=== PATIENT | male | born 1990 | race Caucasian/White ===

== ENCOUNTER 2021-06-17 01:51 | Emergency (ER) | payer MEDICAID, SELFPAY ==
[2021-06-17 02:00] VITALS: BP 152/95; PULSE 81; RESP 16; TEMP 37; O2SAT 95; BMI 45.6
[2021-06-17 02:44] LABS: MANUAL DIFF FLAG NO
[2021-06-17 02:45] LABS: Basophils Percent Auto 0.6 % (0-2); Eosinophils Absolute Auto 0.1 X10*3/uL (0.0-0.4); Eosinophils Percent Auto 1.5 % (0-4); Hematocrit 44.2 % (42-52); Hemoglobin 14.4 g/dl (14.0-18.0); Imm Gran Abs Auto 0.03 X10*3/uL (0.00-0.03); Imm Gran Pct Auto 0.5 % (0.0-0.4); Lymphocytes Absolute Auto 1.9 X10*3/uL (1.2-4.9); Lymphocytes Percent Auto 29.1 % (20-40); Mean Corpuscular HGB Conc 32.6 g/dl (31.0-36.0); Mean Corpuscular Hemoglobin 30.1 pg (27.0-33.0); Mean Corpuscular Volume 92.3 fL (80-98); Mean Platelet Volume 11.5 fL (9.4-12.4); Monocytes Absolute Auto 0.5 X10*3/uL (0.1-1.2); Monocytes Percent Auto 8.3 % (2-11); Neutrophils Absolute Auto 3.9 X10*3/uL (2.0-8.3); Platelet Count 210 X10*3/uL (160-400); Red Blood Count 4.79 X10*6/uL (4.60-5.80); Red Cell Distribution Width 14.1 % (11.0-16.0); White Blood Count 6.5 X10*3/uL (4.8-10.8)
--- NOTE | 2021-06-17 02:45 | PC.NURSE ---
IV established, labs and Covid obtained. Pt provided with bedside urinal when able to void. Awaiting primary MD swartz.
[2021-06-17 03:01] LABS: COVID-19 Test Negative (Negative); IDNOW Serial# 9DD0AD1C
[2021-06-17 03:22] LABS: Alanine Aminotransferase 110 U/L (0-40); Albumin Level 3.9 g/dL (3.5-5.0); Alkaline Phosphatase 105 U/L (39-117); Anion Gap 15 (12-20); Aspartate Amino Transferase 99 U/L (5-37); Bilirubin Total 0.3 mg/dL (0.0-1.0); Blood Urea Nitrogen 8 mg/dL (9-16); Calcium 8.9 mg/dL (8.4-10.2); Carbon Dioxide 24 mmol/L (22-29); Chloride 104 mmol/L (96-108); Creatinine Clr Calc Pharmacy 155.6; Estimated Glomerular Filt Rate > 60; Glucose Random 217 mg/dL (60-115); Potassium 4.8 mmol/L (3.3-5.1); Sodium 138 mmol/L (135-145); Total Protein 7.6 g/dL (6.5-8.0)
--- NOTE | 2021-06-17 03:24 | ED.HA ---
HPI - Headache General Chief Complaint: Headache Stated Complaint: migraines increasing in intensity Time Seen by Provider: 06/17/21 03:24 Source: patient Mode of arrival: ambulatory History of Present Illness HPI Narrative: 30-year-old male with history of migraines presents onset of migraine that he has had difficulty managing for the past week and states he has not been seen by his primary care provider or discuss as migraines in approximately 3 months. He denies any associated fever, chills, sore throat, cough, neck pain and states that he is up-to-date vaccines. He does have associated dizziness and nausea but denies any shortness of breath. Related Data Allergies Allergy/AdvReac Type Severity Reaction Status Date / Time No Known Allergies Allergy Verified 06/17/21 01:59 Review of Systems Review of Systems: Pertinent positives and negatives as stated in the HPI 10 point systems is otherwise negative. [facility] Past Medical History Source: nursing notes reviewed Medical History Hypertension Migraine Social History Social History Advance Directives: No Advance Directives Information Provided: Yes Physical Exam Vital Signs: Vital Signs: Last Vital Signs Temp 98.6 F 06/17/21 02:00 Pulse 67 06/17/21 03:47 Resp 16 06/17/21 03:47 BP 166/101 H 06/17/21 03:47 Pulse Ox 98 06/17/21 04:32 Body Mass Index 45.6 VITAL SIGNS: Reviewed. GENERAL: Well developed, well nourished, in no acute distress. HEAD: Normocephalic/atraumatic EYES: PERRLA, EOMI OROPHARYNX: no oral lesions noted, posterior pharynx clear LUNGS: Normal breath sounds. No adventitious sounds or accessory muscle use. SpO2<98> CARDIOVASCULAR: Regular rate and rhythm without noted murmurs, no JVD or lower extremity edema. ABDOMEN: Obese, Soft, non-tender, non-distended with bowel sounds. SKIN: Inspection of the skin reveals no rashes NEUROLOGIC: Alert and oriented x 4. Strength and sensation to light touch were grossly intact x 4. Course Course Course Narrative: 30-year-old male with history and clinical presentation consistent with migraine, patient received combination migraine cocktail. On review of all investigations there are no acute findings the noted elevation AST/ALT is likely secondary to fatty liver and on re-evaluation patient has had complete resolution of his symptoms will be discharged home in stable condition with instructions to follow-up with his primary care provider. MDM - Headache Lab Data Result diagrams: 06/17/21 02:38 06/17/21 02:38 Labs: Lab Results 06/17/21 06/17/21 06/17/21 Range/Units 02:38 02:38 02:40 WBC 6.5 (4.8-10.8) X10*3/uL RBC 4.79 (4.60-5.80) X10*6/uL Hgb 14.4 (14.0-18.0) g/dl Hct 44.2 (42-52) % MCV 92.3 (80-98) fL MCH 30.1 (27.0-33.0) pg MCHC 32.6 (31.0-36.0) g/dl RDW 14.1 (11.0-16.0) % Plt Count 210 (160-400) X10*3/uL MPV 11.5 (9.4-12.4) fL Immature Gran % (Auto) 0.5 H (0.0-0.4) % Neut % (Auto) 60.0 (45-73) % Lymph % (Auto) 29.1 (20-40) % [place] % (Auto) 8.3 (2-11) % Eos % (Auto) 1.5 (0-4) % Baso % (Auto) 0.6 (0-2) % Lymph # (Auto) 1.9 (1.2-4.9) X10*3/uL [place] # (Auto) 0.5 (0.1-1.2) X10*3/uL Eos # (Auto) 0.1 (0.0-0.4) X10*3/uL Baso # (Auto) 0.0 (0.0-0.2) X10*3/uL Abs Immat Gran (auto) 0.03 (0.00-0.03) X10*3/uL Absolute Neuts (auto) 3.9 (2.0-8.3) X10*3/uL Absolute Nucleated RBC 0.000 (0.0-0.012) X10*3/uL Nucleated RBC % (auto) 0.0 (0.0-0.2) /100WBC Sodium 138 (135-145) mmol/L Potassium 4.8 (3.3-5.1) mmol/L Chloride 104 (96-108) mmol/L Carbon Dioxide 24 (22-29) mmol/L Anion Gap 15 (12-20) BUN 8 L (9-16) mg/dL Creatinine 0.92 (0.5-1.4) mg/dL Estim Creat Clear Calc 155.6 Estimated GFR > 60 Random Glucose 217 H (60-115) mg/dL Calcium 8.9 (8.4-10.2) mg/dL Total Bilirubin 0.3 (0.0-1.0) mg/dL AST 99 H (5-37) U/L ALT 110 H (0-40) U/L Alkaline Phosphatase 105 (39-117) U/L Total Protein 7.6 (6.5-8.0) g/dL Albumin 3.9 (3.5-5.0) g/dL COVID-19 ([facility]) Negative (Negative) COVID-19 Clin Com See Note Discharge Plan Discharge Clinical Impression: Migraine Patient Disposition: Home, Self-Care Instructions: Migraine Headache (ED) Additional Instructions: 1. Resume all home medications as prescribed. 2. Tylenol 1000 mg, orally, every 6 hours as needed for headache. Do not exceed 4000 mg within 24 hours. 3. Ibuprofen 400 mg, orally with milk or food, every 6 hours as needed for headache. You may take both ibuprofen and Tylenol together as this will increase headache relief. 4. Follow-up with your primary care provider next 2-3 days for re-evaluation and further outpatient management. Return to the ER for acute worsening of symptoms. Referrals: Emerita Mejía MD [Primary Care Provider] - 2 days (Patient with acute on chronic migraine, may consider additional prescription treatment.)
[2021-06-17] MEDS: 0.9 % Sodium Chloride 1,000 ML 999 ML IV (03:41)
[2021-06-17] MEDS: diphenhydrAMINE HCL 50 MG/ML VIAL 25 MG IVPUSH (03:42)
[2021-06-17] MEDS: Metoclopramide HCl 10 MG/2 ML VIAL IVPUSH (03:42)
[2021-06-17] MEDS: Ketorolac Tromethamine 15 MG/ML VIAL IVPUSH (03:42)
[2021-06-17] MEDS: Acetaminophen 325 MG TABLET 975 MG PO (03:42)
[2021-06-17 03:47] VITALS: BP 166/101; PULSE 67; RESP 16; O2SAT 98
--- NOTE | 2021-06-17 03:50 | PC.NURSE ---
Pt medicated per DEC. VSS. Resting in bed with lights dim for comfort.
[2021-06-17 04:32] VITALS: O2SAT 87; O2SAT 98
--- NOTE | 2021-06-17 04:32 | PC.NURSE ---
Pt heard snoring loudly in room. Pt previously reported a hx of sleep apnea, states he sleeps with bipap. O2 sat while sleeping noted to be 87%, pt wakes easily, O2 sat increasing to 98%. Pt -> O2 via NC @ 2 lpm to ensure adequate oxygenation while sleeping. Continue to monitor.
== END 2021-06-17 05:10 | disposition home or self-care (01) ==
PROVIDERS: Emergency Provider Student in an Organized Health Care Education/Training Program; PCP Pediatrics
DX: G43.909 Migraine, unspecified, not intractable, without status migrainosus (principal); Z20.822 Contact with and (suspected) exposure to COVID-19; Z79.899 Other long term (current) drug therapy
CPT/HCPCS: 36415; 80053; 85025; 87635; 96361; 96374; 96375; 99284; J1200; J1885; J2765

== ENCOUNTER 2021-08-21 17:39 | Emergency (ER) | payer MEDICAID, SELFPAY ==
[2021-08-21 17:50] VITALS: BP 154/100; PULSE 116; RESP 18; TEMP 36.3; O2SAT 100; BMI 41.8
[2021-08-21 23:00] VITALS: BP 149/66; PULSE 92; RESP 16; TEMP 36.9; O2SAT 94
[2021-08-21 23:30] LABS: Appearance Urine CLEAR; Color Urine YELLOW; Glucose Urine UA >=1000 MG/DL (NEG); Leukocyte Esterase Urine NEG (NEG); Nitrite Urine NEG (NEG); Specific Gravity - Urine 1.015 (1.005-1.025); UACC Culture Trigger NO; Urine Blood 1+ (NEG); Urine Ketones NEG (NEG); Urine Protein NEG (NEG-TRACE)
[2021-08-21 23:40] LABS: Bacteria Urine 1+ /LPF; Squamous Epithelial Cell Urine 1+ /LPF
[2021-08-21 23:41] LABS: UACC CULT YES
--- NOTE | 2021-08-22 00:06 | ED.MALEGU ---
HPI - Male Genitourinary General Chief complaint: Urogenital-Male Stated complaint: Genital issues Time Seen by Provider: 08/21/21 23:44 Source: patient Mode of arrival: ambulatory Limitations: no limitations History of Present Illness HPI Narrative: Patient was shaving the shaft of his penis with razor up to prepuce and then for the past 4 days and has swelling at glans and prepuce of penis with some discharge and slight erythema penis. Penis shaft has excoriations. Patient is not circumsided. patient states he has not sexully active for over a year. Patient states able to urinate. Related Data Previous Rx's Medication Instructions Recorded cephalexin 500 mg capsule 500 mg PO QID 7 Days #28 cap 08/22/21 hydrocortisone 1 % topical cream 1 appl TOPICAL BID 7 Days #28.4 g 08/22/21 metronidazole 500 mg tablet 500 mg PO Q12H 7 Days #14 tab 08/22/21 Allergies Allergy/AdvReac Type Severity Reaction Status Date / Time No Known Allergies Allergy Verified 06/17/21 01:59 Review of Systems Review of Systems: Yes all other systems are reviewed and are negative Constitutional: Constitutional: Reports as per HPI and Reports no additional constitutional complaints Eyes: Eyes: Reports as per HPI and Reports no additional eye complaints ENT: Reports system reviewed and no additional complaints, except as documented and Reports as per HPI Cardiovascular: Cardiovascular: Reports as per HPI and Reports no additional cardiovascular complaints Respiratory: Respiratory: Reports as per HPI and Reports no additional respiratory complaints Gastrointestinal: Gastrointestinal: Reports as per HPI and Reports no additional gastrointestinal complaints Genitourinary: Genitourinary: Reports no additional male genitourinary complaints and Reports as per HPI Comments: penile irritations Musculoskeletal: Musculoskeletal: Reports no additional musculoskeletal complaints and Reports as per HPI Neurologic: Reports system reviewed and no additional complaints, except as documented and Reports as per HPI Psychiatric: Psychiatric: Reports no additional psychiatric complaints and Reports as per HPI Endocrine: Endocrine: Reports no additional endocrine complaints and Reports as per HPI [facility] Past Medical History Medical History Hypertension Migraine Physical Exam Vital Signs: Vital Signs: Last Vital Signs Temp 98.4 F 08/21/21 23:00 Pulse 92 08/21/21 23:00 Resp 16 08/21/21 23:00 BP 149/66 H 08/21/21 23:00 Pulse Ox 94 08/21/21 23:00 Body Mass Index 41.8 Const: General: cooperative, healthy appearing, comfortable, no acute distress, well developed, alert and awake Orientation/consciousness: patient oriented x3 HENMT: Head: Yes normal to inspection, Yes No palpable skull fracture present, Yes normocephalic, Yes atraumatic and No abrasion Eyes: General: appearance normal, both eyes and all related structures Neck: Neck: Yes normal visual inspection, Yes full ROM, Yes no lymphadenopathy, Yes no meningeal signs, Yes trachea midline, Yes supple and No tender Chest: Chest palpation & inspection: normal inspection of the chest and normal palpation of entire chest wall Resp: Effort & Inspection: normal respiratory effort and able to speak in complete sentences Auscultation: clear to auscultation bilaterally Cardio: Jugular venous distension: no JVD Heart sounds: S1 normal heart sound present and S2 normal heart sound present GI: Inspection: Yes normal to inspection and No abdominal wall ecchymosis Palpation (GI): Soft to palpation, not firm, nontender, no guarding and not rigid : Other: General: No CVA tenderness and Yes no CVA tenderness Back/Spine/Pelvis: Back: no CVA tenderness, No CVA tenderness and No back tenderness Neuro: General: patient oriented x3, gait normal, no meningeal signs and CN's II-XI intact bilaterally Cranial nerves: Yes CN's II-XII intact bilaterally Extrem: General: Yes normal to inspection and Yes full ROM Psych: Appearance: grossly normal, well kempt and not disheveled Course Course Course Narrative: Urine, wound culture, and chlamydia gonorrhea sent. Reevaluation(s) Reevaluation #1: Patient does not want empiric treatment for STI. Patient states he has not be simply active for over 1 year and recent STD test for gonorrhea chlamydia and others were negative. Will give antibiotics to cover anaerobes and strep/staff. Patient given steroid cream. Patient informed to follow-up with urology. patient presently not having urinary obstruction. patient educted on worsenin balanitis leading to worsening phimosis/paraphimosis leading to urinary obstruction. patient informed to return to the ED if he has them. MDM - Male Genitourinary Lab Data Labs: Lab Results 08/21/21 08/21/21 Range/Units 23:17 23:17 Urine Color YELLOW Urine Appearance CLEAR Urine pH 6.0 (5.0-8.0) Ur Specific [place] 1.015 (1.005-1.025) Urine Protein NEG (NEG-TRACE) MG/DL Urine Glucose (UA) >=1000 H (NEG) MG/DL Urine Ketones NEG (NEG) MG/DL Urine Blood 1+ H (NEG) Urine Nitrite NEG (NEG) Ur Leukocyte Esterase NEG (NEG) Urine RBC 1-4 (0) /HPF Urine WBC 5-9 H (0-4) /HPF Ur Squamous Epith Cells 1+ /LPF Urine Bacteria 1+ /LPF Urine Yeast 1+ /HPF Chlam trachomat DNA PCR NOT DETECTED (Not Detect.) N.gonorrhoeae DNA (PCR) NOT DETECTED (Not Detect.) Discharge Plan Discharge Clinical Impression: Balanitis, Balanoposthitis Patient Disposition: Home, Self-Care Instructions: Sangeeta (ED) Additional Instructions: Return to the ED for any swelling of penis, redness, profuse discharge, inability to urinate, inability to completely retract forskin, testicular pain, testicular swelling, or any other concerning symptoms. Prescriptions: New hydrocortisone 1 % cream 1 appl topical BID 7 Days Qty: 28.4 RF: 0 metronidazole 500 mg tablet 500 mg PO Q12H 7 Days Qty: 14 RF: 0 cephalexin 500 mg capsule 500 mg PO QID 7 Days Qty: 28 RF: 0 Referrals: Shola Parker MD [Physician] - 2 days (Balanoposthitis after shaving penis. patient states he has not been sexually active for one year) Stand Alone Forms: Work/School Release Interventions: ED Discharge Assessment Last Done: 08/22/21 00:32 Discharge Date/Time: 08/22/21 00:36 Print Language: Guatemalan
[2021-08-22 05:47] LABS: CT PCR NOT DETECTED (Not Detect.); NG PCR NOT DETECTED (Not Detect.)
== END 2021-08-22 00:36 | disposition home or self-care (01) ==
PROVIDERS: Physician Assistant; Emergency Provider Internal Medicine; PCP Pediatrics
DX: N48.1 Balanitis (principal); N47.6 Balanoposthitis
CPT/HCPCS: 81001; 87071; 87086; 87147; 87205; 87491; 87591; 99283; 99284

== ENCOUNTER 2021-08-24 21:06 | Emergency (ER) | payer MEDICAID, SELFPAY ==
[2021-08-24 21:28] VITALS: BP 149/93; PULSE 105; RESP 18; TEMP 36.6; O2SAT 98; BMI 41.8
--- NOTE | 2021-08-24 21:40 | ED_ITS ---
HPI - Male Genitourinary General Chief complaint: Urogenital-Male Stated complaint: Unable to void Time Seen by Provider: 08/24/21 21:40 Source: patient Mode of arrival: ambulatory Limitations: no limitations History of Present Illness HPI Narrative: Patient will be is nondiabetic was seen here on 08/22 a bend 80s 1 week duration treated with Keflex and Flagyl culture showed strep agalactiae. Comes back as is not getting better patient is borderline diabetic not on any medications Related Data Previous Rx's Medication Instructions Recorded cephalexin 500 mg capsule 500 mg PO QID 7 Days #28 cap 08/22/21 hydrocortisone 1 % topical cream 1 appl TOPICAL BID 7 Days #28.4 g 08/22/21 metronidazole 500 mg tablet 500 mg PO Q12H 7 Days #14 tab 08/22/21 miconazole nitrate 2 % topical 1 spray TOPICAL BID #150 g 08/24/21 spray (Athlete's Foot) mupirocin calcium 2 % topical cream 1 appl TOPICAL TID #30 g 08/24/21 Allergies Allergy/AdvReac Type Severity Reaction Status Date / Time No Known Allergies Allergy Verified 06/17/21 01:59 Review of Systems Review of Systems: Yes all other systems are reviewed and are negative [facility] Past Medical History Medical History (Reviewed 08/25/21 @ 01:35 EDT by Teja Feliciano MD) Hypertension Migraine Social History Social History (Reviewed 08/25/21 @ 01:35 EDT by Teja Feliciano MD) Advance Directives: No Advance Directives Information Provided: Yes Physical Exam Vital Signs: Vital Signs: Last Vital Signs Temp 97.8 F 08/24/21 21:28 Pulse 105 H 08/24/21 21:28 Resp 18 08/24/21 21:28 BP 149/93 H 08/24/21 21:28 Pulse Ox 98 08/24/21 21:28 Body Mass Index 41.8 : Other: Inflamed glans uncircumcised penis with pus discharge intertrigo and candidal infection of the scrotum and under the penis Penis: uncircumcised, Localized penile swelling present and ulceration Scrotum: scrotum normal MDM - Male Genitourinary MDM Narrative Medical decision making narrative: Patient borderline diabetic with balanitis continue Keflex and Flagyl add Bactroban ointment locally advised for local hygiene and will give him Lotrimin powder advised to follow-up with urologist Discharge Plan Discharge Clinical Impression: Balanitis Patient Disposition: Home, Self-Care Instructions: [place] (ED) Additional Instructions: Continue antibiotics Apply Bactroban ointment 3 times a day Lotrimin AF powder to spray twice daily See urologist next week Clean with peroxide 2- 3 times a day Prescriptions: New mupirocin calcium 2 % cream 1 appl topical TID Qty: 30 RF: 0 Athlete's Foot 2 % aerosol,spray 1 spray topical BID Qty: 150 RF: 0 No Action hydrocortisone 1 % cream 1 appl topical BID 7 Days Qty: 28.4 RF: 0 metronidazole 500 mg tablet 500 mg PO Q12H 7 Days Qty: 14 RF: 0 cephalexin 500 mg capsule 500 mg PO QID 7 Days Qty: 28 RF: 0 Interventions: ED Discharge Assessment Last Done: 08/24/21 22:05 Discharge Date/Time: 08/24/21 22:05
[2021-08-24] MEDS: Fluconazole 150 MG TABLET PO (21:58)
== END 2021-08-24 22:05 | disposition home or self-care (01) ==
PROVIDERS: Emergency Provider Internal Medicine
DX: N48.1 Balanitis (principal); R33.9 Retention of urine, unspecified; Z79.899 Other long term (current) drug therapy
CPT/HCPCS: 99283; 99284

== ENCOUNTER 2023-11-27 16:38 | Emergency (ER) | payer OTHER, SELFPAY ==
[2023-11-27 16:54] VITALS: BP 150/98; PULSE 95; RESP 20; TEMP 37.1; O2SAT 98; BMI 36.8
--- NOTE | 2023-11-27 16:58 | ED.GENADULT ---
HPI - General Adult General Chief complaint: General Medical Stated complaint: type 2 diabetic, fingers swollen, high glucose Time Seen by Provider: 11/27/23 18:14 Source: patient Mode of arrival: ambulatory Limitations: no limitations History of Present Illness HPI narrative: Patient comes to the emergency room complaining of high blood sugar. Patient states that he has been out of medications for 3 months. Patient states that he used to live in [place], he had but health insurance, did not cover his insulin or any of his medications. Patient decided to move to [place] because he gets everything for free per patient. Patient denies any nausea vomiting or diarrhea, no abdominal pain Related Data Previous Rx's Medication Instructions Recorded cephalexin 500 mg capsule 500 mg PO QID 7 days #28 caps 08/22/21 hydrocortisone 1 % topical cream 1 appl topical BID 7 days #28.4 08/22/21 grams metronidazole 500 mg tablet 500 mg PO Q12H 7 days #14 tabs 08/22/21 miconazole nitrate 2 % topical 1 spray topical BID #150 grams 08/24/21 spray (Athlete's Foot) mupirocin calcium 2 % topical cream 1 appl topical TID #30 grams 08/24/21 blood sugar diagnostic (Accu-Chek #50 ea 11/27/23 Guide test strips) blood-glucose meter (Accu-Chek #1 ea 11/27/23 Guide Glucose Meter) glucagon HCl 1 mg solution for 1 mg subcut Q20M PRN hypoglycemia 11/27/23 injection (Glucagon (HCl) #1 ea Emergency Kit) insulin glargine 100 unit/mL (3 10 unit (0.1 mL) subcut QPM #3 mL 11/27/23 mL) subcutaneous pen (Lantus Solostar U-100 Insulin) lancets (Accu-Chek Fastclix Lancet #100 ea 11/27/23 Drum) lisinopril 10 mg tablet 10 mg PO DAILY #30 tabs 11/27/23 metformin 1,000 mg tablet 1,000 mg PO DAILY #60 tabs 11/27/23 Allergies Allergy/AdvReac Type Severity Reaction Status Date / Time No Known Allergies Allergy Verified 11/27/23 16:59 Review of Systems Review of Systems: Constitutional : No Weight loss, No Fever, No Chills, No Night Sweats, No Fatigue, No Malaise ENT/Mouth : No Hearing loss, No Ear Pain, No Nasal Congestion, No Sinus Pain, No Hoarseness, No sore throat, No Rhinorrhea, No Swallowing Difficulty Eyes: No Eye Pain, No Swelling, No Redness, No Foreign Body, No Discharge, No Vision Changes Cardiovascular : No Chest Pain, No SOB, No Dyspnea on Exertion, No Orthopnea, No Edema, No Palpitations Respiratory : No Cough, No Sputum, No Wheezing, No Smoke Exposure, No Dyspnea Gastrointestinal : No Nausea, No Vomiting, No Diarrhea, No Constipation, No abdominal Pain, No Hematochezia, No Melena Genitourinary : no irregular bleeding, No Dysuria, No Urinary Frequency, No Hematuria, No Urinary Incontinence, No Urgency, No Flank Pain, No Urinary Flow Changes, No Hesitancy Musculoskeletal : No joint pain, No Myalgias, No Joint Swelling Skin : No Skin Lesions, No rash Neuro : No Weakness, No Numbness, No Paresthesias, No Loss of Consciousness, No Dizziness, No Headache Psych : No Anxiety/Panic, No Depression, No SI/HI/AH/VH, No Social Issues, Heme/Lymph: No Bruising, No Bleeding,No Lymphadenopathy Endocrine : No Polyuria, No Polydipsia, No Temperature Intolerance, complaining of high blood sugar [facility] Past Medical History Medical History (Updated 11/27/23 @ 22:14 by Bonnie Montoya MD) Type 2 diabetes mellitus Hypertension Migraine Social History Social History (Reviewed 08/25/21 @ 01:35 EDT by Teja Feliciano MD) Advance Directives: No Advance Directives Information Provided: No Physical Exam ED Vital Signs: Vital Signs - 24 hr 11/27/23 16:54 11/27/23 19:20 11/27/23 21:36 Temperature 98.8 F 98.1 F 98.5 F Pulse Rate 95 79 83 Respiratory Rate 20 16 14 Blood Pressure 150/98 H 144/92 H 146/91 H Pulse Oximetry 98 97 97 Oxygen Delivery Method Room Air Room Air Room Air BMI result Body Mass Index 36.8 Const Other: Appearance: Alert. Oriented X3. No acute distress. Well-appearing Eyes: Pupils equal, round and reactive to light. ENT: Pharynx normal. Neck: Normal inspection. Neck supple. No lymph nodes noted. No crepitus CVS: Normal heart rate and rhythm. Pulses normal. Normal S1 and S2 Respiratory: No respiratory distress. Breath sounds normal. No Wheezing. No rales Abdomen: Soft and nontender. No rigidity. No distention. Skin: Skin warm and dry. Normal skin color. Normal skin turgor. Extremities: No lower extremity edema. No Lacerations. No Rash Neuro: Oriented X 3. No motor deficit. No sensory deficit. Moving all extremities. No slurred speech. CN 2 through 12 grossly intact Psych: calm, cooperative, normal affect Course Course Course Narrative: This is an RME: Additional HPI, ROS, PE not included below will be deferred to primary provider. Patient is a 33-year-old male who presents emergency department for evaluation. He reports approximately 1 year ago he was newly diagnosed as a type 2 diabetic, was started on metformin and insulin. He reports previously his blood sugars not being well controlled. However, over the past few months he has not been taking any medications as he ran out of them and has moved multiple times to different states. Reports recently at home his blood sugars have been over 400, he is having swelling to his fingers and toes, intermittent nausea/stomach discomfort. Plan: Labs, urinalysis Medications Administered Discontinued Medications Generic Name Dose Route Start Last Admin Trade Name Freq PRN Reason Stop Dose Admin Sodium Chloride 2,000 mls @ 999 mls/hr 11/27/23 18:30 11/27/23 19:11 Ns IVCONT 11/27/23 20:30 999 mls/hr .Q2H1M ONE Administration Insulin Human Regular 10 unit 11/27/23 18:30 11/27/23 19:17 Insulin Regular, Human 100 Unit/Ml 3 Ml Vial IVPUSH 11/27/23 18:31 10 unit ONCE ONE Administration Medical Decision Making Medical Decision Making [facility] Narrative: My interpretation of labs, normal hematology, chemistry shows a glucose of 621, mildly elevated LFTs, normal lipase, negative beta hydroxybutyrate, anion gap close -patient received IV fluids, 10 units of insulin, glucose 307 after treatment. Patient asymptomatic -patient willing to restart taking medications -from his [place] records, patient used to take NPH insulin 10 units b.i.d., lisinopril 10 mg, metformin 1000 mg b.i.d. Differential Diagnosis Differential Diagnoses: The differential diagnosis associated with the presentation includes (Hyperglycemia, DKA, uncontrolled diabetes) Admission/Observation Consideration of admission/observation: Escalation of care including admission/observation considered (Given patient's labs, patient considered) Lab Data MDM Lab Attestation statement: I reviewed the patient's lab results. 11/27/23 17:13 11/27/23 17:13 Labs: Lab Results 11/27/23 11/27/23 11/27/23 Range/Units 17:13 17:17 20:06 WBC 6.2 (4.8-10.8) X10*3/uL RBC 5.16 (4.60-5.80) X10*6/uL Hgb 14.4 (14.0-18.0) g/dl Hct 42.1 (42.0-52.0) % MCV 81.6 (80.0-98.0) fL MCH 27.9 (27.0-33.0) pg MCHC 34.2 (31.0-36.0) g/dl RDW 12.6 (11.0-16.0) % Plt Count 254 (160-400) X10*3/uL MPV 11.4 (9.4-12.4) fL Immature Gran % (Auto) 0.5 H (0.0-0.4) % Neut % (Auto) 63.0 (45-73) % Lymph % (Auto) 27.7 (20-40) % [place] % (Auto) 7.0 (2-11) % Eos % (Auto) 1.0 (0-4) % Baso % (Auto) 0.8 (0-2) % Lymph # (Auto) 1.7 (1.2-4.9) X10*3/uL Archer # (Auto) 0.4 (0.1-1.2) X10*3/uL Eos # (Auto) 0.1 (0.0-0.4) X10*3/uL Baso # (Auto) 0.1 (0.0-0.2) X10*3/uL Abs Immat Gran (auto) 0.03 (0.00-0.03) X10*3/uL Absolute Neuts (auto) 3.9 (2.0-8.3) x10*3/uL Absolute Nucleated RBC 0.000 (0.0-0.012) X10*3/uL Nucleated RBC % (auto) 0.0 (0.0-0.2) /100WBC VBG pH 7.43 (7.32-7.43) VBG pCO2 40 mmHg VBG pO2 79 mmHg VBG HCO3 27 H (22-26) mmol/L VBG O2 Saturation 97.0 % VBG Base Excess 3.0 mmol/L Sodium 131 L (135-145) mmol/L Potassium 4.4 (3.3-5.1) mmol/L Chloride 95 L (96-108) mmol/L Carbon Dioxide 27 (22-29) mmol/L Anion Gap 13 (12-20) BUN 12 (9-16) mg/dL Creatinine 0.95 (0.5-1.4) mg/dL Estim Creat Clear Calc 130.3 Estimated GFR > 60 POC Glucose (60-115) mg/dL Random Glucose 621 H* (60-115) mg/dL Calcium 9.8 D (8.4-10.2) mg/dL Total Bilirubin 0.4 (0.0-1.0) mg/dL AST 34 (5-37) U/L ALT 66 H (0-40) U/L Alkaline Phosphatase 164 H (39-117) U/L Total Protein 8.7 H (6.5-8.0) g/dL Albumin 4.1 (3.5-5.0) g/dL Lipase 40 (8-78) U/L Beta-Hydroxybutyrate 0.15 (0.02-0.27) mmol/L Urine Color Yellow Urine Appearance Clear Urine pH 5.5 (5.0-9.0) Ur Specific [place] >= 1.030 H (1.005-1.025) Urine Protein Negative (Neg-Trace) mg/dL Urine Glucose (UA) >=1000 H (Negative) mg/dL Urine Ketones Negative (Negative) mg/dL Urine Blood Negative (Negative) Urine Nitrite Negative (Negative) Ur Leukocyte Esterase Negative (Negative) Urine RBC 0-2 (0-2) /HPF Urine WBC 0-5 (0-5) /HPF Ur Squamous Epith Cells 0-2 (0-2) /HPF Urine Bacteria None Seen (None Seen) Hyaline Casts 0-2 (0-2) /LPF 11/27/23 Range/Units 20:40 WBC (4.8-10.8) X10*3/uL RBC (4.60-5.80) X10*6/uL Hgb (14.0-18.0) g/dl Hct (42.0-52.0) % MCV (80.0-98.0) fL MCH (27.0-33.0) pg MCHC (31.0-36.0) g/dl RDW (11.0-16.0) % Plt Count (160-400) X10*3/uL MPV (9.4-12.4) fL Immature Gran % (Auto) (0.0-0.4) % Neut % (Auto) (45-73) % Lymph % (Auto) (20-40) % Archer % (Auto) (2-11) % Eos % (Auto) (0-4) % Baso % (Auto) (0-2) % Lymph # (Auto) (1.2-4.9) X10*3/uL Archer # (Auto) (0.1-1.2) X10*3/uL Eos # (Auto) (0.0-0.4) X10*3/uL Baso # (Auto) (0.0-0.2) X10*3/uL Abs Immat Gran (auto) (0.00-0.03) X10*3/uL Absolute Neuts (auto) (2.0-8.3) x10*3/uL Absolute Nucleated RBC (0.0-0.012) X10*3/uL Nucleated RBC % (auto) (0.0-0.2) /100WBC VBG pH (7.32-7.43) VBG pCO2 mmHg VBG pO2 mmHg VBG HCO3 (22-26) mmol/L VBG O2 Saturation % VBG Base Excess mmol/L Sodium (135-145) mmol/L Potassium (3.3-5.1) mmol/L Chloride (96-108) mmol/L Carbon Dioxide (22-29) mmol/L Anion Gap (12-20) BUN (9-16) mg/dL Creatinine (0.5-1.4) mg/dL Estim Creat Clear Calc Estimated GFR POC Glucose 307 H (60-115) mg/dL Random Glucose (60-115) mg/dL Calcium (8.4-10.2) mg/dL Total Bilirubin (0.0-1.0) mg/dL AST (5-37) U/L ALT (0-40) U/L Alkaline Phosphatase (39-117) U/L Total Protein (6.5-8.0) g/dL Albumin (3.5-5.0) g/dL Lipase (8-78) U/L Beta-Hydroxybutyrate (0.02-0.27) mmol/L Urine Color Urine Appearance Urine pH (5.0-9.0) Ur Specific [place] (1.005-1.025) Urine Protein (Neg-Trace) mg/dL Urine Glucose (UA) (Negative) mg/dL Urine Ketones (Negative) mg/dL Urine Blood (Negative) Urine Nitrite (Negative) Ur Leukocyte Esterase (Negative) Urine RBC (0-2) /HPF Urine WBC (0-5) /HPF Ur Squamous Epith Cells (0-2) /HPF Urine Bacteria (None Seen) Hyaline Casts (0-2) /LPF Critical Care Time Critical Care Time Critical Care Time: Yes Total Critical Care Time: 60 Attestation: I have personally provided critical care time. Time includes review of lab data, radiology results, discussion with consultants, and monitoring for potential decompensation. Intervention performed as documented. Discharge Plan Discharge Clinical Impression: Uncontrolled diabetes mellitus with hyperglycemia Patient Disposition: Home, Self-Care Instructions: Diabetic Hyperglycemia (ED) Additional Instructions: Please follow-up with your primary care physician tomorrow. If you have any worsening or new symptoms, please return to the emergency room or call 911 Prescriptions: New metformin 1,000 mg tablet 1,000 mg PO DAILY Qty: 60 1RF lisinopril 10 mg tablet 10 mg PO DAILY Qty: 30 1RF insulin glargine [Lantus Solostar U-100 Insulin] 100 unit/mL (3 mL) insulin pen 10 unit subcut QPM Qty: 3 1RF (DME) blood-glucose meter [Accu-Chek Guide Glucose Meter] Misc See Rx Instructions .Route Qty: 1 0RF Rx Instructions: As directed (DME) Accu-Chek Guide test strips Strip See Rx Instructions .Route Qty: 50 0RF Rx Instructions: As directed (DME) lancets [Accu-Chek Fastclix Lancet Drum] Misc See Rx Instructions .Route Qty: 100 0RF Rx Instructions: As directed glucagon HCl [Glucagon (HCl) Emergency Kit] 1 mg recon soln 1 mg subcut Q20M PRN (Reason: hypoglycemia) Qty: 1 0RF Rx Instructions: until target blood sugar attained No Action mupirocin calcium 2 % cream 1 appl topical TID Qty: 30 0RF Athlete's Foot 2 % aerosol,spray 1 spray topical BID Qty: 150 0RF hydrocortisone 1 % cream 1 appl topical BID 7 Days Qty: 28.4 0RF Rx Instructions: place on area metronidazole 500 mg tablet 500 mg PO Q12H 7 Days Qty: 14 0RF cephalexin 500 mg capsule 500 mg PO QID 7 Days Qty: 28 0RF
[2023-11-27 17:17] LABS: MANUAL DIFF FLAG NO
[2023-11-27 17:20] LABS: Basophils Absolute Auto 0.1 X10*3/uL (0.0-0.2); Basophils Percent Auto 0.8 % (0-2); Eosinophils Absolute Auto 0.1 X10*3/uL (0.0-0.4); Hematocrit 42.1 % (42.0-52.0); Hemoglobin 14.4 g/dl (14.0-18.0); Imm Gran Abs Auto 0.03 X10*3/uL (0.00-0.03); Imm Gran Pct Auto 0.5 % (0.0-0.4); Lymphocytes Absolute Auto 1.7 X10*3/uL (1.2-4.9); Lymphocytes Percent Auto 27.7 % (20-40); Mean Corpuscular HGB Conc 34.2 g/dl (31.0-36.0); Mean Corpuscular Hemoglobin 27.9 pg (27.0-33.0); Mean Corpuscular Volume 81.6 fL (80.0-98.0); Mean Platelet Volume 11.4 fL (9.4-12.4); Monocytes Absolute Auto 0.4 X10*3/uL (0.1-1.2); Neutrophils Absolute Auto 3.9 x10*3/uL (2.0-8.3); Platelet Count 254 X10*3/uL (160-400); Red Blood Count 5.16 X10*6/uL (4.60-5.80); Red Cell Distribution Width 12.6 % (11.0-16.0); White Blood Count 6.2 X10*3/uL (4.8-10.8)
[2023-11-27 17:31] LABS: VBG HCO3 27 mmol/L (22-26); VBG pCO2 40 mmHg; VBG pH 7.43 (7.32-7.43); VBG pO2 79 mmHg
[2023-11-27 17:40] LABS: Beta-Hydroxybutyrate 0.15 mmol/L (0.02-0.27)
[2023-11-27 17:40] LABS: Venous Blood Gas Refer to POC result
[2023-11-27 17:43] LABS: Alanine Aminotransferase 66 U/L (0-40); Albumin Level 4.1 g/dL (3.5-5.0); Alkaline Phosphatase 164 U/L (39-117); Anion Gap 13 (12-20); Aspartate Amino Transferase 34 U/L (5-37); Bilirubin Total 0.4 mg/dL (0.0-1.0); Blood Urea Nitrogen 12 mg/dL (9-16); Calcium 9.8 mg/dL (8.4-10.2); Carbon Dioxide 27 mmol/L (22-29); Chloride 95 mmol/L (96-108); Creatinine Clr Calc Pharmacy 130.3; Estimated Glomerular Filt Rate > 60; Glucose Random 621 mg/dL (60-115); Lipase 40 U/L (8-78); Potassium 4.4 mmol/L (3.3-5.1); Sodium 131 mmol/L (135-145); Total Protein 8.7 g/dL (6.5-8.0)
[2023-11-27] MEDS: 0.9 % Sodium Chloride 2,000 ML 999 ML IVCONT (19:11)
[2023-11-27] MEDS: Insulin Regular, Human 100 UNIT/ML 3 ML VIAL 10 UNIT IVPUSH (19:17)
[2023-11-27 19:20] VITALS: BP 144/92; PULSE 79; RESP 16; TEMP 36.7; O2SAT 97
--- NOTE | 2023-11-27 20:41 | PC.NURSE ---
POC:307
[2023-11-27 20:43] LABS: Appearance Urine Clear; Color Urine Yellow; Glucose Urine UA >=1000 mg/dL (Negative); Leukocyte Esterase Urine Negative (Negative); Nitrite Urine Negative (Negative); PH 5.5 (5.0-9.0); Specific Gravity - Urine >= 1.030 (1.005-1.025); UMIC TRIGGER UACC YES; Urine Blood Negative (Negative); Urine Ketones Negative (Negative); Urine Protein Negative (Neg-Trace)
[2023-11-27 20:46] LABS: Glucose, Whole Blood 307 mg/dL (60-115)
[2023-11-27 20:48] LABS: Bacteria Urine None Seen (None Seen); Hyaline Casts Urine 0-2 /LPF (0-2); RBC Urine 0-2 /HPF (0-2); Squamous Epithelial Cell Urine 0-2 /HPF (0-2); WBC Urine 0-5 /HPF (0-5)
[2023-11-27 21:36] VITALS: BP 146/91; PULSE 83; RESP 14; TEMP 36.9; O2SAT 97
== END 2023-11-27 22:35 | disposition home or self-care (01) ==
PROVIDERS: Nurse Practitioner Family; Emergency Provider Emergency Medicine
DX: E11.65 Type 2 diabetes mellitus with hyperglycemia (principal)
CPT/HCPCS: 36415; 80053; 81001; 82010; 82803; 82947; 83690; 85025; 96361; 96374; 99284

== ENCOUNTER 2023-12-09 11:49 | Outpatient (AMB) | payer OTHER, SELFPAY ==
--- NOTE | 2023-12-09 11:51 | MHC.PC.OV ---
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 Patient reports having high blood sugars. Patient reports he has psoriasis. Patient reports he has been experiencing chest pains with heart fluttering. Patient states he has been experiencing headaches as well. 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 Accompanied by: Self / Same As Patient Allergies No Known Allergies Allergy (Verified 12/09/23 12:24) Medication List - Last Reconciled 12/09/23 by MIKE Lee blood sugar diagnostic (Accu-Chek Guide test strips) As directed blood-glucose meter (Accu-Chek Guide Glucose Meter) As directed glucagon HCl (Glucagon (HCl) Emergency Kit) 1 mg subcut Q20M PRN insulin glargine (Lantus Solostar U-100 Insulin) 10 units (0.1 mL) subcut QPM lancets (Accu-Chek Fastclix Lancet Drum) As directed lisinopril 10 mg PO DAILY metformin 1,000 mg PO DAILY Tobacco use date assessed: 12/09/23 Dental Screening Dental Screen Date: 12/09/23 Did you have a dental visit in the last 12 months?: No Did you have a dental problem in the last 6 months where you did not have access to dental care?: No Was dental information given to patient?: Patient declined HPI HPI Comments History of Present Illness Details 33-year-old male with migraines, hypertension, fatty liver, obesity, balanitis, psoriasis diabetes type 2 uncontrolled, MDD Presents today with his mom for uncontrolled diabetes. He was seen in the emergency room about a week ago. His blood sugar was over 600 at the time. Reports he has been without his medication for several years. He was prescribed insulin Lantus 10 units at the emergency room and has been taking as directed in the evening. He has also been taking metformin a 1000 mg once per day. He is testing his blood glucose. Home log reviewed today. All readings accept to greater than 400, there were 2 readings that were above 270. Generally he feels unwell. He reports racing heart at times, feeling tired, blurred vision. Hemoglobin A1c done today 14% [facility] Medical History (Updated 12/09/23 @ 14:35 by MIKE Lee) Joint swelling Acid reflux Psoriasis Bipolar 1 disorder Depression Anxiety Type 2 diabetes mellitus Hypertension Migraine Surgical History (Updated 12/09/23 @ 12:22 by Fide Anderson CMA) No pertinent past surgical history Family History (Updated 12/09/23 @ 12:21 by Fide Anderson CMA) Mother Hypertension Diabetes Thyroid condition Psychiatric diagnosis Father Diabetes Social History (Updated 12/09/23 @ 12:19 by Fide Anderson CMA) Household Members: Other Housing: Other Are you a primary palliative care physician to a significant other at home: No Do you presently have visiting nurse or other home services: No Alcohol intake: current Alcohol intake frequency: holidays/special occasions only Patient Tobacco Use Status: Former Tobacco user e-Cigarette/Vaping Use: Never Used service: No Current occupational status: unemployed Current occupational exposures/hazards: No Sexual orientation: Unable to collect Gender identity: Unable to collect Cognitive needs: No Hearing needs: No Vision needs: No Questionnaire PHQ-9 Over the last 2 weeks, how often have you been bothered by any of the following problems? 1. Little interest or pleasure in doing things: more than half the days 2. Feeling down, depressed, or hopeless: more than half the days 3. Trouble falling or staying asleep, or sleeping too much: more than half the days 4. Feeling tired or having little energy: more than half the days 5. Poor appetite or overeating: more than half the days 6. Feeling bad about yourself - or that you are a failure or have let yourself or your family down: nearly every day 7. Trouble concentrating on things, such as reading the newspaper or watching television: not at all 8. Moving or speaking so slowly that other people could have noticed. Or the opposite - being so fidgety or restless that you have been moving around a lot more than usual: not at all 9. Thoughts that you would be better off or of hurting yourself in some way: not at all Total score: 13 Depression Screening Interpretation: Positive Depression Screening Follow-up: Existing condition Depression Screening Done: Yes 45100 - PHQ-9 Billing: Yes Source: Developed by Drs. Wilfredo Antunez, Ninfa Velázquez, Jose Carlos Worley and colleagues, with an educational jenny from [employer]. Thrive Questionnaire Date Thrive assessed: 12/09/23 I am a: Patient What is your living situation today?: I do not have a steady places to live Within the past 12 months, did the food you bought not last and you didn't have the money to get more?: Sometimes True Within the past 12 months, did you worry whether your food would run out before you got money to buy more?: Sometimes True Do you have trouble paying for medicines?: Yes Do you have trouble getting transportation to medical appointments?: Yes Do you have trouble paying your heating and electricity bill?: I choose not to answer this question Do you have trouble taking care of your child, family member or friend?: I choose not to answer this question Do you have trouble with day-to-day activities such as bathing, preparing meals, shopping, managing finances, etc.?: Yes Are you currently unemployed and looking for a job?: I choose not to answer this question Are you interested in more education?: No Please select the resources that you would like help with: Housing/Custodial, Food, Paying for medicine, Transportation, Utilities, Childcare, Care for elder or disabled, Daily support, Job search/training, Education and None Currently or been in a relationship where the following occur: no concerns reported THRIVE Score: 4 AUDIT C Alcohol Use Questionnaire (AUDIT-C) 1. How often do you have a drink containing alcohol?: Never 2. How many drinks containing alcohol do you have on a typical day when you are drinking?: 1 or 2 3. How often do you have six or more drinks on one occasion?: Never Total Score: 0 Score Reviewed/Action Taken: Yes GARY-7 AMB Questionnaire GARY-7 Date GARY - 7 assessed: 12/09/23 Feeling nervous, anxious, or on edge: 3 = Nearly every day Not being able to stop or control worryin = More than half the days Worrying too much about different things: 2 = More than half the days Trouble relaxin = Several days Being so restless that it is hard to sit still: 2 = More than half the days Becoming easily annoyed or irritable: 2 = More than half the days Feeling afraid as if something awful might happen: 2 = More than half the days Total GARY-7 score (0-4 normal; 5-9 mild; 10-14 moderate; 15-21 severe): 14 Source: Developed by Drs. Wilfredo Antunez, Ninfa Velázquez, Jose Carlos Worley and colleagues, with an educational jenny from [employer]. GARY-7 Assessment Billing GARY-7 Assessment Tool: GARY-7 Assessment 03621 Review of Systems Const All systems reviewed & are unremarkable except as noted in HPI and below Physical exam (Primary Care) BMI Assessment/Plan discussion: High BMI High, discussed plan: lifestyle Tobacco/Smoking Status: Tobacco use Status Tobacco use date assessed 12/09/23 12/09/23 12:15 Patient Tobacco Use Status Former Tobacco user 12/09/23 12:19 e-Cigarette/Vaping Use Never Used 12/09/23 12:19 PHQ-9: PHQ-9 Score PHQ-9: Total score 13 12/09/23 14:35 Depression Screening Interpretation: Positive Depression Screening Follow-up: Existing condition Thrive Assessment: Date of Thrive Assessment Date Thrive assessed 12/09/23 12/09/23 12:17 Currently or been in a relationship where the following occur: no concerns reported Const Other: Awake alert oriented accompanied by mom Mucous membranes moist Tachycardic regular rhythm Lung sounds clear To auscultation mentation within normal limits Psoriatic rash on scalp behind ears on abdomen Results AMB Hemoglobin A1c AMB Hemoglobin A1c 14.0 % Last Edit by Fide Anderson CMA on 12/09/23 12:34 Results Reviewed Results Reviewed: Laboratory Last Values Hgb A1c (Clinic) 14.0 % (4.0-6.0) H 12/09/23 12:33 Assessment and Plan Assessment & Plan (1) Type 2 diabetes with complication: Comment: Currently on insulin Lantus 10 units daily. Blood glucose levels remain above 400. Hemoglobin A1c done today 14%. His weight today is 109.5 kg. The plan will be to increase his Lantus to 30 units daily based on the calculation below: basal insulin, such as 0.15 to 0.25 units/kg/day The goal will be to titrate to effect with a total daily dose of 0.5 units/kg (55 units)basal insulin. At this time could, consider adding rapid acting prandial insulin (e.g., aspart, lispro) 0.1 unit/kg with meals before further basal insulin titrations Increase the metformin from a 1000 mg daily to a 1000 mg twice per day I have referred him for diabetic eye exam given his visual complaints today I have also referred him to the nurse navigation team to help him with the cause of his diabetic supplies and to provide some diabetic education. Code(s): E11.8 - Type 2 diabetes mellitus with unspecified complications (2) Type 2 diabetes mellitus with obesity: Comment: Reports rare than 20 lb weight loss in the last couple of months in the setting of uncontrolled diabetes. His BMI remains high. We will need to continue to encourage weight loss once his disease is stable Code(s): E11.69 - Type 2 diabetes mellitus with other specified complication; E66.9 - Obesity, unspecified (3) Fatty liver: Comment: We will check a hepatitis profile today. Further workup will be needed. Code(s): K76.0 - Fatty (change of) liver, not elsewhere classified (4) Hypertension complicating diabetes: Comment: He is on lisinopril 10 mg daily. Taking as directed. His blood pressure remains above goal. Check labs today before adjusting any medications. Code(s): E11.59 - Type 2 diabetes mellitus with other circulatory complications; I15.2 - Hypertension secondary to endocrine disorders (5) MDD (major depressive disorder): Comment: Not currently on any medications. Reports a history of bipolar disorder. We will need to address this at future visits however the priority at this time is controlling his diabetes Code(s): F32.9 - Major depressive disorder, single episode, unspecified Qualifiers: Active/Remission status: currently active Major depression episode severity: moderate Major depression recurrence: recurrent Qualified Code(s): F33.1 - Major depressive disorder, recurrent, moderate (6) GARY (generalized anxiety disorder): Comment: Not currently on any medications. Reports a history of bipolar disorder. We will need to address this at future visits however the priority at this time is controlling his diabetes Code(s): F41.1 - Generalized anxiety disorder Plan This note is constructed using voice recognition software. 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 Total time spent caring for the patient today was 60 minutes. This includes time spent before the visit reviewing the chart, time spent during the visit, and time spent after the visit on documentation Orders: Orders Comprehensive [place]. Panel Fast Today E11.59 - Type 2 diabetes mellitus with other circulatory complications, E11.69 - Type 2 diabetes mellitus with other specified complication, E11.8 - Type 2 diabetes mellitus with unspecified complications, E66.9 - Obesity, unspecified, G43.009 - Migraine without aura, not intractable, without status migrainosus, I15.2 - Hypertension secondary to endocrine disorders, K76.0 - Fatty (change of) liver, not elsewhere classified Lipid Panel Today E11.59 - Type 2 diabetes mellitus with other circulatory complications, E11.69 - Type 2 diabetes mellitus with other specified complication, E11.8 - Type 2 diabetes mellitus with unspecified complications, E66.9 - Obesity, unspecified, G43.009 - Migraine without aura, not intractable, without status migrainosus, I15.2 - Hypertension secondary to endocrine disorders, K76.0 - Fatty (change of) liver, not elsewhere classified Microalbumin, Random (w Creat) Today E11.59 - Type 2 diabetes mellitus with other circulatory complications, E11.69 - Type 2 diabetes mellitus with other specified complication, E11.8 - Type 2 diabetes mellitus with unspecified complications, E66.9 - Obesity, unspecified, G43.009 - Migraine without aura, not intractable, without status migrainosus, I15.2 - Hypertension secondary to endocrine disorders, K76.0 - Fatty (change of) liver, not elsewhere classified TSH reflex Free T4 Today E11.59 - Type 2 diabetes mellitus with other circulatory complications, E11.69 - Type 2 diabetes mellitus with other specified complication, E11.8 - Type 2 diabetes mellitus with unspecified complications, E66.9 - Obesity, unspecified, G43.009 - Migraine without aura, not intractable, without status migrainosus, I15.2 - Hypertension secondary to endocrine disorders, K76.0 - Fatty (change of) liver, not elsewhere classified AMB Hemoglobin A1c Today E11.9 - Type 2 diabetes mellitus without complications Hepatitis A,B,C Profile Today E11.59 - Type 2 diabetes mellitus with other circulatory complications, E11.69 - Type 2 diabetes mellitus with other specified complication, E11.8 - Type 2 diabetes mellitus with unspecified complications, E66.9 - Obesity, unspecified, G43.009 - Migraine without aura, not intractable, without status migrainosus, I15.2 - Hypertension secondary to endocrine disorders, K76.0 - Fatty (change of) liver, not elsewhere classified UA and rflx microscopic Today E11.59 - Type 2 diabetes mellitus with other circulatory complications, E11.69 - Type 2 diabetes mellitus with other specified complication, E11.8 - Type 2 diabetes mellitus with unspecified complications, E66.9 - Obesity, unspecified, G43.009 - Migraine without aura, not intractable, without status migrainosus, I15.2 - Hypertension secondary to endocrine disorders, K76.0 - Fatty (change of) liver, not elsewhere classified Referrals Nurse Navigator Referral E11.59 - Type 2 diabetes mellitus with other circulatory complications, E11.69 - Type 2 diabetes mellitus with other specified complication, E11.8 - Type 2 diabetes mellitus with unspecified complications, E66.9 - Obesity, unspecified, G43.009 - Migraine without aura, not intractable, without status migrainosus, I15.2 - Hypertension secondary to endocrine disorders, K76.0 - Fatty (change of) liver, not elsewhere classified Ophthalmology Referral E11.8 - Type 2 diabetes mellitus with unspecified complications Medications: New pen needle, diabetic As directed 100 ea 0RF E11.8 - Type 2 diabetes mellitus with unspecified complications Changed From insulin glargine (Lantus Solostar U-100 Insulin) 10 units (0.1 mL) subcut QPM 3 mL 1RF To insulin glargine (Lantus Solostar U-100 Insulin) 30 units (0.3 mL) subcut QPM 3 mL 3RF From metformin 1,000 mg PO DAILY 60 tabs 1RF To metformin 1,000 mg PO BID 60 tabs 1RF Refilled blood sugar diagnostic (Accu-Chek Guide test strips) As directed 50 ea 11RF E11.9 - Type 2 diabetes mellitus without complications insulin glargine (Lantus Solostar U-100 Insulin) 30 units (0.3 mL) subcut QPM 15 mL 1RF E11.8 - Type 2 diabetes mellitus with unspecified complications lancets (Accu-Chek Fastclix Lancet Drum) As directed 100 ea 0RF E11.9 - Type 2 diabetes mellitus without complications Patient Instructions: Increase Insulin Lantus to 30 units per night Increase metformin to 1000mg twice per day Return to office in 1 week for follow-up Coding Level of Care Code New Pt Level 5 (40716) Diagnoses Type 2 diabetes with complication E11.8 Type 2 diabetes mellitus with obesity E11.69; E66.9 Fatty liver K76.0 Hypertension complicating diabetes E11.59; I15.2 Moderate episode of recurrent major depressive disorder F33.1 Active/Remission status: currently active Major depression episode severity: moderate Major depression recurrence: recurrent GARY (generalized anxiety disorder) F41.1 Additional Codes GARY-7 Assessment Billing - GARY-7 Assessment Tool: GARY-7 Assessment [id number] ([id number])
== END 2023-12-09 14:02 | disposition home or self-care (01) ==
PROVIDERS: PCP Nurse Practitioner Family; Visit Provider Nurse Practitioner Family
DX: E11.8 Type 2 diabetes mellitus with unspecified complications (principal); E11.69 Type 2 diabetes mellitus with other specified complication; E11.59 Type 2 diabetes mellitus with other circulatory complications; F33.1 Major depressive disorder, recurrent, moderate; E66.9 Obesity, unspecified; K76.0 Fatty (change of) liver, not elsewhere classified; I15.2 Hypertension secondary to endocrine disorders; F41.1 Generalized anxiety disorder
CPT/HCPCS: 83036; 99205

== ENCOUNTER 2023-12-09 12:54 | Outpatient (REF) | payer OTHER, SELFPAY ==
[2023-12-09 15:20] LABS: Appearance Urine Clear; Color Urine Yellow; Glucose Urine UA >=1000 mg/dL (Negative); Leukocyte Esterase Urine Negative (Negative); Nitrite Urine Negative (Negative); PH 5.5 (5.0-9.0); Specific Gravity - Urine >= 1.030 (1.005-1.025); UMIC TRIGGER UA YES; Urine Blood Negative (Negative); Urine Ketones Negative (Negative); Urine Protein Negative (Neg-Trace)
[2023-12-09 15:55] LABS: Creatinine Urine 80.33 mg/dL; Microalbum/Creatinine Ratio Ur 32.3 ug/mg cr (<30)
[2023-12-09 16:02] LABS: TSH reflex Free T4 4.21 uIU/mL (0.32-4.0)
[2023-12-09 16:08] LABS: Alanine Aminotransferase 89 U/L (0-40); Albumin Level 4.1 g/dL (3.5-5.0); Alkaline Phosphatase 126 U/L (39-117); Anion Gap 13 (12-20); Aspartate Amino Transferase 51 U/L (5-37); Bilirubin Total 0.4 mg/dL (0.0-1.0); Blood Urea Nitrogen 9 mg/dL (9-16); Calcium 9.6 mg/dL (8.4-10.2); Carbon Dioxide 25 mmol/L (22-29); Chloride 101 mmol/L (96-108); Cholesterol 145 mg/dL (<200); Estimated Glomerular Filt Rate > 60; Glucose Fasting 375 mg/dL (60-99); HDL Cholesterol 29 mg/dL (>40); LDL Cholesterol Calculated 67 mg/dL (<100); Potassium 4.3 mmol/L (3.3-5.1); Sodium 135 mmol/L (135-145); Total Protein 8.7 g/dL (6.5-8.0); Triglycerides 247 mg/dL (<150)
[2023-12-09 16:15] LABS: Bacteria Urine None Seen (None Seen); Hyaline Casts Urine 0-2 /LPF (0-2); RBC Urine 0-2 /HPF (0-2); Squamous Epithelial Cell Urine 0-2 /HPF (0-2); WBC Urine 0-5 /HPF (0-5)
[2023-12-09 16:33] LABS: Free T4 (Free Thyroxine) 1.13 ng/dL (0.71-1.85)
[2023-12-10 08:22] LABS: HBS Num1 9.63 mIU/mL (0-7.99); HBc Num1 0.37 S/CO (0.00-0.79); HBsAGNum1 0.38 S/CO (0.00-0.99); Hepatitis A Antibody IgM 0.22 Index (0-0.79); Hepatitis B Core Antibody Nonreactive (Nonreactive); Hepatitis B Surface Antigen Negative (Negative); ~HepC Num1 0.21 S/CO (0.00-0.79); ~Hepatitis A Antibody IgM Nonreactive (Nonreactive); ~Hepatitis C Antibody Nonreactive (Nonreactive)
[2023-12-10 09:46] LABS: HBS Num2 8.69 mIU/mL (0-7.99); HBS Num3 8.69 mIU/mL (0-7.99); ~Hepatitis B Surface Antibody GRAYZONE (Nonreactive)
== END 2023-12-09 12:55 | disposition home or self-care (01) ==
LOC: HO.WFDLDS 12:54
PROVIDERS: Visit Provider Nurse Practitioner Family
DX: E11.69 Type 2 diabetes mellitus with other specified complication (principal); E66.9 Obesity, unspecified; K76.0 Fatty (change of) liver, not elsewhere classified; G43.009 Migraine without aura, not intractable, without status migrainosus; E11.59 Type 2 diabetes mellitus with other circulatory complications; I15.2 Hypertension secondary to endocrine disorders
CPT/HCPCS: 36415; 80053; 80061; 81001; 81003; 82043; 82570; 84439; 84443; 86704; 86706; 86709; 86803; 87340

== ENCOUNTER 2023-12-16 11:15 | Outpatient (AMB) | payer OTHER, SELFPAY ==
[2023-12-16 11:19] VITALS: BP 126/84; PULSE 91; RESP 13; TEMP 36.4; O2SAT 99; BMI 37.3
--- NOTE | 2023-12-16 11:19 | MHC.PC.OV ---
Vital Signs 12/16/23 11:19 Height 5 ft 8 in Weight 245 lb 8 oz BMI 37.3 BP 126/84 Blood Pressure Location Rt brachial Position Sitting Respiration 13 Pulse 91 Pulse Source Pulse Oximeter Temp 97.5 F Temp Source Temporal Artery Scan Pulse Oximetry (%) 99 Oxygen Delivery Method Room Air Intake Visit Reasons: 1 week follow up Intake Note: Patient states that pharmacy told him that the order for the Lantus needed to be rewritten in order to be filled. Frozen Yogurt Maker Required: No Electronic Gaming Device Supervisor: Offered and Declined Accompanied by: Self / Same As Patient Allergies No Known Allergies Allergy (Verified 12/16/23 11:45) Medication List - Last Reconciled 12/16/23 by Sonia Bass, SUPERVISOR [employer]- blood sugar diagnostic (Accu-Chek Guide test strips) As directed blood-glucose meter (Accu-Chek Guide Glucose Meter) As directed glucagon HCl (Glucagon (HCl) Emergency Kit) 1 mg subcut Q20M PRN insulin glargine (Lantus Solostar U-100 Insulin) 30 units (0.3 mL) subcut QPM lancets (Accu-Chek Fastclix Lancet Drum) As directed lisinopril 10 mg PO DAILY metformin 1,000 mg PO BID pen needle, diabetic As directed Tobacco use date assessed: 12/09/23 Dental Screening Dental Screen Date: 12/16/23 Did you have a dental visit in the last 12 months?: No Did you have a dental problem in the last 6 months where you did not have access to dental care?: No Was dental information given to patient?: Yes HPI HPI Comments History of Present Illness Details 33-year-old male with migraines, hypertension, fatty liver, obesity, balanitis, psoriasis, diabetes type 2 uncontrolled, MDD, GARY, bipolar 1 disorder, hyperlipidemia, microalbuminuria Health Maintenance: Hga1c 14% 12/09/23 DME - overdue, referred for exam 11/2023 Here today to f/u on complex medications conditions and labs. Labs done 12/09/2023 show an elevated fasting glucose of 375, elevated LFTs AST 51, ALT 89, alk phos 126, elevated total protein of 8.7, normal albumin, elevated triglycerides 247, total cholesterol normal at 145, LDL at goal 67, HDL low at 29, TSH mildly bumped at 4.21 within normal T4, urine shows elevated specific gravity of 1.03, urine glucose greater than a 1000, positive microalbuminuria 32.3, hepatitis panel shows ellison zone for hep B surface antibody otherwise nonreactive Since last visit, has been using lantus 30 units Blood sugar log reviewed. Improve since last time. 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 [facility] Medical History Joint swelling Acid reflux Psoriasis Bipolar 1 disorder Depression Anxiety Type 2 diabetes mellitus Hypertension Migraine Surgical History No pertinent past surgical history Family History Mother Hypertension Diabetes Thyroid condition Psychiatric diagnosis Father Diabetes Social History Household Members: Other Housing: Other Are you a primary neonatal intensive care unit nurse to a significant other at home: No Do you presently have visiting nurse or other home services: No 75 years or older and lives alone: No Alcohol intake: current Alcohol intake frequency: holidays/special occasions only Patient Tobacco Use Status: Never used Tobacco e-Cigarette/Vaping Use: Never Used service: No Current occupational status: unemployed Current occupational exposures/hazards: No Sexual orientation: Unable to collect Gender identity: Unable to collect Cognitive needs: No Hearing needs: No Vision needs: No Questionnaire Thrive Questionnaire Date Thrive assessed: 12/09/23 GARY-7 AMB Questionnaire GARY-7 Date GARY - 7 assessed: 12/09/23 Source: Developed by Drs. Wilfredo Antunez, Ninfa Velázquez, Jose Carlos Worley and colleagues, with an educational jenny from [employer]. Review of Systems Const All systems reviewed & are unremarkable except as noted in HPI and below Physical exam (Primary Care) Vital Signs: Last Vital Signs Temp 97.5 F 12/16/23 11:19 Pulse 91 12/16/23 11:19 Resp 13 12/16/23 11:19 BP 126/84 12/16/23 11:19 Pulse Ox 99 12/16/23 11:19 Oxygen Delivery Method Room Air 12/16/23 11:19 BMI result Body Mass Index 37.3 BMI Assessment/Plan discussion: High BMI High, discussed plan: lifestyle Tobacco/Smoking Status: Tobacco use Status Tobacco use date assessed 12/09/23 12/16/23 11:28 Patient Tobacco Use Status Never used Tobacco 12/16/23 11:28 e-Cigarette/Vaping Use Never Used 12/16/23 11:28 Thrive Assessment: Date of Thrive Assessment Date Thrive assessed 12/09/23 12/16/23 11:28 Const Other: Awake alert oriented Mucous membranes moist RRR Lung sounds clear To auscultation mentation within normal limits Psoriatic rash on scalp behind ears on abdomen Assessment and Plan Assessment & Plan (1) Type 2 diabetes mellitus with obesity: Comment: 20 lb weight loss in the last couple of months in the setting of uncontrolled diabetes. His BMI remains high. We will need to continue to encourage weight loss once his disease is stable Code(s): E11.69 - Type 2 diabetes mellitus with other specified complication; E66.9 - Obesity, unspecified (2) Type 2 diabetes with complication: Comment: Currently on insulin Lantus 30 units daily. Blood glucose levels remain above 400. Hemoglobin A1c 14%. His weight today is 109.5 kg. The plan will be to increase his Lantus to 40 units daily based on the calculation below: basal insulin, such as 0.15 to 0.25 units/kg/day The goal will be to titrate to effect with a total daily dose of 0.5 units/kg (55 units)basal insulin. At this time could, consider adding rapid acting prandial insulin (e.g., aspart, lispro) 0.1 unit/kg with meals before further basal insulin titrations Cont metformin 1000 mg twice per day I have referred him for diabetic eye exam scheduled February 14, 2024 I have also referred him to the nurse navigation team to help him with the cause of his diabetic supplies and to provide some diabetic education. New RX for CGM. Meet w NN for how to use Code(s): E11.8 - Type 2 diabetes mellitus with unspecified complications (3) Hypertension complicating diabetes: Comment: He is on lisinopril 10 mg daily. Taking as directed. Goal <130/80 At goal, cont Code(s): E11.59 - Type 2 diabetes mellitus with other circulatory complications; I15.2 - Hypertension secondary to endocrine disorders (4) Fatty liver: Comment: Hep profile 11/2023 negative; will need addl work up. Code(s): K76.0 - Fatty (change of) liver, not elsewhere classified (5) Hyperlipidemia associated with type 2 diabetes mellitus: Comment: LDL goal < 70 11/2023 lipid prof elevated triglycerides 247, total cholesterol normal at 145, LDL at goal 67, HDL low at 29 Start Atorvastatin 40mg QD Code(s): E11.69 - Type 2 diabetes mellitus with other specified complication; E78.5 - Hyperlipidemia, unspecified Plan This note is constructed using voice recognition software. While every effort has been made to ensure accuracy in surface mount technology operator, still errors may have been included Sometimes, these errors may affect the content or meaning of the given sentence . Total time spent caring for the patient today was 60 minutes. This includes time spent before the visit reviewing the chart, time spent during the visit, and time spent after the visit on documentation RTO in 1 week for f/u Medications: New atorvastatin 40 mg PO BEDTIME 90 tabs 0RF blood-glucose sensor (FreeStyle Ernie 3 Sensor device) As directed 2 ea 11RF E11.8 - Type 2 diabetes mellitus with unspecified complications blood-glucose meter,continuous (FreeStyle Ernie 3 [place]) As directed 1 ea 0RF E11.8 - Type 2 diabetes mellitus with unspecified complications Changed From insulin glargine (Lantus Solostar U-100 Insulin) 30 units (0.3 mL) subcut QPM 15 mL 1RF E11.8 - Type 2 diabetes mellitus with unspecified complications To insulin glargine (Lantus Solostar U-100 Insulin) 40 units (0.4 mL) subcut QPM 15 mL 1RF E11.8 - Type 2 diabetes mellitus with unspecified complications Coding Level of Care Code Est Pt Level 5 (42093) Diagnoses Type 2 diabetes mellitus with obesity E11.69; E66.9 Type 2 diabetes with complication E11.8 Hypertension complicating diabetes E11.59; I15.2 Fatty liver K76.0 Hyperlipidemia associated with type 2 diabetes mellitus E11.69; E78.5
== END 2023-12-16 12:07 | disposition home or self-care (01) ==
PROVIDERS: PCP Nurse Practitioner Family; Visit Provider Nurse Practitioner Family
DX: E11.69 Type 2 diabetes mellitus with other specified complication (principal); Z68.37 Body mass index [BMI] 37.0-37.9, adult; E11.59 Type 2 diabetes mellitus with other circulatory complications; E66.9 Obesity, unspecified; E78.5 Hyperlipidemia, unspecified; I15.2 Hypertension secondary to endocrine disorders; K76.0 Fatty (change of) liver, not elsewhere classified
CPT/HCPCS: 99215

== ENCOUNTER 2023-12-23 12:38 | Outpatient (AMB) | payer OTHER, SELFPAY ==
--- NOTE | 2023-12-23 12:45 | MHC.PC.OV ---
Vital Signs 12/23/23 12:46 Height 5 ft 8 in Weight 249 lb 2 oz BMI 37.9 BP 144/90 H Blood Pressure Location Rt brachial Position Sitting Respiration 13 Pulse 89 Pulse Source Pulse Oximeter Temp 97.2 F Temp Source Temporal Artery Scan Pulse Oximetry (%) 98 Oxygen Delivery Method Room Air Intake Visit Reasons: complex DM f/u Intake Note: Patient would like test strips refilled. Patient also needs an order for a CPAP machine. Business Banking Sales Assistant Required: No Accompanied by: Self / Same As Patient Allergies No Known Allergies Allergy (Verified 12/23/23 13:21) Medication List - Last Reconciled 12/23/23 by Sonia Bass, HAND BLOCKER-BC atorvastatin 40 mg PO BEDTIME blood sugar diagnostic (Accu-Chek Guide test strips) As directed blood-glucose meter (Accu-Chek Guide Glucose Meter) As directed blood-glucose meter,continuous (FreeStyle Ernie 3 [place]) As directed blood-glucose sensor (FreeStyle Ernie 3 Sensor device) As directed fluoxetine (Prozac) 20 mg PO DAILY glucagon HCl (Glucagon (HCl) Emergency Kit) 1 mg subcut Q20M PRN insulin glargine (Lantus Solostar U-100 Insulin) 40 units (0.4 mL) subcut QPM lancets (Accu-Chek Fastclix Lancet Drum) As directed lisinopril 10 mg PO DAILY metformin 1,000 mg PO BID pen needle, diabetic As directed Tobacco use date assessed: 12/09/23 Dental Screening Dental Screen Date: 12/23/23 Did you have a dental visit in the last 12 months?: No Did you have a dental problem in the last 6 months where you did not have access to dental care?: No Was dental information given to patient?: Yes HPI HPI Comments History of Present Illness Details 33-year-old male with migraines, hypertension, fatty liver, obesity, balanitis, psoriasis, diabetes type 2 uncontrolled, MDD, GARY, bipolar 1 disorder, hyperlipidemia, microalbuminuria, MATEUSZ not on CPAP Health Maintenance: Hga1c 14% 12/09/23 DME - overdue, referred for exam 11/2023, scheduled January 2024 Labs done 12/09/2023 show an elevated fasting glucose of 375, elevated LFTs AST 51, ALT 89, alk phos 126, elevated total protein of 8.7, normal albumin, elevated triglycerides 247, total cholesterol normal at 145, LDL at goal 67, HDL low at 29, TSH mildly bumped at 4.21 within normal T4, urine shows elevated specific gravity of 1.03, urine glucose greater than a 1000, positive microalbuminuria 32.3, hepatitis panel shows ellison zone for hep B surface antibody otherwise nonreactive Here today for one-week follow-up. At last visit he was advised to increase his Lantus to 40 units daily. He was able to meet with the nurse navigator. He was started on atorvastatin 40 mg daily Log reviewed with him today 7 day average is 259 mg/dL. Ranges 159-412 mg/dL. This is improved since last visit. Taking his Lantus in the afternoon. Admits to overall feeling better. Order in place for CGM. States that there is insurance approval issue. Needs more test strips. He only has 1 left. Current Rx is for only 50 per month. We will need to increase this. Admits depressive symptoms. Interested in counseling. Reports nurse navigator is working on this referral for him. Interested in medications. We will start him on fluoxetine today. He has a psoriatic like rash which may be seborrheic dermatitis. He was evaluated by Dermatology in [place]. Would like to establish care with a auto body mechanic apprentice here. Referral placed to Dermatology for further care and treatment. He reports headaches and a history of sleep apnea. Reports his sleep apnea is severe and he was on CPAP in the past. Lost his CPAP when he moved from [place]. Willing to update asleep study. Aware that untreated sleep apnea can cause and worsened headaches. We will start with this before initiating any other treatments. [facility] Medical History (Updated 12/23/23 @ 15:24 by Sonia Bass, [facility]) Severe sleep apnea Joint swelling Acid reflux Psoriasis Bipolar 1 disorder Depression Anxiety Type 2 diabetes mellitus Hypertension Migraine Surgical History No pertinent past surgical history Family History Mother Hypertension Diabetes Thyroid condition Psychiatric diagnosis Father Diabetes Social History Household Members: Other Housing: Homeless Are you a primary health care social worker to a significant other at home: No Do you presently have visiting nurse or other home services: No 75 years or older and lives alone: No Alcohol intake: current Alcohol intake frequency: holidays/special occasions only Patient Tobacco Use Status: Never used Tobacco e-Cigarette/Vaping Use: Never Used service: No Current occupational status: unemployed Current occupational exposures/hazards: No Sexual orientation: Unable to collect Gender identity: Unable to collect Cognitive needs: No Hearing needs: No Vision needs: No Questionnaire Thrive Questionnaire Date Thrive assessed: 12/09/23 GARY-7 AMB Questionnaire GARY-7 Date GARY - 7 assessed: 12/09/23 Source: Developed by Drs. Wilfredo Antunez, Ninfa Velázquez, Jose Carlos Worley and colleagues, with an educational jenny from [employer]. Review of Systems Const All systems reviewed & are unremarkable except as noted in HPI and below Physical exam (Primary Care) Vital Signs: Last Vital Signs Temp 97.2 F 12/23/23 12:46 Pulse 89 12/23/23 12:46 Resp 13 12/23/23 12:46 BP 144/90 H 12/23/23 12:46 Pulse Ox 98 12/23/23 12:46 Oxygen Delivery Method Room Air 12/23/23 12:46 BMI result Body Mass Index 37.9 BMI Assessment/Plan discussion: High BMI High, discussed plan: weight reduction Tobacco/Smoking Status: Tobacco use Status Tobacco use date assessed 12/09/23 12/23/23 12:53 Patient Tobacco Use Status Never used Tobacco 12/23/23 12:53 e-Cigarette/Vaping Use Never Used 12/23/23 12:53 Thrive Assessment: Date of Thrive Assessment Date Thrive assessed 12/09/23 12/23/23 12:53 Const Other: Awake alert oriented Mucous membranes moist RRR Lung sounds clear To auscultation mentation within normal limits Psoriatic rash on scalp behind ears on abdomen Assessment and Plan Assessment & Plan (1) Type 2 diabetes with complication: Comment: Currently on insulin Lantus 40 units daily. Blood glucose levels improving however remain above goal. Hemoglobin A1c 14%. His weight today is 109.5 kg. The plan will be to increase his Lantus to 45 units daily based on the calculation below: basal insulin, such as 0.15 to 0.25 units/kg/day The goal will be to titrate to effect with a total daily dose of 0.5 units/kg (55 units)basal insulin. At this time could, consider adding rapid acting prandial insulin (e.g., aspart, lispro) 0.1 unit/kg with meals before further basal insulin titrations Cont metformin 1000 mg twice per day I have referred him for diabetic eye exam scheduled February 14, 2024 Active with nurse navigation team to help him with the cause of his diabetic supplies and to provide some diabetic education. Message sent to her to evaluate what is going on with the CGM He does need more glucose test strips. He is aware that there is a prior authorization required to increase the quantity. He is able to afford buying this product [id number]. Will have staff work on prior Auth Code(s): E11.8 - Type 2 diabetes mellitus with unspecified complications (2) Type 2 diabetes mellitus with obesity: Comment: 20 lb weight loss in the last couple of months in the setting of uncontrolled diabetes. His BMI remains high. We will need to continue to encourage weight loss once his disease is stable Code(s): E11.69 - Type 2 diabetes mellitus with other specified complication; E66.9 - Obesity, unspecified (3) Hyperlipidemia associated with type 2 diabetes mellitus: Comment: LDL goal < 70 11/2023 lipid prof elevated triglycerides 247, total cholesterol normal at 145, LDL at goal 67, HDL low at 29 On Atorvastatin 40mg QD Code(s): E11.69 - Type 2 diabetes mellitus with other specified complication; E78.5 - Hyperlipidemia, unspecified (4) MDD (major depressive disorder): Comment: Not currently on any medications. Reports a history of bipolar disorder. Working with nurse navigator for a counseling referral. New order for fluoxetine 20 mg p.o. daily. We will titrate to effect. Code(s): F32.9 - Major depressive disorder, single episode, unspecified Qualifiers: Active/Remission status: currently active Major depression episode severity: moderate Major depression recurrence: recurrent Qualified Code(s): F33.1 - Major depressive disorder, recurrent, moderate (5) Hypertension complicating diabetes: Comment: He is on lisinopril 10 mg daily. Taking as directed. Goal <130/80 elevated at today's visit. Was not able to recheck. I am seeing him weekly so we will recheck this next week and increase the dose of lisinopril as needed Code(s): E11.59 - Type 2 diabetes mellitus with other circulatory complications; I15.2 - Hypertension secondary to endocrine disorders (6) MATEUSZ (obstructive sleep apnea): Comment: Referred for sleep study. Reports he was on CPAP in the past. Code(s): G47.33 - Obstructive sleep apnea (adult) (pediatric) (7) GARY (generalized anxiety disorder): Comment: See MDD care plan Code(s): F41.1 - Generalized anxiety disorder (8) Psoriasis: Comment: Refer to dermatology for evaluation and treatment Code(s): L40.9 - Psoriasis, unspecified Plan This note is constructed using voice recognition software. While every effort has been made to ensure accuracy in stamp pad finisher, still errors may have been included Sometimes, these errors may affect the content or meaning of the given sentence . Total time spent caring for the patient today was 50 minutes. This includes time spent before the visit reviewing the chart, time spent during the visit, and time spent after the visit on documentation Orders: Orders RT home sleep study Today E11.59 - Type 2 diabetes mellitus with other circulatory complications, G43.009 - Migraine without aura, not intractable, without status migrainosus, G47.33 - Obstructive sleep apnea (adult) (pediatric), I15.2 - Hypertension secondary to endocrine disorders Referrals Dermatology Referral L40.9 - Psoriasis, unspecified Medications: New fluoxetine (Prozac) 20 mg PO DAILY 30 caps 1RF Refilled blood sugar diagnostic (Accu-Chek Guide test strips) As directed 100 ea 11RF E11.9 - Type 2 diabetes mellitus without complications Patient Instructions: Increase Lantus to 45 units per day NN was asked to follow up on CGM New medication to help you mood was prescribed today Sleep study ordered and Derm referral placed today RTO 1 week Coding Level of Care Code Est Pt Level 5 (84750) Diagnoses Type 2 diabetes with complication E11.8 Type 2 diabetes mellitus with obesity E11.69; E66.9 Hyperlipidemia associated with type 2 diabetes mellitus E11.69; E78.5 Moderate episode of recurrent major depressive disorder F33.1 Active/Remission status: currently active Major depression episode severity: moderate Major depression recurrence: recurrent Hypertension complicating diabetes E11.59; I15.2 MATEUSZ (obstructive sleep apnea) G47.33 GARY (generalized anxiety disorder) F41.1 Psoriasis L40.9
[2023-12-23 12:46] VITALS: BP 144/90; PULSE 89; RESP 13; TEMP 36.2; O2SAT 98; BMI 37.9
== END 2023-12-23 13:40 | disposition home or self-care (01) ==
PROVIDERS: PCP Nurse Practitioner Family; Visit Provider Nurse Practitioner Family
DX: E11.69 Type 2 diabetes mellitus with other specified complication (principal); F33.1 Major depressive disorder, recurrent, moderate; E11.59 Type 2 diabetes mellitus with other circulatory complications; E66.9 Obesity, unspecified; Z68.37 Body mass index [BMI] 37.0-37.9, adult; E78.5 Hyperlipidemia, unspecified; I15.2 Hypertension secondary to endocrine disorders; G47.33 Obstructive sleep apnea (adult) (pediatric); F41.1 Generalized anxiety disorder; L40.9 Psoriasis, unspecified
CPT/HCPCS: 99215

== ENCOUNTER 2024-01-13 15:05 | Outpatient (AMB) | payer OTHER, SELFPAY ==
--- NOTE | 2024-01-13 15:21 | MHC.PC.OV ---
Vital Signs 01/13/24 15:24 Height 5 ft 8 in Weight 243 lb 2 oz BMI 37.0 BP 130/83 Blood Pressure Location Rt brachial Position Sitting Respiration 14 Pulse 91 Pulse Source Pulse Oximeter Temp 98 F Temp Source Temporal Artery Scan Pulse Oximetry (%) 98 Oxygen Delivery Method Room Air Intake Visit Reasons: complex DM f/u Intake Note: Follow up diabetes Calender Wind Up Helper Required: No Allergies No Known Allergies Allergy (Verified 01/13/24 15:22) Medication List - Last Reconciled 01/13/24 by Sonia Bass, TECHNICAL BUYER- atorvastatin 40 mg PO BEDTIME blood sugar diagnostic (FreeStyle Lite Strips) test 4 times a day blood-glucose meter (Accu-Chek Guide Glucose Meter) As directed blood-glucose meter,continuous (FreeStyle Ernie 3 Cocoa) As directed blood-glucose sensor (FreeStyle Ernie 3 Sensor device) As directed fluoxetine (Prozac) 20 mg PO DAILY glucagon HCl (Glucagon (HCl) Emergency Kit) 1 mg subcut Q20M PRN insulin glargine (Lantus Solostar U-100 Insulin) 40 units (0.4 mL) subcut QPM lancets (Accu-Chek Fastclix Lancet Drum) As directed lisinopril 10 mg PO DAILY metformin 1,000 mg PO BID pen needle, diabetic As directed Tobacco use date assessed: 01/13/24 Dental Screening Dental Screen Date: 01/13/24 Did you have a dental visit in the last 12 months?: No Did you have a dental problem in the last 6 months where you did not have access to dental care?: No Was dental information given to patient?: Patient has dentist HPI HPI Comments History of Present Illness Details 33-year-old male with migraines, hypertension, fatty liver, obesity, balanitis, psoriasis, diabetes type 2 uncontrolled, MDD, GARY, bipolar 1 disorder, hyperlipidemia, microalbuminuria, Dupuytren's contractures bilat Health Maintenance: Hga1c 14% 12/09/23 DME - overdue, referred for exam 11/2023 Labs done 12/09/2023 show an elevated fasting glucose of 375, elevated LFTs AST 51, ALT 89, alk phos 126, elevated total protein of 8.7, normal albumin, elevated triglycerides 247, total cholesterol normal at 145, LDL at goal 67, HDL low at 29, TSH mildly bumped at 4.21 within normal T4, urine shows elevated specific gravity of 1.03, urine glucose greater than a 1000, positive microalbuminuria 32.3, hepatitis panel shows ellison zone for hep B surface antibody otherwise nonreactive Here today to follow up. Since last office visit he has been using the increase dose of Lantus 45 units per day. Blood sugar log reviewed. Ranges 133 to 268 mg/dL since the last office visit which is much improved. Unfortunately he did run out of his metformin, this issue has been resolved. Today he complains diarrhea from the metformin. He is very excited that he got his [employer] CGM, Working with nurse navigator. Need to schedule appointment for education. He also reports issues with transportation. I have sent a message to the nurse navigator to help him with this. He complains of painful deformities of bilat hands. Present for months. Reports he was taking naproxen in the past for the pain with good effect. He is tolerating the Prozac without side effects. In regards to his other outstanding items, he has an appointment to diamond picker his home sleep study equipment in January, still waiting on a dermatology appointment [facility] Medical History (Updated 01/13/24 @ 16:30 by Sonia Bass, [facility]) Severe sleep apnea Joint swelling Acid reflux Psoriasis Bipolar 1 disorder Depression Anxiety Type 2 diabetes mellitus Hypertension Migraine Surgical History No pertinent past surgical history Family History Mother Hypertension Diabetes Thyroid condition Psychiatric diagnosis Father Diabetes Social History Household Members: Other Housing: Homeless Are you a primary healthcare project manager to a significant other at home: No Do you presently have visiting nurse or other home services: No 75 years or older and lives alone: No Alcohol intake: current Alcohol intake frequency: holidays/special occasions only Patient Tobacco Use Status: Never used Tobacco e-Cigarette/Vaping Use: Never Used service: No Current occupational status: unemployed Current occupational exposures/hazards: No Sexual orientation: Unable to collect Gender identity: Unable to collect Cognitive needs: No Hearing needs: No Vision needs: No Questionnaire Thrive Questionnaire Date Thrive assessed: 12/09/23 GARY-7 AMB Questionnaire GARY-7 Date GARY - 7 assessed: 12/09/23 Source: Developed by Drs. Wilfredo Atnunez, Ninfa Velázquez, Jose Carlos Worley and colleagues, with an educational jenny from [employer]. Physical exam (Primary Care) Vital Signs: Last Vital Signs Temp 98 F 01/13/24 15:24 Pulse 91 01/13/24 15:24 Resp 14 01/13/24 15:24 BP 130/83 01/13/24 15:24 Pulse Ox 98 01/13/24 15:24 Oxygen Delivery Method Room Air 01/13/24 15:24 BMI result Body Mass Index 37.0 BMI Assessment/Plan discussion: High BMI High, discussed plan: weight reduction Tobacco/Smoking Status: Tobacco use Status Tobacco use date assessed 01/13/24 01/13/24 15:27 Patient Tobacco Use Status Never used Tobacco 01/13/24 15:27 e-Cigarette/Vaping Use Never Used 01/13/24 15:27 Thrive Assessment: Date of Thrive Assessment Date Thrive assessed 12/09/23 01/13/24 15:27 Const Other: Awake alert oriented Mucous membranes moist RRR Lung sounds clear To auscultation mentation within normal limits Psoriatic rash on scalp behind ears on abdomen Dupuytren's contractures of bilat hands Assessment and Plan Assessment & Plan (1) Hypertension complicating diabetes: Comment: He is on lisinopril 10 mg daily. Taking as directed. Goal <130/80 Code(s): E11.59 - Type 2 diabetes mellitus with other circulatory complications; I15.2 - Hypertension secondary to endocrine disorders (2) Type 2 diabetes with complication: Comment: Currently on insulin Lantus 45 units daily. Blood glucose levels improving. Hemoglobin A1c 14% November 2023 Plan: Continue Lantus 45 units daily, stop metformin as this is causing diarrhea. Start Synjardy XR 5-a 1000 mg 2 tablets p.o. in the morning. I have referred him for diabetic eye exam scheduled February 14, 2024 Active with nurse navigation team. Code(s): E11.8 - Type 2 diabetes mellitus with unspecified complications (3) Hyperlipidemia associated with type 2 diabetes mellitus: Comment: LDL goal < 70 11/2023 lipid prof elevated triglycerides 247, total cholesterol normal at 145, LDL at goal 67, HDL low at 29 On Atorvastatin 40mg QD Code(s): E11.69 - Type 2 diabetes mellitus with other specified complication; E78.5 - Hyperlipidemia, unspecified (4) Fatty liver: Comment: Hep profile 11/2023 negative; will need addl work up if repeat labs cont to show elevation. Code(s): K76.0 - Fatty (change of) liver, not elsewhere classified (5) Dupuytren's contracture of both hands: Comment: edu on condition. i do not think OT referral is appropriate at this time given transportation issues. I think its too early for a Hand Specialist referral. Reports + pain relief in pain w/ Naproxen. I have sent this in & advised to take w/ food and sparingly. Code(s): M72.0 - Palmar fascial fibromatosis [Dupuytren] Plan This note is constructed using voice recognition software. While every effort has been made to ensure accuracy in quantitative equity head, still errors may have been included Sometimes, these errors may affect the content or meaning of the given sentence . Total time spent caring for the patient today was 50 minutes. This includes time spent before the visit reviewing the chart, time spent during the visit, and time spent after the visit on documentation Orders: Orders Lipid Panel 02/16/24 E11.59 - Type 2 diabetes mellitus with other circulatory complications, E11.69 - Type 2 diabetes mellitus with other specified complication, E11.8 - Type 2 diabetes mellitus with unspecified complications, E78.5 - Hyperlipidemia, unspecified, I15.2 - Hypertension secondary to endocrine disorders, K76.0 - Fatty (change of) liver, not elsewhere classified Microalbumin, Random (w Creat) 02/16/24 E11.59 - Type 2 diabetes mellitus with other circulatory complications, E11.69 - Type 2 diabetes mellitus with other specified complication, E11.8 - Type 2 diabetes mellitus with unspecified complications, E78.5 - Hyperlipidemia, unspecified, I15.2 - Hypertension secondary to endocrine disorders, K76.0 - Fatty (change of) liver, not elsewhere classified Comprehensive [place]. Panel Fast 02/16/24 E11.59 - Type 2 diabetes mellitus with other circulatory complications, E11.69 - Type 2 diabetes mellitus with other specified complication, E11.8 - Type 2 diabetes mellitus with unspecified complications, E78.5 - Hyperlipidemia, unspecified, I15.2 - Hypertension secondary to endocrine disorders, K76.0 - Fatty (change of) liver, not elsewhere classified Complete Blood Count no Diff 02/16/24 E11.59 - Type 2 diabetes mellitus with other circulatory complications, E11.69 - Type 2 diabetes mellitus with other specified complication, E11.8 - Type 2 diabetes mellitus with unspecified complications, E78.5 - Hyperlipidemia, unspecified, I15.2 - Hypertension secondary to endocrine disorders, K76.0 - Fatty (change of) liver, not elsewhere classified Hemoglobin A1c 02/16/24 E11.8 - Type 2 diabetes mellitus with unspecified complications Ferritin 02/16/24 E11.59 - Type 2 diabetes mellitus with other circulatory complications, E11.69 - Type 2 diabetes mellitus with other specified complication, E11.8 - Type 2 diabetes mellitus with unspecified complications, E78.5 - Hyperlipidemia, unspecified, I15.2 - Hypertension secondary to endocrine disorders, K76.0 - Fatty (change of) liver, not elsewhere classified Vitamin B12 and Folate 02/16/24 E11.59 - Type 2 diabetes mellitus with other circulatory complications, E11.69 - Type 2 diabetes mellitus with other specified complication, E11.8 - Type 2 diabetes mellitus with unspecified complications, E78.5 - Hyperlipidemia, unspecified, I15.2 - Hypertension secondary to endocrine disorders, K76.0 - Fatty (change of) liver, not elsewhere classified Medications: New naproxen 375 mg PO BID PRN 60 tabs 0RF pain 30 days empagliflozin-metformin 5-1,000 mg ER (Synjardy XR) 2 tabs (2 x 5-1,000 mg) PO QAM 180 ea 0RF Changed From insulin glargine (Lantus Solostar U-100 Insulin) 40 units (0.4 mL) subcut QPM 15 mL 1RF E11.8 - Type 2 diabetes mellitus with unspecified complications To insulin glargine (Lantus Solostar U-100 Insulin) 50 units (0.5 mL) subcut QPM 15 mL 1RF E11.8 - Type 2 diabetes mellitus with unspecified complications From insulin glargine (Lantus Solostar U-100 Insulin) 50 units (0.5 mL) subcut QPM 15 mL 1RF E11.8 - Type 2 diabetes mellitus with unspecified complications To insulin glargine (Lantus Solostar U-100 Insulin) 45 units (0.45 mL) subcut QPM 45 mL 1RF 3 months E11.8 - Type 2 diabetes mellitus with unspecified complications Discontinued metformin Discontinued Reason: Doctor's Order 1,000 mg PO BID 60 tabs 1RF Patient Instructions: RTO in February for a 30 min appt w/ me to f/u on labs and chronic conditions. Coding Level of Care Code Est Pt Level 5 (79245) Diagnoses Hypertension complicating diabetes E11.59; I15.2 Type 2 diabetes with complication E11.8 Hyperlipidemia associated with type 2 diabetes mellitus E11.69; E78.5 Fatty liver K76.0 Dupuytren's contracture of both hands M72.0
[2024-01-13 15:24] VITALS: BP 130/83; PULSE 91; RESP 14; TEMP 36.6; O2SAT 98; BMI 37.0
== END 2024-01-13 16:04 | disposition home or self-care (01) ==
PROVIDERS: PCP Nurse Practitioner Family; Visit Provider Nurse Practitioner Family
DX: E11.59 Type 2 diabetes mellitus with other circulatory complications (principal); I15.2 Hypertension secondary to endocrine disorders; E11.8 Type 2 diabetes mellitus with unspecified complications; E11.69 Type 2 diabetes mellitus with other specified complication; E78.5 Hyperlipidemia, unspecified; K76.0 Fatty (change of) liver, not elsewhere classified; M72.0 Palmar fascial fibromatosis [Dupuytren]
CPT/HCPCS: 99215

== ENCOUNTER → 2024-02-02 14:38 | Outpatient (REF) | payer OTHER, SELFPAY | LOC: HO.SL 14:38 | PROVIDERS: PCP Nurse Practitioner Family; Visit Provider Nurse Practitioner Family | DX: G47.33 Obstructive sleep apnea (adult) (pediatric) (principal); E11.59 Type 2 diabetes mellitus with other circulatory complications | CPT/HCPCS: 95806 ==

== ENCOUNTER → 2024-02-02 14:47 | Outpatient (BNV) | payer OTHER, SELFPAY | PROVIDERS: PCP Nurse Practitioner Family; Visit Provider Internal Medicine | DX: G47.33 Obstructive sleep apnea (adult) (pediatric) (principal) | CPT/HCPCS: 95806 ==

== ENCOUNTER 2024-02-21 13:48 | Emergency (ER) | payer OTHER, SELFPAY ==
[2024-02-21 14:04] VITALS: BP 129/85; PULSE 84; RESP 18; TEMP 36.6; O2SAT 97; BMI 36.5
--- NOTE | 2024-02-21 14:05 | ED.GENADULT ---
HPI - General Adult General Chief complaint: Headache Stated complaint: headaches,palpitations Time Seen by Provider: 02/21/24 16:49 Source: patient Mode of arrival: ambulatory Limitations: no limitations History of Present Illness HPI narrative: 33-year-old male with a history of diabetes mellitus, hypertension, hyperlipidemia, depression, anxiety, psoriasis, migraines who presents emergency department for evaluation of headache and chest pain. The patient states that he has had a headache which is been constant for 1 week. The headache starts in the back in his head radiates to the front that he has had in is localized behind his eyes. He describes the pain is a constant, pressure-like pain which is 10/10 at its worst. He does have photophobia, phonophobia, nausea and associated dizziness. He also states for the past week he has been having palpitations which he describes as a fast heart rate. He also states he has been having intermittent chest pain. He points to his anterior chest. He states that the pain is a dull ache which comes and goes in his [id number] intensity. Review of systems was negative for fever, chills, rhinorrhea, sore throat, cough, vomiting, diarrhea. He states that he does have shortness of breath and no dyspnea on exertion. Related Data Previous Rx's ?Medication ?Instructions ?Recorded blood-glucose meter (Accu-Chek #1 ea 11/27/23 Guide Glucose Meter) glucagon HCl 1 mg solution for 1 mg subcut Q20M PRN hypoglycemia 11/27/23 injection (Glucagon (HCl) #1 ea Emergency Kit) lancets (Accu-Chek Fastclix Lancet #100 ea 12/09/23 Drum) pen needle, diabetic 31 gauge x #100 ea 12/09/23/ atorvastatin 40 mg tablet 40 mg PO BEDTIME #90 tabs 12/16/23 blood-glucose meter,continuous #1 ea 12/16/23 (FreeStyle Ernie 3 [place]) blood-glucose sensor (FreeStyle #2 ea 12/16/23 Ernie 3 Sensor device) fluoxetine 20 mg capsule (Prozac) 20 mg PO DAILY #30 caps 12/23/23 blood sugar diagnostic (FreeStyle #100 ea 12/31/23 Lite Strips) empagliflozin 5 mg-metformin ER 2 tab (2 x 5-1,000 mg) PO QAM #180 01/13/24 1,000 mg tablet,extended release ea 24 hr (Synjardy XR) insulin glargine 100 unit/mL (3 45 unit (0.45 mL) subcut QPM 3 01/13/24 mL) subcutaneous pen (Lantus months #45 mL Solostar U-100 Insulin) naproxen 375 mg tablet,delayed 375 mg PO BID PRN pain 30 days #60 01/13/24 release tabs lisinopril 10 mg tablet 10 mg PO DAILY #90 tabs 02/12/24 [id number] 250 2 tab PO Q6H PRN headache #30 tabs 02/21/24 mg-250 mg-65 mg tablet (Excedrin Migraine) diphenhydramine HCl 25 mg capsule 50 mg (2 x 25 mg) PO Q6H PRN 02/21/24 headache, nausea, vomiting #20 caps metoclopramide HCl 10 mg tablet 10 mg PO Q6H PRN nausea and 02/21/24 (Reglan) vomiting #14 tabs Allergies Allergy/AdvReac Type Severity Reaction Status Date / Time No Known Allergies Allergy Verified 02/21/24 14:07 Review of Systems Review of Systems: Yes all other systems are reviewed and are negative [facility] Past Medical History [facility] Narrative: Social history: He denies tobacco, alcohol and drug use. Medical History (Updated 02/21/24 @ 18:11 by Collins Murillo MD) Severe sleep apnea Joint swelling Acid reflux Psoriasis Bipolar 1 disorder Depression Anxiety Type 2 diabetes mellitus Hypertension Migraine Surgical History No pertinent past surgical history Family History Family History Mother Hypertension Diabetes Thyroid condition Psychiatric diagnosis Father Diabetes Social History Social History Household Members: Other Housing: Homeless Are you a primary associate director career services to a significant other at home: No Do you presently have visiting nurse or other home services: No Alcohol intake: current Alcohol intake frequency: holidays/special occasions only Patient Tobacco Use Status: Never used Tobacco Smoked in Last 30 Days: No e-Cigarette/Vaping Use: Never Used Use of substances other than those prescribed or required for medical reasons: No Advance Directives: No Advance Directives Information Provided: Yes Do you have a plan to hurt others: No Plan service: No Current occupational status: unemployed Current occupational exposures/hazards: No Sexual orientation: Unable to collect Gender identity: Unable to collect Cognitive needs: No Hearing needs: No Vision needs: No Physical Exam ED Vital Signs: Vital Signs - 24 hr 02/21/24 14:04 02/21/24 16:06 02/21/24 16:49 Temperature 98 F 98.4 F Pulse Rate 84 79 Respiratory Rate 18 17 17 Blood Pressure 129/85 122/74 Pulse Oximetry 97 98 Oxygen Delivery Method Room Air Room Air 02/21/24 18:29 Temperature 98.4 F Pulse Rate 73 Respiratory Rate 20 Blood Pressure 120/68 Pulse Oximetry 99 Oxygen Delivery Method Room Air BMI result Body Mass Index 36.5 Vital signs were normal Exam: General: Awake, alert in no distress Head: Normocephalic, atraumatic EENT: PERRL, Lids normal, sclera normal, conjunctiva normal, nose normal , ears normal, throat without erythema or exudates Neck: Supple, no adenopathy Lung: breath sounds symmetric, no wheezing, rales or rhonchi Chest: symmetric movement, nontender Heart: regular rate and rhythm, normal S1, S2 no murmurs or rubs Abdomen: soft, non-tender, nondistended, normal bowel sounds Back: no vertebral tenderness, no CVAT Extremities: no deformities, moves all extremities symmetrically Neuro: Awake, alert, oriented, normal speech, cranial nerves intact, moves all extremities symmetrically Psych: Pleasant, cooperative Course Course Course Narrative: This is an RME performed by Manjit Santiago CNP: Additional HPI, ROS, PE not included below will be deferred to primary provider. Patient is a 33-year-old male medical history of MATEUSZ, type 2 diabetes, hypertension, migraines who presents emergency department for evaluation reports a posterior headache posterior neck pain constant for the past week unrelieved with ibuprofen or Tylenol. He has been feeling shaky, having body aches, chest pain, palpitations, cough, nausea. Denies fevers, chills, vomiting, diarrhea, constipation. Plan: Labs, EKG, viral panel Medications Administered Discontinued Medications Generic Name Dose Route Start Last Admin Trade Name Freq PRN Reason Stop Dose Admin Diphenhydramine HCl 50 mg 05/05/24 16:59 02/21/24 17:23 Diphenhydramine Hcl 50 Mg/Ml Vial IVPUSH 02/21/24 17:00 50 mg ONCE STA Administration Sodium Chloride 1,000 mls @ 999 mls/hr 02/21/24 16:59 02/21/24 17:23 Ns IV 02/21/24 17:59 999 mls/hr .Q1H1M STA Administration Ketorolac Tromethamine 15 mg 02/21/24 16:59 02/21/24 17:23 Ketorolac Tromethamine 15 Mg/Ml Vial IVPUSH 02/21/24 17:00 15 mg ONCE STA Administration Medical Decision Making Medical Decision Making [facility] Narrative: 33-year-old male with a history of diabetes mellitus, hypertension, hyperlipidemia, depression, anxiety, psoriasis, migraines who presents emergency department for evaluation of headache and chest pain x1 week, headache is different than his migraine. Headache is 10/10 associated with photophobia, phonophobia, dizziness and nausea. Chest pain is been intermittent. Vital signs were normal physical examination was unremarkable Differential diagnosis: ?Includes but is not limited to migraine headache, nonspecific headache, myocardial infarction, myocardial ischemia, musculoskeletal pain Following evaluation was ordered: CBC, CMP, lipase, magnesium, troponin, VBG, beta hydroxybutyrate, urinalysis Patient was initially treated with the following: Normal saline x1 L, Toradol 15 mg IV, Benadryl 50 mg IV Course: My interpretation patient's laboratory evaluation is as follows: CBC was normal. CMP was normal except for an elevated glucose of 136, elevated AST of 62 and elevated alk-phos of 118. Troponin was below detectable limits. Lipase was normal. VBG: PH was normal 7.40, pCO2 was normal at 42. Twelve EKG was unremarkable. Patient got significant improvement of his headache with the above treatment. Patient's headache is probably consistent with his migraine but is atypical for him. Patient's chest pain is most likely musculoskeletal pain I do not think it is related to coronary disease. Patient was discharged home with prescriptions for Reglan 10 mg, Benadryl 50 mg and Excedrin migraine 2 tablets every 6 hours as needed for headaches. He was given printed and verbal instructions discharged home. Admission/Observation Consideration of admission/observation: Escalation of care including admission/observation considered Lab Data [facility] Lab Attestation statement: I reviewed the patient's lab results. 02/21/24 14:26 02/21/24 14:26 Labs: Lab Results 02/21/24 02/21/24 02/21/24 Range/Units 14:26 14:30 16:08 WBC 6.2 (4.8-10.8) X10*3/uL RBC 5.08 (4.60-5.80) X10*6/uL Hgb 14.5 (14.0-18.0) g/dl Hct 43.7 (42.0-52.0) % MCV 86.0 (80.0-98.0) fL MCH 28.5 (27.0-33.0) pg MCHC 33.2 (31.0-36.0) g/dl RDW 14.1 (11.0-16.0) % Plt Count 306 (160-400) X10*3/uL MPV 10.6 (9.4-12.4) fL Immature Gran % (Auto) 0.3 (0.0-0.4) % Neut % (Auto) 66.1 (45-73) % Lymph % (Auto) 24.3 (20-40) % [place] % (Auto) 7.9 (2-11) % Eos % (Auto) 0.8 (0-4) % Baso % (Auto) 0.6 (0-2) % Lymph # (Auto) 1.5 (1.2-4.9) X10*3/uL [place] # (Auto) 0.5 (0.1-1.2) X10*3/uL Eos # (Auto) 0.1 (0.0-0.4) X10*3/uL Baso # (Auto) 0.0 (0.0-0.2) X10*3/uL Abs Immat Gran (auto) 0.02 (0.00-0.03) X10*3/uL Absolute Neuts (auto) 4.1 (2.0-8.3) x10*3/uL Absolute Nucleated RBC 0.000 (0.0-0.012) X10*3/uL Nucleated RBC % (auto) 0.0 (0.0-0.2) /100WBC VBG pH 7.40 (7.32-7.43) VBG pCO2 42 mmHg VBG pO2 51 mmHg VBG HCO3 26 (22-26) mmol/L VBG O2 Saturation 81.0 % VBG Base Excess 1.8 mmol/L Sodium 139 (135-145) mmol/L Potassium 4.0 (3.3-5.1) mmol/L Chloride 105 (96-108) mmol/L Carbon Dioxide 24 (22-29) mmol/L Anion Gap 14 (12-20) BUN 8 L (9-16) mg/dL Creatinine 0.84 (0.5-1.4) mg/dL Estim Creat Clear Calc 146.8 Estimated GFR > 60 POC Glucose 138 H 122 H (60-115) mg/dL Random Glucose 136 H (60-115) mg/dL Calcium 9.9 (8.4-10.2) mg/dL Magnesium 2.0 (1.6-2.6) mg/dL Total Bilirubin 0.4 (0.0-1.0) mg/dL AST 34 (5-37) U/L ALT 62 H (0-40) U/L Alkaline Phosphatase 118 H (39-117) U/L Troponin I High Sens < 2.7 (<3.5-35.0) ng/L Total Protein 8.8 H (6.5-8.0) g/dL Albumin 4.4 (3.5-5.0) g/dL Lipase 30 (8-78) U/L Beta-Hydroxybutyrate 0.08 (0.02-0.27) mmol/L Urine Color Yellow Urine Appearance Clear Urine pH 6.0 (5.0-9.0) Ur Specific [place] >= 1.030 H (1.005-1.025) Urine Protein Negative (Neg-Trace) mg/dL Urine Glucose (UA) >=1000 H (Negative) mg/dL Urine Ketones Negative (Negative) mg/dL Urine Blood Negative (Negative) Urine Nitrite Negative (Negative) Ur Leukocyte Esterase Negative (Negative) Urine RBC 0-2 (0-2) /HPF Urine WBC 0-5 (0-5) /HPF Ur Squamous Epith Cells 0-2 (0-2) /HPF Urine Bacteria None Seen (None Seen) Hyaline Casts 0-2 (0-2) /LPF Independent Interpretation I performed an independent interpretation of an: EKG Interpretation: My independent interpretation patient's 12 EKG done at 14:16 hours is as follows: Normal sinus rhythm rate of 79, normal [place] interval, QRS duration QTC interval, no ST segment elevation, no ST segment depression, no significant T-wave abnormalities, no PACs, no PVCs Prescription Management I considered prescription management with: Pain Medication Chronic Conditions Patient?s care impacted by: Diabetes and Hypertension Discharge Plan Discharge Clinical Impression: Chest pain Acute headache Qualifiers: Headache type: unspecified Patient Disposition: Home, Self-Care Additional Instructions: Your blood work was unremarkable. Your EKG was normal. At this time I do not think that your chest pain is caused by your heart is most likely caused by inflammation of the joints and muscles of your chest. Your symptoms are consistent a nonspecific headache which is different than your migraines. I want you to take the following 3 medications together every 6 hours as needed for headache, nausea or vomiting. ? Reglan (metoclopramide) in 10 mg, 1 pill Benadryl 25 mg, 2 pills Excedrin migraine, 2 pills. After you take these medications, lie down in a dark quiet room and try to fall asleep. ?These medications will make you sleepy, do not drive or work after taking these medications. Follow-up with your doctor in 2 days. Please return to the emergency department if your symptoms get worse or if you develop any symptoms that are concerning to you. Prescriptions: New diphenhydramine HCl 25 mg capsule 50 mg PO Q6H PRN (Reason: headache, nausea, vomiting) Qty: 20 0RF Excedrin Migraine 250-250-65 mg tablet 2 tab PO Q6H PRN (Reason: headache) Qty: 30 0RF metoclopramide HCl [Reglan] 10 mg tablet 10 mg PO Q6H PRN (Reason: nausea and vomiting) Qty: 14 0RF No Action lisinopril 10 mg tablet 10 mg PO DAILY Qty: 90 0RF (DME) blood-glucose meter [Accu-Chek Guide Glucose Meter] Misc See Rx Instructions .Route Qty: 1 0RF Rx Instructions: As directed glucagon HCl [Glucagon (HCl) Emergency Kit] 1 mg recon soln 1 mg subcut Q20M PRN (Reason: hypoglycemia) Qty: 1 0RF Rx Instructions: until target blood sugar attained (DME) lancets [Accu-Chek Fastclix Lancet Drum] Misc See Rx Instructions .Route Qty: 100 0RF Rx Instructions: As directed (DME) pen needle, diabetic 31 gauge x 3/16 needle See Rx Instructions .Route Qty: 100 0RF Rx Instructions: As directed (DME) FreeStyle Lite Strips Strip See Rx Instructions .Route Qty: 100 11RF Rx Instructions: test 4 times a day fluoxetine [Prozac] 20 mg capsule 20 mg PO DAILY Qty: 30 1RF naproxen 375 mg tablet,delayed release (DR/EC) 375 mg PO BID PRN (Reason: pain) 30 Days Qty: 60 0RF Synjardy XR 5-1,000 mg tablet, IR - ER, biphasic 24hr 2 tab PO QAM Qty: 180 0RF insulin glargine [Lantus Solostar U-100 Insulin] 100 unit/mL (3 mL) insulin pen 45 unit subcut QPM 90 Days Qty: 45 1RF atorvastatin 40 mg tablet 40 mg PO BEDTIME Qty: 90 0RF (DME) FreeStyle Ernie 3 Sensor Device See Rx Instructions .MEDSUPPLY Qty: 2 11RF Rx Instructions: As directed (DME) FreeStyle Ernie 3 [place] Misc See Rx Instructions .MEDSUPPLY Qty: 1 0RF Rx Instructions: As directed Discharge Date/Time: 02/21/24 18:30 Print Language: Urdu
--- NOTE | 2024-02-21 14:08 | ECG_ITS ---
Test Reason : CP Blood Pressure : / mmHG Vent. Rate : 079 BPM Atrial Rate : 079 BPM P-R Int : 128 ms QRS Dur : 088 ms QT Int : 352 ms P-R-T Axes : 010 008 -10 degrees QTc Int : 403 ms Normal sinus rhythm Nonspecific T wave abnormality Abnormal ECG When compared with ECG of 16-SEP-2017 22:16, No significant change was found Referred By: Bailey Santiago Electronically Signed By:Eladio Mcguire
[2024-02-21 14:31] LABS: MANUAL DIFF FLAG NO
[2024-02-21 14:33] LABS: Venous Blood Gas Refer to POC result
[2024-02-21 14:36] LABS: Glucose, Whole Blood 138 mg/dL (60-115); VBG Base Excess 1.8 mmol/L; VBG HCO3 26 mmol/L (22-26); VBG pCO2 42 mmHg; VBG pO2 51 mmHg
[2024-02-21 14:38] LABS: Basophils Percent Auto 0.6 % (0-2); Eosinophils Absolute Auto 0.1 X10*3/uL (0.0-0.4); Eosinophils Percent Auto 0.8 % (0-4); Hematocrit 43.7 % (42.0-52.0); Hemoglobin 14.5 g/dl (14.0-18.0); Imm Gran Abs Auto 0.02 X10*3/uL (0.00-0.03); Imm Gran Pct Auto 0.3 % (0.0-0.4); Lymphocytes Absolute Auto 1.5 X10*3/uL (1.2-4.9); Lymphocytes Percent Auto 24.3 % (20-40); Mean Corpuscular HGB Conc 33.2 g/dl (31.0-36.0); Mean Corpuscular Hemoglobin 28.5 pg (27.0-33.0); Mean Platelet Volume 10.6 fL (9.4-12.4); Monocytes Absolute Auto 0.5 X10*3/uL (0.1-1.2); Monocytes Percent Auto 7.9 % (2-11); Neutrophils Absolute Auto 4.1 x10*3/uL (2.0-8.3); Neutrophils Percent Auto 66.1 % (45-73); Platelet Count 306 X10*3/uL (160-400); Red Blood Count 5.08 X10*6/uL (4.60-5.80); Red Cell Distribution Width 14.1 % (11.0-16.0); White Blood Count 6.2 X10*3/uL (4.8-10.8)
[2024-02-21 14:40] LABS: Appearance Urine Clear; Color Urine Yellow; Glucose Urine UA >=1000 mg/dL (Negative); Leukocyte Esterase Urine Negative (Negative); Nitrite Urine Negative (Negative); Specific Gravity - Urine >= 1.030 (1.005-1.025); UMIC TRIGGER UACC YES; Urine Blood Negative (Negative); Urine Ketones Negative (Negative); Urine Protein Negative (Neg-Trace)
[2024-02-21 14:52] LABS: Bacteria Urine None Seen (None Seen); Hyaline Casts Urine 0-2 /LPF (0-2); RBC Urine 0-2 /HPF (0-2); Squamous Epithelial Cell Urine 0-2 /HPF (0-2); WBC Urine 0-5 /HPF (0-5)
[2024-02-21 15:05] LABS: Alanine Aminotransferase 62 U/L (0-40); Albumin Level 4.4 g/dL (3.5-5.0); Alkaline Phosphatase 118 U/L (39-117); Anion Gap 14 (12-20); Aspartate Amino Transferase 34 U/L (5-37); Beta-Hydroxybutyrate 0.08 mmol/L (0.02-0.27); Bilirubin Total 0.4 mg/dL (0.0-1.0); Blood Urea Nitrogen 8 mg/dL (9-16); Calcium 9.9 mg/dL (8.4-10.2); Carbon Dioxide 24 mmol/L (22-29); Chloride 105 mmol/L (96-108); Creatinine Clr Calc Pharmacy 146.8; Estimated Glomerular Filt Rate > 60; Glucose Random 136 mg/dL (60-115); Lipase 30 U/L (8-78); Sodium 139 mmol/L (135-145); Total Protein 8.8 g/dL (6.5-8.0); Troponin-I High Sensitivity < 2.7 ng/L (<3.5-35.0)
[2024-02-21 16:06] VITALS: BP 122/74; PULSE 79; RESP 17; TEMP 36.9; O2SAT 98
[2024-02-21 16:12] LABS: Glucose, Whole Blood 122 mg/dL (60-115)
[2024-02-21 16:49] VITALS: RESP 17
[2024-02-21] MEDS: Ketorolac Tromethamine 15 MG/ML VIAL IVPUSH (17:23)
[2024-02-21] MEDS: 0.9 % Sodium Chloride 1,000 ML 999 ML IV (17:23)
[2024-02-21] MEDS: diphenhydrAMINE HCL 50 MG/ML VIAL IVPUSH (17:23)
[2024-02-21 18:29] VITALS: BP 120/68; PULSE 73; RESP 20; TEMP 36.9; O2SAT 99
== END 2024-02-21 18:30 | disposition home or self-care (01) ==
PROVIDERS: Nurse Practitioner Family; Emergency Provider Emergency Medicine Emergency Medical Services; PCP Nurse Practitioner Family
DX: R51.9 Headache, unspecified (principal); R07.9 Chest pain, unspecified; E11.9 Type 2 diabetes mellitus without complications; I10 Essential (primary) hypertension
CPT/HCPCS: 36415; 80053; 81001; 82010; 82803; 82947; 83690; 83735; 84484; 85025; 93005; 96374; 96375; 99284; 99285; J1200; J1885

== ENCOUNTER → 2024-02-21 14:08 | Outpatient (BNV) | payer OTHER, SELFPAY | PROVIDERS: Emergency Provider Emergency Medicine Emergency Medical Services; PCP Nurse Practitioner Family; Visit Provider Internal Medicine Cardiovascular Disease | DX: R07.9 Chest pain, unspecified (principal) | CPT/HCPCS: 93010 ==

== ENCOUNTER 2024-03-09 12:02 | Outpatient (AMB) | payer OTHER, SELFPAY ==
[2024-03-09 12:08] VITALS: BP 102/78; PULSE 78; RESP 14; TEMP 36.6; O2SAT 98; BMI 36.2
--- NOTE | 2024-03-09 12:08 | MHC.PC.OV ---
Vital Signs 03/09/24 12:08 Height 5 ft 8 in Weight 238 lb 6 oz BMI 36.2 BP 102/78 Blood Pressure Location Lt radial Position Sitting Respiration 14 Pulse 78 Pulse Source Pulse Oximeter Temp 98 F Temp Source Oral Pulse Oximetry (%) 98 Oxygen Delivery Method Room Air Intake Visit Reasons: complex DM f/u Intake Note: Follow up diabetes. Was not able to get labs done due to transportation issue. Perioperative Assistant Required: No Allergies No Known Allergies Allergy (Verified 03/09/24 12:45) Medication List - Last Reconciled 03/09/24 by Sonia Bass, OFFENDER JOB RETENTION SPECIALIST- myspseg-gvjyzykqlpgqy-pzkhnkmv 250-250-65 mg (Excedrin Migraine) 2 tabs PO Q6H PRN atorvastatin 40 mg PO BEDTIME blood sugar diagnostic (FreeStyle Lite Strips) test 4 times a day blood-glucose meter (Accu-Chek Guide Glucose Meter) As directed blood-glucose meter,continuous (FreeStyle Ernie 3 [place]) As directed blood-glucose sensor (FreeStyle Ernie 3 Sensor device) As directed diphenhydramine HCl 50 mg (2 x 25 mg) PO Q6H PRN empagliflozin-metformin 5-1,000 mg ER (Synjardy XR) 2 tabs (2 x 5-1,000 mg) PO QAM fluoxetine (Prozac) 20 mg PO DAILY glucagon HCl (Glucagon (HCl) Emergency Kit) 1 mg subcut Q20M PRN insulin glargine (Lantus Solostar U-100 Insulin) 45 units (0.45 mL) subcut QPM 3 months lancets (Accu-Chek Fastclix Lancet Drum) As directed lisinopril 10 mg PO DAILY metoclopramide HCl (Reglan) 10 mg PO Q6H PRN naproxen 375 mg PO BID PRN 30 days pen needle, diabetic As directed Tobacco use date assessed: 01/13/24 Dental Screening Dental Screen Date: 01/13/24 HPI HPI Comments History of Present Illness Details 33-year-old male with migraines, hypertension, fatty liver, obesity, balanitis, psoriasis, diabetes type 2 uncontrolled, MDD, GARY, bipolar 1 disorder, hyperlipidemia, microalbuminuria, Dupuytren's contractures bilat, MATEUSZ Health Maintenance: Hga1c 14% 12/09/23, 7.7% today! DME - DME - 02/12/2024 no retinopathy bilat, [facility] Here today to f/u on chronic conditions. since last OV had 1 ED visit at [facility] for migraine headache. Labs reviewed and CBC and CMP along with UA completed and within normal limits. His A1c was done today and is now 7.7%. He continues to take all the medications as directed. He has using a CGM however he does not feel it is accurate. He tells me that the CGM alerted him that his blood sugar was greater than 350 however fingerstick was around 180. I have asked him to follow up with the nurse navigator to see if she can help him with this. His blood pressure is at goal with the current medications. He is due for lipid profile he will get this done soon. He is maintained on a statin. Overall he feels like his mood is down. He is feeling depressed. He is aches and pains all over. His hands bother him at night. Was taking p.r.n. naproxen to help but that does not seem to be helping anymore. He is upset about the disfigurement of his hands due to the Dupuytren's. Feels like he can not work due to this. He continues to have a disrupted sleep-wake cycle. Sleep study 01/2024 + MATEUSZ. He has a initial consult with sleep Medicine 06/16/2024. He is currently working with a counselor. Denies SI and HI. [facility] Medical History (Updated 03/09/24 @ 16:53 by Sonia Bass, [facility]) Severe sleep apnea Joint swelling Acid reflux Psoriasis Bipolar 1 disorder Depression Anxiety Type 2 diabetes mellitus Hypertension Migraine Surgical History No pertinent past surgical history Family History Mother Hypertension Diabetes Thyroid condition Psychiatric diagnosis Father Diabetes Social History Household Members: Other Housing: Homeless Are you a primary pharmacy care coordinator to a significant other at home: No Do you presently have visiting nurse or other home services: No 75 years or older and lives alone: No Alcohol intake: current Alcohol intake frequency: holidays/special occasions only Patient Tobacco Use Status: Never used Tobacco e-Cigarette/Vaping Use: Never Used service: No Current occupational status: unemployed Current occupational exposures/hazards: No Sexual orientation: Unable to collect Gender identity: Unable to collect Cognitive needs: No Hearing needs: No Vision needs: No Questionnaire Thrive Questionnaire Date Thrive assessed: 12/09/23 GARY-7 AMB Questionnaire GARY-7 Date GARY - 7 assessed: 12/09/23 Source: Developed by Drs. Wilfredo Antunez, Ninfa Velázquez, Jose Carlos Worley and colleagues, with an educational jenny from [employer]. Review of Systems Const All systems reviewed & are unremarkable except as noted in HPI and below Physical exam (Primary Care) Vital Signs: Last Vital Signs Temp 98 F 03/09/24 12:08 Pulse 78 03/09/24 12:08 Resp 14 03/09/24 12:08 BP 102/78 03/09/24 12:08 Pulse Ox 98 03/09/24 12:08 Oxygen Delivery Method Room Air 03/09/24 12:08 BMI result Body Mass Index 36.2 BMI Assessment/Plan discussion: High BMI High, discussed plan: lifestyle Tobacco/Smoking Status: Tobacco use Status Tobacco use date assessed 01/13/24 03/09/24 12:12 Patient Tobacco Use Status Never used Tobacco 03/09/24 12:12 e-Cigarette/Vaping Use Never Used 03/09/24 12:12 Thrive Assessment: Date of Thrive Assessment Date Thrive assessed 12/09/23 03/09/24 12:12 Const Other: Awake alert oriented Mucous membranes moist RRR Lung sounds clear To auscultation mentation within normal limits Psoriatic rash on scalp behind ears on abdomen Dupuytren's contractures of bilat hands Results AMB Hemoglobin A1c AMB Hemoglobin A1c 7.7 % Last Edit by Ramona Dang CMA on 03/09/24 12:22 Results Reviewed Results Reviewed: Laboratory Last Values Hgb A1c (Clinic) 7.7 % (4.0-6.0) H 03/09/24 12:12 Assessment and Plan Assessment & Plan (1) Hyperlipidemia associated with type 2 diabetes mellitus: Comment: LDL goal < 70 11/2023 lipid prof elevated triglycerides 247, total cholesterol normal at 145, LDL at goal 67, HDL low at 29 On Atorvastatin 40mg QD Code(s): E11.69 - Type 2 diabetes mellitus with other specified complication; E78.5 - Hyperlipidemia, unspecified (2) MATEUSZ (obstructive sleep apnea): Comment: Home sleep study results from 02/03/2024 show obstructive sleep apnea, moderately severe, total sleep time AHI 21.5, predominantly in supine position, but even in lateral position there is significant degree of sleep apnea. Nocturnal hypoxemia with average O2 sat 93, lowest O2 sat 64 and O2 sat below 88% for 49 minutes. The recommendation is to consider starting the patient on a CPAP therapy with auto PAP mode and pressure setting of 6-20 cm, follow up by close monitor for compliance and benefits. Once patient is using CPAP therapy regularly an overnight oximetry recording should be done to make sure hypoxemia is corrected. Sleep Med Referral placed. appointment in May 2024 Code(s): G47.33 - Obstructive sleep apnea (adult) (pediatric) (3) GARY (generalized anxiety disorder): Comment: See MDD care plan Code(s): F41.1 - Generalized anxiety disorder (4) MDD (major depressive disorder): Comment: Active and counseling, continue on fluoxetine 20 mg p.o. daily. Add Cymbalta 20 mg p.o. daily. Titrate to effect. Code(s): F32.9 - Major depressive disorder, single episode, unspecified Qualifiers: Major depression recurrence: recurrent Active/Remission status: currently active Major depression episode severity: moderate Qualified Code(s): F33.1 - Major depressive disorder, recurrent, moderate (5) Migraine without aura, not intractable, without status migrainosus: Comment: Continue to use naproxen as needed. Code(s): G43.009 - Migraine without aura, not intractable, without status migrainosus (6) Type 2 diabetes with complication: Comment: Currently on insulin Lantus 45 units daily. Blood glucose levels improving. Hemoglobin A1c 14% November 2023 and now 7.7%. Plan: Continue Lantus 45 units daily, Synjardy XR 5-a 1000 mg 2 tablets p.o. in the morning. diabetic eye exam scheduled February 14, 2024 negative for retinopathy Active with nurse navigation team. Code(s): E11.8 - Type 2 diabetes mellitus with unspecified complications Plan Total time spent caring for the patient today was 50 minutes. This includes time spent before the visit reviewing the chart, time spent during the visit, and time spent after the visit on documentation This note is constructed using voice recognition software. While every effort has been made to ensure accuracy in start up specialist, still errors may have been included Sometimes, these errors may affect the content or meaning of the given sentence . Orders: Orders AMB Hemoglobin A1c Today E11.69 - Type 2 diabetes mellitus with other specified complication, E66.9 - Obesity, unspecified Medications: New duloxetine 20 mg PO DAILY 30 caps 1RF Refilled fluoxetine (Prozac) 20 mg PO DAILY 30 caps 2RF naproxen 375 mg PO BID 30 days PRN 60 tabs 0RF pain Discontinued diphenhydramine HCl Discontinued Reason: Doctor's Order 50 mg (2 x 25 mg) PO Q6H PRN 20 caps 0RF headache, nausea, vomiting metoclopramide HCl (Reglan) Discontinued Reason: Doctor's Order 10 mg PO Q6H PRN 14 tabs 0RF nausea and vomiting Patient Instructions: Return to the office to 6 weeks to follow up on the effects of duloxetine which is being added to help her mood as well as her physical pain. We will titrate this medication to effect. You are due for some fasting labs. Be sure to get these done before the next office visit so that we can discuss and titrate her other medication which just for your cholesterol to the appropriate dose to keep your LDL at goal. Return to the office sooner should you need anything. Coding Level of Care Code Est Pt Level 5 (92851) Diagnoses Hyperlipidemia associated with type 2 diabetes mellitus E11.69; E78.5 MATEUSZ (obstructive sleep apnea) G47.33 GARY (generalized anxiety disorder) F41.1 Moderate episode of recurrent major depressive disorder F33.1 Major depression recurrence: recurrent Active/Remission status: currently active Major depression episode severity: moderate Migraine without aura, not intractable, without status migrainosus G43.009 Type 2 diabetes with complication E11.8
== END 2024-03-09 13:09 | disposition home or self-care (01) ==
PROVIDERS: PCP Nurse Practitioner Family; Visit Provider Nurse Practitioner Family
DX: E11.69 Type 2 diabetes mellitus with other specified complication (principal); F33.1 Major depressive disorder, recurrent, moderate; E11.8 Type 2 diabetes mellitus with unspecified complications; E78.5 Hyperlipidemia, unspecified; G47.33 Obstructive sleep apnea (adult) (pediatric); F41.1 Generalized anxiety disorder; G43.009 Migraine without aura, not intractable, without status migrainosus; E66.9 Obesity, unspecified
CPT/HCPCS: 83036; 99215

== ENCOUNTER → 2024-04-20 13:27 | Outpatient (AMB) | payer OTHER, SELFPAY ==
--- NOTE | 2024-04-20 13:30 | MHC.PC.OV ---
Vital Signs 04/20/24 13:33 Height 5 ft 8 in Weight 239 lb BMI 36.3 BP 122/84 Blood Pressure Location Rt brachial Position Sitting Pulse 88 Pulse Source Pulse Oximeter Pulse Oximetry (%) 97 Oxygen Delivery Method Room Air Intake Visit Reasons: 6 weeks with me 30 min fu cymbalta start and labs Intake Note: Follow up for medication. Needs refill on Synjardi, ran out today Plasma Center Technician Required: No Allergies No Known Allergies Allergy (Verified 04/20/24 13:31) Tobacco use date assessed: 01/13/24 Dental Screening Dental Screen Date: 01/13/24 [facility] Medical History (Updated 03/09/24 @ 16:53 by Sonia Bass, RADIOLOGY THERAPIST-) Severe sleep apnea Joint swelling Acid reflux Psoriasis Bipolar 1 disorder Depression Anxiety Type 2 diabetes mellitus Hypertension Migraine Surgical History No pertinent past surgical history Family History Mother Hypertension Diabetes Thyroid condition Psychiatric diagnosis Father Diabetes Social History Household Members: Other Housing: Homeless Are you a primary medical care evaluation specialist to a significant other at home: No Do you presently have visiting nurse or other home services: No 75 years or older and lives alone: No Alcohol intake: current Alcohol intake frequency: holidays/special occasions only Patient Tobacco Use Status: Never used Tobacco e-Cigarette/Vaping Use: Never Used service: No Current occupational status: unemployed Current occupational exposures/hazards: No Sexual orientation: Unable to collect Gender identity: Unable to collect Cognitive needs: No Hearing needs: No Vision needs: No Questionnaire PHQ-9 Over the last 2 weeks, how often have you been bothered by any of the following problems? 1. Little interest or pleasure in doing things: nearly every day 2. Feeling down, depressed, or hopeless: nearly every day 3. Trouble falling or staying asleep, or sleeping too much: nearly every day 4. Feeling tired or having little energy: nearly every day 5. Poor appetite or overeating: more than half the days 6. Feeling bad about yourself - or that you are a failure or have let yourself or your family down: nearly every day 7. Trouble concentrating on things, such as reading the newspaper or watching television: nearly every day 8. Moving or speaking so slowly that other people could have noticed. Or the opposite - being so fidgety or restless that you have been moving around a lot more than usual: nearly every day 9. Thoughts that you would be better off or of hurting yourself in some way: not at all Total score: 23 Depression Screening Interpretation: Positive Depression Screening Done: Yes 32759 - PHQ-9 Billing: Yes Source: Developed by Drs. Wilfredo Antunez, Jose Carlos Cordero and colleagues, with an educational jenny from [employer]. Thrive Questionnaire Date Thrive assessed: 12/09/23 GARY-7 AMB Questionnaire GARY-7 Date GARY - 7 assessed: 04/20/24 Feeling nervous, anxious, or on edge: 3 = Nearly every day Not being able to stop or control worryin = Nearly every day Worrying too much about different things: 3 = Nearly every day Trouble relaxin = Nearly every day Being so restless that it is hard to sit still: 3 = Nearly every day Becoming easily annoyed or irritable: 3 = Nearly every day Feeling afraid as if something awful might happen: 3 = Nearly every day Total GARY-7 score (0-4 normal; 5-9 mild; 10-14 moderate; 15-21 severe): 21 Source: Developed by Drs. Wilfredo Antunez, Ninfa Velázquez, Jose Carlos Worley and colleagues, with an educational jenny from [employer]. GARY-7 Assessment Billing GARY-7 Assessment Tool: GARY-7 Assessment 95081 Physical exam (Primary Care) Tobacco/Smoking Status: Tobacco use Status Tobacco use date assessed 01/13/24 03/09/24 12:12 Patient Tobacco Use Status Never used Tobacco 03/09/24 12:12 e-Cigarette/Vaping Use Never Used 03/09/24 12:12 Depression Screening Interpretation: Positive Thrive Assessment: Date of Thrive Assessment Date Thrive assessed 12/09/23 03/09/24 12:12 Coding Additional Codes GARY-7 Assessment Billing - GARY-7 Assessment Tool: GARY-7 Assessment 14238 ([id number])
[2024-04-20 13:33] VITALS: BP 122/84; PULSE 88; O2SAT 97; BMI 36.3
--- NOTE | 2024-04-20 14:10 | MHC.PC.OV ---
Vital Signs 04/20/24 13:33 Height 5 ft 8 in Weight 239 lb BMI 36.3 BP 122/84 Blood Pressure Location Rt brachial Position Sitting Pulse 88 Pulse Source Pulse Oximeter Pulse Oximetry (%) 97 Oxygen Delivery Method Room Air Intake Visit Reasons: 6 weeks with me 30 min fu cymbalta start and labs Allergies No Known Allergies Allergy (Verified 04/20/24 14:12) Medication List - Last Reconciled 04/20/24 by Sonia Bass, PRESS HAND SUPERVISOR- hzctdsw-htxzlukiiypmq-hfslrwoa 250-250-65 mg (Excedrin Migraine) 2 tabs PO Q6H PRN atorvastatin 40 mg PO BEDTIME blood sugar diagnostic (FreeStyle Lite Strips) test 4 times a day blood-glucose meter (Accu-Chek Guide Glucose Meter) As directed blood-glucose meter,continuous (FreeStyle Ernie 3 [place]) As directed blood-glucose sensor (FreeStyle Ernie 3 Sensor device) As directed duloxetine 20 mg PO DAILY empagliflozin-metformin 5-1,000 mg ER (Synjardy XR) 2 tabs (2 x 5-1,000 mg) PO QAM glucagon HCl (Glucagon (HCl) Emergency Kit) 1 mg subcut Q20M PRN insulin glargine (Lantus Solostar U-100 Insulin) 45 units (0.45 mL) subcut QPM 3 months lancets (Accu-Chek Fastclix Lancet Drum) As directed lisinopril 10 mg PO DAILY naproxen 375 mg PO BID PRN 30 days pen needle, diabetic As directed Tobacco use date assessed: 01/13/24 Dental Screening Dental Screen Date: 01/13/24 HPI HPI Comments History of Present Illness Details 33-year-old male with migraines, hypertension, fatty liver, obesity, balanitis, psoriasis, diabetes type 2 uncontrolled, MDD, GARY, bipolar 1 disorder, hyperlipidemia, microalbuminuria, Dupuytren's contractures bilat, MATEUSZ Health Maintenance: Hga1c 14% 12/09/23, 7.7% 02/2024 DME - DME - 02/12/2024 no retinopathy bilat, [facility] Here today to f/u on chronic conditions. No hospitalization since last office visit. In regards to his diabetes remains under better control with the current regimen. He was able to get the new freestyle Ernie 3. Feels these readings are more accurate than the previous 1 that he had. CGM reviewed GMI 7.4% for 90 days no lows very few highs around 300mg/dl. His blood pressure is at goal with the current medications. However he does tell me that he has episodes of headaches and hypertension at home. Reports systolic blood pressure can be in the 190s at times. Headaches are more often. Using Excedrin migraine for headache relief In regards to his mood he has felt no improvement with the duloxetine. He is also noticed any improvements in his overall aches and pains. He continues in counseling. He is due for lipid profile he will get this done today along with other labs.. He is maintained on a statin. He continues to He is currently working with a counselor. Denies SI and HI. Plan: Start propranolol er 60mg QHS to help with insomnia, headaches, anxiety and reported BP elevations Cont DM meds, refill sent on requested pen needles (BD sukhdev 2nd generation) Get labs done as ordered today Increase duloxetine from 20mg to 40mg QD Return to the office at the end of May for a follow up of complex conditions, sooner as needed. [facility] History (Updated 04/20/24 @ 15:59 by Sonia Bass, [facility]) Severe sleep apnea Joint swelling Acid reflux Psoriasis Bipolar 1 disorder Depression Anxiety Type 2 diabetes mellitus Hypertension Migraine Surgical History No pertinent past surgical history Family History Mother Hypertension Diabetes Thyroid condition Psychiatric diagnosis Father Diabetes Social History Household Members: Other Housing: Homeless Are you a primary child care attendant school to a significant other at home: No Do you presently have visiting nurse or other home services: No 75 years or older and lives alone: No Alcohol intake: current Alcohol intake frequency: holidays/special occasions only Patient Tobacco Use Status: Never used Tobacco e-Cigarette/Vaping Use: Never Used service: No Current occupational status: unemployed Current occupational exposures/hazards: No Sexual orientation: Unable to collect Gender identity: Unable to collect Cognitive needs: No Hearing needs: No Vision needs: No Questionnaire Thrive Questionnaire Date Thrive assessed: 12/09/23 GARY-7 AMB Questionnaire GARY-7 Date GARY - 7 assessed: 12/09/23 Source: Developed by Drs. Wilfredo Antunez, Ninfa Velázquez, Jose Carlos Worley and colleagues, with an educational jenny from [employer]. Physical exam (Primary Care) Vital Signs: Last Vital Signs Pulse 88 04/20/24 13:33 BP 122/84 04/20/24 13:33 Pulse Ox 97 04/20/24 13:33 Oxygen Delivery Method Room Air 04/20/24 13:33 BMI result Body Mass Index 36.3 Tobacco/Smoking Status: Tobacco use Status Tobacco use date assessed 01/13/24 04/20/24 14:10 Patient Tobacco Use Status Never used Tobacco 04/20/24 14:10 e-Cigarette/Vaping Use Never Used 04/20/24 14:10 PHQ-9: PHQ-9 Score PHQ-9: Total score 23 04/20/24 15:50 Thrive Assessment: Date of Thrive Assessment Date Thrive assessed 12/09/23 04/20/24 14:10 Const Other: Awake alert oriented Mucous membranes moist RRR Lung sounds clear To auscultation mentation within normal limits Psoriatic rash on scalp behind ears on abdomen Dupuytren's contractures of bilat hands Assessment and Plan Assessment & Plan (1) Type 2 diabetes mellitus with obesity: Comment: 20 lb weight loss in the last couple of months in the setting of uncontrolled diabetes. His BMI remains high. We will need to continue to encourage weight loss once his disease is stable Code(s): E11.69 - Type 2 diabetes mellitus with other specified complication; E66.9 - Obesity, unspecified (2) Hypertension complicating diabetes: Comment: He is on lisinopril 10 mg daily. Taking as directed. Goal <130/80 Code(s): E11.59 - Type 2 diabetes mellitus with other circulatory complications; I15.2 - Hypertension secondary to endocrine disorders (3) Psoriasis: Comment: Refer to dermatology for evaluation and treatment, info given to him today to schedule appt, referral in place since december 2023 Code(s): L40.9 - Psoriasis, unspecified (4) Hyperlipidemia associated with type 2 diabetes mellitus: Comment: LDL goal < 70 11/2023 lipid prof elevated triglycerides 247, total cholesterol normal at 145, LDL at goal 67, HDL low at 29 On Atorvastatin 40mg QD Code(s): E11.69 - Type 2 diabetes mellitus with other specified complication; E78.5 - Hyperlipidemia, unspecified (5) GARY (generalized anxiety disorder): Comment: See MDD care plan Code(s): F41.1 - Generalized anxiety disorder (6) MDD (major depressive disorder): Comment: Active and counseling, continue on fluoxetine 20 mg p.o. daily. Add Cymbalta 20 mg p.o. daily. Titrate to effect. Code(s): F32.9 - Major depressive disorder, single episode, unspecified Qualifiers: Active/Remission status: currently active Major depression episode severity: moderate Major depression recurrence: recurrent Qualified Code(s): F33.1 - Major depressive disorder, recurrent, moderate (7) Type 2 diabetes with complication: Comment: Currently on insulin Lantus 45 units daily. Blood glucose levels improving. Hemoglobin A1c 14% November 2023 and 02/2024 7.7%. Plan: Continue Lantus 45 units daily, Synjardy XR 5-a 1000 mg 2 tablets p.o. in the morning. diabetic eye exam scheduled February 14, 2024 negative for retinopathy Active with nurse navigation team. Code(s): E11.8 - Type 2 diabetes mellitus with unspecified complications Orders: Orders Comprehensive Met. Panel Today E11.59 - Type 2 diabetes mellitus with other circulatory complications, I15.2 - Hypertension secondary to endocrine disorders Medications: New pen needle, diabetic (BD Sukhdev 2nd Gen Pen Needle) As directed 100 ea 11RF E11.69 - Type 2 diabetes mellitus with other specified complication, E66.9 - Obesity, unspecified duloxetine 40 mg PO DAILY 30 caps 1RF propranolol ER for migraine prevention, to help sleep and anxiety TAKE DAILY 60 mg PO BEDTIME 30 caps 1RF Discontinued duloxetine Discontinued Reason: Doctor's Order 20 mg PO DAILY 30 caps 1RF Patient Instructions: [facility] [address] [place] [address]. [address] [place] [id number] Fax PLease call and schedule appt for your skin Coding Diagnoses Type 2 diabetes mellitus with obesity E11.69; E66.9 Hypertension complicating diabetes E11.59; I15.2 Psoriasis L40.9 Hyperlipidemia associated with type 2 diabetes mellitus E11.69; E78.5 GARY (generalized anxiety disorder) F41.1 Moderate episode of recurrent major depressive disorder F33.1 Active/Remission status: currently active Major depression episode severity: moderate Major depression recurrence: recurrent Type 2 diabetes with complication E11.8
--- NOTE | 2024-04-20 14:12 | MHC.PC.OV ---
Vital Signs 04/20/24 13:33 Height 5 ft 8 in Weight 239 lb BMI 36.3 BP 122/84 Blood Pressure Location Rt brachial Position Sitting Pulse 88 Pulse Source Pulse Oximeter Pulse Oximetry (%) 97 Oxygen Delivery Method Room Air Intake Visit Reasons: 6 weeks with me 30 min fu cymbalta start and labs Intake Note: Follow up, medication review. Needs refill on Synjardy took last dose yesterday. Co Founder And President Required: No Allergies No Known Allergies Allergy (Verified 04/20/24 14:12) Medication List - Last Reconciled 04/20/24 by MIKE Lee [id number] 250-250-65 mg (Excedrin Migraine) 2 tabs PO Q6H PRN atorvastatin 40 mg PO BEDTIME blood sugar diagnostic (FreeStyle Lite Strips) test 4 times a day blood-glucose meter (Accu-Chek Guide Glucose Meter) As directed blood-glucose meter,continuous (FreeStyle Ernie 3 [place]) As directed blood-glucose sensor (FreeStyle Ernie 3 Sensor device) As directed duloxetine 20 mg PO DAILY empagliflozin-metformin 5-1,000 mg ER (Synjardy XR) 2 tabs (2 x 5-1,000 mg) PO QAM glucagon HCl (Glucagon (HCl) Emergency Kit) 1 mg subcut Q20M PRN insulin glargine (Lantus Solostar U-100 Insulin) 45 units (0.45 mL) subcut QPM 3 months lancets (Accu-Chek Fastclix Lancet Drum) As directed lisinopril 10 mg PO DAILY naproxen 375 mg PO BID PRN 30 days pen needle, diabetic As directed Tobacco use date assessed: 01/13/24 Dental Screening Dental Screen Date: 01/13/24 [facility] Medical History (Updated 03/09/24 @ 16:53 by MIKE Lee) Severe sleep apnea Joint swelling Acid reflux Psoriasis Bipolar 1 disorder Depression Anxiety Type 2 diabetes mellitus Hypertension Migraine Surgical History No pertinent past surgical history Family History Mother Hypertension Diabetes Thyroid condition Psychiatric diagnosis Father Diabetes Social History Household Members: Other Housing: Homeless Are you a primary care team assistant to a significant other at home: No Do you presently have visiting nurse or other home services: No 75 years or older and lives alone: No Alcohol intake: current Alcohol intake frequency: holidays/special occasions only Patient Tobacco Use Status: Never used Tobacco e-Cigarette/Vaping Use: Never Used service: No Current occupational status: unemployed Current occupational exposures/hazards: No Sexual orientation: Unable to collect Gender identity: Unable to collect Cognitive needs: No Hearing needs: No Vision needs: No Questionnaire PHQ-9 Over the last 2 weeks, how often have you been bothered by any of the following problems? 1. Little interest or pleasure in doing things: nearly every day 2. Feeling down, depressed, or hopeless: nearly every day 3. Trouble falling or staying asleep, or sleeping too much: nearly every day 4. Feeling tired or having little energy: nearly every day 5. Poor appetite or overeating: more than half the days 6. Feeling bad about yourself - or that you are a failure or have let yourself or your family down: nearly every day 7. Trouble concentrating on things, such as reading the newspaper or watching television: nearly every day 8. Moving or speaking so slowly that other people could have noticed. Or the opposite - being so fidgety or restless that you have been moving around a lot more than usual: nearly every day 9. Thoughts that you would be better off or of hurting yourself in some way: not at all Total score: 23 Depression Screening Interpretation: Positive Depression Screening Done: Yes 40949 - PHQ-9 Billing: Yes Source: Developed by Drs. Wilfredo Antunez, Ninfa Velázquez, Jose Carlos Worley and colleagues, with an educational jenny from [employer]. Thrive Questionnaire Date Thrive assessed: 12/09/23 GARY-7 AMB Questionnaire GARY-7 Date GARY - 7 assessed: 04/20/24 Feeling nervous, anxious, or on edge: 3 = Nearly every day Not being able to stop or control worryin = Nearly every day Worrying too much about different things: 3 = Nearly every day Trouble relaxin = Nearly every day Being so restless that it is hard to sit still: 0 = Not at all Becoming easily annoyed or irritable: 3 = Nearly every day Feeling afraid as if something awful might happen: 3 = Nearly every day Total GARY-7 score (0-4 normal; 5-9 mild; 10-14 moderate; 15-21 severe): 18 Source: Developed by Drs. Wilfredo Antunez, Ninfa Velázquez, Jose Carlos Worley and colleagues, with an educational jenny from [employer]. GARY-7 Assessment Billing GARY-7 Assessment Tool: GARY-7 Assessment 77316 Physical exam (Primary Care) Vital Signs: Last Vital Signs Pulse 88 04/20/24 13:33 BP 122/84 04/20/24 13:33 Pulse Ox 97 04/20/24 13:33 Oxygen Delivery Method Room Air 04/20/24 13:33 BMI result Body Mass Index 36.3 Tobacco/Smoking Status: Tobacco use Status Tobacco use date assessed 01/13/24 04/20/24 14:14 Patient Tobacco Use Status Never used Tobacco 04/20/24 14:14 e-Cigarette/Vaping Use Never Used 04/20/24 14:14 PHQ-9: PHQ-9 Score PHQ-9: Total score 23 04/20/24 15:48 Depression Screening Interpretation: Positive Thrive Assessment: Date of Thrive Assessment Date Thrive assessed 12/09/23 04/20/24 14:14 Assessment and Plan Assessment & Plan (1) Type 2 diabetes mellitus with obesity: Comment: 20 lb weight loss in the last couple of months in the setting of uncontrolled diabetes. His BMI remains high. We will need to continue to encourage weight loss once his disease is stable Code(s): E11.69 - Type 2 diabetes mellitus with other specified complication; E66.9 - Obesity, unspecified (2) Hypertension complicating diabetes: Comment: He is on lisinopril 10 mg daily. Taking as directed. Goal <130/80 Code(s): E11.59 - Type 2 diabetes mellitus with other circulatory complications; I15.2 - Hypertension secondary to endocrine disorders Orders: Orders Comprehensive Met. Panel Today E11.59 - Type 2 diabetes mellitus with other circulatory complications, I15.2 - Hypertension secondary to endocrine disorders Medications: New pen needle, diabetic (BD Jennifer 2nd Gen Pen Needle) As directed 100 ea 11RF E11.69 - Type 2 diabetes mellitus with other specified complication, E66.9 - Obesity, unspecified duloxetine 40 mg PO DAILY 30 caps 1RF propranolol ER for migraine prevention, to help sleep and anxiety TAKE DAILY 60 mg PO BEDTIME 30 caps 1RF Discontinued duloxetine Discontinued Reason: Doctor's Order 20 mg PO DAILY 30 caps 1RF Coding Diagnoses Type 2 diabetes mellitus with obesity E11.69; E66.9 Hypertension complicating diabetes E11.59; I15.2 Additional Codes GARY-7 Assessment Billing - GARY-7 Assessment Tool: GARY-7 Assessment [id number] ([id number])
--- NOTE | 2024-04-28 13:26 | A.OFFPC_ITS ---
Vital Signs 04/20/24 13:33 Height 5 ft 8 in Weight 239 lb BMI 36.3 BP 122/84 Blood Pressure Location Rt brachial Position Sitting Pulse 88 Pulse Source Pulse Oximeter Pulse Oximetry (%) 97 Oxygen Delivery Method Room Air Intake Visit Reasons: 6 weeks with me 30 min fu marilin start and labs Director Of Event Sales Required: No Allergies No Known Allergies Allergy (Verified 04/20/24 14:12) Medication List - Last Reconciled 04/20/24 by Sonia Bass, ELECTROPHYSIOLOGY SCIENTIST- [id number]-[id number]-ifertwgo 250-250-65 mg (Excedrin Migraine) 2 tabs PO Q6H PRN atorvastatin 40 mg PO BEDTIME blood sugar diagnostic (FreeStyle Lite Strips) test 4 times a day blood-glucose meter (Accu-Chek Guide Glucose Meter) As directed blood-glucose meter,continuous (FreeStyle Ernie 3 [place]) As directed blood-glucose sensor (FreeStyle Ernie 3 Sensor device) As directed duloxetine 20 mg PO DAILY empagliflozin-metformin 5-1,000 mg ER (Synjardy XR) 2 tabs (2 x 5-1,000 mg) PO QAM glucagon HCl (Glucagon (HCl) Emergency Kit) 1 mg subcut Q20M PRN insulin glargine (Lantus Solostar U-100 Insulin) 45 units (0.45 mL) subcut QPM 3 months lancets (Accu-Chek Fastclix Lancet Drum) As directed lisinopril 10 mg PO DAILY naproxen 375 mg PO BID PRN 30 days pen needle, diabetic As directed Tobacco use date assessed: 01/13/24 Dental Screening Dental Screen Date: 01/13/24 HPI HPI Comments History of Present Illness Details Here today to follow up on chronic conditions. Since last office visit he continues to have disrupted sleep-wake cycle. Sleep study January of 2024 showed positive obstructive sleep apnea. He has a initial consult with sleep Medicine 06/16/2024. Reports that he has seen no improvement in his mood since starting the duloxetine. Reports stopping the Prozac as he thought that he was supposed to stop this when he started the duloxetine. He continues with a counselor. He denies SI or HI. He also denies any improvement in his generalized pain with the use of this medication. He is having more headaches. Using Excedrin migraine. Does not like the way that is abortive medications make him feel. He reports elevated blood pressure at the time of headaches. Reporting systolic greater than 180 at home. Now using the [employer] Ernie 3. CGM reviewed [place] 7.4% for 90 days, no lows, very few highs around 300 States that he needs a refill on pen needles, likes to use a Jennifer second- generation. He reports the other ones cause him pain. He is chronic skin condition which has not been evaluated by Dermatology at. Right looked into this it looks like they have contacted him to schedule the appointment but he has not called back. I did provide him the information today and encouraged him to call. No hospitalization since his last office visit. Labs from April 25 2024 are improved from the last lab draw. Normal electrolytes, normal renal function, random glucose 149, normal ferritin, improving LFTs, ALT 56, normal AST and alk phos, cholesterol at goal LDL 42, total cholesterol 99, triglycerides 121, HDL 33, B12 358, normal folate, normal urine microalbumin creatinine ratio Plan Start propranolol ER 16 mg q.h.s. to help with insomnia, headaches, anxiety and reported blood pressure elevations. Continue diabetic medications, refill sent on requested pen needles Labs to be done today Increase duloxetine from 20 mg to 40 mg daily. Restart the Prozac at the current dose as this should have never been stopped. Please call the home furnishings sales representative schedule your appointment. Return to the office at the end of May for routine follow up on chronic conditions, sooner as needed [facility] Medical History (Updated 04/28/24 @ 13:38 by Sonia Bass, [facility]) Severe sleep apnea Joint swelling Acid reflux Psoriasis Bipolar 1 disorder Depression Anxiety Type 2 diabetes mellitus Hypertension Migraine Surgical History No pertinent past surgical history Family History Mother Hypertension Diabetes Thyroid condition Psychiatric diagnosis Father Diabetes Social History Household Members: Other Housing: Homeless Are you a primary field care advocate to a significant other at home: No Do you presently have visiting nurse or other home services: No 75 years or older and lives alone: No Alcohol intake: current Alcohol intake frequency: holidays/special occasions only Patient Tobacco Use Status: Never used Tobacco e-Cigarette/Vaping Use: Never Used service: No Current occupational status: unemployed Current occupational exposures/hazards: No Sexual orientation: Unable to collect Gender identity: Unable to collect Cognitive needs: No Hearing needs: No Vision needs: No Questionnaire Thrive Questionnaire Date Thrive assessed: 12/09/23 GARY-7 AMB Questionnaire GARY-7 Date GARY - 7 assessed: 12/09/23 Source: Developed by Drs. Wilfredo Antunez, Ninfa Velázquez, Jose Carlos Worley and colleagues, with an educational jenny from [employer]. Physical exam (Primary Care) Vital Signs: Last Vital Signs Pulse 88 04/20/24 13:33 BP 122/84 04/20/24 13:33 Pulse Ox 97 04/20/24 13:33 Oxygen Delivery Method Room Air 04/20/24 13:33 BMI result Body Mass Index 36.3 BMI Assessment/Plan discussion: High BMI High, discussed plan: lifestyle Tobacco/Smoking Status: Tobacco use Status Tobacco use date assessed 01/13/24 03/09/24 12:12 Patient Tobacco Use Status Never used Tobacco 03/09/24 12:12 e-Cigarette/Vaping Use Never Used 03/09/24 12:12 Thrive Assessment: Date of Thrive Assessment Date Thrive assessed 12/09/23 03/09/24 12:12 Const Other: Awake alert oriented Mucous membranes moist RRR Lung sounds clear To auscultation mentation within normal limits Psoriatic rash on scalp behind ears on abdomen Dupuytren's contractures of bilat hands Assessment and Plan Assessment & Plan (1) Type 2 diabetes mellitus with obesity: Comment: 20 lb weight loss in the last couple of months in the setting of uncontrolled diabetes. His BMI remains high. We will need to continue to encourage weight loss once his disease is stable Code(s): E11.69 - Type 2 diabetes mellitus with other specified complication; E66.9 - Obesity, unspecified (2) Hypertension complicating diabetes: Comment: He is on lisinopril 10 mg daily. Taking as directed. Goal <130/80 Code(s): E11.59 - Type 2 diabetes mellitus with other circulatory complications; I15.2 - Hypertension secondary to endocrine disorders (3) Psoriasis: Comment: Refer to dermatology for evaluation and treatment, info given to him today to schedule appt, referral in place since december 2023 Code(s): L40.9 - Psoriasis, unspecified (4) Hyperlipidemia associated with type 2 diabetes mellitus: Comment: LDL goal < 70 On Atorvastatin 40mg QD Code(s): E11.69 - Type 2 diabetes mellitus with other specified complication; E78.5 - Hyperlipidemia, unspecified (5) GARY (generalized anxiety disorder): Comment: See MDD care plan Code(s): F41.1 - Generalized anxiety disorder (6) MDD (major depressive disorder): Comment: Active and counseling, continue on fluoxetine 20 mg p.o. daily. increase Cymbalta 40 mg p.o. daily. Titrate to effect. Code(s): F32.9 - Major depressive disorder, single episode, unspecified Qualifiers: Major depression recurrence: recurrent Active/Remission status: currently active Major depression episode severity: moderate Qualified Code(s): F33.1 - Major depressive disorder, recurrent, moderate (7) Type 2 diabetes with complication: Comment: Currently on insulin Lantus 45 units daily. Blood glucose levels improving. Hemoglobin A1c 14% November 2023 and 02/2024 7.7%. Plan: Continue Lantus 45 units daily, Synjardy XR 5-a 1000 mg 2 tablets p.o. in the morning. diabetic eye exam scheduled February 14, 2024 negative for retinopathy Active with nurse navigation team. Code(s): E11.8 - Type 2 diabetes mellitus with unspecified complications Plan This note is constructed using voice recognition software. While every effort has been made to ensure accuracy in transportation aide, still errors may have been included Sometimes, these errors may affect the content or meaning of the given sentence . Total time spent caring for the patient today was 50 minutes. This includes time spent before the visit reviewing the chart, time spent during the visit, and time spent after the visit on documentation Orders: Orders Comprehensive Met. Panel 04/20/24 E11.59 - Type 2 diabetes mellitus with other circulatory complications, I15.2 - Hypertension secondary to endocrine disorders Medications: New pen needle, diabetic (BD Jennifer 2nd Gen Pen Needle) As directed 100 ea 11RF E11.69 - Type 2 diabetes mellitus with other specified complication, E66.9 - Obesity, unspecified duloxetine 40 mg PO DAILY 30 caps 1RF propranolol ER for migraine prevention, to help sleep and anxiety TAKE DAILY 60 mg PO BEDTIME 30 caps 1RF Discontinued duloxetine Discontinued Reason: Doctor's Order 20 mg PO DAILY 30 caps 1RF Coding Level of Care Code Est Pt Level 5 (56671) Complex EM visit Add On G2211 Diagnoses Type 2 diabetes mellitus with obesity E11.69; E66.9 Hypertension complicating diabetes E11.59; I15.2 Psoriasis L40.9 Hyperlipidemia associated with type 2 diabetes mellitus E11.69; E78.5 GARY (generalized anxiety disorder) F41.1 Moderate episode of recurrent major depressive disorder F33.1 Major depression recurrence: recurrent Active/Remission status: currently active Major depression episode severity: moderate Type 2 diabetes with complication E11.8
== END ==
PROVIDERS: PCP Nurse Practitioner Family; Visit Provider Physician Assistant
DX: E11.69 Type 2 diabetes mellitus with other specified complication (principal); E66.9 Obesity, unspecified; E11.59 Type 2 diabetes mellitus with other circulatory complications; I15.2 Hypertension secondary to endocrine disorders; L40.9 Psoriasis, unspecified; E78.5 Hyperlipidemia, unspecified; F41.1 Generalized anxiety disorder; F33.1 Major depressive disorder, recurrent, moderate; E11.8 Type 2 diabetes mellitus with unspecified complications; Z68.36 Body mass index [BMI] 36.0-36.9, adult
CPT/HCPCS: 99215; G2211

== ENCOUNTER 2024-04-20 14:37 | Outpatient (REF) | payer OTHER, SELFPAY ==
[2024-04-20 17:49] LABS: Alanine Aminotransferase 56 U/L (0-40); Albumin Level 4.7 g/dL (3.5-5.0); Alkaline Phosphatase 105 U/L (39-117); Anion Gap 12 (12-20); Aspartate Amino Transferase 36 U/L (5-37); Bilirubin Total 0.5 mg/dL (0.0-1.0); Blood Urea Nitrogen 12 mg/dL (9-16); Calcium 10.1 mg/dL (8.4-10.2); Carbon Dioxide 25 mmol/L (22-29); Chloride 105 mmol/L (96-108); Cholesterol 99 mg/dL (<200); Estimated Glomerular Filt Rate > 60; Glucose Random 149 mg/dL (60-115); HDL Cholesterol 33 mg/dL (>40); LDL Cholesterol Calculated 42 mg/dL (<100); Potassium 4.2 mmol/L (3.3-5.1); Sodium 138 mmol/L (135-145); Total Protein 9.1 g/dL (6.5-8.0); Triglycerides 121 mg/dL (<150)
[2024-04-20 18:04] LABS: Ferritin 198 ng/mL (20-250)
[2024-04-20 18:18] LABS: Creatinine Urine 238.16 mg/dL; Microalbum/Creatinine Ratio Ur 23.5 ug/mg cr (<30)
[2024-04-20 18:23] LABS: Folate 4.9 ng/mL (> or = 4.0); Vitamin B12 358 pg/mL (200-900)
== END 2024-04-20 14:38 | disposition home or self-care (01) ==
LOC: HO.WFDLDS 14:37
PROVIDERS: Visit Provider Nurse Practitioner Family
DX: E11.69 Type 2 diabetes mellitus with other specified complication (principal); E78.5 Hyperlipidemia, unspecified; E11.59 Type 2 diabetes mellitus with other circulatory complications; I15.2 Hypertension secondary to endocrine disorders; K76.0 Fatty (change of) liver, not elsewhere classified
CPT/HCPCS: 36415; 80053; 80061; 82043; 82570; 82607; 82728; 82746

== ENCOUNTER 2024-05-09 20:36 | Emergency (ER) | payer OTHER, SELFPAY ==
--- NOTE | 2024-05-09 | ECG_ITS ---
Test Reason : CHEST PAIN Blood Pressure : / mmHG Vent. Rate : 081 BPM Atrial Rate : 081 BPM P-R Int : 118 ms QRS Dur : 088 ms QT Int : 358 ms P-R-T Axes : 014 011 -04 degrees QTc Int : 415 ms Normal sinus rhythm Nonspecific T wave abnormality Borderline ECG When compared with ECG of 21-FEB-2024 14:16, No significant change was found Referred By: Generic ED Physician Electronically Signed By:MAXIME YORK
--- NOTE | ~2024-05-09 | XR_ITS ---
EXAMINATION: PORTABLE CHEST 1 VIEW CLINICAL INFORMATION: sob. COMPARISON: 09/17/2017. TECHNIQUE: Portable frontal view of the chest was obtained. FINDINGS: The lungs are hypoexpanded. No focal infiltrate, effusion, edema, or pneumothorax. Cardiac and mediastinal silhouettes are within normal limits for technique. No acute bony abnormality seen. XR/XR chest 1V IMPRESSION: No evidence of acute disease.
[2024-05-09 20:37] VITALS: BP 135/84; BP 154/88; PULSE 80; PULSE 86; RESP 13; TEMP 36.8; O2SAT 95; O2SAT 98; BMI 36.7
--- NOTE | 2024-05-09 20:59 | PC.NURSE ---
pt biba from home, a&ox4, respirations even and unlabored. pt reporting x7 days of chest pain, shortness of breath, headache and dizziness; pt denies sick contacts at this time. pt denies n/v/d. pt normal sinus on tele 80/83bpm. labs obtained and sent to lab. vss.
[2024-05-09 21:35] LABS: Basophils Percent Auto 0.7 % (0-2); Eosinophils Absolute Auto 0.1 X10*3/uL (0.0-0.4); Hematocrit 42.9 % (42.0-52.0); Hemoglobin 14.5 g/dl (14.0-18.0); Imm Gran Abs Auto 0.01 X10*3/uL (0.00-0.03); Imm Gran Pct Auto 0.2 % (0.0-0.4); Lymphocytes Absolute Auto 1.7 X10*3/uL (1.2-4.9); Lymphocytes Percent Auto 30.1 % (20-40); Mean Corpuscular HGB Conc 33.8 g/dl (31.0-36.0); Mean Corpuscular Hemoglobin 28.6 pg (27.0-33.0); Mean Corpuscular Volume 84.6 fL (80.0-98.0); Monocytes Absolute Auto 0.4 X10*3/uL (0.1-1.2); Monocytes Percent Auto 6.7 % (2-11); Neutrophils Absolute Auto 3.6 x10*3/uL (2.0-8.3); Neutrophils Percent Auto 61.3 % (45-73); Platelet Count 248 X10*3/uL (160-400); Red Blood Count 5.07 X10*6/uL (4.60-5.80); Red Cell Distribution Width 13.5 % (11.0-16.0); White Blood Count 5.8 X10*3/uL (4.8-10.8)
[2024-05-09 21:36] LABS: Influenza A PCR NEGATIVE (Negative); Influenza B PCR NEGATIVE (Negative); Resp Syncy Virus RNA Qual PCR NEGATIVE (Negative); SARS COV2 PCR INHOUSE NEGATIVE (Negative)
[2024-05-09 21:38] LABS: MANUAL DIFF FLAG NO
[2024-05-09 21:48] LABS: Alanine Aminotransferase 71 U/L (0-40); Albumin Level 4.5 g/dL (3.5-5.0); Alkaline Phosphatase 100 U/L (39-117); Anion Gap 14 (12-20); Aspartate Amino Transferase 40 U/L (5-37); Bilirubin Total 0.3 mg/dL (0.0-1.0); Blood Urea Nitrogen 9 mg/dL (9-16); Calcium 9.7 mg/dL (8.4-10.2); Carbon Dioxide 24 mmol/L (22-29); Chloride 104 mmol/L (96-108); Creatinine Clr Calc Pharmacy 128.8; Estimated Glomerular Filt Rate > 60; Glucose Random 158 mg/dL (60-115); Potassium 4.1 mmol/L (3.3-5.1); Sodium 138 mmol/L (135-145); Total Protein 8.4 g/dL (6.5-8.0)
--- NOTE | 2024-05-09 21:56 | ED_ITS ---
HPI - Chest Pain General Chief Complaint: Chest Pain Stated Complaint: Chest pain x7 days, 6/10 pain Time Seen by Provider: 05/09/24 21:33 Source: patient Mode of arrival: ambulatory Limitations: no limitations History of Present Illness ED Provider: kiya MIDDLETON narrative: Patient is 33 years old history of depression diabetes hypertension anxiety disorder comes here for chest pain for last 2 weeks which is localized to the left side of the chest no relation with exertion no radiation of the pain no shortness a breath Related Data Previous Rx's ?Medication ?Instructions ?Recorded blood-glucose meter (Accu-Chek #1 ea 11/27/23 Guide Glucose Meter) glucagon HCl 1 mg solution for 1 mg subcut Q20M PRN hypoglycemia 11/27/23 injection (Glucagon (HCl) #1 ea Emergency Kit) lancets (Accu-Chek Fastclix Lancet #100 ea 12/09/23 Drum) pen needle, diabetic 31 gauge x #100 ea 12/09/23/ blood-glucose meter,continuous #1 ea 12/16/23 (FreeStyle Ernie 3 [place]) blood-glucose sensor (FreeStyle #2 ea 12/16/23 Ernie 3 Sensor device) blood sugar diagnostic (FreeStyle #100 ea 12/31/23 Lite Strips) insulin glargine 100 unit/mL (3 45 unit (0.45 mL) subcut QPM 3 01/13/24 mL) subcutaneous pen (Lantus months #45 mL Solostar U-100 Insulin) lisinopril 10 mg tablet 10 mg PO DAILY #90 tabs 02/12/24 [id number]-[id number]-[id number] 250 2 tab PO Q6H PRN headache #30 tabs 02/21/24 mg-250 mg-65 mg tablet (Excedrin Migraine) naproxen 375 mg tablet,delayed 375 mg PO BID PRN pain 30 days #60 03/09/24 release tabs atorvastatin 40 mg tablet 40 mg PO BEDTIME #90 tabs 04/18/24 empagliflozin 5 mg-metformin ER 2 tab (2 x 5-1,000 mg) PO QAM #180 04/18/24 1,000 mg tablet,extended release ea 24 hr (Synjardy XR) pen needle, diabetic 32 gauge x #100 ea 04/20/24 (BD Jennifer 2nd Gen Pen Needle) propranolol 60 mg capsule,24 60 mg PO BEDTIME #30 caps 04/20/24 hr,extended release duloxetine 20 mg capsule,delayed 40 mg (2 x 20 mg) PO DAILY #60 caps 04/29/24 release Allergies Allergy/AdvReac Type Severity Reaction Status Date / Time No Known Allergies Allergy Verified 05/09/24 20:44 Review of Systems 2 Review of Systems: Yes all other systems are reviewed and are negative PMFSH Past Medical History Medical History Severe sleep apnea Joint swelling Acid reflux Psoriasis Bipolar 1 disorder Depression Anxiety Type 2 diabetes mellitus Hypertension Migraine Surgical History No pertinent past surgical history Family History Family History Mother Hypertension Diabetes Thyroid condition Psychiatric diagnosis Father Diabetes Social History Social History Household Members: Other Housing: Homeless Are you a primary care information associate to a significant other at home: No Do you presently have visiting nurse or other home services: No Alcohol intake: never Patient Tobacco Use Status: Never used Tobacco Smoked in Last 30 Days: No e-Cigarette/Vaping Use: Never Used Use of substances other than those prescribed or required for medical reasons: No Advance Directives: No Advance Directives Information Provided: No Do you have a plan to hurt others: No Plan service: No Current occupational status: unemployed Current occupational exposures/hazards: No Sexual orientation: Unable to collect Gender identity: Unable to collect Cognitive needs: No Hearing needs: No Vision needs: No Physical Exam 2 Vital Signs: Vital Signs: Last Vital Signs Temp 98.6 F 05/09/24 22:54 Pulse 75 05/09/24 22:54 Resp 20 05/09/24 22:54 BP 123/78 05/09/24 22:54 Pulse Ox 97 05/09/24 22:54 O2 Del Method Room Air 05/09/24 22:54 BMI result Body Mass Index 36.7 Appearance: Alert. Oriented X3. No acute distress. Eyes: No pallor or icterus ENT: Pharynx normal. Oral Mucosa moist Neck: Normal inspection. Neck supple. CVS: Normal heart rate and rhythm. Pulses normal. Respiratory: No respiratory distress. Equal air entry bilateral, no wheezing/rales/rhonchi Abdomen: Soft and nontender. Bowel sounds are present, Skin: Skin warm and dry. Normal skin color. Normal skin turgor. Extremities: No lower extremity edema. No calf tenderness Neuro: Oriented X 3. No motor deficit. Medical Decision Making Medical Decision Making [facility] Narrative: Patient has atypical chest pain for more than 2 weeks cardiac enzymes negative EKG no acute ST-T changes likely musculoskeletal Differential Diagnosis Differential Diagnoses: The differential diagnosis associated with the presentation includes ACS/chest wall pain/musculoskeletal pain Lab Data [facility] Lab Attestation statement: I reviewed the patient's lab results. 05/09/24 21:26 05/09/24 21:26 Labs: Lab Results 05/09/24 05/09/24 Range/Units 20:55 21:26 WBC 5.8 (4.8-10.8) X10*3/uL RBC 5.07 (4.60-5.80) X10*6/uL Hgb 14.5 (14.0-18.0) g/dl Hct 42.9 (42.0-52.0) % MCV 84.6 (80.0-98.0) fL MCH 28.6 (27.0-33.0) pg MCHC 33.8 (31.0-36.0) g/dl RDW 13.5 (11.0-16.0) % Plt Count 248 (160-400) X10*3/uL MPV 11.0 (9.4-12.4) fL Immature Gran % (Auto) 0.2 (0.0-0.4) % Neut % (Auto) 61.3 (45-73) % Lymph % (Auto) 30.1 (20-40) % [place] % (Auto) 6.7 (2-11) % Eos % (Auto) 1.0 (0-4) % Baso % (Auto) 0.7 (0-2) % Lymph # (Auto) 1.7 (1.2-4.9) X10*3/uL [place] # (Auto) 0.4 (0.1-1.2) X10*3/uL Eos # (Auto) 0.1 (0.0-0.4) X10*3/uL Baso # (Auto) 0.0 (0.0-0.2) X10*3/uL Abs Immat Gran (auto) 0.01 (0.00-0.03) X10*3/uL Absolute Neuts (auto) 3.6 (2.0-8.3) x10*3/uL Absolute Nucleated RBC 0.000 (0.0-0.012) X10*3/uL Nucleated RBC % (auto) 0.0 (0.0-0.2) /100WBC Sodium 138 (135-145) mmol/L Potassium 4.1 (3.3-5.1) mmol/L Chloride 104 (96-108) mmol/L Carbon Dioxide 24 (22-29) mmol/L Anion Gap 14 (12-20) BUN 9 (9-16) mg/dL Creatinine 0.96 (0.5-1.4) mg/dL Estim Creat Clear Calc 128.8 Estimated GFR > 60 Random Glucose 158 H (60-115) mg/dL Calcium 9.7 (8.4-10.2) mg/dL Total Bilirubin 0.3 (0.0-1.0) mg/dL AST 40 H (5-37) U/L ALT 71 H (0-40) U/L Alkaline Phosphatase 100 (39-117) U/L Troponin I High Sens < 2.7 (<3.5-35.0) ng/L Total Protein 8.4 H (6.5-8.0) g/dL Albumin 4.5 (3.5-5.0) g/dL Influenza Type A (PCR) NEGATIVE (Negative) Influenza Type B (PCR) NEGATIVE (Negative) RSV RNA Qual (PCR) NEGATIVE (Negative) SARS-CoV-2 RNA (RT-PCR) NEGATIVE (Negative) Independent Interpretation I performed an independent interpretation of an: EKG Interpretation: Normal sinus rhythm heart rate 81 beats per minute normal axis no acute STT wave changes no acute ischemia Discharge Plan Discharge Clinical Impression: Atypical chest pain Patient Disposition: Home, Self-Care Instructions: Noncardiac Chest Pain (ED) Additional Instructions: Your chest pain is unlikely from the heart follow up with your PCP for further evaluation if pain continues Prescriptions: No Action lisinopril 10 mg tablet 10 mg PO DAILY Qty: 90 0RF Synjardy XR 5-1,000 mg tablet, IR - ER, biphasic 24hr 2 tab PO QAM Qty: 180 0RF atorvastatin 40 mg tablet 40 mg PO BEDTIME Qty: 90 0RF (DME) pen needle, diabetic [BD Jennifer 2nd Gen Pen Needle] 32 gauge x 5/32 needle See Rx Instructions .Route Qty: 100 11RF Rx Instructions: As directed DAILY duloxetine 20 mg capsule,delayed release(DR/EC) 40 mg PO DAILY Qty: 60 1RF (DME) blood-glucose meter [Accu-Chek Guide Glucose Meter] Misc See Rx Instructions .Route Qty: 1 0RF Rx Instructions: As directed glucagon HCl [Glucagon (HCl) Emergency Kit] 1 mg recon soln 1 mg subcut Q20M PRN (Reason: hypoglycemia) Qty: 1 0RF Rx Instructions: until target blood sugar attained Excedrin Migraine 250-250-65 mg tablet 2 tab PO Q6H PRN (Reason: headache) Qty: 30 0RF (DME) lancets [Accu-Chek Fastclix Lancet Drum] Misc See Rx Instructions .Route Qty: 100 0RF Rx Instructions: As directed (DME) pen needle, diabetic 31 gauge x 3/16 needle See Rx Instructions .Route Qty: 100 0RF Rx Instructions: As directed (DME) FreeStyle Lite Strips Strip See Rx Instructions .Route Qty: 100 11RF Rx Instructions: test 4 times a day insulin glargine [Lantus Solostar U-100 Insulin] 100 unit/mL (3 mL) insulin pen 45 unit subcut QPM 90 Days Qty: 45 1RF naproxen 375 mg tablet,delayed release (DR/EC) 375 mg PO BID PRN (Reason: pain) 30 Days Qty: 60 0RF propranolol 60 mg capsule,extended release 24 hr 60 mg PO BEDTIME Qty: 30 1RF Rx Instructions: for migraine prevention, to help sleep and anxiety TAKE DAILY (DME) FreeStyle Ernie 3 Sensor Device See Rx Instructions .MEDSUPPLY Qty: 2 11RF Rx Instructions: As directed (DME) FreeStyle Ernie 3 [place] Misc See Rx Instructions .MEDSUPPLY Qty: 1 0RF Rx Instructions: As directed Interventions: ED Discharge Assessment Last Done: 05/09/24 22:54 Discharge Date/Time: 05/09/24 22:55 Print Language: Thai
[2024-05-09 21:57] LABS: Troponin-I High Sensitivity < 2.7 ng/L (<3.5-35.0)
[2024-05-09 22:17] VITALS: BP 123/78; PULSE 75; RESP 20; TEMP 37; O2SAT 97
[2024-05-09 22:54] VITALS: BP 123/78; PULSE 75; RESP 20; TEMP 37; O2SAT 97
== END 2024-05-09 22:55 | disposition home or self-care (01) ==
PROVIDERS: Emergency Provider Internal Medicine; PCP Internal Medicine
DX: R07.89 Other chest pain (principal); Z03.818 Encounter for observation for suspected exposure to other biological agents ruled out; Z79.899 Other long term (current) drug therapy
CPT/HCPCS: 0241U; 36415; 71045; 80053; 84484; 85025; 93005; 99283; 99285

== ENCOUNTER → 2024-05-09 20:44 | Outpatient (BNV) | payer OTHER, SELFPAY | PROVIDERS: Emergency Provider Internal Medicine; PCP Internal Medicine; Visit Provider Internal Medicine | DX: R07.9 Chest pain, unspecified (principal); R94.31 Abnormal electrocardiogram [ECG] [EKG] | CPT/HCPCS: 93010 ==

== ENCOUNTER 2024-06-16 08:31 | Outpatient (AMB) | payer OTHER, SELFPAY ==
--- NOTE | 2024-06-16 08:40 | A.OFFVIS_ITS ---
Vital Signs 06/16/24 08:41 Height 5 ft 8 in Weight 238 lb 4 oz BMI 36.2 BP 126/82 Blood Pressure Location Rt brachial Position Sitting Respiration 16 Pulse 78 Pulse Source Pulse Oximeter Pulse Oximetry (%) 100 Oxygen Delivery Method Room Air Intake Visit Reasons: INP-MATEUSZ Intake Note: Pt presents to the office for a new pt consultation for MATEUSZ. 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 His recent Home sleep test was c/w severe sleep apnea AHI 22/hr and oxygen bob 64%. He was diagnsoed with Sleep Apnea in 2018 -had CPAP but lost it when he moved here from [place] in 2019. His main symptoms are snoring, witnessed apneas, gasping arousals, excessive daytime sleepiness, morning headaches. he denies Restless legs or leg movements in sleep. [facility] Medical History Severe sleep apnea Joint swelling Acid reflux Psoriasis Bipolar 1 disorder Depression Anxiety Type 2 diabetes mellitus Hypertension Migraine Surgical History No pertinent past surgical history Family History Mother Hypertension Diabetes Thyroid condition Psychiatric diagnosis Father Diabetes Social History Household Members: Other Housing: Homeless Are you a primary career professional to a significant other at home: No Do you presently have visiting nurse or other home services: No 75 years or older and lives alone: No Alcohol intake: never Patient Tobacco Use Status: Never used Tobacco e-Cigarette/Vaping Use: Never Used service: No Current occupational status: unemployed Current occupational exposures/hazards: No Sexual orientation: Unable to collect Gender identity: Unable to collect Cognitive needs: No Hearing needs: No Vision needs: No Physical Exam Vital Signs: Last Vital Signs Pulse 78 06/16/24 08:41 Resp 16 06/16/24 08:41 BP 126/82 06/16/24 08:41 Pulse Ox 100 06/16/24 08:41 Oxygen Delivery Method Room Air 06/16/24 08:41 BMI result Body Mass Index 36.2 Const General: cooperative and comfortable Nutritional Appearance: obese Orientation/consciousness: patient oriented x3 Eyes Pupils: Equal, round and reactive pupils present Neuro General: patient oriented x3, gait normal, tone normal, moves all extremities and no focal motor deficits Cranial nerves: Yes Facial sensation intact/muscles of mastication intact, Yes Equal, round and reactive pupils present, Yes Bilaterally intact EOM present, Yes Nystagmus not present, Yes Normal facial strength present, Yes Midline tongue present and Yes Symmetric palate elevation present Cognition (Neuro): normal cognition Gait exam (Neuro): Normal gait present Motor exam (neuro): 5/5 motor strength present throughout and Normal motor muscle tone present throughout Deep tendon reflexes (DTR's): Right triceps reflex intensity grade: 1+, Left triceps reflex intensity grade: 1+, Rt Biceps (C5, C6): 1+, Left biceps reflex intensity grade: 1+, Right brachioradialis reflex intensity grade: 1+, Left brachioradialis reflex intensity grade: 1+, Right patellar reflex intensity grade: 0 and Left patellar reflex intensity grade: 0 Coordination: [id number] test normal Assessment & Plan Assessment & Plan (1) MATEUSZ (obstructive sleep apnea): Comment: Home sleep study results from 02/03/2024 show obstructive sleep apnea, moderately severe, total sleep time AHI 21.5, predominantly in supine position, but even in lateral position there is significant degree of sleep apnea. Nocturnal hypoxemia with average O2 sat 93, lowest O2 sat 64 and O2 sat below 88% for 49 minutes. Code(s): G47.33 - Obstructive sleep apnea (adult) (pediatric) Category: Medical Plan I will start patient on AutoPAP 5-20 cm of water and monitor compliance Overnight oximetry when patient is on CPAP to assess for hypoxemia. Coding Level of Care Code New Pt Level 4 (30192) Diagnoses MATEUSZ (obstructive sleep apnea) G47.33
[2024-06-16 08:41] VITALS: BP 126/82; PULSE 78; RESP 16; O2SAT 100; BMI 36.2
== END 2024-06-16 09:14 | disposition home or self-care (01) ==
PROVIDERS: PCP Nurse Practitioner Family; Visit Provider Psychiatry & Neurology Neurology
DX: G47.33 Obstructive sleep apnea (adult) (pediatric) (principal)
CPT/HCPCS: 99204

== ENCOUNTER → 2024-06-16 08:31 | Outpatient (BNVA) | payer OTHER, SELFPAY | PROVIDERS: PCP Nurse Practitioner Family; Visit Provider Psychiatry & Neurology Neurology | DX: G47.33 Obstructive sleep apnea (adult) (pediatric) (principal) | CPT/HCPCS: 99202 ==

== ENCOUNTER 2024-06-17 10:13 | Outpatient (AMB) | payer OTHER, SELFPAY ==
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
[2024-06-17 10:17] VITALS: BP 125/72; PULSE 80; RESP 15; O2SAT 98; BMI 36.2
== END 2024-06-17 10:50 | disposition home or self-care (01) ==
PROVIDERS: PCP Nurse Practitioner Family; Visit Provider Nurse Practitioner Family
DX: E11.69 Type 2 diabetes mellitus with other specified complication (principal); F33.1 Major depressive disorder, recurrent, moderate; E11.59 Type 2 diabetes mellitus with other circulatory complications; Z68.36 Body mass index [BMI] 36.0-36.9, adult; F41.1 Generalized anxiety disorder; L40.9 Psoriasis, unspecified; I15.2 Hypertension secondary to endocrine disorders; K76.0 Fatty (change of) liver, not elsewhere classified; E66.9 Obesity, unspecified; E78.5 Hyperlipidemia, unspecified; M79.5 Residual foreign body in soft tissue; G47.33 Obstructive sleep apnea (adult) (pediatric)
CPT/HCPCS: 99215

== ENCOUNTER 2024-08-08 09:05 | Outpatient (AMB) | payer OTHER, SELFPAY ==
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
[2024-08-08 09:09] VITALS: BP 124/78; PULSE 70; RESP 14; O2SAT 99; BMI 36.7
== END 2024-08-08 09:46 | disposition home or self-care (01) ==
PROVIDERS: PCP Nurse Practitioner Family; Visit Provider Nurse Practitioner Family
DX: E11.59 Type 2 diabetes mellitus with other circulatory complications (principal); E11.69 Type 2 diabetes mellitus with other specified complication; F33.1 Major depressive disorder, recurrent, moderate; L40.9 Psoriasis, unspecified; I15.2 Hypertension secondary to endocrine disorders; K76.0 Fatty (change of) liver, not elsewhere classified; E66.9 Obesity, unspecified; E78.5 Hyperlipidemia, unspecified; F41.1 Generalized anxiety disorder; G47.33 Obstructive sleep apnea (adult) (pediatric)

== ENCOUNTER → 2024-08-08 09:05 | Outpatient (BNVA) | payer OTHER, SELFPAY | PROVIDERS: PCP Nurse Practitioner Family; Visit Provider Nurse Practitioner Family | DX: E11.8 Type 2 diabetes mellitus with unspecified complications (principal); L40.9 Psoriasis, unspecified; E11.59 Type 2 diabetes mellitus with other circulatory complications; I15.2 Hypertension secondary to endocrine disorders; K76.0 Fatty (change of) liver, not elsewhere classified; E11.69 Type 2 diabetes mellitus with other specified complication; E66.9 Obesity, unspecified; E78.5 Hyperlipidemia, unspecified; F41.1 Generalized anxiety disorder; F33.1 Major depressive disorder, recurrent, moderate; G47.33 Obstructive sleep apnea (adult) (pediatric); Z79.4 Long term (current) use of insulin; Z79.899 Other long term (current) drug therapy | CPT/HCPCS: 96127; 99212 ==

== ENCOUNTER 2024-08-08 09:50 | Outpatient (REF) | payer OTHER, SELFPAY ==
[2024-08-08 12:25] LABS: Alanine Aminotransferase 143 U/L (0-40); Albumin Level 4.6 g/dL (3.5-5.0); Alkaline Phosphatase 101 U/L (39-117); Anion Gap 12 (12-20); Aspartate Amino Transferase 69 U/L (5-37); Bilirubin Total 0.6 mg/dL (0.0-1.0); Blood Urea Nitrogen 9 mg/dL (9-16); Calcium 10.3 mg/dL (8.4-10.2); Carbon Dioxide 29 mmol/L (22-29); Chloride 101 mmol/L (96-108); Cholesterol 162 mg/dL (<200); Estimated Glomerular Filt Rate > 60; Glucose Fasting 243 mg/dL (60-99); HDL Cholesterol 33 mg/dL (>40); LDL Cholesterol Calculated 76 mg/dL (<100); Potassium 3.9 mmol/L (3.3-5.1); Sodium 138 mmol/L (135-145); Total Protein 8.4 g/dL (6.5-8.0); Triglycerides 269 mg/dL (<150)
[2024-08-08 12:28] LABS: Estimated Average Glucose 203 mg/dL; Hemoglobin A1C 281.5575 umol/L; Hemoglobin A1c % 8.7 % (<6.0); Total Hemoglobin (HGBA1C) 3930.1336 umol/L
[2024-08-08 12:49] LABS: Creatinine Urine 136.37 mg/dL; Microalbum/Creatinine Ratio Ur 13.9 ug/mg cr (<30)
[2024-08-08 13:00] LABS: Folate 6.3 ng/mL (> or = 4.0); Vitamin B12 445 pg/mL (200-900)
== END 2024-08-08 09:51 | disposition home or self-care (01) ==
LOC: HO.WFDLDS 09:50
PROVIDERS: Visit Provider Nurse Practitioner Family
DX: E11.69 Type 2 diabetes mellitus with other specified complication (principal); E78.5 Hyperlipidemia, unspecified; E66.9 Obesity, unspecified; K76.0 Fatty (change of) liver, not elsewhere classified; E11.59 Type 2 diabetes mellitus with other circulatory complications; I15.2 Hypertension secondary to endocrine disorders; E11.8 Type 2 diabetes mellitus with unspecified complications
CPT/HCPCS: 36415; 80053; 80061; 82043; 82570; 82607; 82746; 83036

== ENCOUNTER 2024-08-08 14:32 | Emergency (ER) | payer OTHER, SELFPAY ==
[2024-08-08 14:38] VITALS: BP 124/88; PULSE 80; O2SAT 96
[2024-08-08 15:09] VITALS: BP 131/78; PULSE 79; RESP 20; TEMP 36.9; O2SAT 98; BMI 34.7
[2024-08-08 15:39] LABS: MANUAL DIFF FLAG NO
[2024-08-08 15:44] LABS: Basophils Absolute Auto 0.1 X10*3/uL (0.0-0.2); Basophils Percent Auto 0.7 % (0-2); Eosinophils Percent Auto 0.3 % (0-4); Hemoglobin 15.2 g/dl (14.0-18.0); Imm Gran Abs Auto 0.03 X10*3/uL (0.00-0.03); Imm Gran Pct Auto 0.3 % (0.0-0.4); Lymphocytes Absolute Auto 1.3 X10*3/uL (1.2-4.9); Lymphocytes Percent Auto 14.7 % (20-40); Mean Corpuscular HGB Conc 33.8 g/dl (31.0-36.0); Mean Corpuscular Hemoglobin 28.7 pg (27.0-33.0); Mean Corpuscular Volume 84.9 fL (80.0-98.0); Mean Platelet Volume 11.3 fL (9.4-12.4); Monocytes Absolute Auto 0.6 X10*3/uL (0.1-1.2); Monocytes Percent Auto 6.4 % (2-11); Neutrophils Absolute Auto 6.9 x10*3/uL (2.0-8.3); Neutrophils Percent Auto 77.6 % (45-73); Platelet Count 217 X10*3/uL (160-400); Red Cell Distribution Width 13.2 % (11.0-16.0); White Blood Count 8.9 X10*3/uL (4.8-10.8)
[2024-08-08 16:00] LABS: Alanine Aminotransferase 128 U/L (0-40); Albumin Level 4.3 g/dL (3.5-5.0); Alkaline Phosphatase 93 U/L (39-117); Anion Gap 15 (12-20); Aspartate Amino Transferase 63 U/L (5-37); Bilirubin Total 0.4 mg/dL (0.0-1.0); Blood Urea Nitrogen 10 mg/dL (9-16); Calcium 9.8 mg/dL (8.4-10.2); Carbon Dioxide 26 mmol/L (22-29); Chloride 102 mmol/L (96-108); Creatinine Clr Calc Pharmacy 111.6; Estimated Glomerular Filt Rate > 60; Glucose Random 320 mg/dL (60-115); Lipase 26 U/L (8-78); Magnesium 1.8 mg/dL (1.6-2.6); Sodium 139 mmol/L (135-145); Total Protein 7.9 g/dL (6.5-8.0)
[2024-08-08 16:43] LABS: Glucose, Whole Blood 288 mg/dL (60-115)
--- NOTE | 2024-08-08 17:53 | ED_ITS ---
HPI - Abdominal Pain General Chief Complaint: Abdominal Pain Stated Complaint: ABD PAIN X30M,SOB 98% RA PER EMS Time Seen by Provider: 08/08/24 15:59 Source: patient Mode of arrival: EMS Limitations: no limitations History of Present Illness HPI narrative: Patient is a 34-year-old male with past medical history of hypertension, diabetes, migraines, hepatic steatosis, depression, anxiety, obstructive sleep apnea, psoriasis who presents emergency department for evaluation of abdominal pain. He reported that approximately 30 minutes prior to arrival and began experiencing epigastric pain that caused him to feel anxious and slightly short of breath in addition to nausea and a small episode of biliary emesis. States that the pain began approximately 1 hour after eating toast with butter, eggs, and malik. He felt the urge to have a bowel movement but could not. He called EMS for transport. She was able to have a small bowel movement just before EMS arrived and he had some slight improvement in his pain my evaluation he reports his pain has resolved he is no longer feeling nauseous and would like to try something to eat. He was evaluated by his primary care doctor today, they discussed adjustments to his Lantus insulin as his blood sugars are typically in the 200s. He is only taking Lantus no sliding scale insulin. He reports otherwise feeling well recently, no fevers or chills, no recent chest pain shortness of breath nausea vomiting or cough. No lower abdominal pain. No symptoms. Related Data Previous Rx's ?Medication ?Instructions ?Recorded blood-glucose meter (Accu-Chek #1 ea 11/27/23 Guide Glucose Meter) glucagon HCl 1 mg solution for 1 mg subcut Q20M PRN hypoglycemia 11/27/23 injection (Glucagon (HCl) #1 ea Emergency Kit) lancets (Accu-Chek Fastclix Lancet #100 ea 12/09/23 Drum) pen needle, diabetic 31 gauge x #100 ea 12/09/23/16 blood-glucose meter,continuous #1 ea 12/16/23 (FreeStyle Ernie 3 [place]) blood-glucose sensor (FreeStyle #2 ea 12/16/23 Ernie 3 Sensor device) blood sugar diagnostic (FreeStyle #100 ea 12/31/23 Lite Strips) insulin glargine 100 unit/mL (3 45 unit (0.45 mL) subcut QPM 3 01/13/24 mL) subcutaneous pen (Lantus months #45 mL Solostar U-100 Insulin) biolqio-ztfjwmooxhesh-fwaqyinn 250 2 tab PO Q6H PRN headache #30 tabs 02/21/24 mg-250 mg-65 mg tablet (Excedrin Migraine) empagliflozin 5 mg-metformin ER 2 tab (2 x 5-1,000 mg) PO QAM #180 04/18/24 1,000 mg tablet,extended release ea 24 hr (Synjardy XR) pen needle, diabetic 32 gauge x #100 ea 04/20/24 (BD Jennifer 2nd Gen Pen Needle) atorvastatin 40 mg tablet 40 mg PO BEDTIME #90 tabs 06/17/24 duloxetine 20 mg capsule,delayed 40 mg (2 x 20 mg) PO DAILY 90 days 06/17/24 release #180 caps lisinopril 10 mg tablet 10 mg PO DAILY #90 tabs 06/17/24 propranolol 60 mg capsule,24 60 mg PO BEDTIME #90 caps 06/17/24 hr,extended release fluticasone propionate 50 1 spray intranasal BID #16 grams 08/08/24 mcg/actuation nasal spray,suspension naproxen 375 mg tablet,delayed 375 mg PO BID PRN pain 30 days #60 08/08/24 release tabs pioglitazone 15 mg tablet 15 mg PO DAILY #90 tabs 08/08/24 Allergies Allergy/AdvReac Type Severity Reaction Status Date / Time No Known Allergies Allergy Verified 08/08/24 15:11 Review of Systems Review of Systems Yes all other systems are reviewed and are negative PMFSH Past Medical History Attestation statement: The following information was validated with the patient. Source: old records reviewed Medical History Severe sleep apnea Joint swelling Acid reflux Psoriasis Bipolar 1 disorder Depression Anxiety Type 2 diabetes mellitus Hypertension Migraine Surgical History No pertinent past surgical history Family History Family History Mother Hypertension Diabetes Thyroid condition Psychiatric diagnosis Father Diabetes Social History Social History Household Members: Other Housing: Homeless Are you a primary care team coordinator scheduler to a significant other at home: No Do you presently have visiting nurse or other home services: No Alcohol intake: never Patient Tobacco Use Status: Never used Tobacco e-Cigarette/Vaping Use: Never Used Advance Directives: No Advance Directives Information Provided: Yes service: No Current occupational status: unemployed Current occupational exposures/hazards: No Sexual orientation: Unable to collect Gender identity: Unable to collect Cognitive needs: No Hearing needs: No Vision needs: No Physical Exam ED Vital Signs: Vital Signs - 24 hr 08/08/24 15:09 Temperature 98.5 F Pulse Rate 79 Respiratory Rate 20 Blood Pressure 131/78 Pulse Oximetry 98 Oxygen Delivery Method Room Air BMI result Body Mass Index 34.7 Appearance: Alert.?Oriented to person, place and time. No acute distress.?Normal affect. Eyes: Pupils equal, round and reactive to light.? ENT: Pharynx normal.?? Neck: Normal inspection.? Neck supple.?? CVS: Heart sounds normal. Normal heart rate and rhythm.? Pulses normal.?? Respiratory: No respiratory distress.? Lung sounds clear to auscultation bilaterally?? Abdomen: Soft and non-tender. Normoactive bowel sounds. No pulsatile mass.?? Skin: Skin warm and dry.? Normal skin color.? ? Extremities: No lower extremity edema.? No calf ttp? Neuro: Moves all extremities spontaneously. Sensation intact bilaterally. . No focal neuro deficits. Ambulates with normal steady gait. Medical Decision Making Medical Decision Making MDM Narrative: Patient is a 34-year-old male with past medical history of hypertension, diabetes, migraines, hepatic steatosis, depression, anxiety, obstructive sleep apnea, psoriasis who presents emergency department for evaluation of abdominal pain. He is well-appearing, nontoxic, afebrile. Symptoms have resolved since arrival to the emergency department. He requested something to eat and drink, tolerated drinking water and eating a turkey sandwich without any difficulty. No nausea no abdominal pain. His abdominal examination is benign, does not appear consistent with acute surgical abdomen. Suspect this was please gastritis, reviewed with patient possibility for biliary colic however his abdominal examination is benign. His LFTs are mildly elevated but this appears chronic when compared to levels in the past, lipase is within normal range. Do not suspect acute pancreatitis. Chemistries notable for non-anion gap hyperglycemia, chronically elevated working closely with his primary care doctor by his account, not consistent with DKA. No electrolyte derangement. No BRIANNA. No leukocytosis or anemia. At this time feel that he is stable for discharge home, discussed strict return precautions, bland diet over the next few days. Differential Diagnosis Differential Diagnoses: The differential diagnosis associated with the presentation includes (See narrative above) Admission/Observation Consideration of admission/observation: Escalation of care including admission/observation considered (See narrative above) Lab Data MDM Lab Attestation statement: I reviewed the patient's lab results. (See narrative above) 08/08/24 15:35 08/08/24 15:35 Labs: Lab Results 08/08/24 08/08/24 Range/Units 15:35 16:40 WBC 8.9 (4.8-10.8) X10*3/uL RBC 5.30 (4.60-5.80) X10*6/uL Hgb 15.2 (14.0-18.0) g/dl Hct 45.0 (42.0-52.0) % MCV 84.9 (80.0-98.0) fL MCH 28.7 (27.0-33.0) pg MCHC 33.8 (31.0-36.0) g/dl RDW 13.2 (11.0-16.0) % Plt Count 217 (160-400) X10*3/uL MPV 11.3 (9.4-12.4) fL Immature Gran % (Auto) 0.3 (0.0-0.4) % Neut % (Auto) 77.6 H (45-73) % Lymph % (Auto) 14.7 L (20-40) % [place] % (Auto) 6.4 (2-11) % Eos % (Auto) 0.3 (0-4) % Baso % (Auto) 0.7 (0-2) % Lymph # (Auto) 1.3 (1.2-4.9) X10*3/uL [place] # (Auto) 0.6 (0.1-1.2) X10*3/uL Eos # (Auto) 0.0 (0.0-0.4) X10*3/uL Baso # (Auto) 0.1 (0.0-0.2) X10*3/uL Abs Immat Gran (auto) 0.03 (0.00-0.03) X10*3/uL Absolute Neuts (auto) 6.9 (2.0-8.3) x10*3/uL Absolute Nucleated RBC 0.000 (0.0-0.012) X10*3/uL Nucleated RBC % (auto) 0.0 (0.0-0.2) /100WBC Sodium 139 (135-145) mmol/L Potassium 4.0 (3.3-5.1) mmol/L Chloride 102 (96-108) mmol/L Carbon Dioxide 26 (22-29) mmol/L Anion Gap 15 (12-20) BUN 10 (9-16) mg/dL Creatinine 1.10 (0.5-1.4) mg/dL Estim Creat Clear Calc 111.6 Estimated GFR > 60 POC Glucose 288 H (60-115) mg/dL Random Glucose 320 H (60-115) mg/dL Calcium 9.8 (8.4-10.2) mg/dL Magnesium 1.8 (1.6-2.6) mg/dL Total Bilirubin 0.4 (0.0-1.0) mg/dL AST 63 H (5-37) U/L ALT 128 H (0-40) U/L Alkaline Phosphatase 93 (39-117) U/L Total Protein 7.9 (6.5-8.0) g/dL Albumin 4.3 (3.5-5.0) g/dL Lipase 26 (8-78) U/L Independent Historian Clinical information obtained from an independent historian. History obtained from or confirmed by: EMS External Record Review External record reviewed: Outpatient record Chronic Conditions Patient?s care impacted by: Diabetes and Hypertension Discharge Plan Discharge Clinical Impression: Abdominal pain Patient Disposition: Home, Self-Care Instructions: Abdominal Pain (ED) Additional Instructions: You were seen in the emergency department for evaluation of the pain in your abdomen after eating today. Symptoms had improved. You were able to tolerate eating and drinking in the emergency department without difficulty. As discussed, your blood work today was very reassuring, your blood sugar level remains elevated, I recommend continuing to follow closely with your primary care doctor regarding management of this. You may return to emergency department any new or worsening symptoms or concerns. Follow a bland diet over the next couple of days, be sure that you are staying well hydrated. Prescriptions: No Action Synjardy XR 5-1,000 mg tablet, IR - ER, biphasic 24hr 2 tab PO QAM Qty: 180 0RF (DME) pen needle, diabetic [BD Jennifer 2nd Gen Pen Needle] 32 gauge x 5/32 needle See Rx Instructions .Route Qty: 100 11RF Rx Instructions: As directed DAILY (DME) blood-glucose meter [Accu-Chek Guide Glucose Meter] Misc See Rx Instructions .Route Qty: 1 0RF Rx Instructions: As directed glucagon HCl [Glucagon (HCl) Emergency Kit] 1 mg recon soln 1 mg subcut Q20M PRN (Reason: hypoglycemia) Qty: 1 0RF Rx Instructions: until target blood sugar attained Excedrin Migraine 250-250-65 mg tablet 2 tab PO Q6H PRN (Reason: headache) Qty: 30 0RF (DME) lancets [Accu-Chek Fastclix Lancet Drum] Misc See Rx Instructions .Route Qty: 100 0RF Rx Instructions: As directed (DME) pen needle, diabetic 31 gauge x 3/16 needle See Rx Instructions .Route Qty: 100 0RF Rx Instructions: As directed (DME) FreeStyle Lite Strips Strip See Rx Instructions .Route Qty: 100 11RF Rx Instructions: test 4 times a day insulin glargine [Lantus Solostar U-100 Insulin] 100 unit/mL (3 mL) insulin pen 45 unit subcut QPM 90 Days Qty: 45 1RF atorvastatin 40 mg tablet 40 mg PO BEDTIME Qty: 90 0RF lisinopril 10 mg tablet 10 mg PO DAILY Qty: 90 0RF propranolol 60 mg capsule,extended release 24 hr 60 mg PO BEDTIME Qty: 90 1RF Rx Instructions: for migraine prevention, to help sleep and anxiety TAKE DAILY duloxetine 20 mg capsule,delayed release(DR/EC) 40 mg PO DAILY 90 Days Qty: 180 1RF (DME) FreeStyle Ernie 3 Sensor Device See Rx Instructions .MEDSUPPLY Qty: 2 11RF Rx Instructions: As directed (DME) FreeStyle Ernie 3 [place] Misc See Rx Instructions .MEDSUPPLY Qty: 1 0RF Rx Instructions: As directed naproxen 375 mg tablet,delayed release (DR/EC) 375 mg PO BID PRN (Reason: pain) 30 Days Qty: 60 2RF Rx Instructions: use sparingly fluticasone propionate 50 mcg/actuation spray,suspension 1 spray intranasal BID Qty: 16 11RF Rx Instructions: administer into each nostril pioglitazone 15 mg tablet 15 mg PO DAILY Qty: 90 0RF Referrals: Sonia Bass, KIKE-BC [Primary Care Provider] - Print Language: Bulgarian
[2024-08-08 18:47] VITALS: BP 119/78; PULSE 85; RESP 14; TEMP 36.6; O2SAT 97
== END 2024-08-08 18:05 | disposition home or self-care (01) ==
PROVIDERS: Physician Assistant Medical; Emergency Provider Emergency Medicine; PCP Nurse Practitioner Family
DX: R10.9 Unspecified abdominal pain (principal); R10.13 Epigastric pain; I10 Essential (primary) hypertension; E11.9 Type 2 diabetes mellitus without complications; L40.9 Psoriasis, unspecified; F41.9 Anxiety disorder, unspecified; R06.02 Shortness of breath
CPT/HCPCS: 36415; 80053; 82947; 83690; 83735; 85025; 99282; 99283

== ENCOUNTER 2024-08-19 08:34 | Outpatient (REF) | payer OTHER, SELFPAY | END 2024-08-19 08:35 | disposition home or self-care (01) | LOC: HO.US 08:34 | PROVIDERS: PCP Nurse Practitioner Family; Visit Provider Nurse Practitioner Family | DX: K76.0 Fatty (change of) liver, not elsewhere classified (principal); E66.9 Obesity, unspecified; I15.2 Hypertension secondary to endocrine disorders; E11.69 Type 2 diabetes mellitus with other specified complication; M79.5 Residual foreign body in soft tissue | CPT/HCPCS: 70360; 76700 ==

== ENCOUNTER 2024-08-25 09:30 | Emergency (ER) | payer OTHER, SELFPAY ==
--- NOTE | 2024-08-25 | ECG_ITS ---
Test Reason : CHEST PAIN Blood Pressure : / mmHG Vent. Rate : 081 BPM Atrial Rate : 081 BPM P-R Int : 122 ms QRS Dur : 092 ms QT Int : 378 ms P-R-T Axes : 036 017 018 degrees QTc Int : 439 ms Normal sinus rhythm Normal ECG When compared with ECG of 09-MAY-2024 20:44, No significant change was found Referred By: Generic ED Physician Electronically Signed By:FANNY AG MD
--- NOTE | ~2024-08-25 | XR_ITS ---
EXAMINATION: XR CHEST CLINICAL INFORMATION: pain COMPARISON: May 09, 2024. TECHNIQUE: Frontal view of the chest was obtained. FINDINGS: No consolidation pleural effusion or pneumothorax. Cardiomediastinal silhouette is normal. Osseous structures are intact. 3 mm metallic structure overlapping the right lower neck. XR/XR chest 1V IMPRESSION: No acute airspace disease. Electronically signed by: Lorenzo Crawford MD 08/25/2024 12:18 PM [facility]
[2024-08-25 09:33] VITALS: BP 140/70; PULSE 88; O2SAT 98
[2024-08-25 09:38] VITALS: BP 120/66; PULSE 80; RESP 18; TEMP 36.7; O2SAT 96; BMI 37.1
--- NOTE | 2024-08-25 09:56 | PC.NURSE ---
Pt presents to ED via EMS from home, reports left lower chest pains, headaches, weakness and general malaise X3 days. CP is intermittent, sharp, worsens with coughing. Denies fevers, N/V/D, abd pain, recent illnesses. Alert and oriented, breathing even and unlabored, skin warm and dry. NSR on bedside athletic monitor.
--- NOTE | 2024-08-25 10:07 | ED.CHESTPAIN ---
HPI - Chest Pain General Chief Complaint: Chest Pain Stated Complaint: CP/WEAKNESS PER EMS Time Seen by Provider: 08/25/24 09:38 Source: patient, EMS and old records reviewed Mode of arrival: EMS Limitations: no limitations History of Present Illness ED Provider: PATTI HPI narrative: 34 yo male with PMH of anxiety/depression, HLD, DM2, MATEUSZ, HTN here with c/o L rib pain in setting of recent URI and cough. He denies travel/procedures. PCP did order US of LUQ 08/19 prelim no acute findings. He denies n/v/d fevers, productive sputum, urinary symptoms. He states he just doesn't feel good with malaise. MD complaint: chest pain Onset (ago): day(s) (3) Timing of current episode: constant Prior episodes: Yes Onset: during rest and during exertion Pain location: left chest Pain radiation: none Severity: moderate Quality: aching Relieving factors: nothing Exacerbating factors: movement and other (coughing) Associated symptoms: other (headaches, malaise) Treatment prior to arrival: other (PCP just ran some tests start of month for his LUQ pain) Related Data Previous Rx's ?Medication ?Instructions ?Recorded blood-glucose meter (Accu-Chek #1 ea 11/27/23 Guide Glucose Meter) glucagon HCl 1 mg solution for 1 mg subcut Q20M PRN hypoglycemia 11/27/23 injection (Glucagon (HCl) #1 ea Emergency Kit) lancets (Accu-Chek Fastclix Lancet #100 ea 12/09/23 Drum) pen needle, diabetic 31 gauge x #100 ea 12/09/2301/01 blood-glucose meter,continuous #1 ea 12/16/23 (FreeStyle Ernie 3 [place]) blood-glucose sensor (FreeStyle #2 ea 12/16/23 Ernie 3 Sensor device) blood sugar diagnostic (FreeStyle #100 ea 12/31/23 Lite Strips) insulin glargine 100 unit/mL (3 45 unit (0.45 mL) subcut QPM 3 01/13/24 mL) subcutaneous pen (Lantus months #45 mL Solostar U-100 Insulin) kqqoqpp-cqeufoqjaeaaj-upkeoyqp 250 2 tab PO Q6H PRN headache #30 tabs 02/21/24 mg-250 mg-65 mg tablet (Excedrin Migraine) pen needle, diabetic 32 gauge x #100 ea 04/20/2432 (BD Jennifer 2nd Gen Pen Needle) duloxetine 20 mg capsule,delayed 40 mg (2 x 20 mg) PO DAILY 90 days 06/17/24 release #180 caps propranolol 60 mg capsule,24 60 mg PO BEDTIME #90 caps 06/17/24 hr,extended release fluticasone propionate 50 1 spray intranasal BID #16 grams 08/08/24 mcg/actuation nasal spray,suspension naproxen 375 mg tablet,delayed 375 mg PO BID PRN pain 30 days #60 08/08/24 release tabs pioglitazone 15 mg tablet 15 mg PO DAILY #90 tabs 08/08/24 atorvastatin 40 mg tablet 40 mg PO BEDTIME #90 tabs 08/12/24 empagliflozin 5 mg-metformin ER 2 tab (2 x 5-1,000 mg) PO QAM #180 08/12/24 1,000 mg tablet,extended release ea 24 hr (Synjardy XR) lisinopril 10 mg tablet 10 mg PO DAILY #90 tabs 08/12/24 Allergies Allergy/AdvReac Type Severity Reaction Status Date / Time No Known Allergies Allergy Verified 08/25/24 09:39 Review of Systems Review of Systems: Constitutional : No Weight loss, No Fever, No Chills ENT/Mouth : No sore throat, No Rhinorrhea Eyes: No Eye Pain, No Swelling Cardiovascular : pos Chest Pain, no SOB, no Dyspnea on Exertion, No Orthopnea, No Edema, No Palpitations Respiratory : pos Cough, No Sputum Gastrointestinal : no Nausea, No Vomiting, No Diarrhea, pos abdominal Pain, No Hematochezia, No Melena Genitourinary : No Dysuria, No Urinary Frequency Musculoskeletal : No joint pain, No Myalgias, No Joint Swelling Skin : No Skin Lesions, No rash Neuro : No Weakness, No Numbness, No Dizziness, No Headache Psych : No Anxiety/Panic, No Depression All other systems reviewed and are negative [facility] Past Medical History Attestation statement: The following information was validated with the patient. Source: old records reviewed Medical History Severe sleep apnea Joint swelling Acid reflux Psoriasis Bipolar 1 disorder Depression Anxiety Type 2 diabetes mellitus Hypertension Migraine Surgical History No pertinent past surgical history Family History Family History Mother Hypertension Diabetes Thyroid condition Psychiatric diagnosis Father Diabetes Social History Social History Household Members: Other Housing: Homeless Are you a primary home care assistant to a significant other at home: No Do you presently have visiting nurse or other home services: No Alcohol intake: never Patient Tobacco Use Status: Never used Tobacco Smoked in Last 30 Days: No e-Cigarette/Vaping Use: Never Used Use of substances other than those prescribed or required for medical reasons: No Advance Directives: No Advance Directives Information Provided: Yes service: No Current occupational status: unemployed Current occupational exposures/hazards: No Sexual orientation: Unable to collect Gender identity: Unable to collect Cognitive needs: No Hearing needs: No Vision needs: No Physical Exam Vital Signs: Vital Signs: Last Vital Signs Temp 98.1 F 08/25/24 09:38 Pulse 80 08/25/24 09:38 Resp 18 08/25/24 09:38 BP 120/66 08/25/24 09:38 Pulse Ox 96 08/25/24 09:38 O2 Del Method Room Air 08/25/24 09:38 BMI result Body Mass Index 37.1 Appearance: Alert. Oriented X3. No acute distress. Eyes: Pupils equal, round and reactive to light. ENT: Pharynx normal. Neck: Normal inspection. Neck supple. CVS: Normal heart rate and rhythm. Pulses normal. Chest wall: ttp along anterior lateral left ribs no rash noted appears normal Respiratory: No respiratory distress. Breath sounds normal. Abdomen: Soft and mild LUQ pain but no palpable mass noted Skin: Skin warm and dry. Normal skin color. Normal skin turgor. Extremities: No lower extremity edema. No calf ttp Neuro: Oriented X 3. No motor deficit. No sensory deficit. Medical Decision Making Medical Decision Making MDM Narrative: 34 yo male with PMH of anxiety/depression, HLD, DM2, MATEUSZ, HTN here with c/o atypical L rib pain he is PERC negative doubt VTE, distal pulses intact doubt dissection, CXR for pneumonia/effusion ordered, trop x 1, EKG, US done recently for LUQ pain that prelim appears normal. Could be MSK strain it is reprorduceable in nature. Differential Diagnosis Differential Diagnoses: The differential diagnosis associated with the presentation includes chest wall pain, rib strain, effussion, pneumonia Admission/Observation Consideration of admission/observation: Escalation of care including admission/observation considered EKG and trop negative CXR no acute findings at this time can follow up with PCP for further workup Lab Data MDM Lab Attestation statement: I reviewed the patient's lab results. 08/25/24 10:20 Labs: Lab Results 08/25/24 Range/Units 10:20 WBC 6.7 (4.8-10.8) X10*3/uL RBC 4.84 (4.60-5.80) X10*6/uL Hgb 13.9 L (14.0-18.0) g/dl Hct 40.8 L (42.0-52.0) % MCV 84.3 (80.0-98.0) fL MCH 28.7 (27.0-33.0) pg MCHC 34.1 (31.0-36.0) g/dl RDW 13.3 (11.0-16.0) % Plt Count 212 (160-400) X10*3/uL MPV 11.1 (9.4-12.4) fL Immature Gran % (Auto) 0.3 (0.0-0.4) % Neut % (Auto) 53.3 (45-73) % Lymph % (Auto) 33.3 (20-40) % [place] % (Auto) 11.5 H (2-11) % Eos % (Auto) 1.0 (0-4) % Baso % (Auto) 0.6 (0-2) % Lymph # (Auto) 2.2 (1.2-4.9) X10*3/uL [place] # (Auto) 0.8 (0.1-1.2) X10*3/uL Eos # (Auto) 0.1 (0.0-0.4) X10*3/uL Baso # (Auto) 0.0 (0.0-0.2) X10*3/uL Abs Immat Gran (auto) 0.02 (0.00-0.03) X10*3/uL Absolute Neuts (auto) 3.6 (2.0-8.3) x10*3/uL Absolute Nucleated RBC 0.000 (0.0-0.012) X10*3/uL Nucleated RBC % (auto) 0.0 (0.0-0.2) /100WBC Troponin I High Sens < 2.7 (<3.5-35.0) ng/L Influenza Type A (PCR) NEGATIVE (Negative) Influenza Type B (PCR) NEGATIVE (Negative) RSV RNA Qual (PCR) NEGATIVE (Negative) SARS-CoV-2 RNA (RT-PCR) NEGATIVE (Negative) Independent Interpretation I performed an independent interpretation of an: EKG and Plain X-Ray (normal) Interpretation: Rate: 81 Rhythm: NSR Taylor: normal Normal P waves. Normal VERONICA. Normal QRS complex. ST T wave : no CANDICE, inverted t waves III qTC: 439 prior studies: no acute ishcemia The study has been interpreted contemporaneously by me. . Radiology Impression Discussion of test interpretation with radiology: I have reviewed the radiologist's reading. External Record Review External record reviewed: Outpatient record and Prior outpatient radiology Discharge Plan Discharge Clinical Impression: Pain in rib Patient Disposition: Home, Self-Care Instructions: Chest Pain (ED) Additional Instructions: viral panel negative - no flu, covid, rsv EKG and test in the blood for heart reassuring Chest xray no acute findings please follow up with your doctor return for any worsening symptoms or concerns. Prescriptions: No Action (DME) pen needle, diabetic [BD Jennifer 2nd Gen Pen Needle] 32 gauge x 5/32 needle See Rx Instructions .Route Qty: 100 11RF Rx Instructions: As directed DAILY lisinopril 10 mg tablet 10 mg PO DAILY Qty: 90 0RF atorvastatin 40 mg tablet 40 mg PO BEDTIME Qty: 90 0RF Synjardy XR 5-1,000 mg tablet, IR - ER, biphasic 24hr 2 tab PO QAM Qty: 180 0RF (DME) blood-glucose meter [Accu-Chek Guide Glucose Meter] Misc See Rx Instructions .Route Qty: 1 0RF Rx Instructions: As directed glucagon HCl [Glucagon (HCl) Emergency Kit] 1 mg recon soln 1 mg subcut Q20M PRN (Reason: hypoglycemia) Qty: 1 0RF Rx Instructions: until target blood sugar attained Excedrin Migraine 250-250-65 mg tablet 2 tab PO Q6H PRN (Reason: headache) Qty: 30 0RF (DME) lancets [Accu-Chek Fastclix Lancet Drum] Misc See Rx Instructions .Route Qty: 100 0RF Rx Instructions: As directed (DME) pen needle, diabetic 31 gauge x 3/16 needle See Rx Instructions .Route Qty: 100 0RF Rx Instructions: As directed (DME) FreeStyle Lite Strips Strip See Rx Instructions .Route Qty: 100 11RF Rx Instructions: test 4 times a day insulin glargine [Lantus Solostar U-100 Insulin] 100 unit/mL (3 mL) insulin pen 45 unit subcut QPM 90 Days Qty: 45 1RF propranolol 60 mg capsule,extended release 24 hr 60 mg PO BEDTIME Qty: 90 1RF Rx Instructions: for migraine prevention, to help sleep and anxiety TAKE DAILY duloxetine 20 mg capsule,delayed release(DR/EC) 40 mg PO DAILY 90 Days Qty: 180 1RF (DME) FreeStyle Ernie 3 Sensor Device See Rx Instructions .MEDSUPPLY Qty: 2 11RF Rx Instructions: As directed (DME) FreeStyle Ernie 3 [place] Misc See Rx Instructions .MEDSUPPLY Qty: 1 0RF Rx Instructions: As directed naproxen 375 mg tablet,delayed release (DR/EC) 375 mg PO BID PRN (Reason: pain) 30 Days Qty: 60 2RF Rx Instructions: use sparingly fluticasone propionate 50 mcg/actuation spray,suspension 1 spray intranasal BID Qty: 16 11RF Rx Instructions: administer into each nostril pioglitazone 15 mg tablet 15 mg PO DAILY Qty: 90 0RF Stand Alone Forms: Work/School Release Print Language: Burmese
[2024-08-25 10:27] LABS: MANUAL DIFF FLAG NO
[2024-08-25 10:31] LABS: Basophils Percent Auto 0.6 % (0-2); Eosinophils Absolute Auto 0.1 X10*3/uL (0.0-0.4); Hematocrit 40.8 % (42.0-52.0); Hemoglobin 13.9 g/dl (14.0-18.0); Imm Gran Abs Auto 0.02 X10*3/uL (0.00-0.03); Imm Gran Pct Auto 0.3 % (0.0-0.4); Lymphocytes Absolute Auto 2.2 X10*3/uL (1.2-4.9); Lymphocytes Percent Auto 33.3 % (20-40); Mean Corpuscular HGB Conc 34.1 g/dl (31.0-36.0); Mean Corpuscular Hemoglobin 28.7 pg (27.0-33.0); Mean Corpuscular Volume 84.3 fL (80.0-98.0); Mean Platelet Volume 11.1 fL (9.4-12.4); Monocytes Absolute Auto 0.8 X10*3/uL (0.1-1.2); Monocytes Percent Auto 11.5 % (2-11); Neutrophils Absolute Auto 3.6 x10*3/uL (2.0-8.3); Neutrophils Percent Auto 53.3 % (45-73); Platelet Count 212 X10*3/uL (160-400); Red Blood Count 4.84 X10*6/uL (4.60-5.80); Red Cell Distribution Width 13.3 % (11.0-16.0); White Blood Count 6.7 X10*3/uL (4.8-10.8)
[2024-08-25 10:54] LABS: Troponin-I High Sensitivity < 2.7 ng/L (<3.5-35.0)
[2024-08-25 11:28] LABS: Influenza A PCR NEGATIVE (Negative); Influenza B PCR NEGATIVE (Negative); Resp Syncy Virus RNA Qual PCR NEGATIVE (Negative); SARS COV2 PCR INHOUSE NEGATIVE (Negative)
[2024-08-25 12:28] VITALS: BP 120/66; PULSE 80; RESP 18; TEMP 36.7; O2SAT 96
== END 2024-08-25 12:28 | disposition home or self-care (01) ==
PROVIDERS: Emergency Provider Emergency Medicine; PCP Nurse Practitioner Family
DX: R07.89 Other chest pain (principal); E11.9 Type 2 diabetes mellitus without complications; G47.33 Obstructive sleep apnea (adult) (pediatric); I10 Essential (primary) hypertension; R07.81 Pleurodynia; R05.9 Cough, unspecified; R51.9 Headache, unspecified; Z79.4 Long term (current) use of insulin; Z03.818 Encounter for observation for suspected exposure to other biological agents ruled out; Z79.899 Other long term (current) drug therapy
CPT/HCPCS: 0241U; 36415; 71045; 84484; 85025; 93005; 99283; 99285

== ENCOUNTER → 2024-08-25 09:44 | Outpatient (BNV) | payer OTHER, SELFPAY | PROVIDERS: Emergency Provider Emergency Medicine; PCP Nurse Practitioner Family; Visit Provider Internal Medicine Cardiovascular Disease | DX: R07.9 Chest pain, unspecified (principal) | CPT/HCPCS: 93010 ==

== ENCOUNTER → 2024-08-25 10:06 | Outpatient (BNV) | payer OTHER, SELFPAY | PROVIDERS: Emergency Provider Emergency Medicine; PCP Nurse Practitioner Family; Visit Provider Radiology Diagnostic Radiology | DX: R07.89 Other chest pain (principal) | CPT/HCPCS: 71045 ==

== ENCOUNTER 2024-09-23 13:31 | Outpatient (AMB) | payer OTHER, SELFPAY ==
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
[2024-09-23 13:36] VITALS: BP 123/77; PULSE 88; RESP 13; TEMP 35.4; O2SAT 97; BMI 36.5
== END 2024-09-23 14:05 | disposition home or self-care (01) ==
PROVIDERS: PCP Nurse Practitioner Family; Visit Provider Nurse Practitioner Family
DX: E11.69 Type 2 diabetes mellitus with other specified complication (principal); F33.1 Major depressive disorder, recurrent, moderate; E11.8 Type 2 diabetes mellitus with unspecified complications; Z68.36 Body mass index [BMI] 36.0-36.9, adult; G47.33 Obstructive sleep apnea (adult) (pediatric); F41.1 Generalized anxiety disorder; E66.9 Obesity, unspecified; K76.0 Fatty (change of) liver, not elsewhere classified; M79.5 Residual foreign body in soft tissue

== ENCOUNTER → 2024-09-23 13:31 | Outpatient (BNVA) | payer OTHER, SELFPAY | PROVIDERS: PCP Nurse Practitioner Family; Visit Provider Nurse Practitioner Family | DX: G47.33 Obstructive sleep apnea (adult) (pediatric) (principal); F41.1 Generalized anxiety disorder; F33.1 Major depressive disorder, recurrent, moderate; E11.69 Type 2 diabetes mellitus with other specified complication; E66.9 Obesity, unspecified; K76.0 Fatty (change of) liver, not elsewhere classified; Z79.899 Other long term (current) drug therapy | CPT/HCPCS: 99212 ==

== ENCOUNTER 2024-10-17 12:50 | Outpatient (AMB) | payer OTHER, SELFPAY ==
--- NOTE | 2024-10-17 12:51 | A.OFFPC_ITS ---
Vital Signs 10/17/24 12:55 Height 5 ft 8 in Weight 235 lb BMI 35.7 BP 122/72 Blood Pressure Location Rt brachial Position Sitting Respiration 13 Pulse 62 Pulse Source Pulse Oximeter Pulse Oximetry (%) 96 Oxygen Delivery Method Room Air Intake Visit Reasons: review diabetes medications Intake Note: follow up on med Fertilizer Supervisor Required: No Allergies No Known Allergies Allergy (Verified 10/17/24 12:52) Medication List - Last Reconciled 10/17/24 by Sonia Bass, [employer]AP- yshbxhh-nqxzwlxyplvig-ejttibmn 250-250-65 mg (Excedrin Migraine) 2 tabs PO Q6H PRN atorvastatin 40 mg PO BEDTIME blood sugar diagnostic (FreeStyle Lite Strips) test 4 times a day blood-glucose meter (Accu-Chek Guide Glucose Meter) As directed blood-glucose meter,continuous (FreeStyle Ernie 3 [place]) As directed blood-glucose sensor (FreeStyle Ernie 3 Sensor device) As directed duloxetine 60 mg (3 x 20 mg) PO DAILY 90 days empagliflozin-metformin 5-1,000 mg ER (Synjardy XR) 2 tabs (2 x 5-1,000 mg) PO QAM fluticasone propionate 50 mcg/actuation 1 spray intranasal BID glimepiride 1 mg PO QAM glucagon HCl (Glucagon (HCl) Emergency Kit) 1 mg subcut Q20M PRN insulin glargine (Lantus Solostar U-100 Insulin) 45 units (0.45 mL) subcut QPM 3 months lancets (Accu-Chek Fastclix Lancet Drum) As directed lisinopril 10 mg PO DAILY naproxen 375 mg PO BID PRN 30 days pen needle, diabetic As directed pen needle, diabetic (BD Jennifer 2nd Gen Pen Needle) As directed DAILY propranolol ER 60 mg PO BEDTIME Tobacco use date assessed: 01/13/24 Dental Screening Dental Screen Date: 01/13/24 HPI HPI Comments History of Present Illness Details 34-year-old male with migraines, hyperte nsion, fatty liver, obesity, balanitis, psoriasis, diabetes type 2 uncontrolled, MDD, GARY, bipolar 1 disorder, hyperlipidemia, microalbuminuria, Dupuytren's contractures bilat, MATEUSZ on CPAP Social: Grandson born 07/2024, 2 sons (20 y/o and 15 y/o) Health Maintenance: DME - DME - 02/12/2024 no retinopathy bilat, [facility] Next appt 02/2025 already scheduled Tdap 2019 Flu declined Specialists: Derm Neuro next appt 12/2024 Counselor O Sherine Parkinson History of Present Illness The patient is a 34-year-old male presenting with a diabetes follow-up. He previously experienced side effects from pioglitazone, which led to its discontinuation. During his last visit, glipizide ER 2.5 mg daily was initiated. However, he took the medication only once because it caused significant hypoglycemia, with blood glucose levels dropping to the 60s despite concurrent food intake. The patient describes symptoms of weakness, tiredness, and dizziness during the hypoglycemic episode. Previously, he experienced hyperglycemia, with glucose readings reaching the 300s, particularly after meals. His continuous glucose monitoring (CGM) indicates an average glucose of 199 mg/dL over the past 30 days and GMI of 8%, indicating suboptimal glycemic control. Has appt to get his CPAP machine Had first appt w counselor Reinier this was a good experience. Results - Continuous Glucose Monitoring shows an average blood glucose of 199 mg/dL over 30 days. Exam: Awake alert oriented , NAD, pleasant and cooperative Mucous membranes moist RRR Lung sounds clear To auscultation, dim throughout Abd soft, nontender mentation within normal limits Psoriatic rash on scalp behind ears on abdomen Dupuytren's contractures of bilat hands No edema BLE, + PP, skin intact Plan - Discontinue glipizide due to hypoglyce keven episodes. - Start glimepiride at the lowest dose o f 1 mg, to be taken with breakfast or another meal if breakfast is skipped. - Continue current medications, Synjardy and insulin, as previously prescribed. - Monitor blood sugar levels carefully w ith CGM. - Discuss potential change of time for t aking glimepiride if hypoglycemia persists to coordinate with the patient's eating schedule. Patient was informed and verbally consented to the use of an ambient scribe for clinic note documentation during this visit. Discussion Notes We discussed the patient's current issues with hypoglycemia induced by glipizide, which has led to its discontinuation. I proposed starting glimepiride at a low dose due to its similar drug class but with potentially less risk of hypoglycemia. The importance of consuming the medication with food was emphasized, given the patient's usual pattern of not eating breakfast due to stomach upset. Continued use of CGM was advised to monitor glucose trends. I instructed on potential symptom management and emphasized contacting via the patient portal for adjustments if continued issues arise. Patient Instructions - Discontinue glipizide immediately. - Start taking glimepiride 1 mg daily wi th breakfast or your next meal if skipping breakfast. - Continue taking Synjardy and insulin a s directed. - Use CGM daily to track glucose levels. - Contact me through the patient portal if experiencing low blood sugars or other concerns. Total time spent caring for the patient today was 40 minutes. This includes time spent before the visit reviewing the chart, time spent during the visit, and time spent after the visit on documentation [facility] Medical History Severe sleep apnea Joint swelling Acid reflux Psoriasis Bipolar 1 disorder Depression Anxiety Type 2 diabetes mellitus Hypertension Migraine Surgical History No pertinent past surgical history Family History Mother Hypertension Diabetes Thyroid condition Psychiatric diagnosis Father Diabetes Social History Household Members: Other Housing: Homeless Are you a primary director of career services to a significant other at home: No Do you presently have visiting nurse or other home services: No 75 years or older and lives alone: No Alcohol intake: never Patient Tobacco Use Status: Never used Tobacco e-Cigarette/Vaping Use: Never Used service: No Current occupational status: unemployed Current occupational exposures/hazards: No Sexual orientation: Unable to collect Gender identity: Unable to collect Cognitive needs: No Hearing needs: No Vision needs: No Questionnaire PHQ-9 Over the last 2 weeks, how often have you been bothered by any of the following problems? 05470 - PHQ-9 Billing: Patient declined-do not bill Source: Developed by Drs. Wilfredo Antunez, Ninfa Velázquez, Jose Carlos Worley and colleagues, with an educational jenny from [employer]. Thrive Questionnaire Date Thrive assessed: 10/17/24 I am a: Patient What is your living situation today?: I do not have a steady places to live Within the past 12 months, did the food you bought not last and you didn't have the money to get more?: Never true Within the past 12 months, did you worry whether your food would run out before you got money to buy more?: Never true Do you have trouble paying for medicines?: No Do you have trouble getting transportation to medical appointments?: No Do you have trouble paying your heating and electricity bill?: No Do you have trouble taking care of your child, family member or friend?: No Do you have trouble with day-to-day activities such as bathing, preparing meals, shopping, managing finances, etc.?: No Are you currently unemployed and looking for a job?: No Are you interested in more education?: No THRIVE Score: 1 GARY-7 AMB Questionnaire GARY-7 Date GARY - 7 assessed: 08/08/24 Source: Developed by Drs. Wilfredo Antunez, Ninfa Velázquez, Jose Carlos Worley and colleagues, with an educational jenny from [employer]. Physical exam (Primary Care) Vital Signs: Last Vital Signs Pulse 62 10/17/24 12:55 Resp 13 10/17/24 12:55 BP 122/72 10/17/24 12:55 Pulse Ox 96 10/17/24 12:55 Oxygen Delivery Method Room Air 10/17/24 12:55 BMI result Body Mass Index 35.7 Tobacco/Smoking Status: Tobacco use Status Tobacco use date assessed 01/13/24 10/17/24 12:54 Patient Tobacco Use Status Never used Tobacco 10/17/24 12:54 e-Cigarette/Vaping Use Never Used 10/17/24 12:54 Thrive Assessment: Date of Thrive Assessment Date Thrive assessed 10/17/24 10/17/24 12:54 Office Procedures Glucose Monitoring Details Details: GMI 8% 90 DAYS 7.9% 14 DAYS 04476 - Glucose monitoring, continuous-physician I&R Procedure code (CPT) selection complete Coding Level of Care Code Est Pt Level 5 (64946) Complex EM visit Add On G2211 Diagnoses Type 2 diabetes with complication E11.8 MATEUSZ (obstructive sleep apnea) G47.33 Moderate episode of recurrent major depressive disorder F33.1 Major depression recurrence: recurrent Active/Remission status: currently active Major depression episode severity: moderate GARY (generalized anxiety disorder) F41.1 CPT Codes Details - CPT: 18509 - Glucose monitoring, continuous-physician I&R ([id number]) Assessment & Plan Assessment & Plan (1) Type 2 diabetes with complication: Comment: Currently on insulin Lantus 45 units daily. Blood glucose levels improving. Plan: Continue Lantus 45 units daily, Synjardy XR 5-1000 mg 2 tablets p.o. in the morning. diabetic eye exam February 14, 2024 negative for retinopathy Add pioglitazone 15mg - gave him side effects. Stopped 08/2024 Start Glipizide ER 2.5 mg po QD, titrate - took one time caused hypoglycemia Start glimperide 1mg, titrate Active with nurse navigation team. Code(s): E11.8 - Type 2 diabetes mellitus with unspecified complications Category: Medical (2) MATEUSZ (obstructive sleep apnea): Comment: Home sleep study results from 02/03/2024 show obstructive sleep apnea, moderately severe, total sleep time AHI 21.5, predominantly in supine position, but even in lateral position there is significant degree of sleep apnea. Nocturnal hypoxemia with average O2 sat 93, lowest O2 sat 64 and O2 sat below 88% for 49 minutes. Code(s): G47.33 - Obstructive sleep apnea (adult) (pediatric) Category: Medical (3) MDD (major depressive disorder): Code(s): F32.9 - Major depressive disorder, single episode, unspecified Category: Medical Qualifiers: Major depression recurrence: recurrent Active/Remission status: currently active Major depression episode severity: moderate Qualified Code(s): F33.1 - Major depressive disorder, recurrent, moderate (4) GARY (generalized anxiety disorder): Code(s): F41.1 - Generalized anxiety disorder Category: Medical Plan . Medications: New glimepiride administer with breakfast 1 mg PO QAM 30 tabs 1RF Discontinued glipizide ER Discontinued Reason: Doctor's Order 2.5 mg PO DAILY 30 tabs 1RF
[2024-10-17 12:55] VITALS: BP 122/72; PULSE 62; RESP 13; O2SAT 96; BMI 35.7
== END 2024-10-17 13:27 | disposition home or self-care (01) ==
PROVIDERS: PCP Nurse Practitioner Family; Visit Provider Nurse Practitioner Family
DX: E11.8 Type 2 diabetes mellitus with unspecified complications (principal); G47.33 Obstructive sleep apnea (adult) (pediatric); F33.1 Major depressive disorder, recurrent, moderate; F41.1 Generalized anxiety disorder

== ENCOUNTER → 2024-10-17 12:50 | Outpatient (BNVA) | payer OTHER, SELFPAY | PROVIDERS: PCP Nurse Practitioner Family; Visit Provider Nurse Practitioner Family | DX: E11.8 Type 2 diabetes mellitus with unspecified complications (principal); G47.33 Obstructive sleep apnea (adult) (pediatric); F33.1 Major depressive disorder, recurrent, moderate; F41.1 Generalized anxiety disorder | CPT/HCPCS: 99212 ==

== ENCOUNTER 2024-10-28 11:04 | Outpatient (REF) | payer OTHER, SELFPAY ==
--- NOTE | ~2024-10-28 | XR_ITS ---
EXAMINATION: Pre-MRI orbits. CLINICAL INDICATION: For MRI. Rule out foreign body in eyes. FINDINGS: 2 views of orbits reveal no radiopaque foreign body in the orbits. The soft tissues are normal. The paranasal sinuses are clear. XR/XR pre mri screening IMPRESSION: No radiopaque foreign body seen in the orbits or skull. Electronically signed by: Delbert Gilbert MD 10/28/2024 04:37 PM EST
== END 2024-10-28 11:05 | disposition home or self-care (01) ==
LOC: HO.XRAY 11:04
PROVIDERS: PCP Nurse Practitioner Family; Visit Provider Radiology Diagnostic Radiology
DX: Z13.89 Encounter for screening for other disorder (principal)

== ENCOUNTER 2024-11-11 15:38 | Outpatient (AMB) | payer OTHER, SELFPAY ==
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
--- OUTSIDE RECORDS SUMMARY | 2024-11-11 16:33 | XMS_ITS | Encounter Summary ---
Author Organization [facility] Address [address] [place] [phone] Phone Care Team Providers Care Coin Machine Operator Name Role Phone Unavailable Primary Care Provider Unavailabl e Encounter Details Date Type Department Care Team (Late st Contact Info) Description 06/04/2017 Conversion Encounter [facility] - [address] [address] Social History Tobacco Use Types Packs/Day Years Used Date Smoking Tobacco: Never Assessed Sex and Gender Information Value Date Recorded Sex Assigned at Not on file Legal Sex Male 4:11 PM EDT Gender Identity Not on file Sexual Orientation Not on file documented as of this encounter Plan of Treatment Not on file documented as of this encounter Visit Diagnoses Not on filedocumented in this encounter
--- OUTSIDE RECORDS SUMMARY | 2024-11-11 16:33 | XMS_ITS | Clinical Summary ---
Author Organization [facility] Address [address] [place] [address] Phone Care Team Providers Care Career Orientation Teacher Name Role Phone Unavailable Primary Care Provider Unavailabl e Immunizations Name Administration Dates Next Due DTP 07/04/1994, 0,01/25/1990,04/09/19 89,1988,1988 Hep B, ped/adol 05/20/2000,01/20/2000,12/17/1999 Hib (PRP-T) 09/03/1990 MMR 05/24/2002,11/23/1989 OPV 07/04/1994, 0,01/25/1990,11/25/18 89,1988 Td (adult) (MBL), 2 Lf tetan us toxoid, PF, adsorbed 12/17/1999 Social History Tobacco Use Types Packs/Day Years Used Date Smoking Tobacco: Never Assessed Sex and Gender Information Value Date Recorded Sex Assigned at Not on file Legal Sex Male 4:11 PM EDT Gender Identity Not on file Sexual Orientation Not on file Plan of Treatment Health Maintenance Due Date Last Done Comments DTaP,Tdap,and Td Vaccines (6 - Tdap) 12/18/1999 12/17/1999, 07/04/1994, 09/03/1990, Additional history exists Varicella Vaccines (1 of 2 - 13+ 2-dose series) 06/21/2002 Consider Men B Vaccine (1 of 2 - Bexsero 2-dose series) 2004 Influenza Vaccines (#1) 2024 COVID-19 Vaccine (1 - season) 2024 HIB Vaccines Completed 09/03/1990 IPV Vaccines Completed 07/04/1994, 08/19, 01/25/1990, Additional history exists Hepatitis B Vaccines Completed 05/20/2000, 01/20/2000, 12/17/1999 MMR Vaccines Completed 05/24/2002, 11/23/1989 HPV Vaccines Aged Out No longer eligi ble based on patient's age to complete this topic Hepatitis A Vaccines Aged Out No long er eligible based on patient's age to complete this topic Men B Vaccine Aged Out No longer elig ible based on patient's age to complete this topic Meningococcal Vaccine Aged Out No home dory eligible based on patient's age to complete this topic Pneumococcal Vaccine Aged Out No long er eligible based on patient's age to complete this topic
== END 2024-11-11 17:05 | disposition home or self-care (01) ==
LOC: HO.HMCFM 15:38
PROVIDERS: PCP Nurse Practitioner Family; Visit Provider Nurse Practitioner Family
DX: M54.2 Cervicalgia (principal); S13.100D Subluxation of unspecified cervical vertebrae, subsequent encounter; F33.1 Major depressive disorder, recurrent, moderate

== ENCOUNTER 2024-11-15 15:47 | Outpatient (REF) | payer OTHER, SELFPAY ==
--- NOTE | ~2024-11-15 | MR_ITS ---
EXAMINATION: MR CERVICAL SPINE WITHOUT CONTRAST CLINICAL INFORMATION: Subluxation of unspecified cervical vertebra. C2 and C3 and C3 on C4. Dizziness. Headache. COMPARISON: None available. TECHNIQUE: MRI of the cervical spine was obtained using routine sequences without contrast. FINDINGS: Craniocervical junction is intact. No bone marrow STIR signal abnormality. Normal alignment. Mild multilevel disc desiccation more conspicuous at C5-6 and C6-7. Cervical spinal cord signal is normal. C2-3: No disc herniation. No neuroforamina stenosis. C3-4: Broad-based disc osteophyte complex formation. No cord compression. Left neuroforamina narrowing on a degenerative basis. C4-5: Broad-based disc osteophyte complex formation. No cord compression. No neuroforamina stenosis. C5-6: Broad-based disc osteophyte complex formation. Ventral deformity of the thecal sac. No cord compression. No neuroforamina stenosis. C6-7: Broad-based disc osteophyte compresses formation. No cord compression. No neuroforamina stenosis. C7-T1: No disc herniation. No neuroforamina stenosis. No prevertebral compartment hematoma, mass or fluid collection. Flow-void signal within the main vessels is normal. Codominant vertebral arteries. Nonspecific mildly prominent cervical lymph nodes. MR/MR cervical spine wo con IMPRESSION: Mild multilevel cervical spondylosis C3 C6, more conspicuous at C5-6 without cord compression, cord edema and or myelopathy. No gross disc herniation. Electronically signed by: Lorenzo Crawford MD 11/16/2024 07:44 AM EST
--- OUTSIDE RECORDS SUMMARY | 2024-11-15 16:30 | XMS_ITS | Clinical Summary ---
Author Organization [facility] Address [address] [place] [address] Phone Care Team Providers Care Medical Doctor Name Role Phone Unavailable Primary Care Provider [...]
--- OUTSIDE RECORDS SUMMARY | 2024-11-15 16:30 | XMS_ITS | Encounter Summary ---
Author Organization [facility] Address [address] [place] [phone] Phone Care Team Providers Care Public Health Microbiologist Name Role Phone Unavailable Primary Care Provider Unavailabl e Encounter Details Date Type Department Care Team (Late st Contact Info) Description 06/04/2017 Conversion Encounter [facility] - [address] [address] Social History Tobacco Use Types Packs/Day Years [...]
[2024-11-15 17:16] LABS: Estimated Average Glucose 200 mg/dL; Hemoglobin A1C 294.5265 umol/L; Hemoglobin A1c % 8.6 % (<6.0); Total Hemoglobin (HGBA1C) 4167.0517 umol/L
[2024-11-15 17:45] LABS: Alanine Aminotransferase 124 U/L (0-40); Albumin Level 4.4 g/dL (3.5-5.0); Alkaline Phosphatase 91 U/L (39-117); Anion Gap 13 (12-20); Aspartate Amino Transferase 64 U/L (5-37); Bilirubin Total 0.5 mg/dL (0.0-1.0); Blood Urea Nitrogen 10 mg/dL (9-16); Calcium 9.7 mg/dL (8.4-10.2); Carbon Dioxide 30 mmol/L (22-29); Chloride 99 mmol/L (96-108); Estimated Glomerular Filt Rate > 60; Glucose Random 252 mg/dL (60-115); Potassium 3.8 mmol/L (3.3-5.1); Sodium 138 mmol/L (135-145); Total Protein 8.6 g/dL (6.5-8.0)
== END 2024-11-15 15:48 | disposition home or self-care (01) ==
LOC: HO.MRI 15:47
PROVIDERS: PCP Nurse Practitioner Family; Visit Provider Nurse Practitioner Family
DX: S13.100A Subluxation of unspecified cervical vertebrae, initial encounter (principal); I15.2 Hypertension secondary to endocrine disorders; E11.69 Type 2 diabetes mellitus with other specified complication; E11.59 Type 2 diabetes mellitus with other circulatory complications; E78.5 Hyperlipidemia, unspecified; E66.9 Obesity, unspecified; K76.0 Fatty (change of) liver, not elsewhere classified
CPT/HCPCS: 36415; 72141; 80053; 83036

== ENCOUNTER → 2024-11-15 16:26 | Outpatient (BNV) | payer OTHER, SELFPAY | PROVIDERS: PCP Nurse Practitioner Family; Visit Provider Radiology Diagnostic Radiology | DX: R42 Dizziness and giddiness (principal); R51.9 Headache, unspecified | CPT/HCPCS: 72141 ==

== ENCOUNTER 2024-11-18 13:35 | Outpatient (AMB) | payer OTHER, SELFPAY ==
--- OUTSIDE RECORDS SUMMARY | 2024-11-18 13:43 | XMS_ITS | Encounter Summary ---
Author Organization [facility] Address [address] [place] [phone] Phone Care Team Providers Care Communication Clerk Name Role Phone Unavailable Primary Care Provider Unavailabl e Encounter Details Date Type Department Care Team (Late st Contact Info) Description 06/04/2017 Conversion Encounter [facility] - [address] [phone] Social History Tobacco Use Types Packs/Day Years [...]
--- OUTSIDE RECORDS SUMMARY | 2024-11-18 13:43 | XMS_ITS | Clinical Summary ---
Author Organization [facility] Address [address] [place] [phone] Phone Care Team Providers Care Blending Machine Feeder Name Role Phone Unavailable Primary Care Provider [...] of 2 - 13+ 2-dose series) 06/21/2002 Influenza Vaccines (#1) 2024 COVID-19 Vaccine ( season) 2024 HIB Vaccines Completed 09/03/1990 IPV [...]
--- NOTE | 2024-11-18 15:54 | MHC.PC.OV ---
Intake Visit Reasons: Review Mri results Allergies No Known Allergies Allergy (Verified 11/18/24 16:19) Medication List - Last Reconciled 11/18/24 by Sonia Bass, [facility]- nerymbu-wqybimwypiozw-okufahgj 250-250-65 mg (Excedrin Migraine) 2 tabs PO Q6H PRN atorvastatin 40 mg PO BEDTIME blood sugar diagnostic (FreeStyle Lite Strips) test 4 times a day blood-glucose meter (Accu-Chek Guide Glucose Meter) As directed blood-glucose meter,continuous (FreeStyle Ernie 3 [place]) As directed blood-glucose sensor (FreeStyle Ernie 3 Sensor device) As directed duloxetine 60 mg (3 x 20 mg) PO DAILY 90 days empagliflozin-metformin 5-1,000 mg ER (Synjardy XR) 2 tabs PO QAM fluticasone propionate 50 mcg/actuation 1 spray intranasal BID glimepiride 1 mg PO QAM glucagon HCl (Glucagon (HCl) Emergency Kit) 1 mg subcut Q20M PRN insulin glargine (Lantus Solostar U-100 Insulin) 45 units (0.45 mL) subcut QPM 3 months lancets (Accu-Chek Fastclix Lancet Drum) As directed lisinopril 10 mg PO DAILY naproxen 375 mg PO BID PRN 30 days pen needle, diabetic As directed pen needle, diabetic (BD Jennifer 2nd Gen Pen Needle) As directed DAILY propranolol ER 60 mg PO BEDTIME ziprasidone HCl mg PO Tobacco use date assessed: 11/11/24 Dental Screening Dental Screen Date: 11/11/24 HPI HPI Comments History of Present Illness Details Telehealth visit for this 34-year-old male with type 2 diabetes and fatty liver disease. The reason for this visit today is to review his labs and to go over the cervical spine MRI which was done to evaluate an abnormal finding on a C-spine x-ray and complaints of pain in his neck. He reports that he has pain and stiffness in his neck day-to-day. Is associated with paresthesias in bilateral upper arms that come and go. He has a new complaint of lower back pain that started a few months ago. He also reports some paresthesia in bilateral lower extremities and also comes and goes. He denies any red flag signs or symptoms associated with his low back pain. The labs in the MRI report were reviewed with him in detail. [place] decision-making. Proceed with consult at [facility]'s pain management for his C-spine MRI and neck pain along with his low back pain and paresthesias. From there they can develop a further plan of care. In regards to his labs, no change at this time. Offered and discussed referral to Gastroenterology for his fatty liver. Reassured that we are tested other labs in the past to include hepatitis and other markers related to elevated LFTs and these have been normal. He does not wish to pursue Gastroenterology at this time. I did advise him that if he should change his mind at any time I would be happy to refer him there however I also do not think that he needs there consult at this time. Recommend follow up as scheduled in November sooner as needed Total time spent caring for the patient today was 20 minutes. This includes time spent before the visit reviewing the chart, time spent during the visit, and time spent after the visit on documentation, reviewing laboratory results, diagnostic imaging, medications, performing a medically necessary evaluation, counseling on diagnoses, care coordination, ordering appropriate tests, ordering appropriate medications, review of tests performed by other providers, reporting test results with the patient, communication with other healthcare providers. This note is constructed using voice recognition software. While every effort has been made to ensure accuracy in supervisor rubber covering, still errors may have been included Sometimes, these errors may affect the content or meaning of the given sentence . Last from 11/15/2024 show normal electrolytes, normal renal function, random glucose is 252 , hemoglobin A1c 8.6% this is mildly improved in the last draw which was 8.7 in July, elevated liver enzymes once again AST 64 ALT 124, normal alk-phos [address] [address] Magnetic Resonance Report Signed Patient: Arpit Loyd MR#: [id number] : 1990 Acct:[id number] Age/Sex: 34 / M ADM Date: 11/15/24 Loc: HO.MRI Attending Dr: Sonia MCKEON Ordering Physician: Sonia Bass Date of Service: 11/15/24 Procedure(s): MR cervical spine wo con Accession Number(s): [id number] cc: Sonia Bass-BC~ EXAMINATION: MR CERVICAL SPINE WITHOUT CONTRAST CLINICAL INFORMATION: Subluxation of unspecified cervical vertebra. C2 and C3 and C3 on C4. Dizziness. Headache. COMPARISON: None available. TECHNIQUE: MRI of the cervical spine was obtained using routine sequences without contrast. FINDINGS: Craniocervical junction is intact. No bone marrow STIR signal abnormality. Normal alignment. Mild multilevel disc desiccation more conspicuous at C5-6 and C6-7. Cervical spinal cord signal is normal. C2-3: No disc herniation. No neuroforamina stenosis. C3-4: Broad-based disc osteophyte complex formation. No cord compression. Left neuroforamina narrowing on a degenerative basis. C4-5: Broad-based disc osteophyte complex formation. No cord compression. No neuroforamina stenosis. C5-6: Broad-based disc osteophyte complex formation. Ventral deformity of the thecal sac. No cord compression. No neuroforamina stenosis. C6-7: Broad-based disc osteophyte compresses formation. No cord compression. No neuroforamina stenosis. C7-T1: No disc herniation. No neuroforamina stenosis. No prevertebral compartment hematoma, mass or fluid collection. Flow-void signal within the main vessels is normal. Codominant vertebral arteries. Nonspecific mildly prominent cervical lymph nodes. MR/MR cervical spine wo con IMPRESSION: Mild multilevel cervical spondylosis C3 C6, more conspicuous at C5-6 without cord compression, cord edema and or myelopathy. No gross disc herniation. Electronically signed by: Lorenzo Crawford MD 11/16/2024 07:44 AM [facility] Dictated By: Lorenzo Lezama MD Signed By: <Electronically signed by Lorenzo Acosta MD in OV> 11/16/24 0744 [facility] Medical History Severe sleep apnea Joint swelling Acid reflux Psoriasis Bipolar 1 disorder Depression Anxiety Type 2 diabetes mellitus Hypertension Migraine Surgical History No pertinent past surgical history Family History Mother Hypertension Diabetes Thyroid condition Psychiatric diagnosis Father Diabetes Social History Household Members: Other Housing: Homeless Are you a primary residential care facility manager to a significant other at home: No Do you presently have visiting nurse or other home services: No 75 years or older and lives alone: No Alcohol intake: never Patient Tobacco Use Status: Never used Tobacco e-Cigarette/Vaping Use: Never Used service: No Current occupational status: unemployed Current occupational exposures/hazards: No Sexual orientation: Unable to collect Gender identity: Unable to collect Cognitive needs: No Hearing needs: No Vision needs: No Questionnaire Thrive Questionnaire Date Thrive assessed: 10/17/24 GARY-7 AMB Questionnaire GARY-7 Date GARY - 7 assessed: 08/08/24 Source: Developed by Drs. Wilfredo Antunez, Ninfa Velázquez, Jose Carlos Worley and colleagues, with an educational jenny from [employer]. Physical exam (Primary Care) Tobacco/Smoking Status: Tobacco use Status Tobacco use date assessed 11/11/24 11/18/24 15:57 Patient Tobacco Use Status Never used Tobacco 11/18/24 15:57 e-Cigarette/Vaping Use Never Used 11/18/24 15:57 Thrive Assessment: Date of Thrive Assessment Date Thrive assessed 10/17/24 11/18/24 15:57 Telehealth Telehealth Telehealth Platform: [facility] Location of provider rendering services: practice address Location of patient: address on file Patient Identification confirmed using: Name, : Yes Telehealth method: voice only Patient verbally consented to treatment: Yes Patient verbally consented to billing insurance company: Yes Patient informed of any privacy concerns related to visit: Yes Minutes spent on Phone/Video with Pt.: 12 Coding Level of Care Code Tele Est Pt Level 3 (82783) Complex EM visit Add On G2211 Diagnoses Cervical spondylolysis M43.02 Chronic bilateral low back pain without sciatica M54.50; G89.29 Chronicity: chronic Back pain laterality: bilateral Sciatica presence: without sciatica Paresthesia of upper and lower extremities of both sides R20.2 Fatty liver K76.0 Assessment & Plan Assessment & Plan (1) Cervical spondylolysis: Comment: c spine MRI 11/15/24 C3-4: Broad-based disc osteophyte complex formation. No cord compression. Left neuroforamina narrowing on a degenerative basis. Code(s): M43.02 - Spondylolysis, cervical region Category: Medical (2) Low back pain: Code(s): M54.50 - Low back pain, unspecified Category: Medical Qualifiers: Chronicity: chronic Back pain laterality: bilateral Sciatica presence: without sciatica Qualified Code(s): M54.50 - Low back pain, unspecified; G89.29 - Other chronic pain (3) Paresthesia of upper and lower extremities of both sides: Code(s): R20.2 - Paresthesia of skin Category: Medical (4) Fatty liver: Comment: Hep profile 11/2023 negative; US 08/2024 WNL Code(s): K76.0 - Fatty (change of) liver, not elsewhere classified Category: Medical Plan . Orders: Referrals Pain Management Referral M43.02 - Spondylolysis, cervical region, M54.50 - Low back pain, unspecified, R20.2 - Paresthesia of skin
== END 2024-11-18 17:05 | disposition home or self-care (01) ==
PROVIDERS: PCP Nurse Practitioner Family; Visit Provider Nurse Practitioner Family
DX: M43.02 Spondylolysis, cervical region (principal); M54.50 Low back pain, unspecified; G89.29 Other chronic pain; R20.2 Paresthesia of skin; K76.0 Fatty (change of) liver, not elsewhere classified

== ENCOUNTER 2024-11-30 13:35 | Outpatient (AMB) | payer OTHER, SELFPAY ==
--- NOTE | 2024-11-30 13:39 | MHC.OFFVIS ---
Vital Signs 11/30/24 13:40 Height 5 ft 8 in Weight 234 lb BMI 35.6 BP 132/74 Blood Pressure Location Lt brachial Position Sitting Respiration 16 Pulse 79 Pulse Source Pulse Oximeter Pulse Oximetry (%) 99 Oxygen Delivery Method Room Air Intake Visit Reasons: Neck and Low back pain, unspecified Shoe Repair Supervisor Required: No Allergies No Known Allergies Allergy (Verified 11/30/24 13:41) Medication List - Last Reconciled 11/30/24 by Shiloh Nagy LPN atorvastatin 40 mg PO BEDTIME blood sugar diagnostic (FreeStyle Lite Strips) test 4 times a day blood-glucose meter (Accu-Chek Guide Glucose Meter) As directed blood-glucose meter,continuous (FreeStyle Ernie 3 [place]) As directed blood-glucose sensor (FreeStyle Ernie 3 Sensor device) As directed duloxetine 60 mg (3 x 20 mg) PO DAILY 90 days empagliflozin-metformin 5-1,000 mg ER (Synjardy XR) 2 tabs PO QAM fluticasone propionate 50 mcg/actuation 1 spray intranasal BID glimepiride 1 mg PO QAM glucagon HCl (Glucagon (HCl) Emergency Kit) 1 mg subcut Q20M PRN insulin glargine (Lantus Solostar U-100 Insulin) 45 units (0.45 mL) subcut QPM 3 months lancets (Accu-Chek Fastclix Lancet Drum) As directed lisinopril 10 mg PO DAILY naproxen 375 mg PO BID PRN 30 days pen needle, diabetic As directed pen needle, diabetic (BD Jennifer 2nd Gen Pen Needle) As directed DAILY propranolol ER 60 mg PO BEDTIME ziprasidone HCl mg PO HPI Comments Details: Arpit is very pleasant 34 years old gentleman who presents in my office with complains on to pain generators he reports severe pain in the neck 8/10 he reports less severe but also significant pain in the back 7/10. He reports that pain in neck started about 8 months ago. He relates this pain to the job occupation [employer] He reported that pain in the back started 2 years ago. He does not attribute this pain to any accidents or falls, he reports that he had an accident in the past but it was long before his pain started. He complains that hip frequently trip and lose balance. He reports on stiffness and swelling of fingers and hands. 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 He denies any car accident fall or trauma. He reports the pain in the neck does not radiate into bilateral upper extremities. He reports minimal radiation of the pain in the back into the left lower extremity to the level of the knee but not below that level. He tried NSAIDs to treat his pain, for unknown reason the NSAIDs were stopped. The kidney function is unknown to me. He had image of the cervical spine MRI results of which dictated as below. I do not have any results of the MRI of the lumbar spine. He never had physical therapy, he never had any injections. His past medical history significant for diabetes type 2 hypertension fatty liver disease he denies any surgical history. He denies smoking cigarettes, he admits that in the past he was drinking significant amounts of alcohol. However he stated that he stopped drinking 10 years ago. He denies recreational drugs. [facility] Medical History Severe sleep apnea Joint swelling Acid reflux Psoriasis Bipolar 1 disorder Depression Anxiety Type 2 diabetes mellitus Hypertension Migraine Surgical History No pertinent past surgical history Family History Mother Hypertension Diabetes Thyroid condition Psychiatric diagnosis Father Diabetes Social History Household Members: Other Housing: Homeless Are you a primary health care facilities inspector to a significant other at home: No Do you presently have visiting nurse or other home services: No 75 years or older and lives alone: No Alcohol intake: never Patient Tobacco Use Status: Never used Tobacco e-Cigarette/Vaping Use: Never Used service: No Current occupational status: unemployed Current occupational exposures/hazards: No Sexual orientation: Unable to collect Gender identity: Unable to collect Cognitive needs: No Hearing needs: No Vision needs: No Review of Systems Const All systems reviewed & are unremarkable except as noted in HPI and below ENT Reports Normal hearing present Neuro Reports Normal hearing present, Denies Abnormal speech present, Denies confusion and Denies Sensory deficit (Neuro) Psych Denies confusion Physical Exam Vital Signs: Last Vital Signs Pulse 79 11/30/24 13:40 Resp 16 11/30/24 13:40 BP 132/74 11/30/24 13:40 Pulse Ox 99 11/30/24 13:40 Oxygen Delivery Method Room Air 11/30/24 13:40 BMI result Body Mass Index 35.6 Const General: no acute distress; No confusion Nutritional Appearance: obese morbidly obese Orientation/consciousness: patient oriented x3 and No confusion Eyes General: appearance normal, both eyes and all related structures Pupils: Equal, round and reactive pupils present EOM: EOMs intact bilaterally Neck Other: Although patient exhibit significant range of motion of the cervical spine, he reports pain aggravation with both flexing forward and flexing backwards. However he denies pain on axial compression of the cervical spine. He reports Valsalva maneuver is positive for pain increase. Neck: Yes full ROM Chest Chest palpation & inspection: normal inspection of the chest Resp Effort & Inspection: normal respiratory effort, able to speak in complete sentences, normal respiratory pattern, no audible wheezes and no cough Cardio Jugular venous distension: no JVD GI Inspection: Yes normal to inspection Back/Spine/Pelvis Other: He is able to stand on bilateral tiptoes in bilateral heels without difficulty. He is able to flex himself forward and backwards he reports equally aggravate did pain with flexion forward and backwards. Tenderness on palpation in projection of the lower portion of the lumbar spine and sacral bone. There is minimal tenderness on palpation in projection of the right sacroiliac joint. Brayan test maybe positive on the right. Loading test is negative bilaterally. SLR is negative bilaterally. Lasegue test is negative bilaterally. Neuro General: patient oriented x3, gait normal and No confusion Cranial nerves: Yes CN's II-XII intact bilaterally, Yes Equal, round and reactive pupils present, Yes Normal hearing present and Yes Ability to bilaterally elevate shoulders present Speech: No Abnormal speech present Gait exam (Neuro): Normal gait present Motor exam (neuro): 5/5 motor strength present throughout Sensory Exam: No Sensory deficit (Neuro) Extrem General: No pedal edema Psych Speech and movement: Normal speech and movement present Affect: normal affect Attitude: cooperative Thought process: Normal thought process present Thought content: Normal thought content present Insight: Good insight present (Psych) Judgement: Good judgement present (Psych) Results Reviewed Results Reviewed: MR CERVICAL SPINE WITHOUT CONTRAST CLINICAL INFORMATION: Subluxation of unspecified cervical vertebra. C2 and C3 and C3 on C4. Dizziness. Headache. COMPARISON: None available. TECHNIQUE: MRI of the cervical spine was obtained using routine sequences without contrast. FINDINGS: Craniocervical junction is intact. No bone marrow STIR signal abnormality. Normal alignment. Mild multilevel disc desiccation more conspicuous at C5-6 and C6-7. Cervical spinal cord signal is normal. C2-3: No disc herniation. No neuroforamina stenosis. C3-4: Broad-based disc osteophyte complex formation. No cord compression. Left neuroforamina narrowing on a degenerative basis. C4-5: Broad-based disc osteophyte complex formation. No cord compression. No neuroforamina stenosis. C5-6: Broad-based disc osteophyte complex formation. Ventral deformity of the thecal sac. No cord compression. No neuroforamina stenosis. C6-7: Broad-based disc osteophyte compresses formation. No cord compression. No neuroforamina stenosis. C7-T1: No disc herniation. No neuroforamina stenosis. No prevertebral compartment hematoma, mass or fluid collection. Flow-void signal within the main vessels is normal. Codominant vertebral arteries. Nonspecific mildly prominent cervical lymph nodes. IMPRESSION: Mild multilevel cervical spondylosis C3 C6, more conspicuous at C5-6 without cord compression, cord edema and or myelopathy. No gross disc herniation. Assessment & Plan Assessment & Plan (1) Spondylosis of cervical region without myelopathy or radiculopathy: Code(s): M47.812 - Spondylosis without myelopathy or radiculopathy, cervical region Category: Medical (2) Spondylosis of lumbar region without myelopathy or radiculopathy: Code(s): M47.816 - Spondylosis without myelopathy or radiculopathy, lumbar region Category: Medical (3) Sacroiliitis: Code(s): M46.1 - Sacroiliitis, not elsewhere classified Category: Medical (4) Sacroiliac joint dysfunction of right side: Code(s): M53.3 - Sacrococcygeal disorders, not elsewhere classified Category: Medical (5) Chronic pain syndrome: Code(s): G89.4 - Chronic pain syndrome Category: Medical (6) Rheumatoid arthritis: Code(s): M06.9 - Rheumatoid arthritis, unspecified Category: Medical Plan It looks like that pain of the patient is are stemming out of the some systemic arthritic condition. I suspect rheumatoid arthritis. He reports stiffness of the hands and swelling of the hands which is lasting all day long, slightly alleviated the afternoon. He never had physical therapy for his cervical or lumbar spine. Because his cervical pain is more severe I will send him for the physical therapy of the cervical spine treating spondylosis of the cervical spine. Once he complete physical therapy we will discuss injections if his condition will not improve. As of his lumbar spine: The images needed would need to be obtained in the future we probably will start with x-ray of the lumbar spine. X-ray of the pelvis also will be performed to rule out sacroiliac joint involvement. Initially I wanted to prescribe tizanidine for this patient, however his condition of his liver requires propranolol administration in combination with propranolol he could have severe side effects. I decided to replace tizanidine with baclofen 10 mg t.i.d.. I also recommended him to purchase edwb-vch-aengcol lidocaine patches and applied to the area of his neck. I will see this patient in 6 weeks when he will complete his physical therapy. As of his generalized arthritis I would like him to go for a rheumatology consult. Orders: Orders PT Evaluation and Treatment Today M47.812 - Spondylosis without myelopathy or radiculopathy, cervical region Referrals Rheumatology Referral M06.9 - Rheumatoid arthritis, unspecified Medications: New baclofen 10 mg PO TID 30 days 90 tabs 6RF Patient Instructions: I here by testify that I spent 46 minutes in conversation with this patient as well as planning his care and organizing this note. Coding Level of Care Code New Pt Level 4 (79964) Diagnoses Spondylosis of cervical region without myelopathy or radiculopathy M47.812 Spondylosis of lumbar region without myelopathy or radiculopathy M47.816 Sacroiliitis M46.1 Sacroiliac joint dysfunction of right side M53.3 Chronic pain syndrome G89.4 Rheumatoid arthritis M06.9
[2024-11-30 13:40] VITALS: BP 132/74; PULSE 79; RESP 16; O2SAT 99; BMI 35.6
--- OUTSIDE RECORDS SUMMARY | 2024-11-30 14:56 | XMS_ITS | Clinical Summary ---
Author Organization [facility] Address [address] [place] [phone] Phone Care Team Providers Care Solar Sales Consultant Name Role Phone Unavailable Primary Care Provider Unavailabl e Immunizations Immunization Administration Dates Next Due DTP 07/04/1994, 0,01/25/1990,1988,1988,1988 Hep B, ped/adol 05/20/2000,01/20/2000,12/17/1999 Hib (PRP-T) 09/03/1990 MMR 05/24/2002,11/23/1989 OPV 07/04/1994, 0,01/25/1990,1988,1988 Td (adult) (MBL), 2 Lf tetan us [...]
--- OUTSIDE RECORDS SUMMARY | 2024-11-30 14:56 | XMS_ITS | Encounter Summary ---
Author Organization [facility] Address [address] [place] [phone] Phone Care Team Providers Care Fork Repairer Name Role Phone Unavailable Primary Care Provider Unavailabl e Encounter Details Date Type Department Care Team (Late st Contact Info) Description 06/04/2017 Conversion Encounter [facility] - [address] [address] Social History Tobacco Use Types Packs/Day Years [...]
== END 2024-11-30 14:07 | disposition home or self-care (01) ==
PROVIDERS: PCP Nurse Practitioner Family; Referring Provider Nurse Practitioner Family; Visit Provider Anesthesiology
DX: M47.812 Spondylosis without myelopathy or radiculopathy, cervical region (principal); M47.816 Spondylosis without myelopathy or radiculopathy, lumbar region; M46.1 Sacroiliitis, not elsewhere classified; M53.3 Sacrococcygeal disorders, not elsewhere classified; G89.4 Chronic pain syndrome; M06.9 Rheumatoid arthritis, unspecified
CPT/HCPCS: 99204

== ENCOUNTER → 2024-11-30 13:35 | Outpatient (BNVA) | payer OTHER, SELFPAY | PROVIDERS: PCP Nurse Practitioner Family; Referring Provider Nurse Practitioner Family; Visit Provider Anesthesiology | DX: M47.812 Spondylosis without myelopathy or radiculopathy, cervical region (principal); M47.816 Spondylosis without myelopathy or radiculopathy, lumbar region; M46.1 Sacroiliitis, not elsewhere classified; M53.3 Sacrococcygeal disorders, not elsewhere classified; M06.9 Rheumatoid arthritis, unspecified; G89.4 Chronic pain syndrome | CPT/HCPCS: 99202 ==

== ENCOUNTER 2024-12-13 00:24 | Emergency (ER) | payer OTHER, SELFPAY ==
--- NOTE | ~2024-12-13 | XR_ITS ---
CLINICAL HISTORY: Cough 1 view chest x-ray Comparison: CR/ND/SR - XR CHEST 1V - 08/25/24 10:22 EST Findings: The lungs are clear. Heart size is normal. No acute fracture. IMPRESSION: 1. No acute findings. This document has been electronically signed by: Cruz Craven MD on 12/13/2024 01:01:56
[2024-12-13 00:29] VITALS: BP 128/73; PULSE 102; RESP 16; TEMP 37.6; O2SAT 98; BMI 35.9
[2024-12-13 02:13] LABS: IDNOW Serial# 58CA691E; Strep A Nucleic Acid Negative (Negative)
--- NOTE | 2024-12-13 02:30 | ED_ITS ---
HPI - General Adult General Chief complaint: Fever Stated complaint: flu like Time Seen by Provider: 12/13/24 02:30 History of Present Illness ED Provider: Cuong MIDDLETON narrative: The patient is a 34-year-old male with a history of rheumatoid arthritis who says he has been feeling unwell for about 3 days with diffuse body aches, headache, sore throat, and eye irritation. He does not think he has had any sick contacts. Related Data Home Medications ?Medication ?Instructions ?Recorded ?Confirmed ziprasidone HCl 20 mg capsule mg PO 11/11/24 11/30/24 Previous Rx's ?Medication ?Instructions ?Recorded blood-glucose meter (Accu-Chek #1 ea 11/27/23 Guide Glucose Meter) glucagon HCl 1 mg solution for 1 mg subcut Q20M PRN hypoglycemia 11/27/23 injection (Glucagon (HCl) #1 ea Emergency Kit) lancets (Accu-Chek Fastclix Lancet #100 ea 12/09/23 Drum) pen needle, diabetic 31 gauge x #100 ea 12/09/2301/01 blood-glucose meter,continuous #1 ea 12/16/23 (FreeStyle Ernie 3 [place]) blood-glucose sensor (FreeStyle #2 ea 12/16/23 Ernie 3 Sensor device) blood sugar diagnostic (FreeStyle #100 ea 12/31/23 Lite Strips) pen needle, diabetic 32 gauge x #100 ea 04/20/24 (BD Jennifer 2nd Gen Pen Needle) fluticasone propionate 50 1 spray intranasal BID #16 grams 08/08/24 mcg/actuation nasal spray,suspension naproxen 375 mg tablet,delayed 375 mg PO BID PRN pain 30 days #60 08/08/24 release tabs atorvastatin 40 mg tablet 40 mg PO BEDTIME #90 tabs 08/12/24 lisinopril 10 mg tablet 10 mg PO DAILY #90 tabs 08/12/24 glimepiride 1 mg tablet 1 mg PO QAM #30 tabs 10/17/24 duloxetine 20 mg capsule,delayed 60 mg (3 x 20 mg) PO DAILY 90 days 10/24/24 release #270 caps empagliflozin 5 mg-metformin ER 2 tab PO QAM #180 tabs 10/24/24 1,000 mg tablet,extended release 24 hr (Synjardy XR) propranolol 60 mg capsule,24 60 mg PO BEDTIME #90 caps 10/24/24 hr,extended release insulin glargine 100 unit/mL (3 45 unit (0.45 mL) subcut QPM 3 10/28/24 mL) subcutaneous pen (Lantus months #45 mL Solostar U-100 Insulin) baclofen 10 mg tablet 10 mg PO TID 30 days #90 tabs 11/30/24 ibuprofen 600 mg tablet 600 mg PO Q6H PRN pain #14 tabs 12/13/24 oseltamivir 75 mg capsule 75 mg PO BID #9 caps 12/13/24 Allergies Allergy/AdvReac Type Severity Reaction Status Date / Time No Known Allergies Allergy Verified 12/13/24 00:30 Review of Systems Review of Systems: Yes all other systems are reviewed and are negative [facility] Past Medical History Medical History Severe sleep apnea Joint swelling Acid reflux Psoriasis Bipolar 1 disorder Depression Anxiety Type 2 diabetes mellitus Hypertension Migraine Surgical History No pertinent past surgical history Family History Family History Mother Hypertension Diabetes Thyroid condition Psychiatric diagnosis Father Diabetes Social History Social History Household Members: Other Housing: Homeless Are you a primary health care coordinator to a significant other at home: No Do you presently have visiting nurse or other home services: No Alcohol intake: never Patient Tobacco Use Status: Never used Tobacco e-Cigarette/Vaping Use: Never Used Advance Directives: No Advance Directives Information Provided: Yes Do you have a plan to hurt others: No Plan service: No Current occupational status: unemployed Current occupational exposures/hazards: No Sexual orientation: Unable to collect Gender identity: Unable to collect Cognitive needs: No Hearing needs: No Vision needs: No Physical Exam ED Vital Signs: Vital Signs - 24 hr 12/13/24 00:29 Temperature 99.6 F Pulse Rate 102 H Respiratory Rate 16 Blood Pressure 128/73 Pulse Oximetry 98 Oxygen Delivery Method Room Air BMI result Body Mass Index 35.9 Const Other: The patient was awake and alert with a normal mental status. He did not appear obvious discomfort or obviously ill. HENMT Other: Face is symmetrical. Mucous membranes moist. The posterior pharynx was unremarkable. Eyes Other: Pupils are round equal, conjunctivae are clear, extraocular movements intact. Neck Other: No cervical adenopathy. Resp Effort & Inspection: normal respiratory effort Auscultation: clear to auscultation bilaterally Cardio Rate: regular rate Rhythm: regular rhythm Heart sounds: S1 normal heart sound present and S2 normal heart sound present GI Other: Abdomen is soft and nontender Skin Other: The patient has a lot of patches of eczema that seem chronic. Otherwise the skin is dry and unremarkable. Neuro Other: The patient is awake and alert with a normal mental status. Demeanor is appropriate and nontoxic. Cranial nerves are grossly intact. He moves his extremities normally and appropriately. Extrem Other: No peripheral edema Medical Decision Making Medical Decision Making MDM Narrative: The patient is a 34-year-old male with a history of rheumatoid arthritis and eczema and diabetes who presents with flu-like symptoms. He is testing positive for the flu. I do not think he has any additional illness actively at work at the moment. Given his comorbidities he will be started on oseltamivir. He was given an injection of ketorolac in the emergency room. He will be given a prescription for ibuprofen. Lab Data Labs: Lab Results 12/13/24 Range/Units 01:45 Influenza Type A (PCR) POSITIVE A (Negative) Influenza Type B (PCR) NEGATIVE (Negative) RSV RNA Qual (PCR) NEGATIVE (Negative) SARS-CoV-2 RNA (RT-PCR) NEGATIVE (Negative) S. pyogenes GrpA ED Negative (Negative) Discharge Plan Discharge Clinical Impression: Influenza A Patient Disposition: Home, Self-Care Additional Instructions: You have tested positive for the flu today. You have tested negative for strep throat, COVID, and RSV. You has been started on a course of oseltamivir, a medication that can help reduce the symptoms of the flu. Please take this medication 2 times a day, approximately every 12 hours. Next dose later this morning. You may use the prescribed ibuprofen as needed for discomfort. You may also use [id number]-[id number] acetaminophen (Tylenol). You may take 2 extra-strength acetaminophen together up to 3 times a day. Drink lot of fluids. Please stay in touch with your regular doctor for additional advice as needed. Return to the emergency room if significantly worse. Prescriptions: New oseltamivir 75 mg capsule 75 mg PO BID Qty: 9 0RF ibuprofen 600 mg tablet 600 mg PO Q6H PRN (Reason: pain) Qty: 14 0RF No Action (DME) pen needle, diabetic [BD Jennifer 2nd Gen Pen Needle] 32 gauge x 5/32 needle See Rx Instructions .Route Qty: 100 11RF Rx Instructions: As directed DAILY lisinopril 10 mg tablet 10 mg PO DAILY Qty: 90 0RF atorvastatin 40 mg tablet 40 mg PO BEDTIME Qty: 90 0RF Synjardy XR 5-1,000 mg tablet, IR - ER, biphasic 24hr 2 tab PO QAM Qty: 180 1RF propranolol 60 mg capsule,extended release 24 hr 60 mg PO BEDTIME Qty: 90 1RF Rx Instructions: for migraine prevention, to help sleep and anxiety TAKE DAILY duloxetine 20 mg capsule,delayed release(DR/EC) 60 mg PO DAILY 90 Days Qty: 270 1RF insulin glargine [Lantus Solostar U-100 Insulin] 100 unit/mL (3 mL) insulin pen 45 unit subcut QPM 90 Days Qty: 45 1RF (DME) blood-glucose meter [Accu-Chek Guide Glucose Meter] Misc See Rx Instructions .Route Qty: 1 0RF Rx Instructions: As directed glucagon HCl [Glucagon (HCl) Emergency Kit] 1 mg recon soln 1 mg subcut Q20M PRN (Reason: hypoglycemia) Qty: 1 0RF Rx Instructions: until target blood sugar attained (DME) lancets [Accu-Chek Fastclix Lancet Drum] Misc See Rx Instructions .Route Qty: 100 0RF Rx Instructions: As directed (DME) pen needle, diabetic 31 gauge x 3/16 needle See Rx Instructions .Route Qty: 100 0RF Rx Instructions: As directed (DME) FreeStyle Lite Strips Strip See Rx Instructions .Route Qty: 100 11RF Rx Instructions: test 4 times a day (DME) FreeStyle Ernie 3 Sensor Device See Rx Instructions .MEDSUPPLY Qty: 2 11RF Rx Instructions: As directed (DME) FreeStyle Ernie 3 [place] Misc See Rx Instructions .MEDSUPPLY Qty: 1 0RF Rx Instructions: As directed naproxen 375 mg tablet,delayed release (DR/EC) 375 mg PO BID PRN (Reason: pain) 30 Days Qty: 60 2RF Rx Instructions: use sparingly fluticasone propionate 50 mcg/actuation spray,suspension 1 spray intranasal BID Qty: 16 11RF Rx Instructions: administer into each nostril glimepiride 1 mg tablet 1 mg PO QAM Qty: 30 1RF Rx Instructions: administer with breakfast ziprasidone HCl 20 mg capsule PO baclofen 10 mg tablet 10 mg PO TID 30 Days Qty: 90 6RF Referrals: Sonia Bass, RN [facility] [Nurse Practitioner] - (Influenza) Print Language: Amharic
[2024-12-13 02:33] LABS: Influenza A PCR POSITIVE (Negative); Influenza B PCR NEGATIVE (Negative); Resp Syncy Virus RNA Qual PCR NEGATIVE (Negative); SARS COV2 PCR INHOUSE NEGATIVE (Negative)
[2024-12-13] MEDS: Ketorolac Tromethamine 30 MG/ML VIAL IM (02:51)
[2024-12-13] MEDS: Acetaminophen 325 MG TABLET 975 MG PO (02:51)
[2024-12-13] MEDS: Oseltamivir Phosphate 75 MG CAPSULE PO (02:52)
[2024-12-13 02:56] VITALS: BP 128/73; PULSE 102; RESP 16; TEMP 37.6; O2SAT 98
== END 2024-12-13 02:56 | disposition home or self-care (01) ==
PROVIDERS: Emergency Provider Emergency Medicine
DX: J10.1 Influenza due to other identified influenza virus with other respiratory manifestations (principal); R50.9 Fever, unspecified; M79.10 Myalgia, unspecified site; R51.9 Headache, unspecified; Z03.818 Encounter for observation for suspected exposure to other biological agents ruled out
CPT/HCPCS: 0241U; 71045; 87651; 96372; 99283; 99284; J1885

== ENCOUNTER → 2024-12-13 00:33 | Outpatient (BNV) | payer OTHER, SELFPAY | PROVIDERS: Visit Provider Radiology Diagnostic Radiology | DX: R05.9 Cough, unspecified (principal) | CPT/HCPCS: 71045 ==

== ENCOUNTER 2024-12-22 11:28 | Outpatient (AMB) | payer OTHER, SELFPAY ==
--- NOTE | 2024-12-22 11:29 | A.OFFPC_ITS ---
Vital Signs 12/22/24 11:34 Height 5 ft 8 in Weight 240 lb 2 oz BMI 36.5 BP 122/70 Blood Pressure Location Rt brachial Position Sitting Respiration 12 Pulse 75 Pulse Source Pulse Oximeter Temp 97.1 F Temp Source Oral Pulse Oximetry (%) 98 Oxygen Delivery Method Room Air Intake Visit Reasons: 4 mo 30 min with repeat labs Intake Note: follow up Equipment Installation Professional Required: No Allergies No Known Allergies Allergy (Verified 12/22/24 12:01) Medication List - Last Reconciled 12/22/24 by NELLY LeeP-BC atorvastatin 40 mg PO BEDTIME blood sugar diagnostic (FreeStyle Lite Strips) test 4 times a day blood-glucose meter (Accu-Chek Guide Glucose Meter) As directed blood-glucose meter,continuous (FreeStyle Ernie 3 [place]) As directed blood-glucose sensor (FreeStyle Ernie 3 Sensor device) As directed duloxetine 60 mg (3 x 20 mg) PO DAILY 90 days empagliflozin-metformin 5-1,000 mg ER (Synjardy XR) 2 tabs PO QAM fluticasone propionate 50 mcg/actuation 1 spray intranasal BID glimepiride 1 mg PO QAM glucagon HCl (Glucagon (HCl) Emergency Kit) 1 mg subcut Q20M PRN insulin glargine (Lantus Solostar U-100 Insulin) 45 units (0.45 mL) subcut QPM 3 months lancets (Accu-Chek Fastclix Lancet Drum) As directed lisinopril 10 mg PO DAILY naproxen 375 mg PO BID PRN 30 days pen needle, diabetic As directed pen needle, diabetic (BD Jennifer 2nd Gen Pen Needle) As directed DAILY propranolol ER 60 mg PO BEDTIME ziprasidone HCl mg PO Tobacco use date assessed: 12/22/24 Dental Screening Dental Screen Date: 12/22/24 Did you have a dental visit in the last 12 months?: Yes Did you have a dental problem in the last 6 months where you did not have access to dental care?: No Was dental information given to patient?: Patient has dentist HPI HPI Comments History of Present Illness Details 34-year-old male with migraines, hyperte nsion, fatty liver, obesity, balanitis, psoriasis, diabetes type 2 uncontrolled, MDD, GARY, bipolar 1 disorder, hyperlipidemia, microalbuminuria, Dupuytren's contractures bilat, MATEUSZ on CPAP Social: Grandson born 07/2024, 2 sons (20 y/o and 15 y/o) Health Maintenance: DME - DME - 02/12/2024 no retinopathy bilat, [facility] Next appt 02/2025 already scheduled Tdap 2018 Flu declined Specialists: Derm Neuro next appt 12/2024 Counselor Reinier Rivera Mgmt one visit, note reviewed, next visit this month, in PT Rheum first appt 05/2025 History of Present Illness - The patient is a 34-year-old male pres enting with chronic disease management - Type 2 Diabetes Mellitus is currently managed with medications and monitoring, showing suboptimal control with an A1c of 8.6%. Not using CGM as he notes different readings than finger sticks. - Hypertension is treated using proprano lol and lisinopril. - The patient is also managing hyperlipi demia with atorvastatin. - Diagnosed with fatty liver disease, c/ o GERD sx. Has episodes of feeling like coughing things up, but not from lungs. - Reports obstructive sleep apnea manage d with CPAP therapy. - Mood: rehabilitation counsellor from external mental [facility] professionals, taking meds as prescribed. Mood was poor in the last week or two after being ill w the flu and managing his chronic pain. using naproxen, helpful but wears off.wonders if there is increased dose. - The patient administers propranolol fo r chronic daily headaches. - Reports arthritis with finger discomfo rt, described as aching and swelling. - pain mgmt consult reviewed, will start PT. Derm appt scheduled far in the future Exam: Awake alert oriented , NAD, pleasant and cooperative Mucous membranes moist RRR Lung sounds clear To auscultation, dim throughout Abd soft, nontender mentation within normal limits Psoriatic rash on scalp behind ears on abdomen Dupuytren's contractures of bilat hands No edema BLE, + PP, skin intact Mood and affect wnl Results: Last from 11/15/2024 show normal electrolytes, normal renal function, random glucose is 252 , hemoglobin A1c 8.6% this is mildly improved in the last draw which was 8.7 in July, elevated liver enzymes once again AST 64 ALT 124, normal alk-phos Discussion Notes During the visit, we discussed the management of Type 2 Diabetes Mellitus, including potential adjustment in medications to improve glucose control. I advised increasing glimepiride from 1 mg to 2 mg to help achieve better control, with the goal of potentially reducing insulin dependence. There was acknowledgment of effect discrepancies with CGM readings. I explained the importance of medication compliance, especially during depressive episodes, as well as addressing discontinued anti-inflammatory medications and switching to naproxen but adjusting the dosage. For GERD symptoms, I suggested starting pantoprazole while awaiting gastroenterology consultation. Pain management was discussed with respect to naproxen usage. Referral to specialist care (rheu matology and gastroenterology) was also recognized as planned given the multifactorial chronic conditions. Lastly, I emphasized the importance of follow-up and maintaining ongoing communication with diabetes educators and mental health professionals. Assessment and Plan 1. Type 2 Diabetes Mellitus: I increased the glimepiride from 1 mg to 2 mg due to suboptimal A1c levels, aiming to improve control and possibly reduce insulin dependency later. The CGM discrepancies prompted a referral to a early childhood special educator. cont all other meds. 2. Hypertension: Continues on propranolo l and lisinopril without change, acknowledging good control under current regimen. 3. Hyperlipidemia: Maintained atorvastat in therapy. Awaiting updated lab work to reassess status. 4. Fatty Liver Disease: A referral to de stroenterology was made to tackle metabolism-related liver concerns and to address associated GERD issues. 5. Obstructive Sleep Apnea: Patient adhe res to CPAP therapy well. 6. Mental Health Disorders: Counseling a nd duloxetine resumed as planned, addressing medication adherence issues that precipitated recent depressive signs. 7. Chronic Daily Headaches: Continued pr opranolol at bedtime due to effective management of symptoms. 8. Arthritis: Referring to rheumatology for further assessment following increased symptoms of arthritis. Chk labs today as there is a concern for more systemic arthritis 9. Gastroesophageal Reflux Disease (GERD ): Initiated pantoprazole and referred to gastroenterology. Factor in potential influences from naproxen on symptoms. Patient Instructions - Continue using CPAP as prescribed. - Take glimepiride increased to 2 mg nena ly as directed. - Meet with the early childhood special educator to rev iew the CGM readings. - Resume duloxetine as prescribed. - Use pantoprazole every morning before meals. - Follow-up with gastroenterology and eumatology as scheduled. - Monitor blood pressure and blood sugar levels as advised. - Avoid non-compliance with medications a cause for exacerbation of symptoms and conditions. - RTO 4 months routine fu sooner prn Consent I discussed verbally with the patient the benefits and potential risks of starting pantoprazole for GERD symptoms, increasing glimepiride dosage to improve diabetes control, and the changes in Naproxen dosage to manage pain relating to arthritis. The patient consented to these changes and referrals, understanding the importance of adherence to these modifications for the management of his chronic conditions. Patient was informed and verbally consented to the use of an ambient scribe for clinic note documentation during this visit. Total time spent caring for the patient today was 50 minutes. This includes time spent before the visit reviewing the chart, time spent during the visit, and time spent after the visit on documentation, reviewing laboratory results, diagnostic imaging, medications, performing a medically necessary evaluation, counseling on diagnoses, care coordination, ordering appropriate tests, ordering appropriate medications, review of tests performed by other providers, reporting test results with the patient, communication with other healthcare providers. [facility] Medical History Severe sleep apnea Joint swelling Acid reflux Psoriasis Bipolar 1 disorder Depression Anxiety Type 2 diabetes mellitus Hypertension Migraine Surgical History No pertinent past surgical history Family History Mother Hypertension Diabetes Thyroid condition Psychiatric diagnosis Father Diabetes Social History Household Members: Other Housing: Homeless Are you a primary daycare manager to a significant other at home: No Do you presently have visiting nurse or other home services: No 75 years or older and lives alone: No Alcohol intake: never Patient Tobacco Use Status: Never used Tobacco e-Cigarette/Vaping Use: Never Used service: No Current occupational status: unemployed Current occupational exposures/hazards: No Sexual orientation: Unable to collect Gender identity: Unable to collect Cognitive needs: No Hearing needs: No Vision needs: No Questionnaire PHQ-9 Over the last 2 weeks, how often have you been bothered by any of the following problems? 1. Little interest or pleasure in doing things: nearly every day 2. Feeling down, depressed, or hopeless: nearly every day 3. Trouble falling or staying asleep, or sleeping too much: nearly every day 4. Feeling tired or having little energy: nearly every day 5. Poor appetite or overeating: nearly every day 6. Feeling bad about yourself - or that you are a failure or have let yourself or your family down: nearly every day 7. Trouble concentrating on things, such as reading the newspaper or watching television: not at all 8. Moving or speaking so slowly that other people could have noticed. Or the opposite - being so fidgety or restless that you have been moving around a lot more than usual: nearly every day 9. Thoughts that you would be better off or of hurting yourself in some way: nearly every day Total score: 24 Depression Screening Interpretation: Positive Depression Screening Follow-up: Existing condition and In treatment Depression Screening Done: Yes 14209 - PHQ-9 Billing: Yes Source: Developed by Drs. Wilfredo Antunez, Ninfa Velázquez, Jose Carlos Worley and colleagues, with an educational jenny from [employer]. Thrive Questionnaire Date Thrive assessed: 12/22/24 I am a: Patient What is your living situation today?: I do not have a steady places to live I am temporarily staying with others Within the past 12 months, did the food you bought not last and you didn't have the money to get more?: Sometimes True Within the past 12 months, did you worry whether your food would run out before you got money to buy more?: Sometimes True Do you have trouble paying for medicines?: No Do you have trouble getting transportation to medical appointments?: Yes Do you have trouble paying your heating and electricity bill?: No Do you have trouble taking care of your child, family member or friend?: No Do you have trouble with day-to-day activities such as bathing, preparing meals, shopping, managing finances, etc.?: Yes Are you currently unemployed and looking for a job?: Yes Are you interested in more education?: No Please select the resources that you would like help with: Housing/Residential and Transportation Currently or been in a relationship where the following occur: No concerns reported THRIVE Score: 4 AUDIT C Alcohol Use Questionnaire (AUDIT-C) 1. How often do you have a drink containing alcohol?: Never 3. How often do you have six or more drinks on one occasion?: Never Total Score: 0 Score Reviewed/Action Taken: Yes GARY-7 AMB Questionnaire GARY-7 Date GARY - 7 assessed: 12/22/24 Feeling nervous, anxious, or on edge: 3 = Nearly every day Not being able to stop or control worryin = Nearly every day Worrying too much about different things: 3 = Nearly every day Trouble relaxin = Nearly every day Being so restless that it is hard to sit still: 3 = Nearly every day Becoming easily annoyed or irritable: 3 = Nearly every day Feeling afraid as if something awful might happen: 3 = Nearly every day Total GARY-7 score (0-4 normal; 5-9 mild; 10-14 moderate; 15-21 severe): 21 Source: Developed by Drs. Wilfredo Antunez, Ninfa Velázquez, Jose Carlos Worley and colleagues, with an educational jenny from [employer]. GARY-7 Assessment Billing GARY-7 Assessment Tool: GARY-7 Assessment 37959 Physical exam (Primary Care) Vital Signs: Last Vital Signs Temp 97.1 F 12/22/24 11:34 Pulse 75 12/22/24 11:34 Resp 12 12/22/24 11:34 BP 122/70 12/22/24 11:34 Pulse Ox 98 12/22/24 11:34 Oxygen Delivery Method Room Air 12/22/24 11:34 BMI result Body Mass Index 36.5 BMI Assessment/Plan discussion: High BMI High, discussed plan: lifestyle Tobacco/Smoking Status: Tobacco use Status Tobacco use date assessed 12/22/24 12/22/24 11:33 Patient Tobacco Use Status Never used Tobacco 12/22/24 11:30 e-Cigarette/Vaping Use Never Used 12/22/24 11:30 PHQ-9: PHQ-9 Score PHQ-9: Total score 24 12/22/24 12:01 Depression Screening Interpretation: Positive Depression Screening Follow-up: Existing condition and In treatment Thrive Assessment: Date of Thrive Assessment Date Thrive assessed 12/22/24 12/22/24 11:30 Currently or been in a relationship where the following occur: No concerns reported Coding Level of Care Code Est Pt Level 5 (15564) Complex EM visit Add On G2211 Diagnoses Fatty liver K76.0 GARY (generalized anxiety disorder) F41.1 Hyperlipidemia associated with type 2 diabetes mellitus E11.69; E78.5 Hypertension complicating diabetes E11.59; I15.2 Moderate episode of recurrent major depressive disorder F33.1 Active/Remission status: currently active Major depression episode severity: moderate Major depression recurrence: recurrent Migraine without aura, not intractable, without status migrainosus G43.009 MATEUSZ (obstructive sleep apnea) G47.33 Type 2 diabetes mellitus with obesity E11.69; E66.9 Type 2 diabetes with complication E11.8 BMI 36.0-36.9,adult Z68.36 Severe obesity with body mass index (BMI) of 36.0 to 36.9 with serious comorbidity E66.01; Z68.36 Gastroesophageal reflux disease with esophagitis without hemorrhage K21.00 Esophagitis bleeding: without hemorrhage Cervicalgia M54.2 Sacroiliitis M46.1 Chronic pain syndrome G89.4 Psoriasis L40.9 Additional Codes GARY-7 Assessment Billing - GARY-7 Assessment Tool: GARY-7 Assessment 96903 ([id number]) PHQ-9 - 92358 - PHQ-9 Billing: Yes ([id number]) Assessment & Plan Assessment & Plan (1) Fatty liver: Comment: Hep profile 11/2023 negative; US 08/2024 WNL Code(s): K76.0 - Fatty (change of) liver, not elsewhere classified Category: Medical (2) GARY (generalized anxiety disorder): Code(s): F41.1 - Generalized anxiety disorder Category: Medical (3) Hyperlipidemia associated with type 2 diabetes mellitus: Comment: LDL goal < 70 On Atorvastatin 40mg QD Code(s): E11.69 - Type 2 diabetes mellitus with other specified complication; E78.5 - Hyperlipidemia, unspecified Category: Medical (4) Hypertension complicating diabetes: Comment: He is on lisinopril 10 mg daily. Taking as directed. Goal <130/80 Code(s): E11.59 - Type 2 diabetes mellitus with other circulatory complications; I15.2 - Hypertension secondary to endocrine disorders Category: Medical (5) MDD (major depressive disorder): Code(s): F32.9 - Major depressive disorder, single episode, unspecified Category: Medical Qualifiers: Active/Remission status: currently active Major depression episode severity: moderate Major depression recurrence: recurrent Qualified Code(s): F33.1 - Major depressive disorder, recurrent, moderate (6) Migraine without aura, not intractable, without status migrainosus: Comment: Continue to use naproxen as needed. Code(s): G43.009 - Migraine without aura, not intractable, without status migrainosus Category: Medical (7) MATEUSZ (obstructive sleep apnea): Comment: Home sleep study results from 02/03/2024 show obstructive sleep apnea, moderately severe, total sleep time AHI 21.5, predominantly in supine position, but even in lateral position there is significant degree of sleep apnea. Nocturnal hypoxemia with average O2 sat 93, lowest O2 sat 64 and O2 sat below 88% for 49 minutes. Code(s): G47.33 - Obstructive sleep apnea (adult) (pediatric) Category: Medical (8) Type 2 diabetes mellitus with obesity: Comment: His BMI remains high. We will need to continue to encourage weight loss once his disease is stable Code(s): E11.69 - Type 2 diabetes mellitus with other specified complication; E66.9 - Obesity, unspecified Category: Medical (9) Type 2 diabetes with complication: Comment: Currently on insulin Lantus 45 units daily. Blood glucose levels improving. Plan: Continue Lantus 45 units daily, Synjardy XR 5-1000 mg 2 tablets p.o. in the morning. diabetic eye exam February 14, 2024 negative for retinopathy Add pioglitazone 15mg - gave him side effects. Stopped 08/2024 Start Glipizide ER 2.5 mg po QD, titrate - took one time caused hypoglycemia ^ glimperide 2mg, titrate Active with nurse navigation team. Code(s): E11.8 - Type 2 diabetes mellitus with unspecified complications Category: Medical (10) BMI 36.0-36.9,adult: Code(s): Z68.36 - Body mass index [BMI] 36.0-36.9, adult Category: Medical (11) Severe obesity with body mass index (BMI) of 36.0 to 36.9 with serious comorbidity: Comment: dm and htn Code(s): E66.01 - Morbid (severe) obesity due to excess calories; Z68.36 - Body mass index [BMI] 36.0-36.9, adult Category: Medical (12) GERD with esophagitis: Code(s): K21.00 - Gastro-esophageal reflux disease with esophagitis, without bleeding Category: Medical Qualifiers: Esophagitis bleeding: without hemorrhage Qualified Code(s): K21.00 - Gastro-esophageal reflux disease with esophagitis, without bleeding (13) Cervicalgia: Code(s): M54.2 - Cervicalgia Category: Medical (14) Sacroiliitis: Code(s): M46.1 - Sacroiliitis, not elsewhere classified Category: Medical (15) Chronic pain syndrome: Code(s): G89.4 - Chronic pain syndrome Category: Medical (16) Psoriasis: Code(s): L40.9 - Psoriasis, unspecified Category: Medical Plan . Orders: Orders Lipid Panel Today G89.4 - Chronic pain syndrome, M46.1 - Sacroiliitis, not elsewhere classified, M54.2 - Cervicalgia Rheumatoid Factor Today G89.4 - Chronic pain syndrome, M46.1 - Sacroiliitis, not elsewhere classified, M54.2 - Cervicalgia Erythrocyte Sedimentation Rate Today G89.4 - Chronic pain syndrome, M46.1 - Sacroiliitis, not elsewhere classified, M54.2 - Cervicalgia JIN Reflex Titer and Pattern Today G89.4 - Chronic pain syndrome, M46.1 - Sacroiliitis, not elsewhere classified, M54.2 - Cervicalgia Microalbumin, Random (w Creat) Today G89.4 - Chronic pain syndrome, M46.1 - Sacroiliitis, not elsewhere classified, M54.2 - Cervicalgia Lyme IgG/IgM w/reflex to WB Today G89.4 - Chronic pain syndrome, M46.1 - Sacroiliitis, not elsewhere classified, M54.2 - Cervicalgia C Reactive Protein Today G89.4 - Chronic pain syndrome, M46.1 - Sacroiliitis, not elsewhere classified, M54.2 - Cervicalgia Referrals Gastroenterology Referral K21.00 - Gastro-esophageal reflux disease with esophagitis, without bleeding, K76.0 - Fatty (change of) liver, not elsewhere classified Diabetes Education Referral E11.8 - Type 2 diabetes mellitus with unspecified complications Medications: New naproxen 500 mg PO BID PRN 180 tabs 2RF pain pantoprazole 40 mg PO DAILY 90 tabs 0RF glimepiride 2 mg PO DAILY 90 tabs 0RF Discontinued naproxen use sparingly Discontinued Reason: Doctor's Order 375 mg PO BID 30 days PRN 60 tabs 2RF pain glimepiride administer with breakfast Discontinued Reason: Doctor's Order 1 mg PO QAM 30 tabs 1RF
[2024-12-22 11:34] VITALS: BP 122/70; PULSE 75; RESP 12; TEMP 36.2; O2SAT 98; BMI 36.5
--- OUTSIDE RECORDS SUMMARY | 2024-12-22 14:07 | XMS_ITS | Clinical Summary ---
Author Organization [facility] Address [address] [place] [address] Phone Care Team Providers Care Die Press Operator Name Role Phone Unavailable Primary Care [...]
--- OUTSIDE RECORDS SUMMARY | 2024-12-22 14:07 | XMS_ITS | Encounter Summary ---
Author Organization [facility] Address [address] [place] [id number] Phone Care Team Providers Care Cafeteria Associate Name Role Phone Unavailable Primary Care Provider Unavailabl e Encounter Details Date Type Department Care Team (Late st Contact Info) Description 06/04/2017 Conversion Encounter [facility] - [address] [address] Social History Tobacco Use Types Packs/Day Years [...]
== END 2024-12-22 12:31 | disposition home or self-care (01) ==
PROVIDERS: PCP Nurse Practitioner Family; Visit Provider Nurse Practitioner Family
DX: K76.0 Fatty (change of) liver, not elsewhere classified (principal); F41.1 Generalized anxiety disorder; E11.69 Type 2 diabetes mellitus with other specified complication; E78.5 Hyperlipidemia, unspecified; E11.59 Type 2 diabetes mellitus with other circulatory complications; I15.2 Hypertension secondary to endocrine disorders; F33.1 Major depressive disorder, recurrent, moderate; G43.009 Migraine without aura, not intractable, without status migrainosus; E11.8 Type 2 diabetes mellitus with unspecified complications; M46.1 Sacroiliitis, not elsewhere classified; Z68.36 Body mass index [BMI] 36.0-36.9, adult; E66.01 Morbid (severe) obesity due to excess calories; G47.33 Obstructive sleep apnea (adult) (pediatric); E66.9 Obesity, unspecified; K21.00 Gastro-esophageal reflux disease with esophagitis, without bleeding; M54.2 Cervicalgia; G89.4 Chronic pain syndrome; L40.9 Psoriasis, unspecified

== ENCOUNTER → 2024-12-22 11:28 | Outpatient (BNVA) | payer OTHER, SELFPAY | PROVIDERS: PCP Nurse Practitioner Family; Visit Provider Nurse Practitioner Family | DX: K76.0 Fatty (change of) liver, not elsewhere classified (principal); F41.1 Generalized anxiety disorder; E11.69 Type 2 diabetes mellitus with other specified complication; E78.5 Hyperlipidemia, unspecified; I15.2 Hypertension secondary to endocrine disorders; E11.59 Type 2 diabetes mellitus with other circulatory complications; F33.1 Major depressive disorder, recurrent, moderate; G47.33 Obstructive sleep apnea (adult) (pediatric); E66.9 Obesity, unspecified; Z68.36 Body mass index [BMI] 36.0-36.9, adult; K21.00 Gastro-esophageal reflux disease with esophagitis, without bleeding; M54.2 Cervicalgia; M46.1 Sacroiliitis, not elsewhere classified; G89.4 Chronic pain syndrome; L40.9 Psoriasis, unspecified; Z71.3 Dietary counseling and surveillance | CPT/HCPCS: 96127; 99212 ==

== ENCOUNTER 2024-12-22 12:45 | Outpatient (REF) | payer OTHER, SELFPAY ==
[2024-12-22 15:07] LABS: Erythrocyte Sedimentation Rate 14 MM/HR (0-15)
[2024-12-22 15:22] LABS: Creatinine Urine 318.08 mg/dL; Microalbum/Creatinine Ratio Ur 8.4 ug/mg cr (<30)
--- OUTSIDE RECORDS SUMMARY | 2024-12-22 15:22 | XMS_ITS | Encounter Summary ---
Author Organization [facility] Address [address] [place] [id number] Phone Care Team Providers Care Yard Assistant Name Role Phone Unavailable Primary Care Provider Unavailabl e Encounter Details Date Type Department Care Team (Late st Contact Info) Description 06/04/2017 Conversion Encounter [facility] - [address] [id number] Social History Tobacco Use Types Packs/Day Years [...]
--- OUTSIDE RECORDS SUMMARY | 2024-12-22 15:22 | XMS_ITS | Clinical Summary ---
Author Organization [facility] Address [address] [place] [id number] Phone Care Team Providers Care Care Technician Name Role Phone Unavailable Primary Care Provider [...]
[2024-12-22 15:34] LABS: Cholesterol 101 mg/dL (<200); HDL Cholesterol 33 mg/dL (>40); LDL Cholesterol Calculated 43 mg/dL (<100); Triglycerides 129 mg/dL (<150)
[2024-12-23 09:48] LABS: Lyme Abs Screen <0.90 index
[2024-12-27 13:08] LABS: Anti Nuclear Antibody Screen NEGATIVE (NEGATIVE)
== END 2024-12-22 12:46 | disposition home or self-care (01) ==
LOC: HO.WFDLDS 12:45
PROVIDERS: Visit Provider Nurse Practitioner Family
DX: M46.1 Sacroiliitis, not elsewhere classified (principal); G89.4 Chronic pain syndrome; M54.2 Cervicalgia
CPT/HCPCS: 36415; 80061; 82043; 82570; 85652; 86038; 86140; 86617; 86618

== ENCOUNTER 2025-01-11 13:09 | Outpatient (AMB) | payer OTHER, SELFPAY ==
[2025-01-11 13:16] VITALS: BP 144/86; PULSE 74; O2SAT 95; BMI 35.6
--- NOTE | 2025-01-11 13:16 | A.OFFVIS_ITS ---
Vital Signs 01/11/25 13:16 Height 5 ft 8 in Weight 234 lb BMI 35.6 BP 144/86 H Blood Pressure Location Rt brachial Position Sitting Pulse 74 Pulse Source Pulse Oximeter Pulse Oximetry (%) 95 Oxygen Delivery Method Room Air Intake Visit Reasons: 6 Week Follow Up Audiovisual Librarian Required: No Allergies No Known Allergies Allergy (Verified 01/11/25 13:16) Medication List - Last Reconciled 01/11/25 by Smita Ohara, CAR RENTAL CLERK atorvastatin 40 mg PO BEDTIME blood sugar diagnostic (FreeStyle Lite Strips) test 4 times a day blood-glucose meter (Accu-Chek Guide Glucose Meter) As directed blood-glucose meter,continuous (FreeStyle Ernie 3 Bucklin) As directed blood-glucose sensor (FreeStyle Ernie 3 Sensor device) As directed duloxetine 60 mg (3 x 20 mg) PO DAILY 90 days empagliflozin-metformin 5-1,000 mg ER (Synjardy XR) 2 tabs PO QAM fluticasone propionate 50 mcg/actuation 1 spray intranasal BID glimepiride 2 mg PO DAILY glucagon HCl (Glucagon (HCl) Emergency Kit) 1 mg subcut Q20M PRN insulin glargine (Lantus Solostar U-100 Insulin) 45 units (0.45 mL) subcut QPM 3 months lancets (Accu-Chek Fastclix Lancet Drum) As directed lisinopril 10 mg PO DAILY naproxen 500 mg PO BID PRN pantoprazole 40 mg PO DAILY pen needle, diabetic As directed pen needle, diabetic (BD Jennifer 2nd Gen Pen Needle) As directed DAILY propranolol ER 60 mg PO BEDTIME ziprasidone HCl mg PO HPI Comments Details: Arpit is back in my office after completion of physical therapy. He had 2 sessions left of physical therapy and he continues home exercise program. He tries to be active and performs home exercises at least 3 times a day for 15 20 minutes at a time. He reports that his pain in the neck is slightly better. He reported last time that his pain is 8 to 9/10. He reports that immediately after physical therapy his pain becomes 7/10 however it returns back to pre exercise level within 1 hour after exercises. I am going to diagnose him with intractable cervical pain, I offered him sprint PNS today. I will schedule him for 2 procedures 2 weeks apart 1st on the right and after that on the left. I will be aiming at C5 possibly C4 lamina. His pain is predominantly axial and most likely facetogenic in nature. Last time to help his pain I will prescribe him baclofen. It was not helping his pain however he denies side effects. I will escalate the dose of the baclofen today. We agreed that we will returned to the issue of the lower back after we complete treatment for his neck. Prior: c/o 2 pain generators he reports severe pain in the neck 05/28 he reports less severe but also significant pain in the back 04/27. He reports that pain in neck started about 8 months ago. He relates this pain to the job occupation [employer]. He reported that pain in the back started 2 years ago. He does not attribute this pain to any accidents or falls, he reports that he had an accident in the past but it was long before his pain started. He complains that hip frequently trip and lose balance. He reports on stiffness and swelling of fingers and hands. 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 He denies any car accident fall or trauma. He reports the pain in the neck does not radiate into bilateral upper extremities. He reports minimal radiation of the pain in the back into the left lower extremity to the level of the knee but not below that level. He tried NSAIDs to treat his pain, for unknown reason the NSAIDs were stopped. The kidney function is unknown to me. He had image of the cervical spine MRI results of which dictated as below. I do not have any results of the MRI of the lumbar spine. [facility] Medical History Severe sleep apnea Joint swelling Acid reflux Psoriasis Bipolar 1 disorder Depression Anxiety Type 2 diabetes mellitus Hypertension Migraine Surgical History No pertinent past surgical history Family History Mother Hypertension Diabetes Thyroid condition Psychiatric diagnosis Father Diabetes Social History Household Members: Other Housing: Homeless Are you a primary personal care home administrator to a significant other at home: No Do you presently have visiting nurse or other home services: No 75 years or older and lives alone: No Alcohol intake: never Patient Tobacco Use Status: Never used Tobacco e-Cigarette/Vaping Use: Never Used service: No Current occupational status: unemployed Current occupational exposures/hazards: No Sexual orientation: Unable to collect Gender identity: Unable to collect Cognitive needs: No Hearing needs: No Vision needs: No Review of Systems Const All systems reviewed & are unremarkable except as noted in HPI and below ENT Reports Normal hearing present Neuro Reports Normal hearing present, Denies Abnormal speech present, Denies confusion and Denies Sensory deficit (Neuro) Psych Denies confusion Physical Exam Vital Signs: Last Vital Signs Pulse 74 01/11/25 13:16 BP 144/86 H 01/11/25 13:16 Pulse Ox 95 01/11/25 13:16 Oxygen Delivery Method Room Air 01/11/25 13:16 BMI result Body Mass Index 35.6 Const General: no acute distress; No confusion Nutritional Appearance: obese morbidly obese Orientation/consciousness: patient oriented x3 and No confusion Eyes General: appearance normal, both eyes and all related structures Pupils: Equal, round and reactive pupils present EOM: EOMs intact bilaterally Neck Other: Although patient exhibit significant range of motion of the cervical spine, he reports pain aggravation with both flexing forward and flexing backwards. However he denies pain on axial compression of the cervical spine. He reports Valsalva maneuver is positive for pain increase. Neck: Yes full ROM Chest Chest palpation & inspection: normal inspection of the chest Resp Effort & Inspection: normal respiratory effort, able to speak in complete sentences, normal respiratory pattern, no audible wheezes and no cough Cardio Jugular venous distension: no JVD GI Inspection: Yes normal to inspection Back/Spine/Pelvis Other: He is able to stand on bilateral tiptoes in bilateral heels without difficulty. He is able to flex himself forward and backwards he reports equally aggravate did pain with flexion forward and backwards. Tenderness on palpation in projection of the lower portion of the lumbar spine and sacral bone. There is minimal tenderness on palpation in projection of the right sacroiliac joint. Brayan test maybe positive on the right. Loading test is negative bilaterally. SLR is negative bilaterally. Lasegue test is negative bilaterally. Neuro General: patient oriented x3, gait normal and No confusion Cranial nerves: Yes CN's II-XII intact bilaterally, Yes Equal, round and reactive pupils present, Yes Normal hearing present and Yes Ability to bilaterally elevate shoulders present Speech: No Abnormal speech present Gait exam (Neuro): Normal gait present Motor exam (neuro): 5/5 motor strength present throughout Sensory Exam: No Sensory deficit (Neuro) Extrem General: No pedal edema Psych Speech and movement: Normal speech and movement present Affect: normal affect Attitude: cooperative Thought process: Normal thought process present Thought content: Normal thought content present Insight: Good insight present (Psych) Judgement: Good judgement present (Psych) Results Reviewed Results Reviewed: MR CERVICAL SPINE WITHOUT CONTRAST CLINICAL INFORMATION: Subluxation of unspecified cervical vertebra. C2 and C3 and C3 on C4. Dizziness. Headache. COMPARISON: None available. TECHNIQUE: MRI of the cervical spine was obtained using routine sequences without contrast. FINDINGS: Craniocervical junction is intact. No bone marrow STIR signal abnormality. Normal alignment. Mild multilevel disc desiccation more conspicuous at C5-6 and C6-7. Cervical spinal cord signal is normal. C2-3: No disc herniation. No neuroforamina stenosis. C3-4: Broad-based disc osteophyte complex formation. No cord compression. Left neuroforamina narrowing on a degenerative basis. C4-5: Broad-based disc osteophyte complex formation. No cord compression. No neuroforamina stenosis. C5-6: Broad-based disc osteophyte complex formation. Ventral deformity of the thecal sac. No cord compression. No neuroforamina stenosis. C6-7: Broad-based disc osteophyte compresses formation. No cord compression. No neuroforamina stenosis. C7-T1: No disc herniation. No neuroforamina stenosis. No prevertebral compartment hematoma, mass or fluid collection. Flow-void signal within the main vessels is normal. Codominant vertebral arteries. Nonspecific mildly prominent cervical lymph nodes. IMPRESSION: Mild multilevel cervical spondylosis C3 C6, more conspicuous at C5-6 without cord compression, cord edema and or myelopathy. No gross disc herniation. Assessment & Plan Assessment & Plan (1) Spondylosis of cervical region without myelopathy or radiculopathy: Code(s): M47.812 - Spondylosis without myelopathy or radiculopathy, cervical region Category: Medical (2) Spondylosis of lumbar region without myelopathy or radiculopathy: Code(s): M47.816 - Spondylosis without myelopathy or radiculopathy, lumbar region Category: Medical (3) Sacroiliitis: Code(s): M46.1 - Sacroiliitis, not elsewhere classified Category: Medical (4) Sacroiliac joint dysfunction of right side: Code(s): M53.3 - Sacrococcygeal disorders, not elsewhere classified Category: Medical (5) Chronic pain syndrome: Code(s): G89.4 - Chronic pain syndrome Category: Medical (6) Rheumatoid arthritis: Code(s): M06.9 - Rheumatoid arthritis, unspecified Category: Medical (7) Intractable cervical neuropathic pain: Code(s): M79.2 - Neuralgia and neuritis, unspecified Category: Medical Plan Patient is scheduled for appointment with high school hvac r instructor in May. He is suffering from intractable cervical pain. His pain is facetogenic in nature and mostly axial. Physical therapy failed to help his pain in significant extent. See my note above. NSAIDs do not help. Baclofen was ordered last time and he denies any help from baclofen. He also denies side effects from this medication. I will increase the dose of his baclofen to help his pain. I will schedule him for sprint PNS C5 possibly C4 possibly C6 bilateral 2 weeks apart bursa on the right and after that on the left. Brochure of sprint PNS was given to the patient for his information. In general he agreed to go for the procedure. We will address his lower back pain after we complete treatment for his cervicalgia neck pain. Medications: New baclofen 20 mg PO BID 30 days 60 tabs 8RF Patient Instructions: I here by testify that I spent 32 minutes in conversation with this patient as well as planning his care evaluating his prior diagnostic studies, organizing this note. Coding Level of Care Code Est Pt Level 4 (27157) Diagnoses Spondylosis of cervical region without myelopathy or radiculopathy M47.812 Spondylosis of lumbar region without myelopathy or radiculopathy M47.816 Sacroiliitis M46.1 Sacroiliac joint dysfunction of right side M53.3 Chronic pain syndrome G89.4 Rheumatoid arthritis M06.9 Intractable cervical neuropathic pain M79.2
== END 2025-01-11 13:26 | disposition home or self-care (01) ==
LOC: HO.PMC 13:10
PROVIDERS: PCP Nurse Practitioner Family; Visit Provider Anesthesiology
DX: M47.812 Spondylosis without myelopathy or radiculopathy, cervical region (principal); M47.816 Spondylosis without myelopathy or radiculopathy, lumbar region; M46.1 Sacroiliitis, not elsewhere classified; M53.3 Sacrococcygeal disorders, not elsewhere classified; G89.4 Chronic pain syndrome; M06.9 Rheumatoid arthritis, unspecified; M79.2 Neuralgia and neuritis, unspecified
CPT/HCPCS: 99214

== ENCOUNTER → 2025-01-11 13:09 | Outpatient (BNVA) | payer OTHER, SELFPAY | PROVIDERS: PCP Nurse Practitioner Family; Visit Provider Anesthesiology | DX: M47.812 Spondylosis without myelopathy or radiculopathy, cervical region (principal); M47.816 Spondylosis without myelopathy or radiculopathy, lumbar region; M46.1 Sacroiliitis, not elsewhere classified; M53.3 Sacrococcygeal disorders, not elsewhere classified; G89.4 Chronic pain syndrome; M06.9 Rheumatoid arthritis, unspecified; M79.2 Neuralgia and neuritis, unspecified | CPT/HCPCS: 99212 ==

== ENCOUNTER 2025-01-16 11:50 | Outpatient (RCR) | payer OTHER, SELFPAY ==
--- NOTE | 2024-12-23 15:03 | MHC.PT.EP ---
[facility] [place] Office [place] Office [place] Office [address] Jim Hamm [address] [phone] F: [phone] F: [phone] F: [phone] F: [phone] Physical Therapy Plan of Care Date of Evaluation: 12/23/24 Date of Surgery: N/A Diagnosis: spondylosis without myelopathy or radiculopathy, cervical region (RL) Assessment: pt is a 34 y/o male presenting to physical therapy w/ referring diagnosis of spondylosis without myelopathy or radiculopathy, cervical region. Impairments include pain, decreased range of motion, decreased strength, impaired functional mobility, impaired postural awareness, and altered ambulation mechanics. pt is a good candidate for skilled PT due to age, potential remediation of impairments, typical disease/condition progression and prognosis, comorbidities, and motivation. pt would benefit from skilled PT intervention to provide a tailored strengthening and stretching exercise program, functional training, gait training, postural re-training, neuromuscular re-education, modalities as needed for pain, equipment safety demonstration. Frequency and Duration: The patient will be seen 2x/wk for 4 wks Short Term Goals: pt will be I w/ HEP to promote self-management of condition. pt will demo proper sitting posture w/ lumbar roll to promote neutral spine w/ seated ADLs. Gold Reclaimer Goals: pt will report a statistically significant improvement in self-reported outcome measure, NDI, to promote return to PLOF. pt will improve cervical flexion by at least 10* to promote ease in ADLs. Treatment Plan: Modalities to reduce pain, spasms and effusion. Manual therapy to restore motion and function. Therapeutic exercise to improve strength and flexibility. Neuromuscular re-education for posture and balance. Therapeutic activities to return to functional activities of daily living. Electronically signed by: Aria Garcia PT, DPT Please sign and return to therapist. Thank you for your referral.
--- NOTE | 2025-02-24 15:05 | MHC.PT.DC ---
[facility] [place] [facility] [place] [facility] [place] [facility] [address] Jim Hamm 140 [facility] [phone] F: [phone] F: [phone] F: [phone] F: [phone] Physical Therapy Discharge Report Diagnosis: spondylosis without myelopathy or radiculopathy, cervical region (RL) Date of Surgery: N/A Date of Evaluation: 12/23/24 Date of Discharge: 02/24/25 Treatments to Date: 6 Cancellations to Date: 2 No Shows to Date: 1 Discharge Status: Improved Function Patient Elected to Stop Discharge Summary: The patient no showed his last scheduled appointment. He was reporting mild improvement of his neck pain with physical therapy intervention. He is discharged from this physical therapy plan of care. Electronically signed by: Aria Garcia PT, DPT Please sign and return to therapist. Thank you for your referral.
== END 2025-02-24 15:05 | disposition home or self-care (01) ==
LOC: HO.PT 11:50
PROVIDERS: PCP Nurse Practitioner Family; Visit Provider Anesthesiology
DX: M47.812 Spondylosis without myelopathy or radiculopathy, cervical region (principal)
CPT/HCPCS: 97012; 97110; 97112; 97140; 97162; 97530

== ENCOUNTER 2025-01-25 13:46 | Outpatient (AMB) | payer OTHER, SELFPAY ==
--- NOTE | 2025-01-25 14:44 | A.OFFVIS_ITS ---
Intake Intake Visit Reasons: T2DM Manager Of Security Required: No Accompanied by: Self / Same As Patient Allergies No Known Allergies Allergy (Verified 01/11/25 13:16) HPI Comprehensive Diabetes Asmnt Most Recent Diabetes Results: Microalb/Creat Ratio 8.4 ug/mg cr (<30) 12/22/24 Cholesterol 101 mg/dL (<200) 12/22/24 HDL Cholesterol 33 mg/dL (>40) L 12/22/24 Triglycerides 129 mg/dL (<150) 12/22/24 Creatinine 0.85 mg/dL (0.5-1.4) 11/15/24 Blood Urea Nitrogen 10 mg/dL (9-16) 11/15/24 Sodium 138 mmol/L (135-145) 11/15/24 Potassium 3.8 mmol/L (3.3-5.1) 11/15/24 Chloride 99 mmol/L (96-108) 11/15/24 Carbon Dioxide 30 mmol/L (22-29) H 11/15/24 Calcium 9.7 mg/dL (8.4-10.2) 11/15/24 AST 64 U/L (5-37) H 11/15/24 ALT 124 U/L (0-40) H 11/15/24 Total Protein 8.6 g/dL (6.5-8.0) H 11/15/24 Albumin 4.4 g/dL (3.5-5.0) 11/15/24 [facility] Medical History Severe sleep apnea Joint swelling Acid reflux Psoriasis Bipolar 1 disorder Depression Anxiety Type 2 diabetes mellitus Hypertension Migraine Surgical History No pertinent past surgical history Family History Mother Hypertension Diabetes Thyroid condition Psychiatric diagnosis Father Diabetes Social History Household Members: Other Housing: Homeless Are you a primary healthcare advisory services manager to a significant other at home: No Do you presently have visiting nurse or other home services: No 75 years or older and lives alone: No Alcohol intake: never Patient Tobacco Use Status: Never used Tobacco e-Cigarette/Vaping Use: Never Used service: No Current occupational status: unemployed Current occupational exposures/hazards: No Sexual orientation: Unable to collect Gender identity: Unable to collect Cognitive needs: No Hearing needs: No Vision needs: No Assessment & Plan Assessment & Plan (1) Type 2 diabetes with complication: Comment: Currently on insulin Lantus 45 units daily. Blood glucose levels improving. Plan: Continue Lantus 45 units daily, Synjardy XR 5-1000 mg 2 tablets p.o. in the morning. diabetic eye exam February 14, 2024 negative for retinopathy Add pioglitazone 15mg - gave him side effects. Stopped 08/2024 Start Glipizide ER 2.5 mg po QD, titrate - took one time caused hypoglycemia ^ glimperide 2mg, titrate Active with nurse navigation team. Code(s): E11.8 - Type 2 diabetes mellitus with unspecified complications Plan: Diabetes self-management education and support participation record Assessment/scale: 1= needs instructed? 2= needs review? 3= comprehend keep point? 4= demonstrates understanding/ competent? NC= Not Covered Topics Learning Objective: Initial visit Initial or post srvc Initial or post srvc Initial or post srvc Initial or post srvc Initial or post srvc Post srvc Comments Pre Edu-assessment/plan Outcome or reassess Outcome or reassess Outcome or reassess Outcome or reassess Outcome or reassess Outcome or reassess Diabetes pathophysiology 1 Healthy eating 1 Being active 1 Taking medication 1 Monitoring glucose 1 Acute complication 1 Chronic complicated 1 Lifestyle and healthy coping 1 Diabetes distress in support 1 ?Diabetes pathophysiology: ?Defined diabetes med identify own type of diabetes; list 3 options for treating diabetes Healthy eating: ?Described effect of type, amount and ?timing of food on blood glucose; list 3 methods for planning meal Being active: ?State effect of exercise on blood glucose level Taking medication: ?State effect of diabetes medications on diabetes; name diabetes medications taking, action and side effects Monitoring glucose: ?Identify recommended blood glucose targets and personal target Acute complication: ?List symptoms and treatment of hyper and hypoglycemia, DKA, sick day guidelines and guidelines for severe weather or situations of crisis and diabetes supply manage Chronic complication: ?To find the relationship of blood glucose levels to long- term complications of diabetes in screening and preventative measures Lifestyle and healthy coping: ?Described lifestyle and healthy coping strategies to rule out diabetes self-management Diabetes to stress and support: ?Recognize Diabetes to stress and be able to identified support options Learning objectives: The patient was provided with verbal and written education on the following topics as outlined below. The patient met all learning objectives and was able to verbalize understanding and provide teach back of education topics discussed . The patient was provided with the opportunity to ask questions and all questions were answered. Patient Assessment Assess patient education level/literacy/barriers, patient is currently not working due to health condition. Sees behavioral health specialist for depression. Last A1c 8.6% on 11/15/2024 Patient has stopped using CGM due to discrepancy between fingerstick and sensors. Instructed patient CGM is the reading of glucose in the interstitial fluid not actual blood glucose, finger sticks are still necessary when Pt's symptom?s do not match sensor reading and if sensors prompts Pt to do a fingerstick. There is a 5-15 minute delay between glucometer reading and CGM reading Reviewed delay of CGM from fingersticks Reminded pt that if symptoms do not match sensor still needs to check fingersticks. What is Diabetes? Pathophysiology How the body produces and uses insulin Identify type of DM Risk factors Signs of Diabetes Brief overview of Diabetes Management Monitoring blood sugar Following a meal plan Regular exercise Maintaining a healthy weight Taking medication as needed Members of the care team (PCP, RN, MA, RD, CDE, hide dyer) Blood glucose monitoring When/how often to test Target blood sugar ranges Introduction to Nutrition Importance of healthy diet in managing DM Diet is personalized to individual preference Review patient?s regular diet/food preferences Who prepares meals/does food shopping/ Dining out?/ Barriers? How diet effects glucose Eating 3 balanced meals a day with small, healthy snacks between meals Review food groups Carbohydrates: What is a carbohydrate/Which food/food groups are considered carbohydrates Effect of carbohydrates on blood glucose Portion sizes Reading food labels Basic carb counting (if applicable per nursing assessment) Plate method Meal planning Recommendations: Follow plate method, consistent carbs and read nutritional labels. Smart Goal:Pt will identify current foods in meal plan that contain carbohydrates before next visit Educational Materials: The patient was provided with the following written educational materials: Flyer for diabetes support group Planning Healthy Meals Handout Patient Response to instructions: Comprehension of Instructions: Fair Readiness to make changes: Contemplation How confident they feel about making changes: Fair Portions of this note were created using voice recognition software, please excuse any words or phrases that may have been misinterpreted. Patient Instructions: Include regular daily activity. ADA recommends 30 minutes of exercise 5 days a week. Weight loss talk to PCP or Unclaimed Property Officer before starting new plan. Test blood sugar as directed; Fasting and 2hpp largest meal. Watch trends in results. Utilize results and to assess how food, physical activity and medications affect blood sugar results. Bring glucometer or CGM to next visit. Be knowledgeable about diabetes medication, its action, side effects, efficacy, toxicity, prescribed dosage, appropriate timing and frequency of administration, effect of missed and delayed doses and instructions for storage, travel and safety. Problem solving techniques to monitor hypo/hyperglycemia episodes and treatments. Reduce risk reduction behaviors, smoking cessation, regular eye, foot and dental examinations. Coding Level of Care Code Est Pt Level 1 (10063) Diagnoses Type 2 diabetes with complication E11.8
--- OUTSIDE RECORDS SUMMARY | 2025-01-25 15:58 | XMS_ITS | Encounter Summary ---
Author Organization [facility] Address [address] [place] [id number] Phone Care Team Providers Care Weed Inspector Name Role Phone Unavailable Primary Care Provider Unavailabl e Encounter Details Date Type Department Care Team (Late st Contact Info) Description 06/04/2017 Conversion Encounter [facility] - [address] [address] Social History Tobacco Use Types Packs/Day Years [...]
--- OUTSIDE RECORDS SUMMARY | 2025-01-25 15:58 | XMS_ITS | Clinical Summary ---
Author Organization [facility] Address [address] [place] [id number] Phone Care Team Providers Care Sisal Picker Name Role Phone Unavailable Primary Care Provider [...]
== END 2025-01-25 14:47 | disposition home or self-care (01) ==
PROVIDERS: PCP Nurse Practitioner Family; Visit Provider Registered Nurse Diabetes Educator
DX: E11.8 Type 2 diabetes mellitus with unspecified complications (principal)

== ENCOUNTER → 2025-01-25 13:46 | Outpatient (BNVA) | payer OTHER, SELFPAY | PROVIDERS: PCP Nurse Practitioner Family; Visit Provider Registered Nurse Diabetes Educator | DX: E11.8 Type 2 diabetes mellitus with unspecified complications (principal); Z79.4 Long term (current) use of insulin | CPT/HCPCS: 99211 ==

== ENCOUNTER 2025-06-07 10:27 | Outpatient (AMB) | payer OTHER, SELFPAY ==
--- NOTE | 2025-06-07 10:29 | A.OFFPC_ITS ---
Vital Signs 06/07/25 10:34 Height 5 ft 8 in Weight 241 lb 2 oz BMI 36.7 BP 120/70 Blood Pressure Location Lt brachial Position Sitting Respiration 12 Pulse 62 Pulse Source Pulse Oximeter Temp 97.4 F Temp Source Oral Pulse Oximetry (%) 99 Oxygen Delivery Method Room Air Intake Visit Reasons: Follow up Intake Note: Follow up dm. Student Support Services Director Required: No Allergies No Known Allergies Allergy (Verified 06/07/25 10:56) Medication List - Last Reconciled 06/07/25 by NELLY LeeP- atorvastatin 40 mg PO BEDTIME baclofen 20 mg PO BID 30 days blood sugar diagnostic (FreeStyle Lite Strips) test 4 times a day blood-glucose meter (Accu-Chek Guide Glucose Meter) As directed blood-glucose sensor (FreeStyle Ernie 3 Sensor device) As directed blood-glucose,medical billing and coding specialist,cont (FreeStyle Ernie 3 [place]) As directed duloxetine 60 mg (3 x 20 mg) PO DAILY 90 days empagliflozin-metformin 5-1,000 mg ER (Synjardy XR) 2 tabs PO QAM fluticasone propionate 50 mcg/actuation 1 spray intranasal BID [Freestyle ernie 3 plus sensor As directed] glimepiride 2 mg PO DAILY glucagon HCl (Glucagon (HCl) Emergency Kit) 1 mg subcut Q20M PRN insulin glargine (Lantus Solostar U-100 Insulin) 45 units (0.45 mL) subcut QPM 3 months lancets (Accu-Chek Fastclix Lancet Drum) As directed lisinopril 10 mg PO DAILY naproxen 500 mg PO BID PRN pantoprazole 40 mg PO DAILY pen needle, diabetic As directed pen needle, diabetic As directed DAILY propranolol ER 60 mg PO BEDTIME ziprasidone HCl mg PO Tobacco use date assessed: 06/07/25 Dental Screening Dental Screen Date: 06/07/25 Did you have a dental visit in the last 12 months?: Yes Did you have a dental problem in the last 6 months where you did not have access to dental care?: No Was dental information given to patient?: Patient has dentist HPI HPI Comments History of Present Illness Details 34-year-old male with migraines, hyperte nsion, fatty liver, obesity, balanitis, psoriasis, diabetes type 2 uncontrolled, MDD, GARY, bipolar 1 disorder, hyperlipidemia, microalbuminuria, Dupuytren's contractures bilat, MATEUSZ on CPAP Social: Grandson born 07/2024, 2 sons (20 y/o and 15 y/o) Health Maintenance: DME -DME Exam 02/17/25 no retinopathy bilat, [facility] Tdap 2018 Flu declined Specialists: Derm Neuro Counselor Reinier [facility] Rheum History of Present Illness - The patient is a 34-year-old male pres enting with complex disease management - Type 2 Diabetes with hypertension, keven roalbuminuria, hyperlipidemia. - HbA1c increased to 8.6%. - Uses [employer] 3 Pro for glucose monitorin g. - Reports fasting glucose 75-100 mg/dL, postprandial spikes up to 300 mg/dL. - Prescribed Lantus, atorvastatin, Synja rdy, glimepiride, lisinopril - Feels better despite rising A1c. - Obstructive sleep apnea, on CPAP. - Reports tingling in lower extremities. - Recent diabetic eye exam - Mentioned disability paperwork/SSI. I advised i do not complete those and he needs to go to [facility]. Info provided. - HTN BP at goal - LDL at goal last check - Mood stable on current meds, active w/ outside prescriber - Due for labs Review of Systems - Endocrine: Reports elevated fasting an d postprandial blood sugar levels, increased HbA1c. - Cardiovascular: Denies chest pain or p alpitations. - Respiratory: Denies shortness of breat h; reports well-tolerated CPAP usage. - Genitourinary: Denies urinary frequenc y or dysuria; reports clear urine. - Neurology: Reports numbness and tingli ng in lower extremities. c/o ED. - Musculoskeletal: Denies joint pain or swelling. - Dermatological: Did not mention any sk in lesions or rashes. Derm consult coming up. - Psychiatric: Denies mood changes Exam: Awake alert oriented , NAD, pleasant and cooperative Mucous membranes moist RRR Lung sounds clear To auscultation, dim throughout Abd soft, nontender mentation within normal limits Psoriatic rash on scalp behind ears on abdomen Dupuytren's contractures of bilat hands No edema BLE, + PP, skin intact, normal monofilament and vibratory sensation bilat Mood and affect wnl Discussion Notes During the visit, I discussed with the patient the management of his Type 2 Diabetes Mellitus. He is currently experiencing meal-related glucose spikes, and his HbA1c has increased to 8.6%. Options for adjusting his medication regimen were explored, including reintroducing rapid-acting insulin to control postprandial blood glucose levels effectively. The use of insulin Lispro was discussed with the patient, emphasizing the importance of administering it prior to meals and avoiding use when blood glucose is low. We also reviewed the use of CPAP for obstructive sleep apnea and refilled prescriptions for atorvastatin and other medications. I informed him about the process of traveling with insulin and emphasized the need for regular testing of blood glucose to optimize control. Follow-up labs were ordered to monitor cholesterol levels and protein in the urine, vital for assessing complications related to diabetes. I addressed concerns about erectile function and introduced treatment options, acknowledging that these could result from his current metabolic state. Detailed follow-up instructions and medication refills were provided, and I ensured understanding and agreement with the discussed plan moving forward. The plan was to reassess in a few months post intervention to monitor progress, and he was encouraged to maintain engagement with his care team. Patient was given time to ask questions. All questions were answered to their satisfaction. Assessment and Plan 1. Type 2 Diabetes Mellitus with Complic ations - Start insulin Lispro TID 5units for me al-time spikes, continue Ernie 3 Pro & all other meds - Monitor glucose pre-meals, adhere to mj franco insulin protocols. 2. Essential Hypertension - Continue Lisinopril; monitor blood pre ssure. 3. Hyperlipidemia - Continue atorvastatin; complete future lipid panel. 4. Diabetic Microalbuminuria - Complete urine screening; monitor lory l function. on ACEI 5. Obstructive Sleep Apnea - Continue CPAP therapy. 6. Erectile Dysfunction - PRN Simona, edu provided 7. Mental health disorders cont meds and care w/ counselor/prescriber 8. Skin rash consult w/ derm 9. fatty liver/gerd fu with GI. reduce w t. RTO 4-6 MO W REPEAT LABS FOR CPE, SOONER PRN Patient Instructions - Take insulin Lispro 15 minutes before meals unless blood sugar is low. - Monitor blood sugar regularly and docu ment any significant changes. - Continue CPAP therapy every night for sleep apnea. - Make sure to use one needle per insuli n injection, never reuse. - Travel with insulin as a carry-on, sto re at room temperature, refrigerate upon destination. - market superintendent all prescribed medications fro [facility]. - Report any new symptoms or significant changes to blood sugar, blood pressure, or cholesterol levels. - Follow up as advised for lab tests and medications, reporting any side effects experienced. - Consider discussing coupons or assista nce programs with pharmacy for certain medication costs. Consent Patient was informed and verbally consented to the use of an ambient scribe for clinic note documentation during this visit. Total time spent caring for the patient today was 50 minutes. This includes time spent before the visit reviewing the chart, time spent during the visit, and time spent after the visit on documentation, reviewing laboratory results, diagnostic imaging, medications, performing a medically necessary evaluation, counseling on diagnoses, care coordination, ordering appropriate tests, ordering appropriate medications, review of tests performed by other providers, reporting test results with the patient, communication with other healthcare providers. [facility] Medical History Severe sleep apnea Joint swelling Acid reflux Psoriasis Bipolar 1 disorder Depression Anxiety Type 2 diabetes mellitus Hypertension Migraine Surgical History No pertinent past surgical history Family History Mother Hypertension Diabetes Thyroid condition Psychiatric diagnosis Father Diabetes Social History Household Members: Other Housing: Homeless Are you a primary child caregiver private home to a significant other at home: No Do you presently have visiting nurse or other home services: No 75 years or older and lives alone: No Alcohol intake: never Patient Tobacco Use Status: Never used Tobacco e-Cigarette/Vaping Use: Never Used service: No Current occupational status: unemployed Current occupational exposures/hazards: No Sexual orientation: Unable to collect Gender identity: Unable to collect Cognitive needs: No Hearing needs: No Vision needs: No Questionnaire PHQ-9 Over the last 2 weeks, how often have you been bothered by any of the following problems? 1. Little interest or pleasure in doing things: not at all 2. Feeling down, depressed, or hopeless: not at all 3. Trouble falling or staying asleep, or sleeping too much: not at all 4. Feeling tired or having little energy: not at all 5. Poor appetite or overeating: not at all 6. Feeling bad about yourself - or that you are a failure or have let yourself or your family down: not at all 7. Trouble concentrating on things, such as reading the newspaper or watching television: not at all 8. Moving or speaking so slowly that other people could have noticed. Or the opposite - being so fidgety or restless that you have been moving around a lot more than usual: not at all 9. Thoughts that you would be better off or of hurting yourself in some way: not at all Total score: 0 Depression Screening Interpretation: Negative Depression Screening Done: Yes 85665 - PHQ-9 Billing: Yes Source: Developed by Drs. Wilfredo Antunez, Ninfa Velázquez, Jose Carlos Worley and colleagues, with an educational jenny from [employer]. Thrive Questionnaire Date Thrive assessed: 06/07/25 I am a: Patient What is your living situation today?: I do not have a steady places to live I am temporarily staying with others Within the past 12 months, did the food you bought not last and you didn't have the money to get more?: Sometimes True Within the past 12 months, did you worry whether your food would run out before you got money to buy more?: Sometimes True Do you have trouble paying for medicines?: No Do you have trouble getting transportation to medical appointments?: Yes Do you have trouble paying your heating and electricity bill?: No Do you have trouble taking care of your child, family member or friend?: No Do you have trouble with day-to-day activities such as bathing, preparing meals, shopping, managing finances, etc.?: Yes Are you currently unemployed and looking for a job?: Yes Are you interested in more education?: No Currently or been in a relationship where the following occur: No concerns reported THRIVE Score: 4 GARY-7 AMB Questionnaire GARY-7 Date GARY - 7 assessed: 06/07/25 Feeling nervous, anxious, or on edge: 0 = Not at all Not being able to stop or control worryin = Not at all Worrying too much about different things: 0 = Not at all Trouble relaxin = Not at all Being so restless that it is hard to sit still: 0 = Not at all Becoming easily annoyed or irritable: 0 = Not at all Feeling afraid as if something awful might happen: 0 = Not at all Total GARY-7 score (0-4 normal; 5-9 mild; 10-14 moderate; 15-21 severe): 0 Source: Developed by Drs. Wilfredo Antunez, Ninfa Velázquez, Jose Carlos Worley and colleagues, with an educational jenny from [employer]. GARY-7 Assessment Billing GARY-7 Assessment Tool: GARY-7 Assessment 05844 Physical exam (Primary Care) Vital Signs: Last Vital Signs Temp 97.4 F 06/07/25 10:34 Pulse 62 06/07/25 10:34 Resp 12 06/07/25 10:34 BP 120/70 06/07/25 10:34 Pulse Ox 99 06/07/25 10:34 Oxygen Delivery Method Room Air 06/07/25 10:34 BMI result Body Mass Index 36.7 BMI Assessment/Plan discussion: High BMI High, discussed plan: lifestyle Tobacco/Smoking Status: Tobacco use Status Tobacco use date assessed 06/07/25 06/07/25 10:32 Patient Tobacco Use Status Never used Tobacco 06/07/25 10:32 e-Cigarette/Vaping Use Never Used 06/07/25 10:32 PHQ-9: PHQ-9 Score PHQ-9: Total score 0 06/07/25 10:32 Depression Screening Interpretation: Negative Thrive Assessment: Date of Thrive Assessment Date Thrive assessed 06/07/25 06/07/25 10:32 Currently or been in a relationship where the following occur: No concerns reported Office Procedures Diabetic Foot Exam G9226 - Diabetic Foot Exam Results AMB Hemoglobin A1c AMB Hemoglobin A1c 8.6 % Last Edit by Dariel Carlos MA on 06/07/25 10:44 Results Reviewed Results Reviewed: Laboratory Last Values Hgb A1c (Clinic) 8.6 % (4.0-6.0) H 06/07/25 10:37 Coding Level of Care Code Est Pt Level 5 (26225) Complex EM visit Add On G2211 Diagnoses Hyperlipidemia associated with type 2 diabetes mellitus E11.69; E78.5 Type 2 diabetes with complication E11.8 Type 2 diabetes mellitus with obesity E11.69; E66.9 Hypertension complicating diabetes E11.59; I15.2 Moderate episode of recurrent major depressive disorder F33.1 Major depression recurrence: recurrent Active/Remission status: currently active Major depression episode severity: moderate GARY (generalized anxiety disorder) F41.1 Gastroesophageal reflux disease with esophagitis without hemorrhage K21.00 Esophagitis bleeding: without hemorrhage Fatty liver K76.0 Dupuytren's contracture of both hands M72.0 MATEUSZ (obstructive sleep apnea) G47.33 BMI 36.0-36.9,adult Z68.36 Severe obesity with body mass index (BMI) of 36.0 to 36.9 with serious comorbidity E66.01; Z68.36 Erectile dysfunction associated with type 2 diabetes mellitus E11.69; N52.1 CPT Codes Diabetic Foot Exam - CPT: G9226 - Diabetic Foot Exam ([id number]) Additional Codes GARY-7 Assessment Billing - GARY-7 Assessment Tool: GARY-7 Assessment 94871 ([id number]) PHQ-9 - 33674 - PHQ-9 Billing: Yes ([id number]) Assessment & Plan Assessment & Plan (1) Hyperlipidemia associated with type 2 diabetes mellitus: Comment: LDL goal < 70 On Atorvastatin 40mg QD Code(s): E11.69 - Type 2 diabetes mellitus with other specified complication; E78.5 - Hyperlipidemia, unspecified Category: Medical (2) Type 2 diabetes with complication: Comment: Plan: Continue Lantus 45 units daily, Synjardy XR 5-1000 mg 2 tablets p.o. in the morning. diabetic eye exam 02/2025 negative for retinopathy Add pioglitazone 15mg - gave him side effects. Stopped 08/2024 Start Glipizide ER 2.5 mg po QD, titrate - took one time caused hypoglycemia ^ glimperide 2mg, titrate - Add Lispro 5 units TID/with meals Active with nurse navigation team. Code(s): E11.8 - Type 2 diabetes mellitus with unspecified complications Category: Medical (3) Type 2 diabetes mellitus with obesity: Comment: His BMI remains high. We will need to continue to encourage weight loss once his disease is stable Code(s): E11.69 - Type 2 diabetes mellitus with other specified complication; E66.9 - Obesity, unspecified Category: Medical (4) Hypertension complicating diabetes: Comment: He is on lisinopril 10 mg daily. Taking as directed. Goal <130/80 Code(s): E11.59 - Type 2 diabetes mellitus with other circulatory complications; I15.2 - Hypertension secondary to endocrine disorders Category: Medical (5) MDD (major depressive disorder): Code(s): F32.9 - Major depressive disorder, single episode, unspecified Category: Medical Qualifiers: Major depression recurrence: recurrent Active/Remission status: currently active Major depression episode severity: moderate Qualified Code(s): F33.1 - Major depressive disorder, recurrent, moderate (6) GARY (generalized anxiety disorder): Code(s): F41.1 - Generalized anxiety disorder Category: Medical (7) GERD with esophagitis: Code(s): K21.00 - Gastro-esophageal reflux disease with esophagitis, without bleeding Category: Medical Qualifiers: Esophagitis bleeding: without hemorrhage Qualified Code(s): K21.00 - Gastro-esophageal reflux disease with esophagitis, without bleeding (8) Fatty liver: Comment: Hep profile 11/2023 negative; [place] 08/2024 WNL Code(s): K76.0 - Fatty (change of) liver, not elsewhere classified Category: Medical (9) Dupuytren's contracture of both hands: Comment: edu on condition. i do not think OT referral is appropriate at this time given transportation issues. I think its too early for a Hand Specialist referral. Reports + pain relief in pain w/ Naproxen. I have sent this in & advised to take w/ food and sparingly. Code(s): M72.0 - Palmar fascial fibromatosis [Dupuytren] Category: Medical (10) MATEUSZ (obstructive sleep apnea): Comment: Home sleep study results from 02/03/2024 show obstructive sleep apnea, moderately severe, total sleep time AHI 21.5, predominantly in supine position, but even in lateral position there is significant degree of sleep apnea. Nocturnal hypoxemia with average O2 sat 93, lowest O2 sat 64 and O2 sat below 88% for 49 minutes. Code(s): G47.33 - Obstructive sleep apnea (adult) (pediatric) Category: Medical (11) BMI 36.0-36.9,adult: Code(s): Z68.36 - Body mass index [BMI] 36.0-36.9, adult Category: Medical (12) Severe obesity with body mass index (BMI) of 36.0 to 36.9 with serious comorbidity: Comment: dm and htn Code(s): E66.01 - Morbid (severe) obesity due to excess calories; Z68.36 - Body mass index [BMI] 36.0-36.9, adult Category: Medical (13) Erectile dysfunction associated with type 2 diabetes mellitus: Code(s): E11.69 - Type 2 diabetes mellitus with other specified complication; N52.1 - Erectile dysfunction due to diseases classified elsewhere Category: Medical Plan , Orders: Orders UA CC w/rflx Micro + Cult Today E11.59 - Type 2 diabetes mellitus with other circulatory complications, E11.69 - Type 2 diabetes mellitus with other specified complication, E11.8 - Type 2 diabetes mellitus with unspecified complications, E66.9 - Obesity, unspecified, E78.5 - Hyperlipidemia, unspecified, I15.2 - Hypertension secondary to endocrine disorders, R30.0 - Dysuria Microalbumin, Random (w Creat) Today E11.59 - Type 2 diabetes mellitus with other circulatory complications, E11.69 - Type 2 diabetes mellitus with other specified complication, E11.8 - Type 2 diabetes mellitus with unspecified complications, E66.9 - Obesity, unspecified, E78.5 - Hyperlipidemia, unspecified, I15.2 - Hypertension secondary to endocrine disorders Comprehensive Met. Panel Today E11.59 - Type 2 diabetes mellitus with other circulatory complications, E11.69 - Type 2 diabetes mellitus with other specified complication, E11.8 - Type 2 diabetes mellitus with unspecified complications, E66.9 - Obesity, unspecified, E78.5 - Hyperlipidemia, unspecified, I15.2 - Hypertension secondary to endocrine disorders Lipid Panel Today E11.59 - Type 2 diabetes mellitus with other circulatory complications, E11.69 - Type 2 diabetes mellitus with other specified complication, E11.8 - Type 2 diabetes mellitus with unspecified complications, E66.9 - Obesity, unspecified, E78.5 - Hyperlipidemia, unspecified, I15.2 - Hypertension secondary to endocrine disorders Vitamin B12 and Folate Today E11.59 - Type 2 diabetes mellitus with other circulatory complications, E11.69 - Type 2 diabetes mellitus with other specified complication, E11.8 - Type 2 diabetes mellitus with unspecified complications, E66.9 - Obesity, unspecified, E78.5 - Hyperlipidemia, unspecified, I15.2 - Hypertension secondary to endocrine disorders AMB Hemoglobin A1c Today E11.69 - Type 2 diabetes mellitus with other specified complication, E11.8 - Type 2 diabetes mellitus with unspecified complications, E66.9 - Obesity, unspecified, E78.5 - Hyperlipidemia, unspecified Hemoglobin A1c Today E11.59 - Type 2 diabetes mellitus with other circulatory complications, E11.69 - Type 2 diabetes mellitus with other specified complication, E11.8 - Type 2 diabetes mellitus with unspecified complications, E78.5 - Hyperlipidemia, unspecified, I15.2 - Hypertension secondary to endocrine disorders Comprehensive Met. Panel 6 Months E11.59 - Type 2 diabetes mellitus with other circulatory complications, E11.69 - Type 2 diabetes mellitus with other specified complication, E11.8 - Type 2 diabetes mellitus with unspecified complications, E78.5 - Hyperlipidemia, unspecified, I15.2 - Hypertension secondary to endocrine disorders Lipid Panel 6 Months E11.59 - Type 2 diabetes mellitus with other circulatory complications, E11.69 - Type 2 diabetes mellitus with other specified complication, E11.8 - Type 2 diabetes mellitus with unspecified complications, E78.5 - Hyperlipidemia, unspecified, I15.2 - Hypertension secondary to endocrine disorders Medications: New insulin lispro (Humalog KwikPen (U-100) Insulin) 5 units (0.05 mL) subcut TID 15 mL 12RF sildenafil (Viagra) administer 30 minutes to 4 hours before activity 25 mg PO DAILY PRN 90 tabs 0RF sexual activity Changed From pen needle, diabetic As directed DAILY 100 ea 11RF E11.69 - Type 2 diabetes mellitus with other specified complication, E66.9 - Obesity, unspecified To pen needle, diabetic As directed QID 400 ea 2RF E11.69 - Type 2 diabetes mellitus with other specified complication, E66.9 - Obesity, unspecified Refilled glucagon HCl (Glucagon (HCl) Emergency Kit) until target blood sugar attained 1 mg subcut Q20M PRN 1 ea 0RF hypoglycemia atorvastatin 40 mg PO BEDTIME 90 tabs 2RF empagliflozin-metformin 5-1,000 mg ER (Synjardy XR) 2 tabs PO QAM 180 tabs 1RF glimepiride 2 mg PO DAILY 90 tabs 2RF insulin glargine (Lantus Solostar U-100 Insulin) 45 units (0.45 mL) subcut QPM 45 mL 1RF 3 months E11.8 - Type 2 diabetes mellitus with unspecified complications Patient Instructions: Disability Benefits The [place] [employer] Commission ([facility]) can help you understand how working may affect your benefits. Understanding your disability benefits can be complicated, but you can work and still receive benefits. The [facility] is part of the solution to this process and can help you reach your goal of financial independence. Your local Vocational Rehabilitation Office and [employer] is often the best place to get information. [facility] Disability Determination Services (DDS) is a division of the [place] [employer] Commission which is 100% funded by the Social Security Administration (SSA). [facility] Disability Examiners and medical consultants determine eligibility of [place] applicants for two disability programs: Social Security Disability Insurance (SSDI) - ages 18- 65 and Supplemental Security Income (SSI) - ages - 65. [facility] Disability Determination Services (DDS) is a division of the [place] [employer] Commission ([facility]), which is 100% funded by the Social Security Administration (SSA). Who we are and what we do [facility] disability examiners and medical consultants determine eligibility of [place] applicants for 2 disability programs: Social Security Disability Insurance (SSDI), ages 18 - 65 Supplemental Security Income (SSI), ages - 65 If you think you may be eligible for payments, call to file a claim or contact your local Social Security Office . You must contact the Social Security Administration to apply for benefits. If you are looking for an online application for either SSDI or SSI visit ssa.gov. For an update on case status call the Vocational Nursing Department Chairperson (VDE) as identified in your introductory claimant letter. Looking for an overview of annual benefits for their case ssa.gov or The claims processed by the [facility] include: Initial applications Reconsideration applications ? First appeal of a denied initial application Continuing Disability Reviews ? Periodic reviews to determine if you should continue receiving benefits Disability Hearings ? [id number] informal hearing as a part of the appeal of a Continuing Disability Review cessation determination Special outreach efforts are made to homeless shelters and individuals diagnosed with HIV The [facility] has offices in [place] and [place]. Consultants at [facility] We employ more than 70 medical and psychological consultants in-house and more than 300 medical and psychological consultants throughout the state to assist us in determining claimants' eligibility for disability benefits under Social Security. How to Contact [facility] Online File a claim on-line http://www.Bio.gov Phone: [place] Call [facility] , [place] [phone] Call [facility] [phone] [place] toll free [place] Call [facility] , [place] [phone] Call [facility] [phone] [place] toll free Call [facility] [phone] To file an initial claim with [facility] [place] Call [facility] , [place] [phone] To file an initial claim with [facility] Fax [place] or [phone] [place] Address [id number] [place] [address], [address], [place] [address]
[2025-06-07 10:34] VITALS: BP 120/70; PULSE 62; RESP 12; TEMP 36.3; O2SAT 99; BMI 36.7
--- OUTSIDE RECORDS SUMMARY | 2025-06-07 11:43 | XMS_ITS | Encounter Summary ---
Author Organization [facility] Address [address] [place] [address] Phone Care Team Providers Care Education And Training Coordinator Name Role Phone Unavailable Primary Care Provider Unavailabl e Encounter Details Date Type Department Care Team (Late st Contact Info) Description 06/04/2017 Conversion Encounter [facility] - [address] [address] Social History Tobacco Use Types Packs/Day Years [...]
== END 2025-06-07 11:26 | disposition home or self-care (01) ==
LOC: HO.HMCFM 10:28
PROVIDERS: PCP Nurse Practitioner Family; Visit Provider Nurse Practitioner Family
DX: E11.69 Type 2 diabetes mellitus with other specified complication (principal); E11.8 Type 2 diabetes mellitus with unspecified complications; E11.59 Type 2 diabetes mellitus with other circulatory complications; F33.1 Major depressive disorder, recurrent, moderate; E66.01 Morbid (severe) obesity due to excess calories; E66.9 Obesity, unspecified; Z68.36 Body mass index [BMI] 36.0-36.9, adult; E78.5 Hyperlipidemia, unspecified; I15.2 Hypertension secondary to endocrine disorders; F41.1 Generalized anxiety disorder; K21.00 Gastro-esophageal reflux disease with esophagitis, without bleeding; K76.0 Fatty (change of) liver, not elsewhere classified

== ENCOUNTER 2025-06-07 10:27 | Outpatient (REF) | payer OTHER, SELFPAY ==
[2025-06-07 14:51] LABS: Appearance Urine Turbid; Glucose Urine UA Negative (Negative); PH 6.0 (5.0-9.0); Specific Gravity - Urine >= 1.030 (1.005-1.025)
[2025-06-07 15:04] LABS: Alanine Aminotransferase 106 U/L (0-40); Albumin Level 4.4 g/dL (3.5-5.0); Alkaline Phosphatase 80 U/L (39-117); Anion Gap 13 (12-20); Aspartate Amino Transferase 63 U/L (5-37); Blood Urea Nitrogen 9 mg/dL (9-16); Calcium 8.8 mg/dL (8.4-10.2); Carbon Dioxide 27 mmol/L (22-29); Chloride 103 mmol/L (96-108); Cholesterol 136 mg/dL (<200); Estimated Glomerular Filt Rate > 60; HDL Cholesterol 30 mg/dL (>40); Potassium 4.1 mmol/L (3.3-5.1); Sodium 139 mmol/L (135-145); Total Protein 7.7 g/dL (6.5-8.0); Triglycerides 134 mg/dL (<150)
[2025-06-07 15:35] LABS: Folate 4.9 ng/mL (> or = 4.0); Vitamin B12 380 pg/mL (200-900)
[2025-06-07 16:17] LABS: Microalbum/Creatinine Ratio Ur 15.1 ug/mg cr (<30)
== END 2025-06-07 10:28 | disposition home or self-care (01) ==
LOC: HO.WFDLDS 10:27
PROVIDERS: PCP Nurse Practitioner Family; Visit Provider Nurse Practitioner Family
DX: I15.2 Hypertension secondary to endocrine disorders (principal); E11.69 Type 2 diabetes mellitus with other specified complication; E11.59 Type 2 diabetes mellitus with other circulatory complications; E78.5 Hyperlipidemia, unspecified; R80.9 Proteinuria, unspecified; G47.33 Obstructive sleep apnea (adult) (pediatric); N52.9 Male erectile dysfunction, unspecified; E66.9 Obesity, unspecified; F33.1 Major depressive disorder, recurrent, moderate; F41.1 Generalized anxiety disorder; K21.00 Gastro-esophageal reflux disease with esophagitis, without bleeding; K76.0 Fatty (change of) liver, not elsewhere classified; M72.0 Palmar fascial fibromatosis [Dupuytren]; E66.01 Morbid (severe) obesity due to excess calories; N52.1 Erectile dysfunction due to diseases classified elsewhere; R30.0 Dysuria; Z99.89 Dependence on other enabling machines and devices; Z68.36 Body mass index [BMI] 36.0-36.9, adult
CPT/HCPCS: 36415; 80053; 80061; 81003; 82043; 82570; 82607; 82746; 83036; 86431; 96127; 99211; 99212

== ENCOUNTER 2025-06-07 13:01 | Outpatient (AMB) | payer OTHER, SELFPAY ==
--- NOTE | 2025-06-07 13:44 | A.OFFVIS_ITS ---
Intake Intake Visit Reasons: 60 mins Male Impersonator Required: No Accompanied by: Self / Same As Patient Allergies No Known Allergies Allergy (Verified 06/07/25 10:56) HPI Comprehensive Diabetes Asmnt Most Recent Diabetes Results: Microalb/Creat Ratio, (<30) 8.4 ug/mg cr 12/22/24 Cholesterol, (<200) 101 mg/dL 12/22/24 HDL Cholesterol, (>40) 33 mg/dL L 12/22/24 Triglycerides, (<150) 129 mg/dL 12/22/24 Creatinine, (0.5-1.4) 0.85 mg/dL 11/15/24 BUN, (9-16) 10 mg/dL 11/15/24 Sodium, (135-145) 138 mmol/L 11/15/24 Potassium, (3.3-5.1) 3.8 mmol/L 11/15/24 Chloride, (96-108) 99 mmol/L 11/15/24 Carbon Dioxide, (22-29) 30 mmol/L H 11/15/24 Calcium, (8.4-10.2) 9.7 mg/dL 11/15/24 AST, (5-37) 64 U/L H 11/15/24 ALT, (0-40) 124 U/L H 11/15/24 Total Protein, (6.5-8.0) 8.6 g/dL H 11/15/24 Albumin, (3.5-5.0) 4.4 g/dL 11/15/24 [facility] Medical History Severe sleep apnea Joint swelling Acid reflux Psoriasis Bipolar 1 disorder Depression Anxiety Type 2 diabetes mellitus Hypertension Migraine Surgical History No pertinent past surgical history Family History Mother Hypertension Diabetes Thyroid condition Psychiatric diagnosis Father Diabetes Social History Household Members: Other Housing: Homeless Are you a primary acute care surgeon to a significant other at home: No Do you presently have visiting nurse or other home services: No 75 years or older and lives alone: No Alcohol intake: never Patient Tobacco Use Status: Never used Tobacco e-Cigarette/Vaping Use: Never Used service: No Current occupational status: unemployed Current occupational exposures/hazards: No Sexual orientation: Unable to collect Gender identity: Unable to collect Cognitive needs: No Hearing needs: No Vision needs: No Assessment & Plan Assessment & Plan (1) Type 2 diabetes with complication: Comment: Plan: Continue Lantus 45 units daily, Synjardy XR 5-1000 mg 2 tablets p.o. in the morning. diabetic eye exam 02/2025 negative for retinopathy Add pioglitazone 15mg - gave him side effects. Stopped 08/2024 Start Glipizide ER 2.5 mg po QD, titrate - took one time caused hypoglycemia ^ glimperide 2mg, titrate - Add Lispro 5 units TID/with meals Active with nurse navigation team. Code(s): E11.8 - Type 2 diabetes mellitus with unspecified complications Plan: Diabetes self-management education and support participation record Assessment/scale: 1= needs instructed? 2= needs review? 3= comprehend keep point? 4= demonstrates understanding/ competent? NC= Not Covered Topics Learning Objective: Initial visit Initial or post srvc Initial or post srvc Initial or post srvc Initial or post srvc Initial or post srvc Post srvc Comments Pre Edu-assessment/plan Outcome or reassess Outcome or reassess Outcome or reassess Outcome or reassess Outcome or reassess Outcome or reassess Diabetes pathophysiology 1 3 Healthy eating 1 3 Being active 1 3 Taking medication 1 3 Monitoring glucose 1 3 Acute complication 1 3 Chronic complicated 1 Lifestyle and healthy coping 1 Diabetes distress in support 1 ?Diabetes pathophysiology: ?Defined diabetes med identify own type of diabetes; list 3 options for treating diabetes Healthy eating: ?Described effect of type, amount and ?timing of food on blood glucose; list 3 methods for planning meal Being active: ?State effect of exercise on blood glucose level Taking medication: ?State effect of diabetes medications on diabetes; name diabetes medications taking, action and side effects Monitoring glucose: ?Identify recommended blood glucose targets and personal target Acute complication: ?List symptoms and treatment of hyper and hypoglycemia, DKA, sick day guidelines and guidelines for severe weather or situations of crisis and diabetes supply manage Chronic complication: ?To find the relationship of blood glucose levels to long- term complications of diabetes in screening and preventative measures Lifestyle and healthy coping: ?Described lifestyle and healthy coping strategies to rule out diabetes self-management Diabetes to stress and support: ?Recognize Diabetes to stress and be able to identified support options Learning objectives: The patient was provided with verbal and written education on the following topics as outlined below. Assess patient education level/literacy/barriers, patient's most recent A1c on 06/07/2025 8.6%. At today's PCP visit Humalog 5 units, before meals was added to medication list Patient will continue with Lantus 45 units daily Synjardy XR daily Glimepiride 2 mg daily At today's visit we set up Ernie 3+ sensor with phone negro Sensor placed on the back of left arm Patient left visit with sensor in warmup Reviewed how to interpret trend arrows Discussed lag time between finger stick and sensor data.? Instructed patient the importance of having blood glucometer for backup testing if needed Reviewed delay of CGM from fingersticks Reminded Pt that if symptoms do not match sensor still needs to check fingersticks. The patient met all learning objectives and was able to verbalize understanding and provide teach back of education topics discussed . The patient was provided with the opportunity to ask questions and all questions were answered. Topics covered in today?s session included: Insulin/Injectables (If applicable) * Storage/care of insulin?? * Injection sites? * Site rotation? * Onset, peak, duration * Drawing up insulin? * Injecting insulin/other injectables? * Sharps disposal Continuous blood glucose monitoring (if applicable) Hypoglycemia and Hyperglycemia * Signs and symptoms? * Causes?? * Treatment? * Preventing hypoglycemia? * When to seek medical attention Target Goals: * Blood glucose targets and how you feel when your blood glucose is in and out of your target ranges. * Monitoring and knowing your A1C. * What can make blood glucose go up and down and preventing high and low blood glucose. * Review of blood sugar targets in expected goal range and outside of expected goal range. * Problem solving and preventing hyper/hypoglycemia. * Sick day management of diabetes. * Using blood sugar results in decision making process in managing diabetes. ?Patient was receptive to information provided and participated in the discussion. Asked?appropriate questions and demonstrated good understanding of the topics discussed.? ? Educational Materials: The patient was provided with the following written educational materials: Target Goal, how to treat hypoglycemia handout Smart Goal Assessment:? :Pt will identify current foods in meal plan that contain carbohydrates before next visit Pt met goal 75% New Smart Goal: Patient will use rule of 15 to treat hypoglycemia Patient Response to instructions: Comprehension of Instructions: good Readiness to make changes:? Contemplation How confident they feel about making changes:fair Portions of this note were created using voice recognition software, please excuse any words or phrases that may have been misinterpreted. Coding Level of Care Code Est Pt Level 1 (19765) Diagnoses Type 2 diabetes with complication E11.8 Results AMB Hemoglobin A1c AMB Hemoglobin A1c 8.6 % Last Edit by Dariel Carlos MA on 06/07/25 10:44
== END 2025-06-07 13:45 | disposition home or self-care (01) ==
LOC: HO.ENCR 13:01
PROVIDERS: PCP Nurse Practitioner Family; Visit Provider Registered Nurse Diabetes Educator
DX: E11.8 Type 2 diabetes mellitus with unspecified complications (principal)

== ENCOUNTER 2025-06-11 17:25 | Emergency (ER) | payer OTHER, SELFPAY ==
--- NOTE | 2025-06-11 | ECG_ITS ---
Test Reason : PAIN Blood Pressure : */* mmHG Vent. Rate : 98 BPM Atrial Rate : 98 BPM P-R Int : 124 ms QRS Dur : 80 ms QT Int : 326 ms P-R-T Axes : 30 26 -65 degrees QTcB Int : 416 ms Normal sinus rhythm T wave abnormality, consider inferior ischemia Abnormal ECG When compared with ECG of 25-Aug-2024 09:44, T wave inversion now evident in Inferior leads Referred By: Generic ED Physician Electronically Signed By: MAXIME YORK
--- NOTE | ~2025-06-11 | XR_ITS ---
CLINICAL HISTORY: pain 1 view chest x-ray Comparison: CR - XR CHEST 1V - 12/13/24 00:43 EST Findings: No consolidation or effusion. Normal size heart. No acute fracture. IMPRESSION: 1. No acute findings. This document has been electronically signed by: Roni Snell MD on 06/11/2025 20:38:59
[2025-06-11 17:38] VITALS: BP 135/75; PULSE 100; RESP 18; TEMP 37.1; O2SAT 97; BMI 36.0
--- NOTE | 2025-06-11 17:38 | ED_ITS ---
HPI - General Adult General Chief complaint: Chest Pain Stated complaint: chest/abd pain Time Seen by Provider: 06/11/25 19:33 Source: patient Limitations: no limitations History of Present Illness ED Provider: Renee Galan PA-C HPI narrative: 34-year-old male with a history of diabetes, hypertension, hyperlipidemia, morbid obesity, chronic pain, rheumatoid arthritis who presents with multiple complaints. Patient states he has been having generalized myalgias, chills, malaise, chest discomfort bilateral arm discomfort and bilateral flank discomfort for 4 days. Denies nausea vomiting diarrhea. Denies dysuria hematuria history kidney stones. Denies cough cold symptoms or fever. Denies sick contacts with similar symptoms. Related Data Home Medications ?Medication ?Instructions ?Recorded ?Confirmed ziprasidone HCl 20 mg capsule mg PO 11/11/24 06/07/25 Previous Rx's ?Medication ?Instructions ?Recorded blood-glucose meter (Accu-Chek #1 ea 11/27/23 Guide Glucose Meter) lancets (Accu-Chek Fastclix Lancet #100 ea 12/09/23 Drum) blood-glucose,counterperson,cont #1 ea 12/16/23 (FreeStyle Ernie 3 [place]) blood sugar diagnostic (FreeStyle #100 ea 12/31/23 Lite Strips) fluticasone propionate 50 1 spray intranasal BID #16 g irena 08/08/24 mcg/actuation nasal spray,suspension duloxetine 20 mg capsule,delayed 60 mg (3 x 20 mg) PO DAILY 90 days 10/24/24 release #270 caps naproxen 500 mg tablet,delayed 500 mg PO BID PRN pain #180 tabs 12/22/24 release pantoprazole 40 mg tablet,delayed 40 mg PO DAILY #90 t abs 12/22/24 release baclofen 20 mg tablet 20 mg PO BID 30 days #60 tab s 01/11/25 blood-glucose sensor (FreeStyle #2 ea 01/23/25 Ernie 3 Sensor device) Freestyle ernie 3 plus sensor #2 ea 05/16/25 lisinopril 10 mg tablet 10 mg PO DAILY #90 tabs 08/11/12 propranolol 60 mg capsule,24 60 mg PO BEDTIME #90 caps 05/19/25 hr,extended release atorvastatin 40 mg tablet 40 mg PO BEDTIME #90 tabs 08 /20/25 empagliflozin 5 mg-metformin ER 2 tab PO QAM #180 tabs 06/07/25 1,000 mg tablet,extended release 24 hr (Synjardy XR) glimepiride 2 mg tablet 2 mg PO DAILY #90 tabs 06/07 glucagon HCl 1 mg solution for 1 mg subcut Q20M PRN hy poglycemia 06/07/25 injection (Glucagon (HCl) #1 ea Emergency Kit) insulin glargine 100 unit/mL (3 45 unit (0.45 mL) subc ut QPM 3 06/07/25 mL) subcutaneous pen (Lantus months #45 mL Solostar U-100 Insulin) insulin lispro 100 unit/mL 5 unit (0.05 mL) subcut TID #15 mL 06/07/25 subcutaneous pen (Humalog KwikPen (U-100) Insulin) pen needle, diabetic 32 gauge x #400 ea 06/07/25 sildenafil 25 mg tablet (Viagra) 25 mg PO DAILY PRN se xual activity 06/07/25 #90 tabs Allergies Allergy/AdvReac Type Severity Reaction Status Date / Time No Known Allergies Allergy Verified 06/11/25 17:40 Review of Systems 2 Review of Systems: Yes all other systems are reviewed and are negative Constitutional: Constitutional: Reports chills, Denies fatigue, Denies fever(s) and Reports malaise Cardiovascular: Cardiovascular: Reports chest pain and Denies dyspnea Respiratory: Respiratory: Denies cough and Denies dyspnea Gastrointestinal: Gastrointestinal: Reports abdominal pain, Denies diarrhea, Denies nausea and Denies vomiting Genitourinary: Genitourinary: Denies dysuria and Reports flank pain Musculoskeletal: Musculoskeletal: Reports myalgias Endocrine: Endocrine: Denies fatigue [facility] Past Medical History Attestation statement: The following information was validated with the patient. Medical History Severe sleep apnea Joint swelling Acid reflux Psoriasis Bipolar 1 disorder Depression Anxiety Type 2 diabetes mellitus Hypertension Migraine Surgical History No pertinent past surgical history Family History Family History Mother Hypertension Diabetes Thyroid condition Psychiatric diagnosis Father Diabetes Social History Social History (Reviewed 08/25/24 @ 11:06 by KELLY Chavez Household Members: Other Housing: Homeless Are you a primary home health care physician to a significant other at home: No Do you presently have visiting nurse or other home services: No Alcohol intake: never Patient Tobacco Use Status: Never used Tobacco Smoked in Last 30 Days: No e-Cigarette/Vaping Use: Never Used Use of substances other than those prescribed or required for medical reasons: No Advance Directives: No Advance Directives Information Provided: No Do you have a plan to hurt others: No Plan service: No Current occupational status: unemployed Current occupational exposures/hazards: No Sexual orientation: Unable to collect Gender identity: Unable to collect Cognitive needs: No Hearing needs: No Vision needs: No Physical Exam ED Vital Signs: Vital Signs - 24 hr 06/11/25 17:38 06/11/25 18:12 06/11/25 21:11 Temperature 98.7 F 97.8 F 98.5 F Pulse Rate 100 98 82 Respiratory Rate 18 16 17 Blood Pressure 135/75 122/77 112/69 Pulse Oximetry 97 99 97 Oxygen Delivery Method Room Air Room Air Room Air BMI result Body Mass Index 36.0 Const Other: Alert, appears older than stated age Orientation/consciousness: patient oriented x3 Resp Other: Lungs clear to auscultation no wheezing Effort & Inspection: normal respiratory effort Cardio Other: Normal peripheral perfusion Skin Other: Warm dry no rash Neuro General: patient oriented x3, gait normal, no focal motor deficits and CN's II- XI intact bilaterally Psych Other: Cooperative Course Course Course Narrative: RME, this is a rapid medical exam performed by Odell Aj please refer to primary provider for complete H&P- 34-year-old male past medical history as diabetes, hypertension,, anxiety presents for evaluation of body aches, chest pain, abdominal pain. Plan for labs, EKG obtained in triage. Viral swabs are pending as well. Medical Decision Making Medical Decision Making MDM Narrative: 34-year-old male with a history of diabetes, hypertension, hyperlipidemia, morbid obesity, chronic pain, rheumatoid arthritis who presents with multiple complaints. Patient states he has been having generalized myalgias, chills, malaise, chest discomfort bilateral arm discomfort and bilateral flank discomfort for 4 days. Denies nausea vomiting diarrhea. Denies dysuria hematuria history kidney stones. Denies cough cold symptoms or fever. Denies sick contacts with similar symptoms. Problem: Diabetes, hypertension, hyperlipidemia, chronic pain, obesity History: Per patient I have considered the following differential diagnoses: Exacerbation of chronic pain, ACS, viral syndrome, pyelonephritis, renal colic, UTI Plan: ACS was considered, the patient does have risk factors for coronary artery disease despite his age, Screening labs including cardiac enzyme, EKG were obtained, adding on a chest x-ray. Patient's constellation of symptoms appear viral, the COVID test was negative. Given bilateral flank discomfort, thought about renal colic, however he has no you related symptoms, his urine is not infected. I have independently reviewed the following tests: Labs: No leukocytosis, not anemic, no electrolyte abnormality, troponin negative at less than 2.7, COVID negative, urinalysis negative EKG: Normal sinus rhythm, rate of 98, T-wave abnormality inferior leads, QTC 416, no ectopy Chest x-ray:Findings: No consolidation or effusion. Normal size heart. No acute fracture. IMPRESSION: 1. No acute findings. Lab Data 06/11/25 17:53 06/11/25 17:53 Labs: Lab Results 06/11/25 06/11/25 Range/Units 17:53 17:56 WBC 7.2 (4.8-10.8) X10*3/uL RBC 5.36 (4.60-5.80) X10*6/uL Hgb 15.6 (14.0-18.0) g/dl Hct 44.7 (42.0-52.0) % MCV 83.4 (80.0-98.0) fL MCH 29.1 (27.0-33.0) pg MCHC 34.9 (31.0-36.0) g/dl RDW 13.2 (11.0-16.0) % Plt Count 292 D (160-400) X10*3/uL MPV 11.2 (9.4-12.4) fL Immature Gran % (Auto) 0.1 (0.0-0.4) % Neut % (Auto) 60.9 (45-73) % Lymph % (Auto) 30.7 (20-40) % [place] % (Auto) 6.8 (2-11) % Eos % (Auto) 0.8 (0-4) % Baso % (Auto) 0.7 (0-2) % Lymph # (Auto) 2.2 (1.2-4.9) X10*3/uL [place] # (Auto) 0.5 (0.1-1.2) X10*3/uL Eos # (Auto) 0.1 (0.0-0.4) X10*3/uL Baso # (Auto) 0.1 (0.0-0.2) X10*3/uL Abs Immat Gran (auto) 0.01 (0.00-0.03) X10*3/uL Absolute Neuts (auto) 4.4 (2.0-8.3) x10*3/uL Absolute Nucleated RBC 0.000 (0.0-0.012) X10*3/uL Nucleated RBC % (auto) 0.0 (0.0-0.2) /100WBC Sodium 139 (135-145) mmol/L Potassium 3.8 (3.3-5.1) mmol/L Chloride 102 (96-108) mmol/L Carbon Dioxide 27 (22-29) mmol/L Anion Gap 14 (12-20) BUN 9 (9-16) mg/dL Creatinine 1.06 (0.5-1.4) mg/dL Estim Creat Clear Calc 114.5 Estimated GFR > 60 Random Glucose 195 H (60-115) mg/dL Calcium 9.8 D (8.4-10.2) mg/dL Total Bilirubin 0.6 (0.0-1.0) mg/dL AST 70 H (5-37) U/L ALT 108 H (0-40) U/L Alkaline Phosphatase 92 (39-117) U/L Troponin I High Sens < 2.7 (<3.5-35.0) ng/L Total Protein 8.6 H (6.5-8.0) g/dL Albumin 5.0 (3.5-5.0) g/dL Lipase 34 (8-78) U/L Urine Color Yellow Urine Appearance Clear Urine pH 5.5 (5.0-9.0) Ur Specific [place] >= 1.030 H (1.005-1.025) Urine Protein Negative (Neg-Trace) mg/dL Urine Glucose (UA) >=1000 H (Negative) mg/dL Urine Ketones Negative (Negative) mg/dL Urine Blood Negative (Negative) Urine Nitrite Negative (Negative) Ur Leukocyte Esterase Negative (Negative) Urine RBC 0-2 (0-2) /HPF Urine WBC 0-5 (0-5) /HPF Ur Squamous Epith Cells 0-2 (0-2) /HPF Urine Bacteria None Seen (None Seen) Hyaline Casts 0-2 (0-2) /LPF COVID-19 (ALEXIS) Negative (Negative) COVID-19 Clin Com See Note Discharge Plan Discharge Clinical Impression: Myalgia Patient Disposition: Home, Self-Care Instructions: Musculoskeletal Pain (ED) Additional Instructions: All of your screening labs including a cardiac enzymes were normal. You tested for COVID, it was negative. Your urinalysis is negative, the chest x-ray is clear. There were no concerning changes on your EKG. Given the wide array of symptoms that you have, you likely have yet another virus that has been circulating within the community. Follow up with primary care as needed. Prescriptions: No Action duloxetine 20 mg capsule,delayed release(DR/EC) 60 mg PO DAILY 90 Days Qty: 270 1RF (DME) FreeStyle Ernie 3 Sensor Device See Rx Instructions .MEDSUPPLY Qty: 2 11RF Rx Instructions: As directed (DME) Freestyle ernie 3 plus sensor See Rx Instructions .Route .MEDSUPPLY Qty: 2 11RF Rx Instructions: As directed lisinopril 10 mg tablet 10 mg PO DAILY Qty: 90 0RF propranolol 60 mg capsule,extended release 24 hr 60 mg PO BEDTIME Qty: 90 1RF Rx Instructions: for migraine prevention, to help sleep and anxiety TAKE DAILY (DME) blood-glucose meter [Accu-Chek Guide Glucose Meter] Misc See Rx Instructions .Route Qty: 1 0RF Rx Instructions: As directed (DME) lancets [Accu-Chek Fastclix Lancet Drum] Misc See Rx Instructions .Route Qty: 100 0RF Rx Instructions: As directed (DME) FreeStyle Lite Strips Strip See Rx Instructions .Route Qty: 100 11RF Rx Instructions: test 4 times a day (DME) FreeStyle Ernie 3 [place] Misc See Rx Instructions .MEDSUPPLY Qty: 1 0RF Rx Instructions: As directed fluticasone propionate 50 mcg/actuation spray,suspension 1 spray intranasal BID Qty: 16 11RF Rx Instructions: administer into each nostril naproxen 500 mg tablet,delayed release (DR/EC) 500 mg PO BID PRN (Reason: pain) Qty: 180 2RF pantoprazole 40 mg tablet,delayed release (DR/EC) 40 mg PO DAILY Qty: 90 0RF ziprasidone HCl 20 mg capsule PO baclofen 20 mg tablet 20 mg PO BID 30 Days Qty: 60 8RF insulin lispro [Humalog KwikPen Insulin] 100 unit/mL insulin pen 5 unit subcut TID Qty: 15 12RF glucagon HCl [Glucagon (HCl) Emergency Kit] 1 mg recon soln 1 mg subcut Q20M PRN (Reason: hypoglycemia) Qty: 1 0RF Rx Instructions: until target blood sugar attained atorvastatin 40 mg tablet 40 mg PO BEDTIME Qty: 90 2RF Synjardy XR 5-1,000 mg tablet, IR - ER, biphasic 24hr 2 tab PO QAM Qty: 180 1RF glimepiride 2 mg tablet 2 mg PO DAILY Qty: 90 2RF insulin glargine [Lantus Solostar U-100 Insulin] 100 unit/mL (3 mL) insulin pen 45 unit subcut QPM 90 Days Qty: 45 1RF (DME) pen needle, diabetic 32 gauge x 5/32 needle See Rx Instructions .Route Qty: 400 2RF Rx Instructions: As directed QID sildenafil [Viagra] 25 mg tablet 25 mg PO DAILY PRN (Reason: sexual activity) Qty: 90 0RF Rx Instructions: administer 30 minutes to 4 hours before activity Print Language: Dominican
[2025-06-11 18:01] LABS: MANUAL DIFF FLAG NO
[2025-06-11 18:03] LABS: Appearance Urine Clear; Glucose Urine UA >=1000 mg/dL (Negative); PH 5.5 (5.0-9.0); Specific Gravity - Urine >= 1.030 (1.005-1.025); UMIC TRIGGER UACC YES
[2025-06-11 18:03] LABS: Hematocrit 44.7 % (42.0-52.0); Hemoglobin 15.6 g/dl (14.0-18.0); Imm Gran Abs Auto 0.01 X10*3/uL (0.00-0.03); Imm Gran Pct Auto 0.1 % (0.0-0.4); Lymphocytes Absolute Auto 2.2 X10*3/uL (1.2-4.9); Mean Corpuscular HGB Conc 34.9 g/dl (31.0-36.0); Mean Corpuscular Hemoglobin 29.1 pg (27.0-33.0); Mean Corpuscular Volume 83.4 fL (80.0-98.0); NRBC Abs Auto 0.000 X10*3/uL (0.0-0.012); NRBC Pct Auto 0.0 /100WBC (0.0-0.2); Platelet Count 292 X10*3/uL (160-400); Red Blood Count 5.36 X10*6/uL (4.60-5.80); White Blood Count 7.2 X10*3/uL (4.8-10.8)
[2025-06-11 18:12] VITALS: BP 122/77; PULSE 98; RESP 16; TEMP 36.6; O2SAT 99
[2025-06-11 18:15] LABS: Alanine Aminotransferase 108 U/L (0-40); Albumin Level 5.0 g/dL (3.5-5.0); Alkaline Phosphatase 92 U/L (39-117); Anion Gap 14 (12-20); Aspartate Amino Transferase 70 U/L (5-37); Blood Urea Nitrogen 9 mg/dL (9-16); Calcium 9.8 mg/dL (8.4-10.2); Carbon Dioxide 27 mmol/L (22-29); Chloride 102 mmol/L (96-108); Creatinine Clr Calc Pharmacy 114.5; Estimated Glomerular Filt Rate > 60; IDNOW Serial# 6674DD1D; Lipase 34 U/L (8-78); Potassium 3.8 mmol/L (3.3-5.1); Sodium 139 mmol/L (135-145); Total Protein 8.6 g/dL (6.5-8.0)
--- NOTE | 2025-06-11 18:15 | PC.NURSE ---
PT AXO3, pt states he has a PMH of Diabetes,HTN and arthritis. PT came in today due to feeling shy PT states he has a chest pressure on a scale of 9 out of 10 that comes and goes. PT complains of abdominal pain with N/V and a headache 9 out of 10 on pain scale. PT changed to hospital gown, placed on bedside monitor vital signs updated, 20G Iv access placed in right forearm. Warm blanket given to pt call dolly withraqueln amandeep.
[2025-06-11 18:16] LABS: COVID-19 Test Negative (Negative)
[2025-06-11 18:23] LABS: Troponin-I High Sensitivity < 2.7 ng/L (<3.5-35.0)
[2025-06-11 21:11] VITALS: BP 112/69; PULSE 82; RESP 17; TEMP 36.9; O2SAT 97
[2025-06-11 22:09] VITALS: BP 112/69; PULSE 82; RESP 17; TEMP 36.9; O2SAT 97
== END 2025-06-11 22:16 | disposition home or self-care (01) ==
PROVIDERS: Physician Assistant; Emergency Provider Emergency Medicine; PCP Nurse Practitioner Family
DX: M79.10 Myalgia, unspecified site (principal); R07.9 Chest pain, unspecified; I10 Essential (primary) hypertension; E11.8 Type 2 diabetes mellitus with unspecified complications
CPT/HCPCS: 36415; 71045; 80053; 81001; 83690; 84484; 85025; 87635; 93005; 99283; 99285

== ENCOUNTER → 2025-06-11 17:34 | Outpatient (BNV) | payer OTHER, SELFPAY | PROVIDERS: Emergency Provider Emergency Medicine; PCP Nurse Practitioner Family; Visit Provider Internal Medicine | DX: R94.31 Abnormal electrocardiogram [ECG] [EKG] (principal); R07.89 Other chest pain | CPT/HCPCS: 93010 ==

== ENCOUNTER → 2025-06-11 19:36 | Outpatient (BNV) | payer OTHER, SELFPAY | PROVIDERS: Emergency Provider Emergency Medicine; PCP Nurse Practitioner Family; Visit Provider Student in an Organized Health Care Education/Training Program | DX: R07.9 Chest pain, unspecified (principal) | CPT/HCPCS: 71045 ==

== ENCOUNTER 2025-06-13 10:38 | Outpatient (REF) | payer OTHER, SELFPAY ==
[2025-06-16 15:13] LABS: HLA B27 Negative (Negative)
== END 2025-06-13 10:39 | disposition home or self-care (01) ==
LOC: HO.HKASLDS 10:38
PROVIDERS: PCP Nurse Practitioner Family; Visit Provider Student in an Organized Health Care Education/Training Program
DX: L40.50 Arthropathic psoriasis, unspecified (principal); Z51.81 Encounter for therapeutic drug level monitoring; Z79.631 Long term (current) use of antimetabolite agent; Z01.84 Encounter for antibody response examination; Z79.60 Long term (current) use of unspecified immunomodulators and immunosuppressants
CPT/HCPCS: 36415; 85652; 86140; 86200; 86812; 99202

== ENCOUNTER 2025-06-13 10:38 | Outpatient (AMB) | payer OTHER, SELFPAY ==
--- NOTE | 2025-06-13 10:49 | MHC.OFFVIS ---
Vital Signs 06/13/25 11:03 Height 5 ft 8 in Weight 238 lb 15.697 oz BMI 36.3 BP 122/80 Blood Pressure Location Rt brachial Position Sitting Pulse 75 Pulse Source Pulse Oximeter Pulse Oximetry (%) 98 Oxygen Delivery Method Room Air Intake Visit Reasons: Rheumatoid arthritis/New Patient Intake Note: Patient presents for RA. Patient c/o neck pain, bilateral shoulder pain, lower back pain, bilateral elbow pain, bilateral hand pain, bilateral wrist pain, bilateral knee pain and bilateral feet pain. Patient stated he experience pain for 2 years. Patient takes Naproxen 500 mg 1 tablet daily. Patient stated it numbs the pain. Allergies No Known Allergies Allergy (Verified 06/13/25 11:01) Medication List - Last Reconciled 06/13/25 by Anabela Barnhart MD atorvastatin 40 mg PO BEDTIME baclofen 20 mg PO BID 30 days blood sugar diagnostic (FreeStyle Lite Strips) test 4 times a day blood-glucose meter (Accu-Chek Guide Glucose Meter) As directed blood-glucose sensor (FreeStyle Ernie 3 Sensor device) As directed blood-glucose,strategic planning director,cont (FreeStyle Ernie 3 [place]) As directed duloxetine 60 mg (3 x 20 mg) PO DAILY 90 days empagliflozin-metformin 5-1,000 mg ER (Synjardy XR) 2 tabs PO QAM fluticasone propionate 50 mcg/actuation 1 spray intranasal BID [Freestyle ernie 3 plus sensor As directed] glimepiride 2 mg PO DAILY glucagon HCl (Glucagon (HCl) Emergency Kit) 1 mg subcut Q20M PRN insulin glargine (Lantus Solostar U-100 Insulin) 45 units (0.45 mL) subcut QPM 3 months insulin lispro (Humalog KwikPen (U-100) Insulin) 5 units (0.05 mL) subcut TID lancets (Accu-Chek Fastclix Lancet Drum) As directed lisinopril 10 mg PO DAILY naproxen 500 mg PO BID PRN pantoprazole 40 mg PO DAILY pen needle, diabetic As directed QID propranolol ER 60 mg PO BEDTIME sildenafil (Viagra) 25 mg PO DAILY PRN ziprasidone HCl mg PO HPI Comments Details: Patient is a 34-year-old male with GARY/MDD, HLD, DM c/b vasculopathy, HTN, GERD with esophagitis, Fatty liver disease, Migraines, and multilevel spondylosis here today for evaluation of joint pain For the past year he has been noticing worsening joint pain involving the hands, feet, neck and knees Associated with 1hr of AM stiffness Of note has a diagnosis of PsO for thepast 15-16 years - scalp, elbows, eyes, meneses No dactylitis FOR[facility]LY [facility], 1928–1983 Medical History (Updated 06/13/25 @ 11:34 by Anablea Barnhart MD) Psoriatic arthritis Severe sleep apnea Joint swelling Acid reflux Psoriasis Bipolar 1 disorder Depression Anxiety Type 2 diabetes mellitus Hypertension Migraine Surgical History No pertinent past surgical history Family History Mother Hypertension Diabetes Thyroid condition Psychiatric diagnosis Father Diabetes Social History Household Members: Other Housing: Homeless Are you a primary career coordinator to a significant other at home: No Do you presently have visiting nurse or other home services: No 75 years or older and lives alone: No Alcohol intake: never Patient Tobacco Use Status: Never used Tobacco e-Cigarette/Vaping Use: Never Used service: No Current occupational status: unemployed Current occupational exposures/hazards: No Sexual orientation: Unable to collect Gender identity: Unable to collect Cognitive needs: No Hearing needs: No Vision needs: No Review of Systems Const Details: Review of Systems Constitutional: Denies fever, chills, weight loss ENT: Denies vision changes, eye pain or eye redness, dental caries, dry mouth GI: Denies nausea, vomiting, diarrhea, abdominal pain, change in BM Pulm: Denies SOB, LUBIN, hemoptysis, wheezing Cards: Denies chest pain, palpitations Skin: Denies Raynaud's, photosensitivity TECHNICAL TRAINING INSTRUCTOR: Denies headaches, weakness, paresthesias, recurrent falls MSK: as per HPI All other systems reviewed and are unremarkable except noted above Physical Exam Exam Exam: Vital signs reviewed Physical Examination CONSTITUITIONAL Patient alert and cooperative. Well appearing and in no apparent painful distress MSK Hands Right Hand: Able to make a fist. No swelling or tenderness to palpation of the MCPs, PIPs or DIPs. No deformities noted. Left Hand: Able to make a fist. No swelling or tenderness to palpation of the MCPs, PIPs or DIPs. No deformities noted. Wrists Right Wrist: Full ROM to flexion and extension. No swelling or TTP Left Wrist: Full ROM to flexion and extension. No swelling or TTP Elbows Right Elbow: Full ROM. No swelling or TTP. No TTP of the medial epicondyle. No TTP of the lateral epicondyle Left Elbow: Full ROM. No swelling or TTP. No TTP of the medial epicondyle. No TTP of the lateral epicondyle Shoulders Right shoulder: Full ROM. No swelling noted. No TTP of the AC joint. No TTP of the subacromial bursa. No TTP of the posterior shoulder Left shoulder: Full ROM. No swelling noted. No TTP of the AC joint. No TTP of the subacromial bursa. No TTP of the posterior shoulder Knees Right knee: Full ROM. No swelling noted. No TTP of the knee joint line. No TTP of pes anserine bursa Left knee: Full ROM. No swelling noted. No TTP of the knee joint line. No TTP of pes anserine bursa. Ankles Right ankle: Good ankle dorsiflexion and plantar flexion. No swelling. No TTP of the ankle joint Left ankle: Good ankle dorsiflexion and plantar flexion. No swelling. No TTP of the ankle joint Feet Right foot: Negative squeeze test Left foot: Negative squeeze test Tender points? No tenderness to palpation of the bilateral trapezius, supraspinatus, anterior costochondral junctions, bilateral suboccipital muscle insertions SKIN PsO: scalp, posterior ear Nail pitting to finger nails Onycholysis to toes Vital Signs: Last Vital Signs Pulse 75 06/13/25 11:03 BP 122/80 06/13/25 11:03 Pulse Ox 98 06/13/25 11:03 Oxygen Delivery Method Room Air 06/13/25 11:03 BMI result Body Mass Index 36.3 Results Reviewed Results Reviewed: Laboratory Tests 12/22/24 06/07/25 06/11/25 12:46 11:36 17:53 WBC 7.2 RBC 5.36 Hgb 15.6 Hct 44.7 Plt Count 292 D ESR 14 Sodium 139 Potassium 3.8 Chloride 102 Carbon Dioxide 27 BUN 9 Creatinine 1.06 AST 63 H 70 H ALT 106 H 108 H C-Reactive Protein 0.40 Laboratory Tests 12/22/24 06/07/25 12:46 11:36 Rheumatoid Factor < 13.0 JIN Screen NEGATIVE Assessment & Plan Assessment & Plan (1) Psoriatic arthritis: Code(s): L40.50 - Arthropathic psoriasis, unspecified Category: Medical Plan: #PsA Patient is a 34 y.o. male with PsO now presenting with joint pain. No active synovitis on the exam but he has the prototypic signs of PsA: nail pitting, onycholysis He also has significant PsO. We will start methotrexate. Aware of patient's elevated transaminases due to fatty liver. Will monitor LFTs closely I believe that the methotrexate will not be sufficient and he will need biologics Plan - Start Methotrexate 15mg weekly, folic acid 1mg daily - Labs today: HLA B27, CRP, ESR, CCP - RTC 3 months - Labs before visit: CBC, CMP, ESR, CRP (2) Encounter for monitoring of methotrexate therapy: Code(s): Z51.81 - Encounter for therapeutic drug level monitoring; Z79.631 - FPC (current) use of antimetabolite agent Plan: #Long-term Current Use of Methotrexate Discussed with patient the benefits and risks of methotrexate for managing their rheumatic condition Benefits include reduced pain, reduced mortality, maintenance of remission and reduction of flares Risks include oral ulcers, photosensitivity, hepatotoxicity, hematologic toxicity, pneumonitis, flu-like symptoms (especially day after administration), nodulosis, lymphomas ? Limit alcohol and avoid Bactrim ? Monitoring: CBC, BMP, LFTs every 3-4 months and hepatitis serologies as needed ? Methotrexate is teratogenic. 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 (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) use of unspecified immunomodulators and immunosuppressants Cyclic Citrullinated Peptide Today L40.50 - Arthropathic psoriasis, unspecified Medications: New folic acid 1 mg PO DAILY 90 tabs 0RF L40.50 - Arthropathic psoriasis, unspecified methotrexate sodium 15 mg (6 x 2.5 mg) PO QWEEK 78 tabs 0RF 90 days L40.50 - Arthropathic psoriasis, unspecified, Z51.81 - Encounter for therapeutic drug level monitoring, Z79.631 - dedicated intermodal truck driver (current) use of antimetabolite agent Discontinued naproxen Discontinued Reason: Doctor's Order 500 mg PO BID PRN 180 tabs 2RF pain Coding Level of Care Code New Pt Level 4 (66091) Complex EM visit Add On G2211 Diagnoses Psoriatic arthritis L40.50 Encounter for monitoring of methotrexate therapy Z51.81; Z79.631
[2025-06-13 11:03] VITALS: BP 122/80; PULSE 75; O2SAT 98; BMI 36.3
--- OUTSIDE RECORDS SUMMARY | 2025-06-13 11:30 | XMS_ITS | Encounter Summary ---
Author Organization [facility] Address [address] [place] [address] Care Team Providers Care Soil Field Technician Name Role Phone Lidia Suazo MD Primary Care Provider Un available Encounter Details Date Type Department Care Team Description 11/02/2018 Orders Only Adult Medicine [address] [address] Sal Horowitz NP Hypertension, unspecified type (Primary Dx) Social History Tobacco Use Types Packs/Day Years Used Date Smoking Tobacco: Never Smokeless Tobacco: Never Alcohol Use Standard Drinks/Week Comments Yes 0 (1 standard drink = 0.6 oz pur e alcohol) occ Sex Assigned at Date Recorded Not on file documented as of this encounter Plan of Treatment Not on file documented as of this encounter Visit Diagnoses Diagnosis Hypertension, unspecified type- Primary documented in this encounter Care Teams Soil Field Technician Relationship Specialty Start Date End Date Lidia Suazo MD PCP - General Internal Medicine 11/01/18 documented as of this encounter
--- OUTSIDE RECORDS SUMMARY | 2025-06-13 11:30 | XMS_ITS | Clinical Summary ---
Author Organization [facility] Address [address] [place] [address] Care Team Providers Care Cork Pressing Machine Operator Name Role Phone Lidia Suazo MD Primary Care Provider Un available Allergies Active Allergy Reactions Severity Noted Date Comments Penicillins Rash/Dermatitis 01/21/2019 Medications Medication Sig Dispensed Refills Start Date End Date Status Ibuprofen 200 MG Cap Take by mouth. 0 Active lisinopril (PRINIVIL,ZESTRIL) 20 MG tablet Take 1 Tab by mouth daily for 180 days. 30 Tab 5 11/02/2018 Active AMOXICILLIN OR Take by mouth. 0 Active sumatriptan (IMITREX) 50 MG tablet Take half a tab at onset of Headache. May repeat in 30 minutes if not effective. 9 Tab 0 12/21/2018 Active omeprazole (PRILOSEC) 40 MG capsuleIndications:Obs tructive sleep apnea,Gastroesophageal reflux disease, esophagitis presence not specified,Morbid obesity (HCC) Take 1 Cap by mouth daily for 30 days. 30 Cap 2 12/28/2018 Active Active Problems Problem Noted Date GERD (gastroesophageal reflux disease) 0 12/28/2018 Morbid obesity with BMI of 40.0-44.9, ad ult 12/28/2018 Obstructive sleep apnea severe AHI 73 wi th noctural hypoxia 11/26/2018 Overview: [facility] Home Polysomnogram: Date 11/24/2018; Wt 272#; AHI 73, Unclassified apneas 0; Obstructive apneas 276; Central apneas 34; Mixed apneas 69; hypopneas 103; average oxygen saturation 81% (lowest 45% with saturations <88% for 5% or more of study) [facility] [place] study. Date 01/07/2019. SE 87 % SM 88 %; spent 43 % of the study in REM. On CPAP @ 14; RDI 3.8 (AHI 3.3), Central apneas 0; Obstructive apneas 0; Mixed apneas 0; hypopneas 6; RERAs 1; and, average oxygen saturation was 95%. For the entire study, PLMs ~5. - Obstructive Sleep Apnea - severe; mostly obstructive apneas and hypopneas; with sleep related hypoventilation by 2018 home polysomnogram. - 01/07/2019 Pre-study ESS 15. 2/4 RLS symptoms. - CPAP @ 14 corrective. Subclinical hypothyroidism 11/09/2018 Hypertension Migraine Bipolar disorder, unspecified Immunizations Name Administration Dates Next Due Hepatitis-A (>19YRS) 10/02/2010 Influenza Vaccine-preservati ve Free-quadrivalent 4 Years 11/02/2018 TD (STATE SUPPLIED FOR ADULTS AND CHILDREN) 12/17 Tdap 11/02/2018 Family History Medical History Relation Name Comments Hypertension Brother 1 Thyroid Disorde r No Known Problems Brother 2 Diabetes Father Depression, Sig nificant Mental Illness ID Maternal Grandmother CVA Depression Mother Bi Polar, Hypertension,COPD,Nephrolithiasis,Panic Attacks Hypertension Sister 1 Thyroid Disorde r, Migraines Depression/Anxiety Sister 2 No Known Problems Sister 3 Relation Name Status Comments Brother 1 Alive Brother 2 Alive Father Alive Maternal Grandmother Mother Alive Sister 1 Alive Sister 2 Alive Sister 3 Alive Social History Tobacco Use Types Packs/Day Years Used Date Smoking Tobacco: Never Smokeless Tobacco: Never Tobacco Cessation:Counseling Given: No Alcohol Use Standard Drinks/Week Comments Yes 0 (1 standard drink = 0.6 oz pur e alcohol) occ Sex Assigned at Date Recorded Not on file Last Filed Vital Signs Vital Sign Reading Time Taken Comments Blood Pressure 132/78 12/28/2018 9:39 AM EDT Pulse 87 12/28/2018 9:39 AM EDT Temperature 36.9 C (98.5 F) 12/21/2018 1:35 PM EST Respiratory Rate 12 12/28/2018 9:39 AM EDT Oxygen Saturation 98% 12/28/2018 9:39 AM EDT Inhaled Oxygen Concentration - - Weight 123.4 kg (272 lb) 01/07/2019 8:08 PM EDT Height 172.7 cm (5' 8 ) 01/07/2019 8:08 PM EDT Body Mass Index 41.36 01/07/2019 8:08 PM EDT Plan of Treatment Health Maintenance Due Date Last Done Comments Covid-19 Vaccine (#1) 1988 CHOLESTEROL SCREENING 11/02/2023 11/02/2018 BASELINE HEALTH EXAM 18-39 11/10/2023 11/10/2018 BMI CHECK/ADVISE 10/19/2024 12/28/2018, 02/2019, 11/10/2018, Additional history exists INFLUENZA (#1) 2025 11/02/2018 DTAP/TDAP/TD (2 - Td or Tdap) 11/02/2028 11/02/2018, 12/26/2008 PNEUMOCOCCAL VACCINE FOR HIG H RISK PATIENTS (#1) 2053 Care Teams Cork Pressing Machine Operator Relationship Specialty Start Date End Date Lidia Suazo MD PCP - General Internal Medicine 11/01/18
--- OUTSIDE RECORDS SUMMARY | 2025-06-13 11:30 | XMS_ITS | Encounter Summary ---
Author Organization [facility] Address [address] [place] [address] Care Team Providers Care Garbage Man Name Role Phone Lidia Suazo MD Primary Care Provider Un available Reason for Visit * Reason Onset Date Comments Letter 11/03/2018 Encounter Details Date Type Department Care Team Description 11/03/2018 Telephone Adult Medicine [address] [address] Lidia Suazo MD Letter Social History Tobacco Use Types Packs/Day Years Used Date Smoking Tobacco: Never Smokeless Tobacco: Never Alcohol Use Standard Drinks/Week Comments Yes 0 (1 standard drink = 0.6 oz pur e alcohol) occ Sex Assigned at Date Recorded Not on file documented as of this encounter Miscellaneous Notes * Telephone Encounter - Sunita Martins M.A. - 11/04/2018 1:15 PM EST Left detail message letter is ready to brick picker and placed in ppu * Telephone Encounter - Sal Horowitz NP - 11/04/2018 12:12 PM EST Printed and signed * Telephone Encounter - Ani Logan M.A. - 11/04/2018 10:55 AM EST Letter written and waiting in the chart letters tab for your approvel and printing. * Telephone Encounter - Renee Hester - 11/03/2018 4:09 PM EST Work note is for: Out of Work Note Has patient been seen for the reason they were absent from work? Yes 11/02/18 LOIC For what medical reason was/is patient out of work?: CHECK UP If Yes, by whom?: Date patient seen: 11/02/18 What dates does the patient need the note to cover: Beginning date: 11/02/18 End Date: 11/03/18 If note for return to work, what is return date: 11/03/18 If note is to return to work, are there restrictions? Yes If yes, list: Patient would like note to be: Placed in patient brick picker documented in this encounter Plan of Treatment Not on file documented as of this encounter Visit Diagnoses Not on filedocumented in this encounter Care Teams Garbage Man Relationship Specialty Start Date End Date Lidia Suazo MD PCP - General Internal Medicine 11/01/18 documented as of this encounter
--- OUTSIDE RECORDS SUMMARY | 2025-06-13 11:30 | XMS_ITS | Clinical Summary ---
Author Organization [facility] Address [address] [place] [phone] Phone Care Team Providers Care Technician Telecommunication Systems Name Role Phone Unavailable Primary Care Provider [...] of 2 - 13+ 2-dose series) 06/21/2002 HPV Vaccines (1 - 3-dose SCDM series) 2015 COVID-19 Vaccine ( - 2023- season) 2024 Influenza Vaccines (#1) 2025 HIB Vaccines Completed 09/03/1990 IPV Vaccines Completed 07/04/1994, 08/19, 01/25/1990, Additional history exists Hepatitis B Vaccines Completed 05/20/2000, 01/20/2000, 12/17/1999 MMR Vaccines Completed 05/24/2002, 11/23/1989 Hepatitis A Vaccines Aged Out No long [...]
--- OUTSIDE RECORDS SUMMARY | 2025-06-13 11:30 | XMS_ITS | Encounter Summary ---
Author Organization [facility] Address [address] [place] [address] Care Team Providers Care Engraver Wood Name Role Phone Lidia Suazo MD Primary Care Provider Un available Encounter Details Date Type Department Care Team Description 08/26/2019 Release of Information Medical Records [address] [place] [id number] Abstract, Provider Social History Tobacco Use Types Packs/Day Years [...] on filedocumented in this encounter Care Teams Engraver Wood Relationship Specialty Start Date End Date Lidia Suazo MD PCP - General Internal Medicine 11/01/18 documented as of this encounter
--- OUTSIDE RECORDS SUMMARY | 2025-06-13 11:30 | XMS_ITS | Encounter Summary ---
Author Organization [facility] Address [address] [place] [address] Care Team Providers Care Medical Practice Manager Name Role Phone Lidia Suazo MD Primary Care Provider Un available Reason for Referral * Non KALEB (Routine) - Authorized/Booked Specialty Diagnoses / Procedures Referred By Krista barker Referred To Contact Pulmonology Procedures REFERRAL TO PULMONOLOGY Sal Horowitz NP [address] [place] [address] Pulmo/[place] [address] [address] Referral ID Status Reason Start Date Expiration Date V isits Requested Visits Authorized [id number] Authorized/B ooked 11/28/2018 11/28/2019 1 1 Encounter Details Date Type Department Care Team Description 11/26/2018 Orders Only Medical Records [address] [place] [address] Sal Horowitz NP MATEUSZ (obstructive sleep apnea) (Primary Dx) Social History Tobacco Use Types Packs/Day Years Used Date Smoking Tobacco: Never Smokeless Tobacco: Never Alcohol Use Standard Drinks/Week Comments Yes 0 (1 standard drink = 0.6 oz pur e alcohol) occ Sex Assigned at Date Recorded Not on file documented as of this encounter Plan of Treatment Not on file documented as of this encounter Procedures Procedure Name Priority Date/Time Associated Diagnosis Comments OUTSIDE SLEEP STUDY Routine 11/24/2018 documented in this encounter Results * OUTSIDE SLEEP STUDY (11/24/2018) Loic Assobmo WAREHOUSE INSULATION WORKER PULMONOLOGY documented in this encounter Visit Diagnoses Diagnosis MATEUSZ (obstructive sleep apnea)- Primary Obstructive sleep apnea (adult) (pediatric) documented in this encounter Care Teams Medical Practice Manager Relationship Specialty Start Date End Date Lidia Suazo MD PCP - General Internal Medicine 11/01/18 documented as of this encounter
--- OUTSIDE RECORDS SUMMARY | 2025-06-13 11:30 | XMS_ITS | Encounter Summary ---
Author Organization [facility] Address [address] [place] [phone] Phone Care Team Providers Care Costumed Character Name Role Phone Unavailable Primary Care Provider Unavailabl e Encounter Details Date Type Department Care Team (Late st Contact Info) Description 06/04/2017 Conversion Encounter [facility] - [address] [address] Social History Tobacco Use Types Packs/Day Years [...]
== END 2025-06-13 11:47 | disposition home or self-care (01) ==
LOC: HO.RHES 10:39
PROVIDERS: PCP Nurse Practitioner Family; Visit Provider Student in an Organized Health Care Education/Training Program
DX: L40.50 Arthropathic psoriasis, unspecified (principal); Z51.81 Encounter for therapeutic drug level monitoring; Z79.631 Long term (current) use of antimetabolite agent
CPT/HCPCS: 99204

== ENCOUNTER 2025-08-18 22:52 | Emergency (ER) | payer OTHER, SELFPAY ==
--- NOTE | 2025-08-18 | ECG_ITS ---
Test Reason : CP Blood Pressure : */* mmHG Vent. Rate : 81 BPM Atrial Rate : 81 BPM P-R Int : 126 ms QRS Dur : 90 ms QT Int : 372 ms P-R-T Axes : 40 31 6 degrees QTcB Int : 432 ms Normal sinus rhythm Normal ECG When compared with ECG of 11-Jun-2025 17:34, T wave inversion less evident in Inferior leads Referred By: Generic ED Physician Electronically Signed By: MAXIME YORK
--- NOTE | ~2025-08-18 | XR_ITS ---
CLINICAL HISTORY: pain 1 view chest x-ray Comparison: Chest x-ray from 06/11/2025 Findings: Low lung volumes with mild bibasilar atelectasis/pneumonitis. Imaged mediastinum and imaged osseous structures appear unchanged. No definite pneumothorax or pleural effusion in this portable image with obscuration of the lung bases. IMPRESSION: Low lung volumes with mild bibasilar atelectasis. This document has been electronically signed by: Thong Mejía MD on 08/19/2025 01:28:45
[2025-08-18 22:59] VITALS: BP 195/93; PULSE 83; RESP 16; TEMP 37; O2SAT 98; BMI 34.4
[2025-08-18 23:33] LABS: MANUAL DIFF FLAG NO
[2025-08-18 23:34] LABS: Hematocrit 42.0 % (42.0-52.0); Hemoglobin 14.2 g/dl (14.0-18.0); Imm Gran Abs Auto 0.02 X10*3/uL (0.00-0.03); Imm Gran Pct Auto 0.3 % (0.0-0.4); Lymphocytes Absolute Auto 2.2 X10*3/uL (1.2-4.9); Mean Corpuscular HGB Conc 33.8 g/dl (31.0-36.0); Mean Corpuscular Hemoglobin 29.0 pg (27.0-33.0); Mean Corpuscular Volume 85.9 fL (80.0-98.0); NRBC Abs Auto 0.000 X10*3/uL (0.0-0.012); NRBC Pct Auto 0.0 /100WBC (0.0-0.2); Platelet Count 202 X10*3/uL (160-400); Red Blood Count 4.89 X10*6/uL (4.60-5.80); White Blood Count 6.2 X10*3/uL (4.8-10.8)
[2025-08-18 23:49] LABS: Alanine Aminotransferase 45 U/L (0-40); Albumin Level 4.1 g/dL (3.5-5.0); Alkaline Phosphatase 97 U/L (39-117); Anion Gap 12 (12-20); Aspartate Amino Transferase 29 U/L (5-37); Blood Urea Nitrogen 12 mg/dL (9-16); Calcium 8.6 mg/dL (8.4-10.2); Carbon Dioxide 26 mmol/L (22-29); Chloride 103 mmol/L (96-108); Creatinine Clr Calc Pharmacy 127.4; Estimated Glomerular Filt Rate > 60; Potassium 3.8 mmol/L (3.3-5.1); Sodium 137 mmol/L (135-145); Total Protein 7.1 g/dL (6.5-8.0)
[2025-08-18 23:56] LABS: COVID-19 Test Negative (Negative); IDNOW Serial# 58CA691E
[2025-08-18 23:56] LABS: IDNOW Serial# 55D5AD1C; Influenza B2 Negative (Negative)
[2025-08-18 23:58] LABS: Troponin-I High Sensitivity < 2.7 ng/L (<3.5-35.0)
[2025-08-19 00:40] LABS: NT Pro B Type Natriuretic Pept 47.8 pg/mL (<300)
[2025-08-19 00:57] VITALS: BP 143/91; PULSE 72; PULSE 77; RESP 16; TEMP 36.7; O2SAT 98
--- NOTE | 2025-08-19 01:13 | ED_ITS ---
HPI - Chest Pain General Chief Complaint: Chest Pain Stated Complaint: chest pain/trouble breathing for the past week Time Seen by Provider: 08/19/25 00:06 Source: patient Mode of arrival: ambulatory Limitations: no limitations History of Present Illness ED Provider: Dr. Bonnie Montoya HPI narrative: Patient comes to the emergency room complaining of shortness of breath, chest heaviness. Patient reports history of diabetes and hypertension, takes 10 mg of lisinopril. Denies history of asthma. 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 ea 12/16/23 (FreeStyle Ernie 3 [place]) blood sugar diagnostic (FreeStyle #100 ea 12/31/23 Lite Strips) fluticasone propionate 50 1 spray intranasal BID #16 g irena 08/08/24 mcg/actuation nasal spray,suspension duloxetine 20 mg capsule,delayed 60 mg (3 x 20 mg) PO DAILY 90 days 10/24/24 release #270 caps pantoprazole 40 mg tablet,delayed 40 mg PO DAILY #90 t abs 12/22/24 release baclofen 20 mg tablet 20 mg PO BID 30 days #60 tab s 01/11/25 blood-glucose sensor (FreeStyle #2 ea 01/23/25 Ernie 3 Sensor device) Freestyle ernie 3 plus sensor #2 ea 05/16/25 lisinopril 10 mg tablet 10 mg PO DAILY #90 tabs 08/0 11/12 propranolol 60 mg capsule,24 60 mg PO BEDTIME #90 caps 05/19/25 hr,extended release atorvastatin 40 mg tablet 40 mg PO BEDTIME #90 tabs empagliflozin 5 mg-metformin ER 2 tab PO QAM #180 tabs 06/07/25 1,000 mg tablet,extended release 24 hr (Synjardy XR) glimepiride 2 mg tablet 2 mg PO DAILY #90 tabs 06/07 glucagon HCl 1 mg solution for 1 mg subcut Q20M PRN hy poglycemia 06/07/25 injection (Glucagon (HCl) #1 ea Emergency Kit) insulin glargine 100 unit/mL (3 45 unit (0.45 mL) subc ut QPM 3 06/07/25 mL) subcutaneous pen (Lantus months #45 mL Solostar U-100 Insulin) insulin lispro 100 unit/mL 5 unit (0.05 mL) subcut TID #15 mL 06/07/25 subcutaneous pen (Humalog KwikPen (U-100) Insulin) pen needle, diabetic 32 gauge x #400 ea 06/07/25 sildenafil 25 mg tablet (Viagra) 25 mg PO DAILY PRN se xual activity 06/07/25 #90 tabs folic acid 1 mg tablet 1 mg PO DAILY #90 tabs 06/13 methotrexate sodium 2.5 mg tablet 15 mg (6 x 2.5 mg) P O QWEEK 90 06/13/25 days #78 tabs lisinopril 20 mg tablet 20 mg PO DAILY #30 tabs 11/0 11/12 Allergies Allergy/AdvReac Type Severity Reaction Status Date / Time No Known Allergies Allergy Verified 08/18/25 22:59 Review of Systems 2 Review of Systems: Constitutional : No Weight loss, No Fever, No Chills, No Night Sweats, No Fatigue, No Malaise ENT/Mouth : No Hearing loss, No Ear Pain, No Nasal Congestion, No Sinus Pain, No Hoarseness, No sore throat, No Rhinorrhea, No Swallowing Difficulty Eyes: No Eye Pain, No Swelling, No Redness, No Foreign Body, No Discharge, No Vision Changes Cardiovascular : No Chest Pain, patient complaining of intermittent shortness of breath/chest pressure. No shortness of breath at this time or chest pressure Respiratory : No Cough, No Sputum, No Wheezing, No Smoke Exposure, No Dyspnea Gastrointestinal : No Nausea, No Vomiting, No Diarrhea, No Constipation, No abdominal Pain, No Hematochezia, No Melena Genitourinary : no irregular bleeding, No Dysuria, No Urinary Frequency, No Hematuria, No Urinary Incontinence, No Urgency, No Flank Pain, No Urinary Flow Changes, No Hesitancy Musculoskeletal : No joint pain, No Myalgias, No Joint Swelling Skin : No Skin Lesions, No rash Neuro : No Weakness, No Numbness, No Paresthesias, No Loss of Consciousness, No Dizziness, No Headache Psych : No Anxiety/Panic, No Depression, No SI/HI/AH/VH, No Social Issues, Heme/Lymph: No Bruising, No Bleeding,No Lymphadenopathy Endocrine : No Polyuria, No Polydipsia, No Temperature Intolerance [facility] Past Medical History Medical History (Updated 08/19/25 @ 01:29 by Bonnie Montoya MD) Psoriatic arthritis Severe sleep apnea Joint swelling Acid reflux Psoriasis Bipolar 1 disorder Depression Anxiety Type 2 diabetes mellitus Hypertension Migraine Surgical History No pertinent past surgical history Family History Family History Mother Hypertension Diabetes Thyroid condition Psychiatric diagnosis Father Diabetes Social History Social History Household Members: Other Housing: Homeless Are you a primary resident care director to a significant other at home: No Do you presently have visiting nurse or other home services: No Alcohol intake: never Patient Tobacco Use Status: Never used Tobacco Smoked in Last 30 Days: No e-Cigarette/Vaping Use: Never Used Use of substances other than those prescribed or required for medical reasons: No Advance Directives: No Advance Directives Information Provided: Yes service: No Current occupational status: unemployed Current occupational exposures/hazards: No Sexual orientation: Unable to collect Gender identity: Unable to collect Cognitive needs: No Hearing needs: No Vision needs: No Physical Exam 2 Exam: Exam: Appearance: Alert. Oriented X3. No acute distress. Eyes: Pupils equal, round and reactive to light. ENT: Pharynx normal. Neck: Normal inspection. Neck supple. No lymph nodes noted. No crepitus CVS: Normal heart rate and rhythm. Pulses normal. Normal S1 and S2 Respiratory: No respiratory distress. Breath sounds normal. No Wheezing. No rales Abdomen: Soft and nontender. No rigidity. No distention. Skin: Skin warm and dry. Normal skin color. Normal skin turgor. Extremities: No lower extremity edema. No Lacerations. No Rash Neuro: Oriented X 3. No motor deficit. No sensory deficit. Moving all extremities. No slurred speech. CN 2 through 12 grossly intact Psych: calm, cooperative, normal affect Vital Signs: Vital Signs: Last Vital Signs Temp 98.1 F 08/19/25 00:57 Pulse 72 08/19/25 00:57 Resp 16 08/19/25 00:57 BP 143/91 H 08/19/25 00:57 Pulse Ox 98 08/19/25 00:57 O2 Del Method Room Air 08/19/25 00:57 BMI result Body Mass Index 34.4 Medical Decision Making Medical Decision Making [facility] Narrative: My interpretation of EKG: Normal sinus rhythm, heart rate 81, no ST segment depression or elevation, nonspecific T-wave inversion in lead 3, QTC 432 My interpretation of labs: No significant abnormality in patient's hematology or chemistry, negative troponin, negative pro BNP Serology negative for influenza COVID Patient came in with a blood pressure in the 190s. Without any intervention, patient's blood pressure dropped to the 150s systolic. Patient states that he takes 10 mg of lisinopril every day. Patient states that every time that he takes his blood pressure home, his usually in the 150s. Patient's was PE criteria score is 0 I discussed with the patient to increase his lisinopril to 20 mg and have close follow-up with his primary care physician. Patient agrees with plan. Chest x-rays did not show any acute abnormalities, bilateral atelectasis It is likely that patient has shortness of breath and chest pressure sensation when his blood pressure is elevated. Patient agrees as above-mentioned to increase his lisinopril to 20 mg. Differential Diagnosis Differential Diagnoses: The differential diagnosis associated with the presentation includes (Hypertensive urgency, chronic hypertension, viral URI, pulmonary edema/CHF) Admission/Observation Consideration of admission/observation: Escalation of care including admission/observation considered (Given patient's vitals and symptoms, observation was considered) Lab Data [facility] Lab Attestation statement: I reviewed the patient's lab results. 08/18/25 23:27 08/18/25 23:27 Labs: Lab Results 08/18/25 08/18/25 Range/Units 23:26 23:27 WBC 6.2 (4.8-10.8) X10*3/uL RBC 4.89 (4.60-5.80) X10*6/uL Hgb 14.2 (14.0-18.0) g/dl Hct 42.0 (42.0-52.0) % MCV 85.9 (80.0-98.0) fL MCH 29.0 (27.0-33.0) pg MCHC 33.8 (31.0-36.0) g/dl RDW 12.7 (11.0-16.0) % Plt Count 202 D (160-400) X10*3/uL MPV 11.9 (9.4-12.4) fL Immature Gran % (Auto) 0.3 (0.0-0.4) % Neut % (Auto) 54.8 (45-73) % Lymph % (Auto) 35.1 (20-40) % [place] % (Auto) 8.1 (2-11) % Eos % (Auto) 1.1 (0-4) % Baso % (Auto) 0.6 (0-2) % Lymph # (Auto) 2.2 (1.2-4.9) X10*3/uL [place] # (Auto) 0.5 (0.1-1.2) X10*3/uL Eos # (Auto) 0.1 (0.0-0.4) X10*3/uL Baso # (Auto) 0.0 (0.0-0.2) X10*3/uL Abs Immat Gran (auto) 0.02 (0.00-0.03) X10*3/uL Absolute Neuts (auto) 3.4 (2.0-8.3) x10*3/uL Absolute Nucleated RBC 0.000 (0.0-0.012) X10*3/uL Nucleated RBC % (auto) 0.0 (0.0-0.2) /100WBC Sodium 137 (135-145) mmol/L Potassium 3.8 (3.3-5.1) mmol/L Chloride 103 (96-108) mmol/L Carbon Dioxide 26 (22-29) mmol/L Anion Gap 12 (12-20) BUN 12 (9-16) mg/dL Creatinine 0.95 (0.5-1.4) mg/dL Estim Creat Clear Calc 127.4 Estimated GFR > 60 Random Glucose 279 H (60-115) mg/dL Calcium 8.6 D (8.4-10.2) mg/dL Total Bilirubin 0.2 (0.0-1.0) mg/dL AST 29 (5-37) U/L ALT 45 H (0-40) U/L Alkaline Phosphatase 97 (39-117) U/L Troponin I High Sens < 2.7 (<3.5-35.0) ng/L NT-Pro-B Natriuret Pep 47.8 (<300) pg/mL Total Protein 7.1 (6.5-8.0) g/dL Albumin 4.1 (3.5-5.0) g/dL COVID-19 (ALEXIS) Negative (Negative) COVID-19 Clin Com See Note Influenza Type A (ED) Negative (Negative) Influenza Type B (ED) Negative (Negative) Influenza A & B Note See Note Independent Interpretation I performed an independent interpretation of an: Plain X-Ray Radiology Impression Discussion of test interpretation with radiology: I have reviewed the radiologist's reading. Radiologist Impression: Low lung volumes with mild bibasilar atelectasis/pneumonitis. Imaged mediastinum and imaged osseous structures appear unchanged. No definite pneumothorax or pleural effusion in this portable image with obscuration of the lung bases. IMPRESSION: Low lung volumes with mild bibasilar atelectasis. Critical Care Time Critical Care Time Critical Care Time: Yes Total Critical Care Time: 40 Attestation: I have personally provided critical care time. Time includes review of lab data, radiology results, discussion with consultants, and monitoring for potential decompensation. Intervention performed as documented. Discharge Plan Discharge Clinical Impression: Hypertension, Acute dyspnea Patient Disposition: Home, Self-Care Instructions: Chronic Hypertension (ED) Additional Instructions: Please follow-up with your primary care physician tomorrow. If you have any worsening or new symptoms, please return to the emergency room or call 911 Prescriptions: New lisinopril 20 mg tablet 20 mg PO DAILY Qty: 30 0RF No Action duloxetine 20 mg capsule,delayed release(DR/EC) 60 mg PO DAILY 90 Days Qty: 270 1RF (DME) FreeStyle Ernie 3 Sensor Device See Rx Instructions .MEDSUPPLY Qty: 2 11RF Rx Instructions: As directed (DME) Freestyle ernie 3 plus sensor See Rx Instructions .Route .MEDSUPPLY Qty: 2 11RF Rx Instructions: As directed lisinopril 10 mg tablet 10 mg PO DAILY Qty: 90 0RF propranolol 60 mg capsule,extended release 24 hr 60 mg PO BEDTIME Qty: 90 1RF Rx Instructions: for migraine prevention, to help sleep and anxiety TAKE DAILY (DME) blood-glucose meter [Accu-Chek Guide Glucose Meter] Misc See Rx Instructions .Route Qty: 1 0RF Rx Instructions: As directed (DME) lancets [Accu-Chek Fastclix Lancet Drum] Misc See Rx Instructions .Route Qty: 100 0RF Rx Instructions: As directed (DME) FreeStyle Lite Strips Strip See Rx Instructions .Route Qty: 100 11RF Rx Instructions: test 4 times a day (DME) FreeStyle Ernie 3 [place] Misc See Rx Instructions .MEDSUPPLY Qty: 1 0RF Rx Instructions: As directed fluticasone propionate 50 mcg/actuation spray,suspension 1 spray intranasal BID Qty: 16 11RF Rx Instructions: administer into each nostril pantoprazole 40 mg tablet,delayed release (DR/EC) 40 mg PO DAILY Qty: 90 0RF ziprasidone HCl 20 mg capsule PO baclofen 20 mg tablet 20 mg PO BID 30 Days Qty: 60 8RF insulin lispro [Humalog KwikPen Insulin] 100 unit/mL insulin pen 5 unit subcut TID Qty: 15 12RF glucagon HCl [Glucagon (HCl) Emergency Kit] 1 mg recon soln 1 mg subcut Q20M PRN (Reason: hypoglycemia) Qty: 1 0RF Rx Instructions: until target blood sugar attained atorvastatin 40 mg tablet 40 mg PO BEDTIME Qty: 90 2RF Synjardy XR 5-1,000 mg tablet, IR - ER, biphasic 24hr 2 tab PO QAM Qty: 180 1RF glimepiride 2 mg tablet 2 mg PO DAILY Qty: 90 2RF insulin glargine [Lantus Solostar U-100 Insulin] 100 unit/mL (3 mL) insulin pen 45 unit subcut QPM 90 Days Qty: 45 1RF (DME) pen needle, diabetic 32 gauge x 5/32 needle See Rx Instructions .Route Qty: 400 2RF Rx Instructions: As directed QID sildenafil [Viagra] 25 mg tablet 25 mg PO DAILY PRN (Reason: sexual activity) Qty: 90 0RF Rx Instructions: administer 30 minutes to 4 hours before activity methotrexate sodium 2.5 mg tablet 15 mg PO QWEEK 90 Days Qty: 78 0RF folic acid 1 mg tablet 1 mg PO DAILY Qty: 90 0RF Print Language: Tristanian
[2025-08-19 02:02] VITALS: BP 143/91; PULSE 72; RESP 16; TEMP 36.7; O2SAT 98
== END 2025-08-19 02:03 | disposition home or self-care (01) ==
PROVIDERS: Emergency Provider Emergency Medicine; PCP Nurse Practitioner Family
DX: R06.00 Dyspnea, unspecified (principal); I10 Essential (primary) hypertension; R07.9 Chest pain, unspecified; Z03.818 Encounter for observation for suspected exposure to other biological agents ruled out; E11.9 Type 2 diabetes mellitus without complications
CPT/HCPCS: 71045; 80053; 83880; 84484; 85025; 87502; 87635; 93005; 99283; 99285

== ENCOUNTER → 2025-08-18 22:56 | Outpatient (BNV) | payer OTHER, SELFPAY | PROVIDERS: Emergency Provider Emergency Medicine; PCP Nurse Practitioner Family; Visit Provider Internal Medicine | DX: R07.9 Chest pain, unspecified (principal) | CPT/HCPCS: 93010 ==

== ENCOUNTER → 2025-08-19 00:06 | Outpatient (BNV) | payer OTHER, SELFPAY | PROVIDERS: Emergency Provider Emergency Medicine; PCP Nurse Practitioner Family; Visit Provider Radiology Neuroradiology | DX: J98.11 Atelectasis (principal); J98.4 Other disorders of lung | CPT/HCPCS: 71045 ==

== ENCOUNTER 2025-09-01 10:30 | Outpatient (AMB) | payer OTHER, SELFPAY ==
--- NOTE | 2025-09-01 10:32 | A.OFFPC_ITS ---
Vital Signs 09/01/25 10:37 Height 5 ft 9 in Weight 229 lb 4 oz BMI 33.9 BP 122/70 Blood Pressure Location Lt brachial Position Sitting Respiration 12 Pulse 78 Pulse Source Pulse Oximeter Temp 97.6 F Temp Source Oral Pulse Oximetry (%) 98 Oxygen Delivery Method Room Air Intake Visit Reasons: hmc/stomach issues Intake Note: [facility] ED follow up. 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,cont (FreeStyle Ernie 3 Blythe) As directed duloxetine 60 mg (3 x 20 mg) PO DAILY 90 days empagliflozin-metformin 5-1,000 mg ER (Synjardy XR) 2 tabs PO QAM fluticasone propionate 50 mcg/actuation 1 spray intranasal BID folic acid 1 mg PO DAILY [Freestyle ernie 3 plus sensor As directed] glimepiride 2 mg PO DAILY glucagon HCl (Glucagon (HCl) Emergency Kit) 1 mg subcut Q20M PRN insulin glargine (Lantus Solostar U-100 Insulin) 45 units (0.45 mL) subcut QPM 3 months insulin lispro (Humalog KwikPen (U-100) Insulin) 5 units (0.05 mL) subcut TID lancets (Accu-Chek Fastclix Lancet Drum) As directed lisinopril 20 mg PO DAILY methotrexate sodium 15 mg (6 x 2.5 mg) PO QWEEK 90 days pantoprazole 40 mg PO DAILY pen needle, diabetic As directed QID propranolol ER 60 mg PO BEDTIME sildenafil (Viagra) 25 mg PO DAILY PRN ziprasidone HCl mg PO Tobacco use date assessed: 09/01/25 Dental Screening Dental Screen Date: 09/01/25 Did you have a dental visit in the last 12 months?: Yes Did you have a dental problem in the last 6 months where you did not have access to dental care?: No Was dental information given to patient?: Patient has dentist HPI HPI Comments History of Present Illness Details 35-year-old male with migraines, hyperte nsion, fatty liver, obesity, balanitis, psoriasis, diabetes type 2 uncontrolled, MDD, GARY, bipolar 1 disorder, hyperlipidemia, microalbuminuria, Dupuytren's contractures bilat, MATEUSZ on CPAP, psoriatic arthritis Social: Grandson born 07/2024, 2 sons (20 y/o and 15 y/o) Health Maintenance: DME -DME Exam 02/17/25 no retinopathy bilat, [facility] Tdap 2018 Flu declined Specialists: Derm Neuro Counselor Reinier [facility] Rheum History of Present Illness The patient is a 35-year-old male presenting for a hospital discharge follow-up after an emergency room visit for chest pain. [facility] ED visit 08/19/25, work up reviewed. Med change lisinopril increased from 10mg QD to 20 mg QD Labs stable/wnl, CXR no acute finding Chest Pain and Gastrointestinal Symptoms: - The patient was evaluated at [facility] emergency room on August 19 for chest pain, described as feeling like his heart was going to exit his mouth. - His symptoms began approximately a thu prior while he was in [facility], where he experienced chest pain, significant heartburn, diarrhea, and vomiting, leading to dehydration, weakness, and dizziness. - These symptoms were concurrent with an xiety and panic attacks, which he felt exacerbated his condition. - Due to the severity of his illness, he returned from his trip two months earlier than planned. - At the ER visit, his labs were stable and a chest X-ray showed no acute findings but did note atelectasis. - Currently, he continues to experience chest pain, a sensation of being unable to breathe, and early satiety. - He has a history of gastritis but admi ts to not taking his prescribed pantoprazole since December. Hypertension: - During his ER visit, the patient was n oted to be hypertensive. - His lisinopril dosage was subsequently increased from 10 mg to 20 mg daily. - He reports being compliant with his bl ood pressure and diabetes medications. Psoriatic Arthritis: - The patient has a diagnosis of psoriat ic arthritis and is being treated with methotrexate. - He has a scheduled follow-up with his marketing graphics specialist in September. Past Medical History - Hypertension, treated with lisinopril. - Diabetes mellitus, on unspecified medi cation. - Gastritis, with a previous prescriptio n for pantoprazole. - Psoriatic arthritis, treated with meth otrexate. - Anxiety and panic attacks. - Hospitalization: Emergency room visit at [facility] on August 19 for chest pain. Review of Systems - CONSTITUTIONAL: Reports good appetite since returning home. - CARDIOVASCULAR: Reports ongoing chest pain, described as a stabbing sensation. - RESPIRATORY: Reports feeling like he c annot breathe. - GASTROINTESTINAL: Reports early satiet y, heartburn, and pain in the lower left abdomen. - PSYCHIATRIC: Reports a history of anxi ety and panic attacks that worsened his physical symptoms. Exam: Awake alert oriented , NAD, pleasant and cooperative Mucous membranes moist RRR Lung sounds clear To auscultation, dim throughout Abd soft, bs wnl x 4 quadsl mildly tender without rebound transverse lower abd. mentation within normal limits Psoriatic rash on scalp behind ears on abdomen Dupuytren's contractures of bilat hands No edema BLE, + PP, skin intact, Mood and affect wnl Results - Labs (from ER visit on Aug 19): Stabl e and within normal limits. - Imaging (from ER visit on Aug 19): est x-ray showed no acute findings but did reveal atelectasis. Medical Decision Making The patient is a 35-year-old male presenting for follow-up after an ER visit for chest pain. His hypertension, which was noted at the ER, appears well-controlled on the increased lisinopril dose of 20 mg daily. The patient's constellation of symptoms, including chest pain, dyspnea, early satiety, and a history of significant gastrointestinal distress while traveling in [facility], suggests a multifactorial etiology. Given his non-adherence to pantoprazole for known gastritis and his recent travel, both non-infectious and infectious causes are being considered. To investigate a possible infectious source, a stool sample will be collected to screen for bacteria. If the stool studies are negative, we can resume pantoprazole for gastritis. Should symptoms persist despite these measures, a CT scan of the abdomen will be considered for further evaluation. The atelectasis noted on his ER chest x-ray is likely related to his body habitus, and reassurance was provided as his lung exam today is clear. Plan 1. Chest Pain, Abdominal Pain, And Gastr itis - Will obtain a stool sample to investig ate for a possible bacterial cause of his symptoms, potentially acquired during his recent travel to [facility]. - The patient is instructed to hold off on taking pantoprazole until after the stool sample is collected. - If the stool sample testing is positiv e, the underlying infection will be treated. - If testing is negative, will consider restarting pantoprazole for gastritis. - A CT scan of the abdomen may be consid ered if symptoms persist despite negative testing and treatment. 2. Essential Hypertension - Continue lisinopril at the increased d ose of 20 mg daily, as his blood pressure is well-controlled. - The patient was advised to finish his remaining 10 mg tablets by taking two at a time. - A new 90-day prescription for lisinopr il 20 mg has been sent to the pharmacy. 3. Atelectasis - Reassured the patient that this findin g is related to body habitus and his lungs are clear on examination. 4. Psoriatic Arthritis - Patient will continue taking methotrex ate as prescribed. - Follow up with rheumatology in [facility] as scheduled. 5. Health Maintenance - The patient declined the influenza vac cine, citing a history of feeling ill after receiving it in the past. Patient Instructions - Go to the lab to picker packer a stool colle ction kit. - Please ask the lab staff for detailed instructions on how to collect the sample, store it, and return it. - Do not take your stomach acid medicati on (pantoprazole) before you collect the stool sample. - Continue taking your blood pressure me dicine. Your dose has been increased to 20 mg. If you have 10 mg pills left, take two of them together each day until they are gone. - A new prescription for Lisinopril 20 m g has been sent to your pharmacy. - Keep your appointment with the rheumat ologist in September. - We will contact you with your test res ults to determine the next steps. Consent No procedures requiring specific consent were performed during this visit. The patient was counseled on the plan for diagnostic testing including a stool sample, and he agreed to proceed. Patient was informed and verbally consented to the use of an ambient scribe for clinic note documentation during this visit. Total time spent caring for the patient today was 30 minutes. This includes time spent before the visit reviewing the chart, time spent during the visit, and time spent after the visit on documentation, reviewing laboratory results, diagnostic imaging, medications, performing a medically necessary evaluation, counseling on diagnoses, care coordination, ordering appropriate tests, ordering appropriate medications, review of tests performed by other providers, reporting test results with the patient, communication with other healthcare providers. [facility] Medical History (Updated 09/01/25 @ 10:49 by Sonia Bass [facility]) Acid reflux Anxiety Bipolar 1 disorder Depression Hypertension Joint swelling Migraine Psoriasis Psoriatic arthritis Severe sleep apnea Type 2 diabetes mellitus Surgical History No pertinent past surgical history Family History Mother Hypertension Diabetes Thyroid condition Psychiatric diagnosis Father Diabetes Social History Household Members: Other Housing: Homeless Are you a primary career transition specialist to a significant other at home: No Do you presently have visiting nurse or other home services: No 75 years or older and lives alone: No Alcohol intake: never Patient Tobacco Use Status: Never used Tobacco e-Cigarette/Vaping Use: Never Used Second Hand Smoke Exposure: No service: No Current occupational status: unemployed Current occupational exposures/hazards: No Sexual orientation: Unable to collect Gender identity: Unable to collect Cognitive needs: No Hearing needs: No Vision needs: No Questionnaire PHQ-9 Over the last 2 weeks, how often have you been bothered by any of the following problems? 1. Little interest or pleasure in doing things: not at all 2. Feeling down, depressed, or hopeless: not at all 3. Trouble falling or staying asleep, or sleeping too much: not at all 4. Feeling tired or having little energy: not at all 5. Poor appetite or overeating: not at all 6. Feeling bad about yourself - or that you are a failure or have let yourself or your family down: not at all 7. Trouble concentrating on things, such as reading the newspaper or watching television: not at all 8. Moving or speaking so slowly that other people could have noticed. Or the opposite - being so fidgety or restless that you have been moving around a lot more than usual: not at all 9. Thoughts that you would be better off or of hurting yourself in some way: not at all Total score: 0 Depression Screening Interpretation: Negative Depression Screening Done: Yes 11094 - PHQ-9 Billing: Yes Source: Developed by Drs. Wilfredo Antunez, Jose Carlos Cordero and colleagues, with an educational jenny from [employer]. Thrive Questionnaire Date Thrive assessed: 09/01/25 I am a: Patient What is your living situation today?: I do not have a steady places to live I am temporarily staying with others Within the past 12 months, did the food you bought not last and you didn't have the money to get more?: Sometimes True Within the past 12 months, did you worry whether your food would run out before you got money to buy more?: Sometimes True Do you have trouble paying for medicines?: No Do you have trouble getting transportation to medical appointments?: Yes Do you have trouble paying your heating and electricity bill?: No Do you have trouble taking care of your child, family member or friend?: No Do you have trouble with day-to-day activities such as bathing, preparing meals, shopping, managing finances, etc.?: Yes Are you currently unemployed and looking for a job?: Yes Are you interested in more education?: No Currently or been in a relationship where the following occur: No concerns reported THRIVE Score: 4 GARY-7 AMB Questionnaire GARY-7 Date GARY - 7 assessed: 09/01/25 Feeling nervous, anxious, or on edge: 0 = Not at all Not being able to stop or control worryin = Not at all Worrying too much about different things: 0 = Not at all Trouble relaxin = Not at all Being so restless that it is hard to sit still: 0 = Not at all Becoming easily annoyed or irritable: 0 = Not at all Feeling afraid as if something awful might happen: 0 = Not at all Total GARY-7 score (0-4 normal; 5-9 mild; 10-14 moderate; 15-21 severe): 0 Source: Developed by Drs. Wilfredo Antunez, Jose Carlos Cordero and colleagues, with an educational jenny from [employer]. GARY-7 Assessment Billing GARY-7 Assessment Tool: GARY-7 Assessment 45018 Physical exam (Primary Care) Vital Signs: Last Vital Signs Temp 97.6 F 09/01/25 10:37 Pulse 78 09/01/25 10:37 Resp 12 09/01/25 10:37 BP 122/70 09/01/25 10:37 Pulse Ox 98 09/01/25 10:37 Oxygen Delivery Method Room Air 09/01/25 10:37 BMI result Body Mass Index 33.9 Tobacco/Smoking Status: Tobacco use Status Tobacco use date assessed 09/01/25 09/01/25 10:35 Patient Tobacco Use Status Never used Tobacco 09/01/25 10:35 e-Cigarette/Vaping Use Never Used 09/01/25 10:35 PHQ-9: PHQ-9 Score PHQ-9: Total score 0 09/01/25 10:35 Depression Screening Interpretation: Negative Thrive Assessment: Date of Thrive Assessment Date Thrive assessed 09/01/25 09/01/25 10:35 Currently or been in a relationship where the following occur: No concerns reported Coding Level of Care Code Est Pt Level 4 (08125) Complex EM visit Add On G2211 Diagnoses Hospital discharge follow-up Z09 Hypertension complicating diabetes E11.59; I15.2 Gastroesophageal reflux disease with esophagitis without hemorrhage K21.00 Esophagitis bleeding: without hemorrhage Influenza vaccination declined Z28.21 Additional Codes GARY-7 Assessment Billing - GARY-7 Assessment Tool: GARY-7 Assessment 85119 ([id number]) PHQ-9 - 89633 - PHQ-9 Billing: Yes ([id number]) Assessment & Plan Assessment & Plan (1) Hospital discharge follow-up: Code(s): Z09 - Encounter for follow-up examination after completed treatment for conditions other than malignant neoplasm (2) Hypertension complicating diabetes: Comment: He is on lisinopril 10 mg daily. Taking as directed. Goal <130/80 Code(s): E11.59 - Type 2 diabetes mellitus with other circulatory complications; I15.2 - Hypertension secondary to endocrine disorders Category: Medical (3) GERD with esophagitis: Code(s): K21.00 - Gastro-esophageal reflux disease with esophagitis, without bleeding Category: Medical Qualifiers: Esophagitis bleeding: without hemorrhage Qualified Code(s): K21.00 - Gastro-esophageal reflux disease with esophagitis, without bleeding (4) Influenza vaccination declined: Onset Date: ~09/01/25 Code(s): Z28.21 - Immunization not carried out because of patient refusal Category: Medical Plan . Orders: Orders GI Panel Today K21.00 - Gastro-esophageal reflux disease with esophagitis, without bleeding, R19.7 - Diarrhea, unspecified OBSX3 Today K21.00 - Gastro-esophageal reflux disease with esophagitis, without bleeding, R19.7 - Diarrhea, unspecified H pylori Ag Stool Today K21.00 - Gastro-esophageal reflux disease with esophagitis, without bleeding, R19.7 - Diarrhea, unspecified Medications: Refilled lisinopril 20 mg PO DAILY 90 tabs 2RF Discontinued lisinopril Discontinued Reason: Doctor's Order 10 mg PO DAILY 90 tabs 0RF
[2025-09-01 10:37] VITALS: BP 122/70; PULSE 78; RESP 12; TEMP 36.4; O2SAT 98; BMI 33.9
== END 2025-09-01 10:54 | disposition home or self-care (01) ==
LOC: HO.HMCFM 10:31
PROVIDERS: PCP Nurse Practitioner Family; Visit Provider Nurse Practitioner Family
DX: Z09 Encounter for follow-up examination after completed treatment for conditions other than malignant neoplasm (principal); E11.59 Type 2 diabetes mellitus with other circulatory complications; I15.2 Hypertension secondary to endocrine disorders; K21.00 Gastro-esophageal reflux disease with esophagitis, without bleeding; Z28.21 Immunization not carried out because of patient refusal

== ENCOUNTER → 2025-09-01 10:30 | Outpatient (BNVA) | payer OTHER, SELFPAY | PROVIDERS: PCP Nurse Practitioner Family; Visit Provider Nurse Practitioner Family | DX: G47.33 Obstructive sleep apnea (adult) (pediatric) (principal); R07.9 Chest pain, unspecified; L40.50 Arthropathic psoriasis, unspecified; R10.9 Unspecified abdominal pain; J98.11 Atelectasis; E11.59 Type 2 diabetes mellitus with other circulatory complications; I15.2 Hypertension secondary to endocrine disorders; K21.00 Gastro-esophageal reflux disease with esophagitis, without bleeding; R19.7 Diarrhea, unspecified; Z09 Encounter for follow-up examination after completed treatment for conditions other than malignant neoplasm; Z99.89 Dependence on other enabling machines and devices; Z28.21 Immunization not carried out because of patient refusal | CPT/HCPCS: 96127; 99212 ==

== ENCOUNTER 2025-09-04 19:00 | Outpatient (REF) | payer OTHER, SELFPAY ==
[2025-09-05 15:11] LABS: OBS Date 1 11/15/25; OBS Int Ctl Valid YES; OBS Lot 50142; OBS1 NEGATIVE (NEGATIVE); OBS2 NEGATIVE (NEGATIVE); OBS3 NEGATIVE (NEGATIVE)
== END 2025-09-04 19:01 | disposition home or self-care (01) ==
LOC: HO.LNP 19:00
PROVIDERS: Visit Provider Nurse Practitioner Family
DX: K21.00 Gastro-esophageal reflux disease with esophagitis, without bleeding (principal); R19.7 Diarrhea, unspecified
CPT/HCPCS: 82270

== ENCOUNTER 2025-09-05 14:53 | Outpatient (REF) | payer OTHER, SELFPAY ==
[2025-09-06 09:29] LABS: E. coli EAEC Not Detected (Not Detect.); E. coli EPEC Not Detected (Not Detect.); E. coli ETEC Not Detected (Not Detect.); E. coli STEC Not Detected (Not Detect.); Shigella sp./EIEC Not Detected (Not Detect.)
== END 2025-09-05 14:54 | disposition home or self-care (01) ==
LOC: HO.LNP 14:53
PROVIDERS: Visit Provider Nurse Practitioner Family
DX: K21.00 Gastro-esophageal reflux disease with esophagitis, without bleeding (principal); R19.7 Diarrhea, unspecified
CPT/HCPCS: 87338; 87507

== ENCOUNTER 2025-10-18 11:50 | Outpatient (REF) | payer OTHER, SELFPAY ==
[2025-10-18 16:34] LABS: Hematocrit 45.5 % (42.0-52.0); Hemoglobin 15.0 g/dl (14.0-18.0); Mean Corpuscular HGB Conc 33.0 g/dl (31.0-36.0); Mean Corpuscular Hemoglobin 28.7 pg (27.0-33.0); Mean Corpuscular Volume 87.0 fL (80.0-98.0); NRBC Abs Auto 0.000 X10*3/uL (0.0-0.012); NRBC Pct Auto 0.0 /100WBC (0.0-0.2); Platelet Count 232 X10*3/uL (160-400); Red Blood Count 5.23 X10*6/uL (4.60-5.80); White Blood Count 5.8 X10*3/uL (4.8-10.8)
[2025-10-18 17:38] LABS: Microalbum/Creatinine Ratio Ur 10.7 ug/mg cr (<30)
[2025-10-18 17:58] LABS: Albumin Level 4.8 g/dL (3.5-5.0); Alkaline Phosphatase 79 U/L (39-117); Anion Gap 14 (12-20); Aspartate Amino Transferase 45 U/L (5-37); Blood Urea Nitrogen 13 mg/dL (9-16); Calcium 9.6 mg/dL (8.4-10.2); Carbon Dioxide 27 mmol/L (22-29); Chloride 104 mmol/L (96-108); Cholesterol 128 mg/dL (<200); Estimated Glomerular Filt Rate > 60; HDL Cholesterol 31 mg/dL (>40); Potassium 3.9 mmol/L (3.3-5.1); Sodium 141 mmol/L (135-145); Total Protein 8.5 g/dL (6.5-8.0); Triglycerides 126 mg/dL (<150)
[2025-10-18 18:03] LABS: Folate 4.5 ng/mL (> or = 4.0); Vitamin B12 375 pg/mL (200-900)
[2025-10-18 20:58] LABS: Alanine Aminotransferase 72 U/L (0-40)
== END 2025-10-18 11:51 | disposition home or self-care (01) ==
LOC: HO.WFDLDS 11:50
PROVIDERS: PCP Nurse Practitioner Family; Visit Provider Nurse Practitioner Family
DX: Z00.00 Encounter for general adult medical examination without abnormal findings (principal); R42 Dizziness and giddiness; R06.02 Shortness of breath; R07.9 Chest pain, unspecified; L40.50 Arthropathic psoriasis, unspecified; I10 Essential (primary) hypertension; B35.1 Tinea unguium; E11.59 Type 2 diabetes mellitus with other circulatory complications; I15.2 Hypertension secondary to endocrine disorders; E11.69 Type 2 diabetes mellitus with other specified complication; E66.9 Obesity, unspecified; E78.5 Hyperlipidemia, unspecified; F33.1 Major depressive disorder, recurrent, moderate; F41.1 Generalized anxiety disorder; M72.0 Palmar fascial fibromatosis [Dupuytren]; G47.33 Obstructive sleep apnea (adult) (pediatric); L40.9 Psoriasis, unspecified; R11.0 Nausea; Z68.34 Body mass index [BMI] 34.0-34.9, adult; Z28.21 Immunization not carried out because of patient refusal
CPT/HCPCS: 36415; 80053; 80061; 82043; 82306; 82570; 82607; 82746; 83036; 84443; 85027; 96127; 99212; 99395

== ENCOUNTER 2025-10-18 11:50 | Outpatient (AMB) | payer OTHER, SELFPAY ==
--- NOTE | 2025-10-18 11:52 | A.OFFPC_ITS ---
Vital Signs 10/18/25 11:58 Height 5 ft 9 in Weight 233 lb 4 oz BMI 34.4 BP 133/79 Blood Pressure Location Rt brachial Position Sitting Respiration 16 Pulse 83 Pulse Source Pulse Oximeter Temp 97.5 F Temp Source Oral Pulse Oximetry (%) 98 Oxygen Delivery Method Room Air Intake Visit Reasons: CPE (Pt needs to update pcp on insurance) Intake Note: patient here for CPE Lactation Specialist Required: No Allergies No Known Allergies Allergy (Verified 10/18/25 12:08) Medication List - Last Reconciled 10/18/25 by Sonia Bass, [employer]- atorvastatin 40 mg PO BEDTIME baclofen 20 mg PO BID 30 days blood sugar diagnostic (FreeStyle Lite Strips) test 4 times a day blood-glucose meter (Accu-Chek Guide Glucose Meter) As directed blood-glucose sensor (FreeStyle Ernie 3 Sensor device) As directed blood-glucose,chip bin conveyor tender,cont (FreeStyle Ernie 3 [place]) As directed duloxetine 60 mg (3 x 20 mg) PO DAILY 90 days empagliflozin-metformin 5-1,000 mg ER (Synjardy XR) 2 tabs PO QAM fluticasone propionate 50 mcg/actuation 1 spray intranasal BID folic acid 1 mg PO DAILY [Freestyle ernie 3 plus sensor As directed] glimepiride 2 mg PO DAILY glucagon HCl (Glucagon (HCl) Emergency Kit) 1 mg subcut Q20M PRN insulin glargine (Lantus Solostar U-100 Insulin) 45 units (0.45 mL) subcut QPM 3 months insulin lispro (Humalog KwikPen (U-100) Insulin) 5 units (0.05 mL) subcut TID lancets (Accu-Chek Fastclix Lancet Drum) As directed lisinopril 20 mg PO DAILY methotrexate sodium 15 mg (6 x 2.5 mg) PO QWEEK 90 days pantoprazole 40 mg PO DAILY pen needle, diabetic As directed QID propranolol ER 60 mg PO BEDTIME ziprasidone HCl mg PO Tobacco use date assessed: 10/18/25 Dental Screening Dental Screen Date: 10/18/25 Did you have a dental visit in the last 12 months?: No Did you have a dental problem in the last 6 months where you did not have access to dental care?: No Was dental information given to patient?: Patient has dentist HPI HPI Comments History of Present Illness Details 35-year-old male with migraines, hyperte nsion, fatty liver, obesity, balanitis, psoriasis, diabetes type 2 uncontrolled, MDD, GARY, bipolar 1 disorder, hyperlipidemia, microalbuminuria, Dupuytren's contractures bilat, MATEUSZ on CPAP, psoriatic arthritis Social: Grandson born 07/2024, 2 sons (20 y/o and 15 y/o) Surgery: No changes Fhx: Maternal uncle suicide 2024 Health Maintenance: DME -DME Exam 02/17/25 no retinopathy bilat, [facility] Tdap 2018 Flu declined Specialists: Derm Neuro Counselor Reinier [facility] Pain Mgmt Rheum GI History of Present Illness The patient is a 35 year old male presenting for a complete physical exam and to address continued postprandial symptoms. Postprandial Symptoms: - The patient reports that ever since hi s trip to [facility] and a norovirus infection, he has been feeling strange. - He experiences lightheadedness, dizzin ess, chest pain, and shortness of breath every time he eats, regardless of the food type. - He also reports associated stomach terri n and diarrhea after eating. - These symptoms cause him to be fearful of eating and are exacerbating his depression and anxiety. - A referral to gastroenterology was pre viously made, but he was a no-show for the appointment on April 17 because he was still in [facility]. Psoriatic Arthritis: - He was prescribed methotrexate 15 mg w elsy and folic acid 1 mg daily by rheumatology. - He reports he has not started the meth otrexate, as he forgot the medication at home when he traveled and has not taken it since his return. - He has a follow-up appointment with eumatology on the Oct. Hypertension: - At his last office visit, his lisinopr il was increased to 20 mg due to elevate d blood pressure. - He reports no further issues with his blood pressure since the medication change. Diabetes Mellitus: - His current medications include Synjar dy, glimepiride, insulin glargine, and insulin lispro. - He reports his blood sugars are no home dory in the 300-400 range but are around 150 after eating. - He has an upcoming appointment with a nurse informatics educator. Mental Health: - He has a history of major depressive d isorder and generalized anxiety disorder. - He states his new physical symptoms ar e worsening his depression and anxiety. - He reports feeling depressed and no lo nger feeling happy about the holidays. - He actively follows up with a therapis t every two weeks and has a separate provider for medication management, with whom he is satisfied. - His maternal uncle, who had PTSD, rece ntly from an accidental medication overdose, adding to his distress during the holidays. Past Medical History - Migraines - Hypertension - Fatty liver - Obesity - Psoriasis - Type 2 Diabetes Mellitus - Major depressive disorder - Generalized anxiety disorder - Hyperlipidemia - Microalbuminuria - Obstructive sleep apnea on CPAP - Psoriatic arthritis - Recent emergency room visit for Norovi pavan infection. Past Surgical History - No new surgical procedures reported. Family History - A maternal uncle with a history of PTS D and liver disease approximately a month and a half ago due to an accidental medication overdose. Social History - The patient recently traveled to [facility]. - He is a grandfather. - He reports being mostly homebound, onl y leaving his home for appointments. - He follows up with a therapist every t wo weeks for his mental health. - There was a recent loss in the family. Health Maintenance - Ordered annual screening labs includin g a lipid panel, microalbumin, TSH, vitamin B12, and vitamin D to be done today. Review of Systems - Constitutional: Reports feeling weird and different and generally unwell. - Cardiovascular: Reports postprandial c hest pain. - Respiratory: Reports postprandial dysp nicole. - Gastrointestinal: Reports postprandial stomach pain and diarrhea. - Neurological: Reports postprandial lig htheadedness and dizziness. - Psychiatric: Reports exacerbation of d epression and anxiety, and fear of eating due to physical symptoms. Physical Exam General: Well developed, well nourished, in no acute distress. Appears stated age. Head: Normocephalic, atraumatic. Eyes: Pupils are equal, round and reactive to light and accommodation. Conjunctivae are clear. Scleras nonicteric bilat. Vision grossly normal. Ears: TMs clear AU, EACS WNL Nose: Patent, without discharge. Neck: No carotid bruit bilat. Supple, no adenopathy or thyromegaly. Breast: Edu on SBE Lungs: Clear to auscultation bilaterally. No rales, rhonchi or wheeze noted. Good air flow in all tolentino. Heart: Regular rate and rhythm. No murmurs, click, rubs or gallops are noted. Abdomen: Bowel sounds present in all quadrants. The abdomen is soft, nontender, with no masses or organomegaly noted. No hernias are noted. : Deferred. Reviewed EDILIA & recommendations Pulses: Peripheral pulses are equal and palpable bilaterally. Extremities: No clubbing, cyanosis nor edema is noted. Dupuytren's contractures of bilat hands. Normal vibratory and monofilament bilat Neurologic: Gait and station normal. Cranial Nerves 2-12 intact. Motor strength grossly symmetrical and intact. No sensory loss. Balance normal. Skin: No rashes, ulcers, or lesions noted. Turgor is good. Skin color is good. Hair and nails are without abnormalities, although there is a slight yellow discoloration on the toenails, suggestive of a fungal infection. Psoriatic rash on scalp behind ears on abdomen Psych: Normal eye contact, affect and mood appropriate, and normal interactions. Patient is alert and appropriate to context. Reports feeling depressed and anxious, particularly related to recent gastrointestinal symptoms and family loss. Results Labs pending Medical Decision Making The patient is a 35-year-old male with a complex polysystemic medical history who presents for a physical exam and evaluation of new, distressing postprandial symptoms. His symptoms, including lightheadedness, dizziness, chest pain, dyspnea, and diarrhea, began after a trip to [facility] and a norovirus infection. These symptoms occur after any food intake and are significantly impacting his quality of life and exacerbating his underlying anxiety and depression. Given his history of fatty liver with elevated liver enzymes and the new severe gastrointestinal symptoms, the primary concern is to rule out a significant underlying GI pathology. Therefore, I have strongly recommended he follow up with Gastroenterology; a referral is active, but he previously missed an appointment. The symptoms are not related to methotrexate, as he has not yet started this medication for his psoriatic arthritis. I have encouraged him to begin the methotrexate as prescribed by rheumatology, and we reviewed the necessity of concurrent folic acid supplementation. His hypertension is now controlled following a recent dose increase of lisinopril. We will obtain routine screening labs today, including a check of his folate level prior to initiating methotrexate. His mental health is stable, with consistent follow-up, though it is being strained by his physical symptoms and a recent family . The onychomycosis noted on exam was addressed with a recommendation for OTC topical treatment, and its link to diabetes was discussed as further motivation for glycemic control. Plan 1. Postprandial Symptoms - The patient was strongly advised to fo llow up with Gastroenterology to investigate his symptoms of post-meal lightheadedness, chest pain, dizziness, dyspnea, and diarrhea. - He was instructed to obtain his active referral information from the front clerk to schedule this appointment. 2. Psoriatic Arthritis - The patient was advised to begin his p rescribed regimen of methotrexate 15 mg weekly and folic acid 1 mg daily. - He will follow up with his rheumatolog ist on the . - A baseline folic acid level was orderyolanda ayala. 3. Hypertension - Continue lisinopril 20 mg daily, as hi s blood pressure is well-controlled at 133/79 mmHg. 4. Type 2 Diabetes Mellitus - The patient has a scheduled appointmen t with a nurse informatics educator next month. 5. Onychomycosis - Recommended aeww-krq-rorajfs topical a ntifungal nail treatment. 6. Mental Health - Continue regular follow-up with his [facility] team, including therapy every two weeks and medication management appointments. 7. Declined Flu shot, labs ordered. Will est care w/ dentist, last exam > 10 years ago. Eye exam UTD 2024. Patient Instructions - Go to the lab to get your blood work d one today. - It is very important that you call the stomach specialist (gastroenterology) to make an appointment. Before you leave today, ask the front clerk to print the referral information for you, which will have their phone number. - Start taking your methotrexate (15 mg once a week) along with your folic acid (1 mg every day) as prescribed. - Keep your upcoming appointments with mj bond community educator and your arthritis specialist (stock car driver). - For the fungus on your toenails, you c an use an vnas-nqg-tfdgjki antifungal medicine that looks like clear nail kyrgyz. - Continue taking all your other medicat ions as prescribed, including your lisinopril for blood pressure. - RTO 4-6 mo routine fu with labs, capoe venkatesh PRN Consent Patient was informed and verbally consented to the use of an ambient scribe for clinic note documentation during this visit. An additional 15 minutes was spent addressing the problem(s) noted at todays visit. This includes time spent before the visit reviewing the chart, time spent during the visit, and time spent after the visit on documentation reviewing laboratory results, diagnostic imaging, medications, performing a medically necessary evaluation, counseling on diagnoses, care coordination, ordering appropriate tests, ordering appropriate medications, review of tests performed by other providers, reporting test results with the patient, communication with other healthcare providers. [facility] Medical History Psoriatic arthritis Severe sleep apnea Joint swelling Acid reflux Psoriasis Bipolar 1 disorder Depression Anxiety Type 2 diabetes mellitus Hypertension Migraine Surgical History No pertinent past surgical history Family History Mother Hypertension Diabetes Thyroid condition Psychiatric diagnosis Father Diabetes Social History (Updated 10/18/25 @ 11:57 by WILLIAMS Buchanan) Household Members: Other Housing: Homeless Are you a primary physician locums urgent care to a significant other at home: No Do you presently have visiting nurse or other home services: No 75 years or older and lives alone: No Alcohol intake: never Patient Tobacco Use Status: Never used Tobacco e-Cigarette/Vaping Use: Never Used Second Hand Smoke Exposure: No service: No Current occupational status: unemployed Current occupational exposures/hazards: No Sexual orientation: Unable to collect Gender identity: Unable to collect Cognitive needs: No Hearing needs: No Vision needs: No Questionnaire PHQ-9 Over the last 2 weeks, how often have you been bothered by any of the following problems? 1. Little interest or pleasure in doing things: nearly every day 2. Feeling down, depressed, or hopeless: nearly every day 3. Trouble falling or staying asleep, or sleeping too much: nearly every day 4. Feeling tired or having little energy: nearly every day 5. Poor appetite or overeating: nearly every day 6. Feeling bad about yourself - or that you are a failure or have let yourself or your family down: nearly every day 7. Trouble concentrating on things, such as reading the newspaper or watching television: not at all 8. Moving or speaking so slowly that other people could have noticed. Or the opposite - being so fidgety or restless that you have been moving around a lot more than usual: not at all 9. Thoughts that you would be better off or of hurting yourself in some way: not at all Total score: 18 Source: Developed by Drs. Wilfredo Antunez, Ninfa Velázquez, Jose Carlos Worley and colleagues, with an educational jenny from [employer]. Thrive Questionnaire Date Thrive assessed: 10/18/25 I am a: Patient What is your living situation today?: I do not have a steady places to live I am temporarily staying with others Within the past 12 months, did the food you bought not last and you didn't have the money to get more?: Sometimes True Within the past 12 months, did you worry whether your food would run out before you got money to buy more?: Often true Do you have trouble paying for medicines?: Yes Do you have trouble getting transportation to medical appointments?: Yes Do you have trouble paying your heating and electricity bill?: No Do you have trouble taking care of your child, family member or friend?: No Do you have trouble with day-to-day activities such as bathing, preparing meals, shopping, managing finances, etc.?: Yes Are you currently unemployed and looking for a job?: Yes Are you interested in more education?: No Please select the resources that you would like help with: Paying for medicine, Transportation, Daily support and Job search/training Currently or been in a relationship where the following occur: No concerns reported THRIVE Score: 4 AUDIT C Alcohol Use Questionnaire (AUDIT-C) 1. How often do you have a drink containing alcohol?: Never 3. How often do you have six or more drinks on one occasion?: Never Total Score: 0 Score Reviewed/Action Taken: Yes GARY-7 AMB Questionnaire GARY-7 Date GARY - 7 assessed: 10/18/25 Feeling nervous, anxious, or on edge: 3 = Nearly every day Not being able to stop or control worryin = Nearly every day Worrying too much about different things: 3 = Nearly every day Trouble relaxin = More than half the days Being so restless that it is hard to sit still: 2 = More than half the days Becoming easily annoyed or irritable: 3 = Nearly every day Feeling afraid as if something awful might happen: 3 = Nearly every day Total GARY-7 score (0-4 normal; 5-9 mild; 10-14 moderate; 15-21 severe): 19 Source: Developed by Drs. Wilfredo Antunez, Ninfa Velázquez, Jose Carlos Worley and colleagues, with an educational jenny from [employer]. GARY-7 Assessment Billing GARY-7 Assessment Tool: GARY-7 Assessment 98925 Physical exam (Primary Care) Vital Signs: Last Vital Signs Temp 97.5 F 10/18/25 11:58 Pulse 83 10/18/25 11:58 Resp 16 10/18/25 11:58 BP 133/79 10/18/25 11:58 Pulse Ox 98 10/18/25 11:58 Oxygen Delivery Method Room Air 10/18/25 11:58 BMI result Body Mass Index 34.4 BMI Assessment/Plan discussion: High BMI High, discussed plan: lifestyle Tobacco/Smoking Status: Tobacco use Status Tobacco use date assessed 10/18/25 10/18/25 11:58 Patient Tobacco Use Status Never used Tobacco 10/18/25 11:57 e-Cigarette/Vaping Use Never Used 10/18/25 11:57 Thrive Assessment: Date of Thrive Assessment Date Thrive assessed 12/22/24 10/18/25 11:55 Currently or been in a relationship where the following occur: No concerns reported Office Procedures Diabetic Foot Exam G9226 - Diabetic Foot Exam Coding Level of Care Code Est Pt Level 2 (40236) Est Pt Prev Care 18-39y(49699) Diagnoses Adult general medical exam Z00.00 Type 2 diabetes with complication E11.8 Hypertension complicating diabetes E11.59; I15.2 Type 2 diabetes mellitus with obesity E11.69; E66.9 Hyperlipidemia associated with type 2 diabetes mellitus E11.69; E78.5 Laboratory exam ordered as part of routine general medical examination Z00.00 Obesity (BMI 30-39.9) E66.9 Moderate episode of recurrent major depressive disorder F33.1 Active/Remission status: currently active Major depression episode severity: moderate Major depression recurrence: recurrent GARY (generalized anxiety disorder) F41.1 Diabetic eye exam Z01.00; E11.9 Dupuytren's contracture of both hands M72.0 MATEUSZ (obstructive sleep apnea) G47.33 Psoriasis L40.9 Postprandial nausea R11.0 CPT Codes Diabetic Foot Exam - CPT: G9226 - Diabetic Foot Exam ([id number]) Additional Codes GARY-7 Assessment Billing - GARY-7 Assessment Tool: GARY-7 Assessment 75929 ([id number]) Assessment & Plan Assessment & Plan (1) Adult general medical exam: Onset Date: ~10/18/25 Code(s): Z00.00 - Encounter for general adult medical examination without abnormal findings Category: Medical (2) Type 2 diabetes with complication: Comment: Plan: Continue Lantus 45 units daily, Synjardy XR 5-1000 mg 2 tablets p.o. in the morning. diabetic eye exam 02/2025 negative for retinopathy Add pioglitazone 15mg - gave him side effects. Stopped 08/2024 Start Glipizide ER 2.5 mg po QD, titrate - took one time caused hypoglycemia ^ glimperide 2mg, titrate - Add Lispro 5 units TID/with meals Active with nurse navigation team. Code(s): E11.8 - Type 2 diabetes mellitus with unspecified complications Category: Medical (3) Hypertension complicating diabetes: Comment: Goal <130/80 Code(s): E11.59 - Type 2 diabetes mellitus with other circulatory complications; I15.2 - Hypertension secondary to endocrine disorders Category: Medical (4) Type 2 diabetes mellitus with obesity: Comment: His BMI remains high. We will need to continue to encourage weight loss once his disease is stable BMI >34 Code(s): E11.69 - Type 2 diabetes mellitus with other specified complication; E66.9 - Obesity, unspecified Category: Medical (5) Hyperlipidemia associated with type 2 diabetes mellitus: Comment: LDL goal < 70 On Atorvastatin 40mg QD Code(s): E11.69 - Type 2 diabetes mellitus with other specified complication; E78.5 - Hyperlipidemia, unspecified Category: Medical (6) Laboratory exam ordered as part of routine general medical examination: Code(s): Z00.00 - Encounter for general adult medical examination without abnormal findings Category: Medical (7) Obesity (BMI 30-39.9): Code(s): E66.9 - Obesity, unspecified Category: Medical (8) MDD (major depressive disorder): Code(s): F32.9 - Major depressive disorder, single episode, unspecified Category: Medical Qualifiers: Active/Remission status: currently active Major depression episode severity: moderate Major depression recurrence: recurrent Qualified Code(s): F33.1 - Major depressive disorder, recurrent, moderate (9) GARY (generalized anxiety disorder): Code(s): F41.1 - Generalized anxiety disorder Category: Medical (10) Diabetic eye exam: Onset Date: ~02/2025 Code(s): Z01.00 - Encounter for examination of eyes and vision without abnormal findings; E11.9 - Type 2 diabetes mellitus without complications Category: Medical (11) Dupuytren's contracture of both hands: Comment: edu on condition. i do not think OT referral is appropriate at this time given transportation issues. Reports + pain relief in pain w/ Naproxen. Code(s): M72.0 - Palmar fascial fibromatosis [Dupuytren] Category: Medical (12) MATEUSZ (obstructive sleep apnea): Comment: Home sleep study results from 02/03/2024 show obstructive sleep apnea, moderately severe, total sleep time AHI 21.5, predominantly in supine position, but even in lateral position there is significant degree of sleep apnea. Nocturnal hypoxemia with average O2 sat 93, lowest O2 sat 64 and O2 sat below 88% for 49 minutes. Code(s): G47.33 - Obstructive sleep apnea (adult) (pediatric) Category: Medical (13) Psoriasis: Code(s): L40.9 - Psoriasis, unspecified Category: Medical (14) Postprandial nausea: Code(s): R11.0 - Nausea Category: Medical Plan . Orders: Orders Comprehensive Met. Panel Today E11.59 - Type 2 diabetes mellitus with other circulatory complications, E11.69 - Type 2 diabetes mellitus with other specified complication, E11.8 - Type 2 diabetes mellitus with unspecified complications, E66.9 - Obesity, unspecified, E78.5 - Hyperlipidemia, unspecified, I15.2 - Hypertension secondary to endocrine disorders, Z00.00 - Encounter for general adult medical examination without abnormal findings Vitamin D 25-OH Total Today E11.59 - Type 2 diabetes mellitus with other circulatory complications, E11.69 - Type 2 diabetes mellitus with other specified complication, E11.8 - Type 2 diabetes mellitus with unspecified complications, E66.9 - Obesity, unspecified, E78.5 - Hyperlipidemia, unspecified, I15.2 - Hypertension secondary to endocrine disorders, Z00.00 - Encounter for general adult medical examination without abnormal findings Comprehensive Met. Panel 4 Months E11.59 - Type 2 diabetes mellitus with other circulatory complications, E11.69 - Type 2 diabetes mellitus with other specified complication, E11.8 - Type 2 diabetes mellitus with unspecified complications, E78.5 - Hyperlipidemia, unspecified, I15.2 - Hypertension secondary to endocrine disorders Lipid Panel 4 Months E11.59 - Type 2 diabetes mellitus with other circulatory complications, E11.69 - Type 2 diabetes mellitus with other specified complication, E11.8 - Type 2 diabetes mellitus with unspecified complications, E78.5 - Hyperlipidemia, unspecified, I15.2 - Hypertension secondary to endocrine disorders Microalbumin, Random (w Creat) 4 Months E11.59 - Type 2 diabetes mellitus with other circulatory complications, E11.69 - Type 2 diabetes mellitus with other specified complication, E11.8 - Type 2 diabetes mellitus with unspecified complications, E78.5 - Hyperlipidemia, unspecified, I15.2 - Hypertension secondary to endocrine disorders Hemoglobin A1c Today E11.59 - Type 2 diabetes mellitus with other circulatory complications, E11.69 - Type 2 diabetes mellitus with other specified complication, E11.8 - Type 2 diabetes mellitus with unspecified complications, E66.9 - Obesity, unspecified, E78.5 - Hyperlipidemia, unspecified, I15.2 - Hypertension secondary to endocrine disorders, Z00.00 - Encounter for general adult medical examination without abnormal findings Complete Blood Count no Diff Today E11.59 - Type 2 diabetes mellitus with other circulatory complications, E11.69 - Type 2 diabetes mellitus with other specified complication, E11.8 - Type 2 diabetes mellitus with unspecified complications, E66.9 - Obesity, unspecified, E78.5 - Hyperlipidemia, unspecified, I15.2 - Hypertension secondary to endocrine disorders, Z00.00 - Encounter for general adult medical examination without abnormal findings Lipid Panel Today E11.59 - Type 2 diabetes mellitus with other circulatory complications, E11.69 - Type 2 diabetes mellitus with other specified complication, E11.8 - Type 2 diabetes mellitus with unspecified complications, E66.9 - Obesity, unspecified, E78.5 - Hyperlipidemia, unspecified, 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 - Hypertension secondary to endocrine disorders, Z00.00 - Encounter for general adult medical examination without abnormal findings Microalbumin, Random (w Creat) Today E11.59 - Type 2 diabetes mellitus with other circulatory complications, E11.69 - Type 2 diabetes mellitus with other specified complication, E11.8 - Type 2 diabetes mellitus with unspecified complications, E66.9 - Obesity, unspecified, E78.5 - Hyperlipidemia, unspecified, I15.2 - Hypertension secondary to endocrine disorders, Z00.00 - Encounter for general adult medical examination without abnormal findings TSH reflex Free T4 Today E11.59 - Type 2 diabetes mellitus with other circulatory complications, E11.69 - Type 2 diabetes mellitus with other specified complication, E11.8 - Type 2 diabetes mellitus with unspecified complications, E66.9 - Obesity, unspecified, E78.5 - Hyperlipidemia, unspecified, I15.2 - Hypertension secondary to endocrine disorders, Z00.00 - Encounter for general adult medical examination without abnormal findings Vitamin B12 and Folate Today E11.59 - Type 2 diabetes mellitus with other circulatory complications, E11.69 - Type 2 diabetes mellitus with other specified complication, E11.8 - Type 2 diabetes mellitus with unspecified complications, E66.9 - Obesity, unspecified, E78.5 - Hyperlipidemia, unspecified, I15.2 - Hypertension secondary to endocrine disorders, Z00.00 - Encounter for general adult medical examination without abnormal findings Patient Instructions: Health screenings for men You should visit your health care provider regularly, even if you feel healthy. The purpose of these visits is to: Screen for medical issues Assess your risk for future medical problems Encourage a healthy lifestyle Update vaccinations and other preventive care services Help you get to know your provider in case of an illness Information Even if you feel fine, you should still see your provider for regular checkups. These visits can help you avoid problems in the future. For example, the only way to find out if you have high blood pressure is to have it checked regularly. High blood sugar and high cholesterol level also may not have any symptoms in the early stages. Simple blood tests can check for these conditions. There are specific times when you should see your provider or receive specific health screenings. The [place] Preventive Services Task Force publishes a list of recommended screenings. Below are screening guidelines for men ages 40 to 64. BLOOD PRESSURE SCREENING Have your blood pressure checked at least once every year. Watch for blood pressure screenings in your area. Ask your provider if you can stop in to have your blood pressure checked. Ask your provider if you need your blood pressure checked more often if: You have diabetes, heart disease, kidney problems, or are overweight or have certain other health conditions You have a first-degree relative with high blood pressure You are Black Your blood pressure top number is from 120 to 129 mm Hg, or the bottom number is from 70 to 79 mm Hg If the top number is 130 mm Hg or greater or the bottom number is 80 mm Hg or greater, this is considered stage 1 hypertension. Schedule an appointment with your provider to learn how you can lower your blood pressure. Effects of age on blood pressure CHOLESTEROL SCREENING Cholesterol screening should begin at age 35 for men with no known risk factors for coronary heart disease. Repeat cholesterol screening should take place: Every 5 years for men with normal cholesterol levels More often if changes occur in lifestyle (including weight gain and diet) More often if you have diabetes, heart disease, kidney problems, or certain other conditions COLORECTAL CANCER SCREENING If you are under age 45, talk to your provider about getting screened. You may need to be screened if you have a strong family history of colon cancer or polyps. Screening may also be considered if you have risk factors such as a history of inflammatory bowel disease or polyps. If you are age 45 to 75, you should be screened for colorectal cancer. There are several screening tests available: A stool-based fecal occult blood (gFOBT) or fecal immunochemical test (FIT) every year A stool sDNA test every 1 to 3 years Flexible sigmoidoscopy every 5 years or every 10 years with stool testing FIT done every year CT colonography (virtual colonoscopy) every 5 years Colonoscopy every 10 years You may need a colonoscopy more often if you have risk factors for colorectal cancer, such as: Ulcerative colitis A personal or family history of colorectal cancer A history of growths in your colon called adenomatous polyps DENTAL EXAM Go to the dentist once or twice every year for an exam and cleaning. Your dentist will evaluate if you have a need for more frequent visits. DIABETES SCREENING All adults who do not have risk factors for diabetes should be screened starting at age 35 and repeated every 3 years. If you have other risk factors for diabetes, such as a first degree relative with diabetes, overweight or obesity, high blood pressure, prediabetes, or a hi story of heart disease, you may be tested more often. If you are overweight and have other risk factors, such as high blood pressure and are planning to become , screening is recommended. EYE EXAM Have an eye exam every 2 to 4 years ages 40 to 54 and every 1 to 3 years ages 55 to 64. Your provider may recommend more frequent eye exams if you have vision problems or glaucoma risk. Have an eye exam that includes an examination of your retina (back of your eye) at least every year if you have diabetes. IMMUNIZATIONS Commonly needed vaccines include: Flu shot: get one every year COVID-19 vaccine: ask your provider what is best for you Tetanus-diphtheria and acellular pertussis (Tdap) vaccine: have as one of your tetanus-diphtheria vaccines if you did not receive it as an adolescent Tetanus-diphtheria: have a booster (or Tdap) every 10 years Varicella vaccine: receive 2 doses if you never had chickenpox or the varicella vaccine and were born in 1980 or after Hepatitis B vaccine: receive 2, 3, or 4 doses, depending on your exact circumstances, if you did not receive these as a child or adolescent, until age 59 Shingles (herpes zoster) vaccine: at or after age 50 Ask your provider if you should receive other immunizations, especially if you have certain medical conditions, such as diabetes or are at increased risk for some diseases such as pneumonia. INFECTIOUS DISEASE SCREENING Screening for hepatitis C: all adults ages 18 to 79 should get a one-time test for hepatitis C. Screening for human immunodeficiency virus (HIV): all people ages 15 to 65 should get a one-time test for HIV. Depending on your lifestyle and medical history, you may need to be screened for infections such as syphilis, chlamydia, and other infections. LUNG CANCER SCREENING You should have an annual screening for lung cancer with low-dose computed tomography (LDCT) if: You are age 50 to 80 years AND You have a 20 pack-year smoking history AND You currently smoke or have quit within the past 15 years OSTEOPOROSIS SCREENING If you are age 50 to 64 and have risk factors for osteoporosis, you should discuss screening with your provider. Risk factors can include long-term steroid use, low body weight, smoking, heavy alcohol use, having a fracture after age 50, or a family history of hip fracture or osteoporosis. Osteoporosis PHYSICAL EXAM All adults should visit their provider from time to time, even if they are healthy. The purpose of these visits is to: Screen for diseases Assess risk of future medical problems Encourage a healthy lifestyle Update vaccinations and other preventive care services Maintain a relationship with a provider in case of an illness Your height, weight, and body mass index (BMI) should be checked at every exam. During your exam, your provider may ask you about: Depression and anxiety Diet and exercise Alcohol and tobacco use Safety, such as use of seat belts and smoke detectors Your medicines and risk for interactions PROSTATE CANCER SCREENING If you're 55 through 69 years old, before having the test, talk to your provider about the pros and cons of having a PSA test. Ask about: Whether screening decreases your chance of dying from prostate cancer. Whether there is any harm from prostate cancer screening, such as side effects from testing or overtreatment of cancer when discovered. Whether you have a higher risk of prostate cancer than others. If you are age 55 or younger, screening is not generally recommended. You should talk with your provider about if you have a higher risk for prostate cancer. Risk factors include: Having a family history of prostate cancer (especially a brother or father) Being If you choose to be tested, the PSA blood test is repeated over time (yearly or less often), though the best frequency is not known. Prostate examinations are no longer routinely done on men with no symptoms. Prostate cancer SKIN EXAM Your provider may check your skin for signs of skin cancer, especially if you're at high risk. People at high risk include those who have had skin cancer before, have close relatives with skin cancer, or have a weakened immune system. TESTICULAR EXAM The [place] Preventive Services Task Force (USPSTF) now recommends against performing testicular self-exams. Doing testicular self-exams has been shown to have little to no benefit.
[2025-10-18 11:58] VITALS: BP 133/79; PULSE 83; RESP 16; TEMP 36.4; O2SAT 98; BMI 34.4
== END 2025-10-18 12:30 | disposition home or self-care (01) ==
LOC: HO.HMCFM 11:51
PROVIDERS: PCP Nurse Practitioner Family; Visit Provider Nurse Practitioner Family
DX: Z00.00 Encounter for general adult medical examination without abnormal findings (principal); E11.59 Type 2 diabetes mellitus with other circulatory complications; F33.1 Major depressive disorder, recurrent, moderate; I15.2 Hypertension secondary to endocrine disorders; E78.5 Hyperlipidemia, unspecified; E66.9 Obesity, unspecified; Z68.34 Body mass index [BMI] 34.0-34.9, adult; F41.1 Generalized anxiety disorder; M72.0 Palmar fascial fibromatosis [Dupuytren]; G47.33 Obstructive sleep apnea (adult) (pediatric); L40.9 Psoriasis, unspecified